=== PATIENT | female | born 1945 | race Caucasian/White ===

== ENCOUNTER 2017-01-12 13:22 | Emergency (ER) | payer MEDICARE ==
[~2017-01-12] VITALS: Ht 162.6 cm; Wt 60.6 kg
[~2017-01-12 13:22] MED LIST: CALC750T PO; FISH100020 PO; LEVO25TA36 PO; LIOT5 PO; LORT7.5T3 PO; MOTR200T PO; MS C60TA4 PO; NEUR800T PO; WOMETAB5 PO
[2017-01-12 13:38] VITALS: BP 98/59; PULSE 88; RESP 16; TEMP 98.6; O2SAT 97
[2017-01-12] MEDS ORDERED: XARE10TA PO (13:58)
[2017-01-12] MEDS ORDERED: HYDR-2376 PO (13:58)
[2017-01-12] MEDS ORDERED: LIOT5TAB3 PO (13:58)
[2017-01-12] MEDS ORDERED: LEVO150T7 PO (13:58)
[2017-01-12] MEDS ORDERED: GABA400C5 PO (13:58)
[2017-01-12] MEDS ORDERED: [UNRECOGNIZED DRUG - CODE] CHEW (13:58)
[2017-01-12] MEDS ORDERED: MORP1TAB26 PO (13:58)
[2017-01-12] MEDS ORDERED: SODIUM CHLORIDE 0.9% FLUSH 10 ML FLUSH IV FLUSH PRN (14:00)
--- NOTE | 2017-01-12 14:01 | PD ---
HPI Chief Complaint: Edema Time Seen by Provider: 14:00 Travel History International Travel<30 days: No Contact w/Intl Traveler<30days: No Traveled to known affect area: No History of Present Illness HPI 71-year-old female presents the emergency department for evaluation of swelling and pain of the left lower extremity secondary to recent knee replacement 6 days prior to arrival. Patient is on Zaroxolyn was concerned about possible DVT. Patient denies fevers in the last 48 hours. Patient does state a small fever on 3 days ago, but none since. Patient states home health nurse assessed the wound earlier today, and felt that she should be evaluated due to the increasing swelling in the leg. Dr. Layton is her orthopedic surgeon who recommended her coming to the emergency department. Patient is currently not on antibiotics. She is allergic to penicillin and adhesives. PFSH Past Medical History Hx Anticoagulant Therapy: Yes Arthritis: Yes (ALL OVER) Asthma: No Autoimmune Disease: No Blood Disorders: No Anxiety: No Depression: No Heart Rhythm Problems: No Cancer: Yes (BREAST) Cardiovascular Problems: No High Cholesterol: No Chest Pain: No Congestive Heart Failure: No COPD: No Cerebrovascular Accident: No Diabetes: No Diminished Hearing: No Endocrine: Yes Gastrointestinal Disorders: Yes GERD: No Glaucoma: No Genitourinary: No Headaches: No Hepatitis: No Hiatal Hernia: Yes Heparin Induced Thrombocytopen: No Hypertension: No Immune Disorder: No Implanted Vascular Access Dvce: No Kidney Stones: No Musculoskeletal: Yes (SCOLIOSIS) Neurologic: No Psychiatric: No Reproductive: No Respiratory: No Migraines: No Myocardial Infarction: No Radiation Therapy: Yes (5 YEAR AGO) Renal Failure: No Seizures: No Sickle Cell Disease: No Sleep Apnea: No Thyroid Disease: Yes Ulcer: No Tetanus Vaccination: Unknown ?: Not Menopausal: Yes Past Surgical History Abdominal Surgery: No AICD: No Appendectomy: Yes Arteriovenous Shunt: No Cardiac Surgery: No Cholecystectomy: Yes Gynecologic Surgery: Yes (SPINAL FUSION) Hysterectomy: Yes Insulin Pump: No Joint Replacement: No Oral Surgery: Yes (LTK) Pacemaker: No Thoracic Surgery: No Other Surgery: Yes (LUMPECTOMY) Social History Alcohol Use: Yes (SOCIAL DRINKER) Tobacco Use: Yes (1/2 PACK PER DAY. THIS AM ABOUT 0715) Substance Use: No Allergies-Medications (Allergen,Severity, Reaction): Coded Allergies: Penicillin (Verified Allergy, Severe, THROAT CLOSES, 01/12/17) Adhesives (Verified Allergy, Unknown, 01/12/17) Reported Meds & Prescriptions Reported Meds & Active Scripts Active Cipro (Ciprofloxacin HCl) 500 Mg Tab 500 Mg PO BID Reported Chewable Calcium (Calcium-Vitamins D & K) 500-200-40 Mg-Unit-Mcg Chew 1 Tab CHEW Morphine ER (Morphine Sulfate) 60 Mg Tab 60 Mg PO BID Gabapentin 400 Mg Cap 400 Cap PO QID Hydrocodone-Acetaminophen 7.5-300 Mg Tab 1 Tab PO Q4H PRN Levothyroxine (Levothyroxine Sodium) 150 Mcg Tab 150 Mcg PO DAILY Liothyronine (Liothyronine Sodium) 5 Mcg Tab 5 Mcg PO DAILY Xarelto (Rivaroxaban) 10 Mg Tab 10 Mg PO DAILY Review of Systems Except as stated in HPI: all other systems reviewed are Neg General / Constitutional: No: Fever Eyes: No: Visual changes HENT: No: Headaches Cardiovascular: No: Chest Pain or Discomfort Respiratory: No: Shortness of Breath Gastrointestinal: No: Abdominal Pain Genitourinary: No: Dysuria Musculoskeletal: No: Pain Skin: No Rash Neurologic: No: Weakness Psychiatric: No: Depression Endocrine: No: Polydipsia Hematologic/Lymphatic: No: Easy Bruising Physical Exam Narrative GENERAL: Patient appears no acute distress. SKIN: Warm and dry. Normal color. Normal turgor. Skin around the left knee incision site appears somewhat erythematous and warm to the touch and tender as well. Incision itself appears to be well healing without dehiscence or significant signs of drainage. There is localized swelling, erythema, and warmth. HEAD: Atraumatic. Normocephalic. EYES: Pupils equal and round. No scleral icterus. No injection or drainage. ENT: No nasal bleeding or discharge. Mucous membranes pink and moist. Pharynx is normal. NECK: Trachea midline. Supple nontender. CARDIOVASCULAR: Regular rate and rhythm. No murmurs gallops or rubs. RESPIRATORY: No accessory muscle use. Clear to auscultation. Breath sounds equal bilaterally. MUSCULOSKELETAL: Extremities without clubbing, cyanosis, or edema. No obvious deformities. Right leg has swelling around the knee incision site mainly but not significantly in the calf or lower leg. Patient has negative Homans sign on the left. Pulses are 2+ and equal bilaterally in the lower extremities. Capillary refill is brisk. NEUROLOGICAL: Awake and alert. No obvious cranial nerve deficits. Motor grossly within normal limits. Five out of 5 muscle strength in the arms and legs. Normal speech. PSYCHIATRIC: Appropriate mood and affect; insight and judgment normal. Data Data Last Documented VS Vital Signs Date Time Temp Pulse Resp B/P Pulse Ox O2 Delivery O2 Flow Rate FiO2 01/12/17 14:17 95 16 97 Room Air 01/12/17 13:38 98.6 98/59 Orders Complete Blood Count With Diff (01/12/17 13:55) Comprehensive Metabolic Panel (01/12/17 13:55) Lactic Acid (01/12/17 13:55) Prothrombin Time / Inr (Pt) (01/12/17 13:55) Act Partial Throm Time (Ptt) (01/12/17 13:55) Iv Access Insert/Monitor (01/12/17 13:55) Ecg Monitoring (01/12/17 13:55) Oximetry (01/12/17 13:55) Sodium Chloride 0.9% Flush (Ns Flush) (01/12/17 14:00) Blood Culture (01/12/17 13:55) Us Leg Venous Doppler (01/12/17 13:55) Labs Laboratory Tests Test 01/12/17 01/12/17 12:19 14:07 White Blood Count 7.5 TH/MM3 Red Blood Count 3.33 MIL/MM3 Hemoglobin 9.6 GM/DL Hematocrit 28.8 % Mean Corpuscular Volume 86.5 FL Mean Corpuscular Hemoglobin 28.7 PG Mean Corpuscular Hemoglobin 33.2 % Concent Red Cell Distribution Width 12.9 % Platelet Count 304 TH/MM3 Mean Platelet Volume 7.3 FL Neutrophils (%) (Auto) 75.6 % Lymphocytes (%) (Auto) 14.5 % Monocytes (%) (Auto) 9.6 % Eosinophils (%) (Auto) 0.1 % Basophils (%) (Auto) 0.2 % Neutrophils # (Auto) 5.7 TH/MM3 Lymphocytes # (Auto) 1.1 TH/MM3 Monocytes # (Auto) 0.7 TH/MM3 Eosinophils # (Auto) 0.0 TH/MM3 Basophils # (Auto) 0.0 TH/MM3 CBC Comment DIFF FINAL Differential Comment Prothrombin Time 11.9 SEC Prothromb Time International 1.1 RATIO Ratio Activated Partial 38.3 SEC Thromboplast Time Sodium Level 139 MEQ/L Potassium Level 4.2 MEQ/L Chloride Level 102 MEQ/L Carbon Dioxide Level 28.7 MEQ/L Anion Gap 8 MEQ/L Blood Urea Nitrogen 13 MG/DL Creatinine 0.57 MG/DL Estimat Glomerular Filtration 104 ML/MIN Rate Random Glucose 129 MG/DL Lactic Acid Level 1.5 mmol/L Calcium Level 8.2 MG/DL Total Bilirubin 0.4 MG/DL Aspartate Amino Transf 46 U/L (AST/SGOT) Alanine Aminotransferase 68 U/L (ALT/SGPT) Alkaline Phosphatase 168 U/L Total Protein 6.4 GM/DL Albumin 2.8 GM/DL MDM Medical Decision Making Medical Screen Exam Complete: Yes Emergency Medical Condition: Yes Differential Diagnosis Postop left knee replacement. Possible DVT. Possible infection. Cellulitis. Narrative Course Patient is medically stable at time of exam. Labs ordered including CBC, CMP, lipase, coagulation studies, blood cultures 2 sent to the lab. Ultrasound of left lower extremity is ordered. CBC, CMP, and lipase are all within normal limits. Ultrasound is negative for DVT but Cueto cyst is noted. Please see radiology note. 1500 hrs., call was placed to Dr. Layton's office to discuss the patient. 1515 hrs. patient was discussed with Yamil STOCKTON, and patient was discussed. He recommends starting the patient on Cipro 500 mg twice a day 7 days. Patient was given her first dose here orally. Patient is to continue her therapy as previously prescribed at home, and follow- up with Dr. Layton's office as scheduled. Patient can return to emergency Department with worsening symptoms as needed. Diagnosis Primary Impression: Cellulitis of left knee Additional Impression: Status post total knee replacement, left Referrals: Orthopedist Patient Instructions: General Instructions Additional Instructions: CBC, CMP, and lipase are all within normal limits. Ultrasound is negative for DVT but Cueto cyst is noted. Please see radiology note. 1500 hrs., call was placed to Dr. Layton's office to discuss the patient. 1515 hrs. patient was discussed with Yamil STOCKTON, and patient was discussed. He recommends starting the patient on Cipro 500 mg twice a day 7 days. Patient was given her first dose here orally. Patient is to continue her therapy as previously prescribed at home, and follow- up with Dr. Layton's office as scheduled. Patient can return to emergency Department with worsening symptoms as needed. Med/Other Pt SpecificInfo: Prescription(s) given, Wound Care Scripts Ciprofloxacin (Cipro)500 Mg Fda307 Mg PO BID #14 TAB Prov:Lynnette Garcia MD 01/12/17 Disposition: 01 DISCHARGE HOME Condition: Stable Chet Qiu Jan 12, 2017 14:01
[2017-01-12 14:16] VITALS: O2SAT 97
[2017-01-12 14:18] LABS: AUTOMATED NEUTROPHIL # 5.7 TH/MM3 (1.8-7.7); BASOPHIL % 0.2 % (0.0-2.0); EOSINOPHIL % 0.1 % (0.0-4.0); HEMATOCRIT 28.8 % (35.0-46.0); HEMO FLAGS DIFF FINAL; LYMPH % 14.5 % (9.0-44.0); LYMPHOCYTE # 1.1 TH/MM3 (1.0-4.8); MEAN CELL VOLUME 86.5 FL (80.0-100.0); MEAN CORPUSCULAR HEMOGLOBIN 28.7 PG (27.0-34.0); MEAN CORPUSCULAR HGB CONC 33.2 % (32.0-36.0); MONO % 9.6 % (0.0-8.0); NEUT % 75.6 % (16.0-70.0); PLATELET COUNT 304 TH/MM3 (150-450); RED BLOOD COUNT 3.33 MIL/MM3 (4.00-5.30); RED CELL DISTRIBUTION WIDTH 12.9 % (11.6-17.2); WHITE BLOOD COUNT 7.5 TH/MM3 (4.0-11.0)
[2017-01-12 14:33] LABS: CHLORIDE 102 MEQ/L (98-107); POTASSIUM 4.2 MEQ/L (3.5-5.1); SODIUM (NA) 139 MEQ/L (136-145)
[2017-01-12 14:37] LABS: ANION GAP 8 MEQ/L (5-15); BICARBONATE 28.7 MEQ/L (21.0-32.0); BLOOD UREA NITROGEN 13 MG/DL (7-18)
[2017-01-12 14:38] LABS: APTT (PATIENT) 38.3 SEC (24.3-30.1); INTERNATIONAL NORMALIZED RATIO 1.1 RATIO; PROTHROMBIN TIME - PATIENT 11.9 SEC (9.8-11.6)
[2017-01-12 14:40] LABS: ALT (GPT) 68 U/L (10-53); AST (GOT) 46 U/L (15-37); GLOMERULAR FILTRATION RATE 104 ML/MIN (>89)
--- NOTE | 2017-01-12 14:40 | RADHPO ---
EXAM DATE/TIME: 01/12/2017 14:15 [facility] COMPARISON: No previous studies available for comparison. INDICATIONS : Post total knee replacement six days ago; pain and swelling left leg. MEDICAL HISTORY : Carcinoma, breast. Hernia. Scoliosis. Thyroid disease. SURGICAL HISTORY : Hysterectomy. Appendectomy. Cholecystectomy. Spinal fusion. Breast lumpectomy. ENCOUNTER: Initial ACUITY: 1 day PAIN SCORE: 7/10 LOCATION: Left leg. TECHNIQUE: Venous ultrasound of the leg was performed from the inguinal ligament to the proximal calf. Real-allan e, color Doppler and spectral tracing, compression and augmentation techniques were used. FINDINGS: There is normal compressibility of the deep venous system from the inguinal region to the proximal ca lf. No echogenic clot is seen in the lumen of the common femoral, femoral, popliteal, and posterior tibial veins. There is a normal response of the venous system to proximal and distal augmentation an d respiration. There is a small ovoid avascular fluid collection in the medial popliteal fossa measuring 1.7 x 0.4 x 1.5 cm. CONCLUSION: 1. No DVT is identified within the left lower extremity. 2. There is a small Cueto's cyst in the popliteal fossa. Dirk Brown MD on January 12, 2017 at 14:37 Board Certified Radiologist. This report was verified electronically.
[2017-01-12 14:41] LABS: TOTAL BILIRUBIN ADULT 0.4 MG/DL (0.2-1.0)
[2017-01-12 14:43] LABS: ALKALINE PHOSPHATASE 168 U/L (45-117)
[2017-01-12] MEDS ORDERED: CIPR-9 PO (15:16)
[2017-01-12] MEDS ORDERED: CIPROFLOXACIN 500 MG TAB PO ONE (15:30)
[2017-01-12 15:36] VITALS: BP 111/52
== END 2017-01-12 15:52 | disposition home or self-care (01) ==
LOC: PHED 13:22
DX: L03.116 Cellulitis of left lower limb (principal); Z96.652 Presence of left artificial knee joint; M79.605 Pain in left leg
CPT/HCPCS: 80053; 83605; 85025; 85610; 85730; 87040; 93971

== ENCOUNTER 2017-03-26 05:02 | Inpatient (IN) | payer MEDICARE ==
[2017-03-26] VITALS (12 sets, daily range): BP systolic 148–179; BP diastolic 63–94; PULSE 56–150; RESP 16–23; TEMP 97.4–98.2; O2SAT 94–99
[~2017-03-26] VITALS: Ht 157.5 cm; Wt 66.5 kg
[~2017-03-26 05:02] MED LIST changes: -CALC750T PO; +CIPR-9 PO; -FISH100020 PO; +GABA400C5 PO; +HYDR-2376 PO; +LEVO150T7 PO; -LEVO25TA36 PO; -LIOT5 PO; +LIOT5TAB3 PO; -LORT7.5T3 PO; +MORP1TAB26 PO; -MOTR200T PO; -MS C60TA4 PO; -NEUR800T PO; -WOMETAB5 PO; +XARE10TA PO; +[UNRECOGNIZED DRUG - CODE] CHEW
[2017-03-26] MEDS ORDERED: ONDANSETRON HCL 4 MG/2 ML VIAL IVP ONE (05:45)
[2017-03-26] MEDS ORDERED: SODIUM CHLORIDE 0.9% FLUSH 10 ML FLUSH IV FLUSH PRN ×2 (05:45→09:45)
[2017-03-26 06:15] LABS: AUTOMATED NEUTROPHIL # 8.5 TH/MM3 (1.8-7.7); BASOPHIL % 0.4 % (0.0-2.0); EOSINOPHIL % 0.1 % (0.0-4.0); HEMATOCRIT 35.4 % (35.0-46.0); HEMO FLAGS DIFF FINAL; LYMPH % 7.5 % (9.0-44.0); LYMPHOCYTE # 0.7 TH/MM3 (1.0-4.8); MEAN CELL VOLUME 85.1 FL (80.0-100.0); MEAN CORPUSCULAR HEMOGLOBIN 29.2 PG (27.0-34.0); MEAN CORPUSCULAR HGB CONC 34.3 % (32.0-36.0); MONO % 7.6 % (0.0-8.0); NEUT % 84.4 % (16.0-70.0); PLATELET COUNT 253 TH/MM3 (150-450); RED BLOOD COUNT 4.15 MIL/MM3 (4.00-5.30); RED CELL DISTRIBUTION WIDTH 16.6 % (11.6-17.2)
[2017-03-26 06:18] LABS: GLUCOSE,URINE NEG (NEG); KETONE, URINE NEG (NEG); NITRITE,URINE NEG (NEG); PH, URINE 7.5 (5.0-8.5)
[2017-03-26 06:27] LABS: BLOOD, URINE MOD (NEG); CHLORIDE 97 MEQ/L (98-107); POTASSIUM 3.2 MEQ/L (3.5-5.1); SODIUM (NA) 136 MEQ/L (136-145)
[2017-03-26 06:28] LABS: METHOD OF COLLECTION CLEAN CATCH; URINE COLOR YELLOW (YELLW/STRAW)
--- NOTE | 2017-03-26 06:29 | RADRPT ---
EXAM DATE/TIME: 03/26/2017 05:54 [facility] COMPARISON: No previous studies available for comparison. INDICATIONS : Chest and abdominal pain. MEDICAL HISTORY : Carcinoma, breast. Hernia. Scoliosis. Thyroid disease. SURGICAL HISTORY : Hysterectomy. Appendectomy. Cholecystectomy. Spinal fusion. Breast lumpectomy. ENCOUNTER: Initial ACUITY: 1 day PAIN SCORE: 9/10 LOCATION: Bilateral lower chest FINDINGS: No infiltrate, effusion or pneumothorax demonstrated. Heart size within normal limits. Thoracic aorta is tortuous. Patient has a mild S-shaped thoracolumbar curvature. She has had previous thoracolumbar fusion with p osterior instrumentation. CONCLUSION: No evidence of acute cardiopulmonary disease. Dirk Ozuna MD on March 26, 2017 at 6:28 Board Certified Radiologist. This report was verified electronically.
[2017-03-26 06:30] LABS: APTT (PATIENT) 28.5 SEC (24.3-30.1); COMMENT (UR) CULT NOT INDICATED; CULTURE IF INDICATED CULT NOT INDICATED; PROTHROMBIN TIME - PATIENT 10.6 SEC (9.8-11.6); RBC, URINE 15-19 /hpf (0-3); SQUAMOUS EPITHELIAL CELL URINE 0-5 /hpf (0-5)
[2017-03-26 06:31] LABS: ANION GAP 8 MEQ/L (5-15); BICARBONATE 31.3 MEQ/L (21.0-32.0); BLOOD UREA NITROGEN 8 MG/DL (7-18)
[2017-03-26 06:34] LABS: ALT (GPT) 186 U/L (10-53); AST (GOT) 129 U/L (15-37); GLOMERULAR FILTRATION RATE 133 ML/MIN (>89)
[2017-03-26 06:35] LABS: TOTAL BILIRUBIN ADULT 6.8 MG/DL (0.2-1.0)
[2017-03-26 06:37] LABS: ALKALINE PHOSPHATASE 522 U/L (45-117)
--- NOTE | 2017-03-26 07:14 | PD ---
HPI Chief Complaint: GI Complaint Time Seen by Provider: 05:45 Travel History International Travel<30 days: No Contact w/Intl Traveler<30days: No Traveled to known affect area: No History of Present Illness HPI 71-year-old female presents to the emergency department for complaint of one day of nausea vomiting diarrhea and abdominal pain. Patient was recently seen by her specialist for complaint of pruritus. Patient was started on triamcinolone cream and Vistaril. Patient seemed to think her symptoms worsened after starting these medications. Patient has history of idiopathic urticaria and used an EpiPen without symptomatic relief. Patient also use Benadryl. Patient has had no hematemesis coffee-ground emesis melena or hematochezia. Patient states that pain in her abdomen is intermittent and crampy. Patient is well for some time. Patient underwent elective PFSH Past Medical History Hx Anticoagulant Therapy: Yes Arthritis: Yes (ALL OVER) Asthma: No Autoimmune Disease: No Blood Disorders: No Anxiety: No Depression: No Heart Rhythm Problems: No Cancer: Yes (BREAST) Cardiovascular Problems: No High Cholesterol: No Chest Pain: No Congestive Heart Failure: No COPD: No Cerebrovascular Accident: No Diabetes: No Diminished Hearing: No Endocrine: Yes Gastrointestinal Disorders: Yes GERD: No Glaucoma: No Genitourinary: No Headaches: No Hepatitis: No Hiatal Hernia: Yes Heparin Induced Thrombocytopen: No Hypertension: No Immune Disorder: No Implanted Vascular Access Dvce: No Kidney Stones: No Musculoskeletal: Yes (SCOLIOSIS) Neurologic: No Psychiatric: No Reproductive: No Respiratory: No Migraines: No Myocardial Infarction: No Radiation Therapy: Yes (5 YEAR AGO) Renal Failure: No Seizures: No Sickle Cell Disease: No Sleep Apnea: No Thyroid Disease: Yes Ulcer: No ?: Not Menopausal: Yes Past Surgical History Abdominal Surgery: No AICD: No Appendectomy: Yes Arteriovenous Shunt: No Cardiac Surgery: No Cholecystectomy: Yes Gynecologic Surgery: Yes (SPINAL FUSION) Hysterectomy: Yes Insulin Pump: No Joint Replacement: No Oral Surgery: Yes (LTK) Pacemaker: No Thoracic Surgery: No Other Surgery: Yes (LUMPECTOMY) Social History Alcohol Use: Yes (SOCIAL DRINKER) Tobacco Use: Yes (1/2 PACK PER DAY. THIS AM ABOUT 0715) Substance Use: No Allergies-Medications (Allergen,Severity, Reaction): Coded Allergies: Penicillin (Verified Allergy, Severe, THROAT CLOSES, 03/26/17) Adhesives (Verified Allergy, Unknown, 03/26/17) Reported Meds & Prescriptions Reported Meds & Active Scripts Active Reported Chewable Calcium (Calcium-Vitamins D & K) 500-200-40 Mg-Unit-Mcg Chew 1 Tab CHEW Morphine ER (Morphine Sulfate) 60 Mg Tab 60 Mg PO BID Gabapentin 400 Mg Cap 400 Cap PO QID Hydrocodone-Acetaminophen 7.5-300 Mg Tab 1 Tab PO Q4H PRN Levothyroxine (Levothyroxine Sodium) 150 Mcg Tab 150 Mcg PO DAILY Liothyronine (Liothyronine Sodium) 5 Mcg Tab 5 Mcg PO DAILY Physical Exam Narrative GENERAL: Well-developed well-nourished female in no acute distress no respiratory distress SKIN: Warm and dry. HEAD: Normocephalic. EYES: Mild scleral icterus. No injection or drainage. NECK: Supple, trachea midline. No JVD or lymphadenopathy. CARDIOVASCULAR: Regular rate and rhythm without murmurs, gallops, or rubs. RESPIRATORY: Breath sounds equal bilaterally. No accessory muscle use. GASTROINTESTINAL: Abdomen soft, non-tender, nondistended. MUSCULOSKELETAL: No cyanosis, or edema. BACK: Nontender without obvious deformity. No CVA tenderness. Data Data Last Documented VS Vital Signs Date Time Temp Pulse Resp B/P Pulse Ox O2 Delivery O2 Flow Rate FiO2 03/26/17 06:11 18 99 Room Air 03/26/17 05:41 98.2 69 170/87 Orders Complete Blood Count With Diff (03/26/17 05:45) Comprehensive Metabolic Panel (03/26/17 05:45) Lipase (03/26/17 05:45) Lactic Acid (03/26/17 05:45) Prothrombin Time / Inr (Pt) (03/26/17 05:45) Act Partial Throm Time (Ptt) (03/26/17 05:45) Urinalysis - C+S If Indicated (03/26/17 05:45) Iv Access Insert/Monitor (03/26/17 05:45) Ecg Monitoring (03/26/17 05:45) Oximetry (03/26/17 05:45) Ondansetron Inj (Zofran Inj) (03/26/17 05:45) Sodium Chloride 0.9% Flush (Ns Flush) (03/26/17 05:45) Electrocardiogram (03/26/17 05:45) Chest, Single Ap (03/26/17 05:45) Blood Culture (03/26/17 05:45) Ct Abd/Pel W Iv Contrast(Rout) (03/26/17 ) Tylenol (Acetaminophen) (03/26/17 07:26) Labs Laboratory Tests Test 03/26/17 03/26/17 05:50 05:55 White Blood Count 10.0 TH/MM3 Red Blood Count 4.15 MIL/MM3 Hemoglobin 12.1 GM/DL Hematocrit 35.4 % Mean Corpuscular Volume 85.1 FL Mean Corpuscular Hemoglobin 29.2 PG Mean Corpuscular Hemoglobin 34.3 % Concent Red Cell Distribution Width 16.6 % Platelet Count 253 TH/MM3 Mean Platelet Volume 9.6 FL Neutrophils (%) (Auto) 84.4 % Lymphocytes (%) (Auto) 7.5 % Monocytes (%) (Auto) 7.6 % Eosinophils (%) (Auto) 0.1 % Basophils (%) (Auto) 0.4 % Neutrophils # (Auto) 8.5 TH/MM3 Lymphocytes # (Auto) 0.7 TH/MM3 Monocytes # (Auto) 0.8 TH/MM3 Eosinophils # (Auto) 0.0 TH/MM3 Basophils # (Auto) 0.0 TH/MM3 CBC Comment DIFF FINAL Differential Comment Prothrombin Time 10.6 SEC Prothromb Time International 1.0 RATIO Ratio Activated Partial 28.5 SEC Thromboplast Time Urine Collection Type CLEAN CATCH Urine Color YELLOW Urine Turbidity CLEAR Urine pH 7.5 Urine Specific [place] 1.008 Urine Protein NEG mg/dL Urine Glucose (UA) NEG mg/dL Urine Ketones NEG mg/dL Urine Occult Blood MOD Urine Nitrite NEG Urine Bilirubin SMALL Urine Leukocyte Esterase NEG Urine RBC 15-19 /hpf Urine Squamous Epithelial 0-5 /hpf Cells Urine Amorphous Sediment FEW Microscopic Urinalysis Comment CULT NOT INDICATED Urine Collection Time 0550 Sodium Level 136 MEQ/L Potassium Level 3.2 MEQ/L Chloride Level 97 MEQ/L Carbon Dioxide Level 31.3 MEQ/L Anion Gap 8 MEQ/L Blood Urea Nitrogen 8 MG/DL Creatinine 0.46 MG/DL Estimat Glomerular Filtration 133 ML/MIN Rate Random Glucose 115 MG/DL Calcium Level 9.3 MG/DL Total Bilirubin 6.8 MG/DL Aspartate Amino Transf 129 U/L (AST/SGOT) Alanine Aminotransferase 186 U/L (ALT/SGPT) Alkaline Phosphatase 522 U/L Total Protein 7.2 GM/DL Albumin 3.3 GM/DL Lipase 212 U/L Lactic Acid Level 0.8 mmol/L MDM Medical Decision Making Medical Screen Exam Complete: Yes Emergency Medical Condition: Yes Medical Record Reviewed: Yes Interpretation(s) EKG: Normal sinus rhythm rate 67 incomplete right bundle branch block and LVH no acute ST elevation or injury pattern change noted; changes noted since 2009 Last Impressions Chest X-Ray 03/26/17 0545 Signed Impressions: Service Date/Time: , March 26, 2017 05:54 - CONCLUSION: No evidence of acute cardiopulmonary disease. Dirk Ozuna MD CBC & BMP Diagram 03/26/17 05:50 Vital Signs Date Time Temp Pulse Resp B/P Pulse Ox O2 Delivery O2 Flow Rate FiO2 03/26/17 06:11 18 99 Room Air 03/26/17 05:46 18 03/26/17 05:41 98.2 69 18 170/87 03/26/17 05:09 98.2 69 18 170/87 99 LFT'S: TB: 6.8 AST 149 ALT 186 and alkaline phosphatase 522 all her elevated; lipase is within normal range Lactic acid: 0.8 not elevated Differential Diagnosis Adverse medication reaction, hepatitis, choledocholithiasis, pancreatitis, acetaminophen toxicity, viral syndrome Narrative Course Patient placed on deburrer IV access obtained specimens collected and sent for resulting; patient administered Zofran 4 mg IV Patient with icteric sclerae identified to have elevated total bilirubin of 6.8 was elevated LFTs; chest x-ray no acute process; patient resting comfortably after Zofran care signed over to Merry Morel MD Mar 26, 2017 07:14
[2017-03-26] MEDS ORDERED: IOHEXOL 350 MG/ML 10 ML VIAL (for RAD DIAG) IV ONE (07:42)
--- NOTE | 2017-03-26 08:03 | RADRPT ---
EXAM DATE/TIME: 03/26/2017 07:26 [facility] COMPARISON: No previous studies available for comparison. INDICATIONS : Periumbilical pain. Nausea, vomiting and diarrhea. IV CONTRAST: 85 cc Omnipaque 350 (iohexol) IV ORAL CONTRAST: No oral contrast ingested. RADIATION DOSE: 6.20 CTDIvol (mGy) MEDICAL HISTORY : Carcinoma, breast. Hernia, hiatal. SURGICAL HISTORY : Appendectomy. Cholecystectomy.Hysterectomy.Ebcki rods. ENCOUNTER: Initial ACUITY: 1 day PAIN SCALE: 7/10 LOCATION: Periumbilical TECHNIQUE: Volumetric scanning of the abdomen and pelvis was performed. Using automated exposure control and ad justment of the mA and/or kV according to patient size, radiation dose was kept as low as reasonably achievable to obtain optimal diagnostic quality images. FINDINGS: LOWER LUNGS: The visualized lower lungs are clear. LIVER: There is severe intrahepatic and extrahepatic bile duct dilatation with the common bile duct measurin g approximately 7 mm and abruptly terminating in the region of the pancreatic head. Gallbladder is no t visualized. No focal liver lesion is identified. SPLEEN: The spleen is normal in size but contains a hypodense 19 mm mass in the inferior medial aspect. PANCREAS: There is dilation of the main pancreatic duct measuring up to 7 mm. And abruptly terminates in the pa ncreatic head. There is beam hardening artifact from the patient's spinal hardware partially obscurin g the pancreatic head. A discrete mass is not visualized. KIDNEYS: Normal in size and shape. There is no mass, stone or hydronephrosis. There is a 19 mm low-density le veronica in the right mid kidney. Artifact from the spinal hardware precludes accurate characterization b ut features favor a cyst. ADRENAL GLANDS: Within normal limits. VASCULAR: There is no aortic aneurysm. The abdominal aorta is tortuous with mild atherosclerotic disease. BOWEL/MESENTERY: The stomach, small bowel, and colon demonstrate no acute abnormality. There is no free intraperitone al air or fluid. There is sigmoid diverticulosis. ABDOMINAL WALL: Within normal limits. RETROPERITONEUM: There is no lymphadenopathy. BLADDER: No wall thickening or mass. REPRODUCTIVE: Uterus is absent. No adnexal abnormality is seen. INGUINAL: There is no lymphadenopathy or hernia. MUSCULOSKELETAL: There is thoracic and lumbar scoliosis with posterior spinal hardware present extending from the visu alized inferior thoracic spine to the pelvis. There has been prior laminectomy. Bone changes in the p osterior iliac bones bilaterally and are likely related to prior bone graft harvest site. CONCLUSION: 1. Abnormal examination with severe intra-and extrahepatic bile duct dilatation and pancreatic duct d ilatation with abrupt caliber change of the ducts in the region of the pancreatic head. A pancreatic head mass is not seen but the pancreas is partially obscured from artifact related to the patient's s david hardware. Ideally, the pancreas and ductal system should be further evaluated with a pancreas p rotocol MRI with and without intravenous contrast to include MRCP images. The concern is for a pancre atic head adenocarcinoma. 2. There is a 19 mm mass in the spleen. Imaging features are nonspecific on this examination. Both be nign and potentially malignant processes can have this appearance. Attention can be paid to this at t he time of MRI to potentially offer additional characterization. These findings were discussed with Dr. Helms via telephone at the time of this dictation. Dirk Brown MD on March 26, 2017 at 7:49 Board Certified Radiologist. This report was verified electronically.
--- NOTE | 2017-03-26 08:28 | PD ---
Physical Exam Narrative Patient was seen by ED physician and signed out to me. Data Data Last Documented VS Vital Signs Date Time Temp Pulse Resp B/P Pulse Ox O2 Delivery O2 Flow Rate FiO2 03/26/17 07:49 66 16 148/63 98 Room Air 03/26/17 05:41 98.2 Orders Complete Blood Count With Diff (03/26/17 05:45) Comprehensive Metabolic Panel (03/26/17 05:45) Lipase (03/26/17 05:45) Lactic Acid (03/26/17 05:45) Prothrombin Time / Inr (Pt) (03/26/17 05:45) Act Partial Throm Time (Ptt) (03/26/17 05:45) Urinalysis - C+S If Indicated (03/26/17 05:45) Iv Access Insert/Monitor (03/26/17 05:45) Ecg Monitoring (03/26/17 05:45) Oximetry (03/26/17 05:45) Ondansetron Inj (Zofran Inj) (03/26/17 05:45) Sodium Chloride 0.9% Flush (Ns Flush) (03/26/17 05:45) Electrocardiogram (03/26/17 05:45) Chest, Single Ap (03/26/17 05:45) Blood Culture (03/26/17 05:45) Ct Abd/Pel W Iv Contrast(Rout) (03/26/17 ) Tylenol (Acetaminophen) (03/26/17 07:26) Iohexol 350 Inj (Omnipaque 350 Inj) (03/26/17 07:42) Labs Laboratory Tests Test 03/26/17 03/26/17 05:50 05:55 White Blood Count 10.0 TH/MM3 Red Blood Count 4.15 MIL/MM3 Hemoglobin 12.1 GM/DL Hematocrit 35.4 % Mean Corpuscular Volume 85.1 FL Mean Corpuscular Hemoglobin 29.2 PG Mean Corpuscular Hemoglobin 34.3 % Concent Red Cell Distribution Width 16.6 % Platelet Count 253 TH/MM3 Mean Platelet Volume 9.6 FL Neutrophils (%) (Auto) 84.4 % Lymphocytes (%) (Auto) 7.5 % Monocytes (%) (Auto) 7.6 % Eosinophils (%) (Auto) 0.1 % Basophils (%) (Auto) 0.4 % Neutrophils # (Auto) 8.5 TH/MM3 Lymphocytes # (Auto) 0.7 TH/MM3 Monocytes # (Auto) 0.8 TH/MM3 Eosinophils # (Auto) 0.0 TH/MM3 Basophils # (Auto) 0.0 TH/MM3 CBC Comment DIFF FINAL Differential Comment Prothrombin Time 10.6 SEC Prothromb Time International 1.0 RATIO Ratio Activated Partial 28.5 SEC Thromboplast Time Urine Collection Type CLEAN CATCH Urine Color YELLOW Urine Turbidity CLEAR Urine pH 7.5 Urine Specific [place] 1.008 Urine Protein NEG mg/dL Urine Glucose (UA) NEG mg/dL Urine Ketones NEG mg/dL Urine Occult Blood MOD Urine Nitrite NEG Urine Bilirubin SMALL Urine Leukocyte Esterase NEG Urine RBC 15-19 /hpf Urine Squamous Epithelial 0-5 /hpf Cells Urine Amorphous Sediment FEW Microscopic Urinalysis Comment CULT NOT INDICATED Urine Collection Time 0550 Sodium Level 136 MEQ/L Potassium Level 3.2 MEQ/L Chloride Level 97 MEQ/L Carbon Dioxide Level 31.3 MEQ/L Anion Gap 8 MEQ/L Blood Urea Nitrogen 8 MG/DL Creatinine 0.46 MG/DL Estimat Glomerular Filtration 133 ML/MIN Rate Random Glucose 115 MG/DL Calcium Level 9.3 MG/DL Total Bilirubin 6.8 MG/DL Aspartate Amino Transf 129 U/L (AST/SGOT) Alanine Aminotransferase 186 U/L (ALT/SGPT) Alkaline Phosphatase 522 U/L Total Protein 7.2 GM/DL Albumin 3.3 GM/DL Lipase 212 U/L Lactic Acid Level 0.8 mmol/L [facility] Supervised Visit with SHARON: No Interpretation(s) Last Impressions Chest X-Ray 03/26/17 0545 Signed Impressions: Service Date/Time: March 05:54 - CONCLUSION: No evidence of acute cardiopulmonary disease. Dirk Ozuna MD Abdomen/Pelvis CT 03/26/17 0000 Signed Impressions: Service Date/Time: March 07:26 - CONCLUSION: 1. Abnormal examination with severe intra-and extrahepatic bile duct dilatation and pancreatic duct dilatation with abrupt caliber change of the ducts in the region of the pancreatic head. A pancreatic head mass is not seen but the pancreas is partially obscured from artifact related to the patient's spinal hardware. Ideally, the pancreas and ductal system should be further evaluated with a pancreas protocol MRI with and without intravenous contrast to include MRCP images. The concern is for a pancreatic head adenocarcinoma. 2. There is a 19 mm mass in the spleen. Imaging features are nonspecific on this examination. Both benign and potentially malignant processes can have this appearance. Attention can be paid to this at the time of MRI to potentially offer additional characterization. These findings were discussed with Dr. Helms via telephone at the time of this dictation. Dirk Brown MD 8:14 AM. CBC within normal limit. Potassium 3.2. Total bili 6.8. AST 129. ALT 186. Alkaline phosphatase 522. UA is positive RBC. Narrative Course I spoke with radiologist. Advised patient to be transferred to the main hospital for better MRI imaging. Diagnosis Primary Impression: Abdominal pain Qualified Code: R10.11 - Right upper quadrant abdominal pain Additional Impressions: Pancreatic duct obstruction Transaminitis Hypokalemia Surendra Helms MD Mar 26, 2017 08:28
[2017-03-26] MEDS ORDERED: MORPHINE SULFATE 4 MG/ML INJ IV PUSH ONE (08:45)
[2017-03-26] MEDS ORDERED: SODIUM CHLORIDE 0.9% FLUSH 10 ML FLUSH IVF PRN (09:30)
[2017-03-26] MEDS: SODIUM CHLOR 0.9% 1000 ML INJ 1,000 ML IV SCH ×2 (09:30→22:41)
[2017-03-26] MEDS ORDERED: BISACODYL 10 MG SUPP RECTAL PRN (09:45)
[2017-03-26] MEDS ORDERED: MAGNESIUM HYDROXIDE SUSP 30 ML CUP PO PRN (09:45)
[2017-03-26] MEDS ORDERED: ACETAMINOPHEN 325 MG TAB PO PRN (09:45)
[2017-03-26] MEDS ORDERED: ENALAPRILAT 1.25 MG/ML VIAL IV PUSH PRN (09:45)
[2017-03-26] MEDS ORDERED: LACTULOSE SYRUP 20 GM/30 ML CUP PO PRN (09:45)
[2017-03-26] MEDS ORDERED: SENNOSIDES 8.6 MG TAB PO PRN (09:45)
[2017-03-26] MEDS: ONDANSETRON HCL 4 MG/2 ML VIAL IV PRN ×2 (09:53→16:34)
[2017-03-26] MEDS ORDERED: HEPARIN SODIUM - SQ 10,000 UNITS/ML VIAL SQ SCH (10:00)
--- NOTE | 2017-03-26 10:09 | HHI.HP ---
HPI Service [facility] Primary Care Physician Simin Weller MD Admission Diagnosis pancreatic obstruction. Hepatic duct obstruction. Hypokalemia. Diagnoses: Travel History International Travel<30 Days: No Contact w/Intl Traveler <30 Da: No Traveled to Known Affected Are: No History of Present Illness This is a 71-year-old female with past medical history of breast cancer, acquired hypothyroidism, multiple spinal surgeries who presents to [facility] complaining of severe abdominal pain 05/14, diffuse but mostly located on the epigastrium, nonradiating, associated with nausea and vomiting and diarrhea, loss of appetite and weight loss which started approximately 2-3 weeks ago. Patient also has associated pruritus for which she has seen a sales apprentice who prescribed some topical creams and oral Benadryl without improvement. Patient denies fevers or chills, has occasional cough, denies dysuria. Review of Systems PI, other systems reviewed by me and negative Past Family Social History Past Medical History Patient denies history of hypertension Acquired hypothyroidism after thyroidectomy History of breast cancer that is post lumpectomy and radiation therapy 12 years ago Scoliosis Arthritis Past Surgical History Multiple spinal surgeries Appendectomy Cholecystectomy Lumpectomy Thyroidectomy Reported Medications Chewable Calcium (Calcium-Vitamins D & K) 500-200-40 Mg-Unit-Mcg Chew 1 Tab CHEW Morphine ER (Morphine Sulfate) 60 Mg Tab 60 Mg PO BID Gabapentin 400 Mg Cap 400 Cap PO QID Hydrocodone-Acetaminophen 7.5-300 Mg Tab 1 Tab PO Q4H PRN Levothyroxine (Levothyroxine Sodium) 150 Mcg Tab 150 Mcg PO DAILY Liothyronine (Liothyronine Sodium) 5 Mcg Tab 5 Mcg PO DAILY Allergies: Coded Allergies: Penicillin (Verified Allergy, Severe, THROAT CLOSES, 03/26/17) Adhesives (Verified Allergy, Unknown, 03/26/17) Active Ordered Medications Current Medications Medications (Trade) Dose Ordered Sig/Nadege Route Start Time Stop Time Status Last Admin (NS Flush) 2 ml UNSCH PRN IV FLUSH 03/26/17 05:45 (Zofran Inj) 4 mg Q6H PRN IV 03/26/17 09:30 (NS Flush) 2 ml BID IV FLUSH 03/26/17 21:00 Sodium Chloride 2 ml 2 ml UNSCH PRN IVF 03/26/17 09:30 (NS 1000 ml Inj) 1,000 ml @ 100 mls/hr Q10H IV 03/26/17 09:30 03/26/17 09:30 (NS Flush) 2 ml UNSCH PRN IV FLUSH 03/26/17 09:45 UNV (NS Flush) 2 ml BID IV FLUSH 03/26/17 21:00 UNV (Tylenol) 650 mg Q4H PRN PO 03/26/17 09:45 UNV (Heparin Inj) 5,000 units Q8H SQ 03/26/17 09:45 UNV (Kiley-Colace) 1 tab BID PO 03/26/17 21:00 UNV (Milk Of Magnesia Liq) 30 ml Q12H PRN PO 03/26/17 09:45 UNV (Senokot) 17.2 mg Q12H PRN PO 03/26/17 09:45 UNV (Dulcolax Supp) 10 mg DAILY PRN RECTAL 03/26/17 09:45 UNV (Lactulose Liq) 30 ml DAILY PRN PO 03/26/17 09:45 UNV (Vasotec Inj) 1.25 mg Q6H PRN IV PUSH 03/26/17 09:45 UNV Family History Her mother from pancreatic cancer Mother from throat cancer Social History The patient smokes half pack per day. Denies alcohol intake. Denies illegal drug use. The patient is . Patient has one son. Physical Exam Vital Signs Vital Signs Date Time Temp Pulse Resp B/P Pulse Ox O2 Delivery O2 Flow Rate FiO2 03/26/17 09:15 70 20 179/69 94 03/26/17 07:49 66 16 148/63 98 Room Air 03/26/17 06:11 18 99 Room Air 03/26/17 05:46 18 03/26/17 05:41 98.2 69 18 170/87 03/26/17 05:09 98.2 69 18 170/87 99 Physical Exam GENERAL: This is a very thin well-developed patient, in mild distress due to pain. SKIN: No rashes, ecchymoses or lesions. Cool and dry. (+) Jaundice HEAD: Atraumatic. Normocephalic. No temporal or scalp tenderness. EYES: Pupils equal round and reactive. Extraocular motions intact. No scleral icterus. No injection or drainage. (+) Icteric sclera ENT: Nose without bleeding, purulent drainage or septal hematoma. Throat without erythema, tonsillar hypertrophy or exudate. Uvula midline. Airway patent. NECK: Trachea midline. No JVD or lymphadenopathy. Supple, nontender, no meningeal signs. CARDIOVASCULAR: Regular rate and rhythm without murmurs, gallops, or rubs. RESPIRATORY: Clear to auscultation. Breath sounds equal bilaterally. No wheezes , rales, or rhonchi. GASTROINTESTINAL: Abdomen soft, tender to palpation of abdomen diffusely but mostly localized in the epigastric region, nondistended. No hepato-splenomegaly , or palpable masses. No guarding. MUSCULOSKELETAL: Extremities without clubbing, cyanosis, or edema. No joint tenderness, effusion, or edema noted. No calf tenderness. Negative Homans sign bilaterally. NEUROLOGICAL: Awake and alert. Cranial nerves II through XII intact. Motor and sensory grossly within normal limits. Five out of 5 muscle strength in all muscle groups. Normal speech. Laboratory Laboratory Tests Test 03/26/17 03/26/17 05:50 05:55 White Blood Count 10.0 Red Blood Count 4.15 Hemoglobin 12.1 Hematocrit 35.4 Mean Corpuscular Volume 85.1 Mean Corpuscular Hemoglobin 29.2 Mean Corpuscular Hemoglobin 34.3 Concent Red Cell Distribution Width 16.6 Platelet Count 253 Mean Platelet Volume 9.6 Neutrophils (%) (Auto) 84.4 Lymphocytes (%) (Auto) 7.5 Monocytes (%) (Auto) 7.6 Eosinophils (%) (Auto) 0.1 Basophils (%) (Auto) 0.4 Neutrophils # (Auto) 8.5 Lymphocytes # (Auto) 0.7 Monocytes # (Auto) 0.8 Eosinophils # (Auto) 0.0 Basophils # (Auto) 0.0 CBC Comment DIFF FINAL Differential Comment Prothrombin Time 10.6 Prothromb Time International 1.0 Ratio Activated Partial 28.5 Thromboplast Time Urine Collection Type CLEAN CATCH Urine Color YELLOW Urine Turbidity CLEAR Urine pH 7.5 Urine Specific [place] 1.008 Urine Protein NEG Urine Glucose (UA) NEG Urine Ketones NEG Urine Occult Blood MOD Urine Nitrite NEG Urine Bilirubin SMALL Urine Leukocyte Esterase NEG Urine RBC 15-19 Urine Squamous Epithelial 0-5 Cells Urine Amorphous Sediment FEW Microscopic Urinalysis Comment CULT NOT INDICATED Urine Collection Time 0550 Sodium Level 136 Potassium Level 3.2 Chloride Level 97 Carbon Dioxide Level 31.3 Anion Gap 8 Blood Urea Nitrogen 8 Creatinine 0.46 Estimat Glomerular Filtration 133 Rate Random Glucose 115 Calcium Level 9.3 Total Bilirubin 6.8 Aspartate Amino Transf 129 (AST/SGOT) Alanine Aminotransferase 186 (ALT/SGPT) Alkaline Phosphatase 522 Total Protein 7.2 Albumin 3.3 Lipase 212 Lactic Acid Level 0.8 Acetaminophen Level LESS THAN 2.0 Date/Time Procedure Status Source Growth 03/26/17 05:55 Aerobic Blood Culture Received Blood Peripheral Pending 03/26/17 05:55 Anaerobic Blood Culture Received Blood Peripheral Pending Result Diagram: 03/26/17 0550 03/26/17 0550 Imaging Last Impressions Chest X-Ray 03/26/17 0545 Signed Impressions: Service Date/Time: March 05:54 - CONCLUSION: No evidence of acute cardiopulmonary disease. Dirk Ozuna MD Abdomen/Pelvis CT 03/26/17 0000 Signed Impressions: Service Date/Time: March 07:26 - CONCLUSION: 1. Abnormal examination with severe intra-and extrahepatic bile duct dilatation and pancreatic duct dilatation with abrupt caliber change of the ducts in the region of the pancreatic head. A pancreatic head mass is not seen but the pancreas is partially obscured from artifact related to the patient's spinal hardware. Ideally, the pancreas and ductal system should be further evaluated with a pancreas protocol MRI with and without intravenous contrast to include MRCP images. The concern is for a pancreatic head adenocarcinoma. 2. There is a 19 mm mass in the spleen. Imaging features are nonspecific on this examination. Both benign and potentially malignant processes can have this appearance. Attention can be paid to this at the time of MRI to potentially offer additional characterization. These findings were discussed with Dr. Helms via telephone at the time of this dictation. Dirk Brown MD Images reviewed personally by me. Assessment and Plan Problem List: (1) Abdominal pain ICD Code: R10.9 Status: Acute (2) Transaminitis ICD Code: R74.0 Status: Acute (3) Pancreatic duct obstruction ICD Code: K86.89 Status: Acute (4) Hypokalemia ICD Code: E87.6 Status: Acute (5) HTN (hypertension) ICD Code: I10 Status: Acute (6) Pruritus ICD Code: L29.9 Status: Acute Assessment and Plan 68-year-old female who presents to [facility] complaining of abdominal pain associated with nausea, vomiting, diarrhea, loss of appetite, pruritus and weight loss, patient has jaundice and icteric sclera exam. CT abdomen showed intra-and extrahepatic biliary duct dilatation and the spleen mass. Labs showed transaminitis with elevated total bilirubin of 6.2 and elevated alkaline phosphatase. Very concerning for malignancy. I will admitted to the medical floor, keep nothing by mouth and continue IV fluids I will order MRI MRCP without without contrast of the abdomen - as per radiologist over at [facility], the patient needs an MRCP done at [facility] in [place] since it will provide better detail of the abdominal anatomy. GI consulted - Dr Helms from ED, case discussed with Dr. Brown, agrees with admission into [facility]. Pain control with IV morphine Zofran for nausea and vomiting Diet consultation for weight loss. Patient has elevated blood pressure, no prior history of hypertension, I will place patient on as needed Vasotec IV. Monitor vital signs Pruritus likely secondary to cholestasis. I will prescribe cholestyramine and Benadryl as needed for itching. Heparin Sq for DVT prophylaxis as well as venodynes PPI for GI prophylaxis. Pt eval Discussed Condition With Patient, patient's son, ED physician, RN Physician Certification 2 Midnight Certification Type: Admission for Inpatient Services Order for Inpatient Services The services are ordered in accordance with Medicare regulations or non- Medicare payer requirements, as applicable. In the case of services not specified as inpatient-only, they are appropriately provided as inpatient services in accordance with the 2-midnight benchmark. Estimated LOS (days): 2 days is the estimated time the patient will need to remain in the hospital, assuming treatment plan goals are met and no additional complications. Post-Hospital Plan: Not yet determined Problem Qualifiers (1) Abdominal pain: Qualified Code: R10.11 - Right upper quadrant abdominal pain Joel Weston MD Mar 26, 2017 10:08
[2017-03-26] MEDS: CHOLESTYRAMINE 4 GM PACKET PO SCH (11:00)
[2017-03-26] MEDS ORDERED: PROCHLORPERAZINE INJ 10 MG/2 ML VIAL IM PRN (11:30)
[2017-03-26] MEDS ORDERED: MORPHINE SULFATE 4 MG/ML INJ IV PUSH PRN (11:30)
[2017-03-26] MEDS ORDERED: LORazepam 2 MG/ML VIAL IV PUSH ONE (11:45)
[2017-03-26] MEDS ORDERED: POTASSIUM CHLOR 20 MEQ PREMIX 100 ML IV ONE (11:45)
--- NOTE | 2017-03-26 11:45 | PD.CONS ---
HPI History of Present Illness This is a 71 year old female who presented to the ER for evaluation of nausea/ vomiting and abdominal pain. Her symptoms started about 2 weeks ago with severe itching. She went to her prom burn off operator, who gave her a topical cream and an unknown medication for the itching. She states that this did not really help. Around that same time, she started having issues with abdominal pain. This is a constant "throbbing/burning" epigastric pain that radiates to her chest and back. This has been constant- with and without po intake, although she has had decreased appetite and has not been eating as much. She takes Morphine at home for her chronic back pain and states this did not help with her pain. She has associated nausea/vomiting, first consisting of undigested food and later bilious material. She denies any fever or chills, but does complain of twitching/jerking movements, that prompted her to go to the ER. She was told that she was jaundiced, but states that she didn't actually notice this until someone pointed it out. No diarrhea/melena/hematochezia. She denies any history of pancreatitis or ETOH abuse. She has a history of cholecystectomy. She has a personal history of breast cancer in 2004, that was treated with lumpectomy and radiation. Her maternal grandmother is from pancreatic cancer. PFSH Past Medical History Acquired hypothyroidism after thyroidectomy History of breast cancer, s/p lumpectomy and radiation therapy 12 years ago Scoliosis Arthritis Chronic back pain Past Surgical History Multiple spinal surgeries Bilateral knee surgeries Appendectomy Cholecystectomy Lumpectomy Thyroidectomy Coded Allergies: Penicillin (Verified Allergy, Severe, THROAT CLOSES, 03/26/17) Adhesives (Verified Allergy, Unknown, 03/26/17) Medications Allergies Coded Allergies Type Severity Reaction Last Updated Verified Penicillin Allergy Severe THROAT CLOSES 03/26/17 Yes Adhesives Allergy Unknown 03/26/17 Yes Active Scripts Medications Dose Route/Sig Days Date Category Chewable Calcium (Calcium-Vitamins D & K) 500-200-40 Mg-Unit-Mcg Chew 1 Tab CHEW 01/12/17 Reported Morphine ER (Morphine Sulfate) 60 Mg Tab 60 Mg PO BID 01/12/17 Reported Gabapentin 400 Mg Cap 400 Cap PO QID 01/12/17 Reported Hydrocodone-Acetaminophen 7.5-300 Mg Tab 1 Tab PO Q4H PRN 01/12/17 Reported Levothyroxine (Levothyroxine Sodium) 150 Mcg Tab 150 Mcg PO DAILY 01/12/17 Reported Liothyronine (Liothyronine Sodium) 5 Mcg Tab 5 Mcg PO DAILY 01/12/17 Reported Family History Her maternal grandmother from pancreatic cancer Mother from throat cancer Social History 1/ PPD x 40 years Denies alcohol intake. Denies illegal drug use. Review of Systems Constitutional: COMPLAINS OF: Fatigue, Weight loss, Change in appetite, DENIES : Fever, Chills Respiratory: DENIES: Cough Cardiovascular: COMPLAINS OF: Chest pain (epigastric pain radiates to chest), DENIES: Palpitations Gastrointestinal: COMPLAINS OF: Abdominal pain, Nausea, Vomiting, Anorexia, DENIES: Black stools, Bloody stools, Constipation, Diarrhea, Heartburn, Hematemesis Musculoskeletal: COMPLAINS OF: Back pain Integumentary: COMPLAINS OF: Abnormal pigmentation, Pruritus, Jaundice Neurologic: DENIES: Headache Psychiatric: DENIES: Confusion GI Exam Vitals I&O Vital Signs Date Time Temp Pulse Resp B/P Pulse Ox O2 Delivery O2 Flow Rate FiO2 03/26/17 10:45 97.9 56 21 157/77 98 03/26/17 09:15 70 20 179/69 94 03/26/17 07:49 66 16 148/63 98 Room Air 03/26/17 06:11 18 99 Room Air 03/26/17 05:46 18 03/26/17 05:41 98.2 69 18 170/87 03/26/17 05:09 98.2 69 18 170/87 99 Imaging Last Impressions Chest X-Ray 03/26/17 0545 Signed Impressions: Service Date/Time: March 05:54 - CONCLUSION: No evidence of acute cardiopulmonary disease. Dirk Ozuna MD Abdomen/Pelvis CT 03/26/17 0000 Signed Impressions: Service Date/Time: March 07:26 - CONCLUSION: 1. Abnormal examination with severe intra-and extrahepatic bile duct dilatation and pancreatic duct dilatation with abrupt caliber change of the ducts in the region of the pancreatic head. A pancreatic head mass is not seen but the pancreas is partially obscured from artifact related to the patient's spinal hardware. Ideally, the pancreas and ductal system should be further evaluated with a pancreas protocol MRI with and without intravenous contrast to include MRCP images. The concern is for a pancreatic head adenocarcinoma. 2. There is a 19 mm mass in the spleen. Imaging features are nonspecific on this examination. Both benign and potentially malignant processes can have this appearance. Attention can be paid to this at the time of MRI to potentially offer additional characterization. These findings were discussed with Dr. Helms via telephone at the time of this dictation. Dirk Brown MD Laboratory Test 03/26/17 03/26/17 05:50 05:55 White Blood Count 10.0 TH/MM3 Red Blood Count 4.15 MIL/MM3 Hemoglobin 12.1 GM/DL Hematocrit 35.4 % Mean Corpuscular Volume 85.1 FL Mean Corpuscular Hemoglobin 29.2 PG Mean Corpuscular Hemoglobin 34.3 % Concent Red Cell Distribution Width 16.6 % Platelet Count 253 TH/MM3 Mean Platelet Volume 9.6 FL Neutrophils (%) (Auto) 84.4 % Lymphocytes (%) (Auto) 7.5 % Monocytes (%) (Auto) 7.6 % Eosinophils (%) (Auto) 0.1 % Basophils (%) (Auto) 0.4 % Neutrophils # (Auto) 8.5 TH/MM3 Lymphocytes # (Auto) 0.7 TH/MM3 Monocytes # (Auto) 0.8 TH/MM3 Eosinophils # (Auto) 0.0 TH/MM3 Basophils # (Auto) 0.0 TH/MM3 CBC Comment DIFF FINAL Differential Comment Prothrombin Time 10.6 SEC Prothromb Time International 1.0 RATIO Ratio Activated Partial 28.5 SEC Thromboplast Time Urine Collection Type CLEAN CATCH Urine Color YELLOW Urine Turbidity CLEAR Urine pH 7.5 Urine Specific [place] 1.008 Urine Protein NEG mg/dL Urine Glucose (UA) NEG mg/dL Urine Ketones NEG mg/dL Urine Occult Blood MOD Urine Nitrite NEG Urine Bilirubin SMALL Urine Leukocyte Esterase NEG Urine RBC 15-19 /hpf Urine Squamous Epithelial 0-5 /hpf Cells Urine Amorphous Sediment FEW Microscopic Urinalysis Comment CULT NOT INDICATED Urine Collection Time 0550 Sodium Level 136 MEQ/L Potassium Level 3.2 MEQ/L Chloride Level 97 MEQ/L Carbon Dioxide Level 31.3 MEQ/L Anion Gap 8 MEQ/L Blood Urea Nitrogen 8 MG/DL Creatinine 0.46 MG/DL Estimat Glomerular Filtration 133 ML/MIN Rate Random Glucose 115 MG/DL Calcium Level 9.3 MG/DL Total Bilirubin 6.8 MG/DL Aspartate Amino Transf 129 U/L (AST/SGOT) Alanine Aminotransferase 186 U/L (ALT/SGPT) Alkaline Phosphatase 522 U/L Total Protein 7.2 GM/DL Albumin 3.3 GM/DL Lipase 212 U/L Lactic Acid Level 0.8 mmol/L Acetaminophen Level LESS THAN 2.0 MCG/ML Date/Time Procedure Status Source Growth 03/26/17 05:55 Aerobic Blood Culture Received Blood Peripheral Pending 03/26/17 05:55 Anaerobic Blood Culture Received Blood Peripheral Pending Physical Examination HEENT: Normocephalic; atraumatic; + jaundice. CHEST: CTA CARDIAC: RRR ABDOMEN: Soft, mildly distended, moderate epigastric tenderness; no hepatosplenomegaly; bowel sounds are present in all four quadrants. EXTREMITIES: No clubbing, cyanosis, or edema. SKIN: + jaundice. LITHOP[employer] MILL WORKER: No focal deficits; alert and oriented times three. Assessment and Plan Plan ASSESSMENT: - Biliary obstruction, jaundice. 2 week hx of itching, epigastric pain radiating to chest/back. She denies fever/chills and her WBC is okay, but she does report twitching from the severe pruritis. Abdomen/Pelvis CT ()-----> 1. Abnormal examination with severe intra-and extrahepatic bile duct dilatation and pancreatic duct dilatation with abrupt caliber change of the ducts in the region of the pancreatic head. A pancreatic head mass is not seen but the pancreas is partially obscured from artifact related to the patient's spinal hardware. Ideally, the pancreas and ductal system should be further evaluated with a pancreas protocol MRI with and without intravenous contrast to include MRCP images. The concern is for a pancreatic head adenocarcinoma. 2. There is a 19 mm mass in the spleen. Imaging features are nonspecific on this examination. Both benign and potentially malignant processes can have this appearance. Attention can be paid to this at the time of MRI to potentially offer additional characterization. No history of pancreatitis or ETOH abuse. S/P cholecystectomy. She has a personal history of breast cancer in 2004, S/P lumpectomy and radiation. Her MGM is from pancreatic cancer. T. Bili 6.8, AST 129, ALT 186, Alk Phosph 522. WBC 10.0. Agree with MRCP with and without contrast, per MRI, this will evaluate pancreas and spleen and therefore just the MRCP with and without contrast is recommended. Will also get tumor markers- AFP, CEA, Ca19-9. Plan for ERCP with possible stent placement and possible EUS with FNA tomorrow. - Suspected pancreatic head mass/Splenic mass. This was not appreciated on CT scan, but the area of the pancreas was partially obscured and she has an abrupt caliber change of the ducts in the region of the pancreatic head and was noted to have a 19mm mass in the spleen. MRCP with and without contrast- spoke to MRI and they said the MRCP with and without will evaluate both of these areas. - Abdominal pain with nausea and vomiting, secondary to above. PPI, Zofran. Still having significant n/v and therefore will add compazine. - Anorexia, abnormal weight loss. 10 lb weight loss over the past month- unintentional. - Hypothyroidism, Chronic back pain per attending. PLAN: - NPO for now, okay for clears after MRCP - Plan for ERCP with possible stent placement, possible EUS with FNA tomorrow - Obtain consents - NPO after MN - Ca19-9 - AFP - CEA - Cont. PPI - Cont. Zofran prn - Add Compazine prn - CBC, LFT in am - Notify GI of fever/chills, change in condition - Supportive care - Further recommendations to follow based on results of above - Pt seen and examined by Dr. Vee and myself and this note is written on his behalf Sarah Coles Mar 26, 2017 11:45
[2017-03-26] MEDS: GABAPENTIN 400 MG CAP PO SCH ×4 (12:02→19:50)
[2017-03-26] MEDS: PANTOPRAZOLE SODIUM 40 MG VIAL IV PUSH SCH (12:03)
[2017-03-26] MEDS: MORPHINE SULFATE 4 MG/ML INJ IV PUSH PRN ×4 (12:09→22:40)
--- NOTE | 2017-03-26 14:03 | EKG ---
Date Performed: 03/26/2017 Time Performed: 06:36:49 PTAGE: 71 years EKG: Sinus rhythm LEFT ATRIAL ENLARGEMENT INCOMPLETE RIGHT BUNDLE BRANCH BLOCK POSSIBLE LEFT VENTRICULAR HYPERTROPHY A BNORMAL ECG Compared to prior tracing no significant change PREVIOUS TRACING : 05/25/2010 10.47 DOCTOR: Maeve Hansen Interpretating Date/Time 03/26/2017 13:54:40
[2017-03-26] MEDS: diphenhydrAMINE HCL 50 MG/ML VIAL IV PUSH PRN (16:45)
[2017-03-26] MEDS: SODIUM CHLORIDE 0.9% FLUSH 10 ML FLUSH IV FLUSH SCH (19:30)
[2017-03-26] MEDS: DOCUSATE SODIUM 50 MG/SENNA 8.6 MG TAB PO SCH (19:50)
[2017-03-26] MEDS ORDERED: SODIUM CHLORIDE 0.9% FLUSH 10 ML FLUSH IV FLUSH SCH (21:00)
[2017-03-27] VITALS (9 sets, daily range): BP systolic 137–180; BP diastolic 72–86; PULSE 67–112; RESP 14–20; TEMP 97.6–98.4; O2SAT 93–98
[2017-03-27] MEDS: MORPHINE SULFATE 4 MG/ML INJ IV PUSH PRN ×4 (01:33→10:22)
[2017-03-27] MEDS: SODIUM CHLOR 0.9% 1000 ML INJ 1,000 ML IV SCH ×2 (05:30→19:00)
[2017-03-27] MEDS: LEVOTHYROXINE SODIUM 150 MCG TAB PO SCH (06:00)
[2017-03-27 07:07] LABS: AUTOMATED NEUTROPHIL # 12.1 TH/MM3 (1.8-7.7); BASOPHIL # 0.1 TH/MM3 (0-0.2); BASOPHIL % 0.8 % (0.0-2.0); HEMATOCRIT 33.9 % (35.0-46.0); HEMO FLAGS DIFF FINAL; LYMPH % 6.1 % (9.0-44.0); LYMPHOCYTE # 0.9 TH/MM3 (1.0-4.8); MEAN CORPUSCULAR HEMOGLOBIN 28.8 PG (27.0-34.0); MEAN CORPUSCULAR HGB CONC 34.3 % (32.0-36.0); MONO % 6.2 % (0.0-8.0); NEUT % 86.9 % (16.0-70.0); PLATELET COUNT 263 TH/MM3 (150-450); RED BLOOD COUNT 4.03 MIL/MM3 (4.00-5.30); RED CELL DISTRIBUTION WIDTH 17.4 % (11.6-17.2); WHITE BLOOD COUNT 13.9 TH/MM3 (4.0-11.0)
[2017-03-27 07:34] LABS: ALKALINE PHOSPHATASE 458 U/L (45-117); ALT (GPT) 231 U/L (10-53); ANION GAP 10 MEQ/L (5-15); AST (GOT) 199 U/L (15-37); BLOOD UREA NITROGEN 11 MG/DL (7-18); CHLORIDE 97 MEQ/L (98-107); GLOMERULAR FILTRATION RATE 156 ML/MIN (>89); POTASSIUM 3.5 MEQ/L (3.5-5.1); SODIUM (NA) 134 MEQ/L (136-145); TOTAL BILIRUBIN ADULT 6.5 MG/DL (0.2-1.0)
[2017-03-27] MEDS: LIOTHYRONINE SODIUM 5 MCG TAB PO SCH (09:00)
[2017-03-27] MEDS: MORPHINE SULFATE 60 MG CONTROLLED RELEASE TAB PO SCH ×2 (09:00→21:41)
[2017-03-27] MEDS: DOCUSATE SODIUM 50 MG/SENNA 8.6 MG TAB PO SCH ×2 (09:00→21:39)
[2017-03-27] MEDS: GABAPENTIN 400 MG CAP PO SCH ×4 (09:00→21:39)
[2017-03-27] MEDS: CHOLESTYRAMINE 4 GM PACKET PO SCH (09:00)
--- NOTE | 2017-03-27 09:18 | HHI.PR ---
Subjective Remarks Pt having abdominal pain and rates it 7/10 and is diffused per patient. vomited last night but is currently feeling nauseous but hasn't taken the zofran because she feels that vomiting makes her feel better. denies any CP/SOB at this time. IV pain med not lasting long enough per pt. discussed w RN pt refusing IV zofran Objective Vitals Vital Signs Date Time Temp Pulse Resp B/P Pulse Ox O2 Delivery O2 Flow Rate FiO2 03/27/17 08:00 97.6 68 14 180/82 93 03/27/17 04:10 97.6 67 20 143/82 95 03/27/17 01:30 168/86 03/27/17 00:08 98.3 75 20 171/80 96 03/26/17 22:41 94 Nasal Cannula 2.00 03/26/17 20:08 71 03/26/17 19:51 97.6 76 20 160/85 96 03/26/17 16:00 97.4 72 18 149/72 97 03/26/17 12:25 97.6 150 23 149/94 96 03/26/17 11:32 81 03/26/17 10:45 97.9 56 21 157/77 98 03/26/17 09:15 70 20 179/69 94 I/O 03/26/17 03/26/17 03/26/17 03/27/17 03/27/17 03/27/17 07:00 15:00 23:00 07:00 15:00 23:00 Intake Total 720 ml 1162 ml Output Total 450 ml 300 ml Balance 720 ml -450 ml 862 ml Intake Oral 720 ml IV Total 1162 ml Output Urine Total 450 ml 200 ml Emesis 100 ml # Voids 12 Result Diagram: 03/27/17 0632 03/27/17 0632 Imaging Last Impressions Chest X-Ray 03/26/17 0545 Signed Impressions: Service Date/Time: March 05:54 - CONCLUSION: No evidence of acute cardiopulmonary disease. Dirk Ozuna MD Abdomen/Pelvis CT 03/26/17 0000 Signed Impressions: Service Date/Time: March 07:26 - CONCLUSION: 1. Abnormal examination with severe intra-and extrahepatic bile duct dilatation and pancreatic duct dilatation with abrupt caliber change of the ducts in the region of the pancreatic head. A pancreatic head mass is not seen but the pancreas is partially obscured from artifact related to the patient's spinal hardware. Ideally, the pancreas and ductal system should be further evaluated with a pancreas protocol MRI with and without intravenous contrast to include MRCP images. The concern is for a pancreatic head adenocarcinoma. 2. There is a 19 mm mass in the spleen. Imaging features are nonspecific on this examination. Both benign and potentially malignant processes can have this appearance. Attention can be paid to this at the time of MRI to potentially offer additional characterization. These findings were discussed with Dr. Helms via telephone at the time of this dictation. Dirk Brown MD Objective Remarks GENERAL: This is a very thin well-developed patient,appears very tired SKIN: Cool and dry. (+) Jaundice EYES: Pupils equal round. Extraocular motions intact. (+) Icteric sclera ENT: Nose without drainage. Airway patent. CARDIOVASCULAR: Regular rate and rhythm without murmurs RESPIRATORY: Clear to auscultation. Breath sounds equal bilaterally. No wheezes GASTROINTESTINAL: Abdomen soft, tender to palpation of abdomen diffusely but mostly localized in the epigastric region, nondistended. No palpable masses. No guarding. MUSCULOSKELETAL: Extremities without edema. NEUROLOGICAL: Awake and alert. Cranial nerves II through XII intact. Motor and sensory grossly within normal limits. Normal speech A/P Problem List: (1) Abdominal pain ICD Code: R10.9 Status: Acute (2) Transaminitis ICD Code: R74.0 Status: Acute (3) Pancreatic duct obstruction ICD Code: K86.89 Status: Acute (4) Hypokalemia ICD Code: E87.6 Status: Acute (5) HTN (hypertension) ICD Code: I10 Status: Acute (6) Pruritus ICD Code: L29.9 Status: Acute Assessment and Plan 68-year-old female who presents to [facility] complaining of abdominal pain associated with nausea, vomiting, diarrhea, loss of appetite, pruritus and weight loss, patient has jaundice and icteric sclera exam. CT abdomen showed intra-and extrahepatic biliary duct dilatation and the spleen mass w concerns for adenocarcinoma of head of pancreas. Labs showed transaminitis with elevated total bilirubin of 6.2 and elevated alkaline phosphatase. Continue IVF for hydration. Pt continues to be nauseous and vomited last night. Pt encouraged to take IV zofran to help w the n/v. Still has intense abdominal pain 04/13. She does have oramorph but not tolerating it due to n/v. encouraged to take IV zofran then try oramorph w morphine IV prn. If she cannot tolerate po and IV morphine not helping, consider IV dilaudid. GI consulted and following, pt is scheduled for ERCP w possible stent placement sometime today. Commercial Assistant consultation for weight loss. Patient has elevated blood pressure, no prior history of hypertension, most likely secondary to pain, on Vasotec IV prn. Monitor vital signs. if uncontrolled, may need to be started on low dose amlodipine. Pruritus likely secondary to cholestasis. on cholestyramine and Benadryl as needed for itching. DVT prophylaxis, SCD/ALEXUS. Heparin stopped for ERCP PPI for GI prophylaxis. PT consult in place. Hypothyroidism: on her home meds. Discharge Planning ERCP today oncology consult in place. appreciate assistance from all consultants d/c pending further work-up and clinical improvement. Problem Qualifiers (1) Abdominal pain: Qualified Code: R10.11 - Right upper quadrant abdominal pain Amisha Crow MD Mar 27, 2017 09:18
[2017-03-27] MEDS: ONDANSETRON HCL 4 MG/2 ML VIAL IV PRN ×3 (09:40→21:40)
[2017-03-27] MEDS: SODIUM CHLORIDE 0.9% FLUSH 10 ML FLUSH IV FLUSH SCH ×2 (09:42→21:00)
[2017-03-27] MEDS: PANTOPRAZOLE SODIUM 40 MG VIAL IV PUSH SCH (10:21)
[2017-03-27] MEDS ORDERED: ESMOLOL HCL 100 MG/10 ML VIAL IV ONE (15:55)
[2017-03-27] MEDS ORDERED: PROPOFOL 200 MG/20 ML AMP IV ONE (15:55)
[2017-03-27] MEDS ORDERED: IOHEXOL 350 MG/ML 100 ML BTL (for RAD DIAG) OTHER ONE (15:55)
[2017-03-27] MEDS ORDERED: METOPROLOL TARTRATE 5 MG/5 ML VIAL IV PUSH ONE (15:55)
[2017-03-27] MEDS ORDERED: fentaNYL CITRATE 250 MCG/5 ML AMP ONE (16:06)
--- NOTE | 2017-03-27 18:10 | PD.PROCEDR ---
GI Procedure REFERRING PHYSICIAN INOCENTE PROCEDURE PERFORMED Endoscopic ultrasound followed by an EGD followed by an ERCP with sphincterotomy brushing and biopsy and biliary stent placement INDICATION FOR PROCEDURE Jaundice, abnormal CT PROCEDURE: The procedure, risks and benefits were discussed with Ms. Mancia and informed consent was obtained. Anesthesia sedated her with Diprivan. She was placed in the left lateral decubitus position. Endoscopic ultrasound and EGD: The Pentax videoscope was introduced through the oropharynx and advanced to the second portion of the duodenum under direct visualization. Retroflexion was performed in the stomach. FINDINGS: Endoscopic ultrasound of the pancreas reveals a significantly dilated pancreatic duct with inhomogeneous irregular pancreatic parenchyma throughout the pancreatic body and tail this appeared to be somewhat lobular with hypo-and hyperechoic texture no distinct mass noted I was unable to advance the endoscopic ultrasound beyond the bulb of the duodenum and I got a very limited view of the pancreas from this angle the common bile duct did appear to be dilated at that's about all I could see even when I tried to advance the linear scope I was unable to advance the linear scope past this area also and as a result I performed an EGD EGD findings Esophagus this was unremarkable Stomach this too was basically unremarkable The duodenum there was swelling in the duodenal sweep that was hard to navigate but I was able to pass the upper scope through this area did not look to be irregular did not see any infiltrative process ERCP: Patient was placed in a prone position. The Pentax videoscope was introduced through the oropharynx and advanced to the second portion of the duodenum where the ampula was identified. FINDINGS: The scope was advanced to the second portion of the duodenum with the assistance of a savory wire once I got positioned the ampulla was noted to be grossly unremarkable but difficult to cannulate and as such a partial sphincterotomy was performed and then we were able to obtain deep cannulation and the sphincterotomy was then extended to a full sphincterotomy the common bile duct appeared to be significantly dilated up to the confluence of the hepatic ducts there was a short segment that appeared to be of normal caliber but then more proximal to it were again noted dilations of the hepatic ducts no filling defects were noted and so brushings were made of the proximal and distal common bile duct and then a 10 [place] 7 cm stent was placed with good drainage noted and then an ampullary biopsy was performed to further evaluate the distal CBD stricture that was contrary attributing to the dilation ESTIMATED BLOOD LOSS: None SPECIMENS REMOVED: Ampullary and bile duct samples COMPLICATIONS: None IMPRESSION: Changes of the pancreas most consistent with chronic pancreatitis Incomplete endoscopic ultrasound of the pancreatic head but no distinct tumor was identified Distal biliary stricture resulting in biliary dilatation and proximal biliary narrowing of unclear significance PLAN: Await biopsies Monitor labs Continue with current supportive care Consider repeat imaging with a CAT scan as patient cannot undergo an MRI one or [address] Consider PET scan once discharged Jesús Brown MD Mar 27, 2017 18:10
[2017-03-27] MEDS ORDERED: METOPROLOL TARTRATE 5 MG/5 ML VIAL ONE (18:25)
[2017-03-27 18:54] LABS: AUTOMATED NEUTROPHIL # 13.5 TH/MM3 (1.8-7.7); BASOPHIL % 0.2 % (0.0-2.0); HEMATOCRIT 38.3 % (35.0-46.0); HEMO FLAGS DIFF FINAL; LYMPH % 6.2 % (9.0-44.0); LYMPHOCYTE # 0.9 TH/MM3 (1.0-4.8); MEAN CELL VOLUME 86.5 FL (80.0-100.0); MEAN CORPUSCULAR HEMOGLOBIN 28.3 PG (27.0-34.0); MEAN CORPUSCULAR HGB CONC 32.7 % (32.0-36.0); MONO % 3.7 % (0.0-8.0); NEUT % 89.9 % (16.0-70.0); PLATELET COUNT 276 TH/MM3 (150-450); RED BLOOD COUNT 4.43 MIL/MM3 (4.00-5.30); RED CELL DISTRIBUTION WIDTH 17.3 % (11.6-17.2)
[2017-03-27] MEDS ORDERED: DO NOT ADM ANY ANTICOAGULANT DRUGS PRN (19:00)
[2017-03-27] MEDS: DILTIAZEM 125 MG/NS 100 ML IV SCH ×2 (19:04)
[2017-03-27 19:33] LABS: BICARBONATE 26.6 MEQ/L (21.0-32.0)
[2017-03-27 19:42] LABS: POTASSIUM 3.6 MEQ/L (3.5-5.1)
--- NOTE | 2017-03-27 19:51 | RADRPT ---
EXAM DATE/TIME: 03/27/2017 16:57 [place] COMPARISON: No previous studies available for comparison. INDICATIONS : Evaluate for obstruction stent place ment and sphincterotomy FLUORO TIME: 8.50 minutes IMAGE COUNT: 3 CONTRAST: Instilled by Ordering Physician MEDICAL HISTORY : Hiatal hernia. Carcinoma, breast. SURGICAL HISTORY : Appendectomy. Cholecystectomy.Hysterectomy.Becki rods. ENCOUNTER: Subsequent ACUITY: 2 days PAIN SCORE: Non-responsive. LOCATION: Right upper quadrant FINDINGS: An ERCP was performed by the ordering physician. The images demonstrate Vasquez rods generat some obscuration. 3 images show opacification of the i ntrahepatic and extrahepatic biliary tree. There is dilatation observed particularly involving the co mmon bile duct. There is a transition point within the inferior common bile duct. No discrete filling defects. Final image shows a Silastic style stent in place. CONCLUSION: ERCP as above. Jacoby Polk Jr., MD on March 27, 2017 at 19:48 Board Certified Radiologist. This report was verified electronically.
[2017-03-27 20:09] LABS: CKMB 41.2 NG/ML (0.5-3.6)
--- NOTE | 2017-03-27 21:15 | HHI.PR ---
Blank section for building Patient had episode of chest pain and new onset A Fib RVR after ERCP earlier today- now on Cardizem drip- rate controlled in the low 100s Received call from RN that patient troponin is 9.24. started heparin drip and asked nurse to inform cardiology for further orders EKG reviewed and reveals A Fib rate [address] elevation identified Patient no longer having chest pain Discussed with nursing and Maria Victoria Nam Mar 27, 2017 21:15
[2017-03-27 21:37] LABS: HEMATOCRIT 35.4 % (35.0-46.0); MEAN CELL VOLUME 84.4 FL (80.0-100.0); MEAN CORPUSCULAR HGB CONC 34.4 % (32.0-36.0); PLATELET COUNT 275 TH/MM3 (150-450); REVIEW FLAG FINAL; WHITE BLOOD COUNT 15.9 TH/MM3 (4.0-11.0)
--- NOTE | 2017-03-27 21:44 | MB ---
cc: KATHY CROW MD, RUBY ANNE E. M.D. DATE OF CONSULTATION: 03/27/2017. REASON FOR CONSULTATION / CHIEF COMPLAINT: Dr. Crow requested consultation for Ms. Mancia regarding pancreatic mass associated with hyperbilirubinemia. REFERRING PHYSICIAN: Dr. Crow. HISTORY OF PRESENT ILLNESS: Mrs. Mancia is a 71-year-old woman with history of breast cancer diagnosed more than ten years ago. She was followed by Dr. Nevaeh Austin in the community. She was discharged from Dr. Austin's clinic a year ago. She has hypothyroidism and multiple spinal surgeries for scoliosis. She presented with severe heartburn, abdominal pain, nausea and vomiting. She had a lot of diarrhea when she presented. She reports the symptoms started two to three weeks ago. She noticed a darkening in her urine several weeks ago. She had pruritus but attributed that to her previous condition. She has had urticaria in the past. She could not tell that she was jaundiced. She is tanned. She is physically active and does a lot of outdoor activities. She has an excellent performance status. She lives independently with her son. She reports her son is in good health. On evaluation, she was found to have mild leukocytosis, normal hemoglobin, hematocrit and platelet counts. Her bilirubin was noted to be elevated at 6.8. Repeat bilirubin is 6.5. AST and ALT are very elevated. She had imaging study of the abdomen. CT of the abdomen and pelvis showed dilation of the main pancreatic duct measuring up to 7 mm with abrupt termination in the pancreatic head. There is artifact that does not allow better delineation of the pancreatic head mass. The spleen is normal in size but has a 19 mm mass in the inferior medial aspect. The liver has severe intrahepatic and extrahepatic bile duct dilatation with common bile duct measuring 7 mm abruptly terminating in the region of the pancreatic head. She was seen by gastroenterology. The procedure was performed by Dr. Brown; endoscopic ultrasound and EGD. Endoscopic ultrasound shows a significant dilated pancreatic duct with inhomogeneous irregular pancreatic parenchyma throughout the pancreatic body and tail, changes of the pancreas consistent with chronic pancreatitis. Specimen was obtained from the ampule and bile duct. Distal biliary stricture resulting in biliary dilatation and proximal biliary narrowing is noted and a stent was placed. During the procedure, the patient had reported some chest pain. She was noted to have elevation in her CPK and troponin I. Cardiology was consulted. She has been transferred to [facility] for observation. She was chest pain-free at the time of the consultation. She denies any cardiac disease. PAST MEDICAL HISTORY: 1. History of breast cancer. 2. Hypertension. 3. Hypothyroidism. 4. Scoliosis. 5. Arthritis. 6. Pruritus. 7. Jaundice. 8. Biliary obstruction. PAST SURGICAL HISTORY: 1. Multiple spinal surgeries. 2. Appendectomy. 3. Cholecystectomy. 4. Lumpectomy. 5. Thyroidectomy. FAMILY HISTORY: No family history of cancer except for a grandmother with pancreatic cancer. SOCIAL HISTORY: She smokes half a pack a day. Denies any alcohol or illicit drug use. She is . She lives with her son. ALLERGIES: 1. PENICILLIN. 1. ADHESIVES. MEDICATIONS: 1. Diltiazem. 2. Cytomel. 3. Oramorph. 4. Synthroid. 5. Kiley-Colace. 6. Compazine. 7. Protonix. 8. Benadryl. PHYSICAL EXAMINATION: VITAL SIGNS: Temperature 97.8, heart rate 98, respiratory rate 16, blood pressure 121/70, saturation 100%. GENERAL: Ms. Mancia is a well-developed, well-nourished woman who looks her stated age. She is slender. HEAD, EYES, EARS, NOSE, THROAT: Her pupils are round and reactive to light and accommodation. The sclerae are mildly icteric. Oropharynx is dry. NECK: Neck is supple. LUNGS: Clear. CARDIOVASCULAR: Exam reveals mild tachycardia. ABDOMEN: Abdomen is benign. EXTREMITIES: Lower extremities with no edema. NEUROLOGIC: Exam is nonfocal. LABORATORY DATA: As described above. ASSESSMENT AND PLAN: Ms. Mancia is a 71-year-old woman with multiple medical problems and previous history of breast cancer. Review of the electronic medical record showed a wide excision with no residual cancer and no evidence of metastatic carcinoma in 9 lymph nodes from February 10, 2005. 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 She has had definitive surgery and radiation and has been followed for ten years without any evidence of recurrence. She presents with abdominal symptoms, weight loss hyperbilirubinemia, her bilirubin is 6.5 and liver function elevations. She has obstruction at the area of the pancreas. There is no obvious pancreatic mass. We discussed the differential to include pancreatic cancer. Interestingly, her CA 19-9 is only 35.8. CEA is elevated at 7.3. We consider also the possibility of cholangiocarcinoma as a differential causing the obstruction. The definitive recommendations for her cancer depend on final pathology. In the meantime, defer to cardiology for management of the elevated troponin I. She gives a prior history of heart disease. She has no chest pain at present. She complains of severe heartburn. This may be an atypical presentation of her disease. She does have pathology in the head of the pancreas. We discussed plans to follow her bilirubin. No specific therapy at present. We can consider DVT prophylaxis in the following days as the biliary and pancreatic malignancy promotes increased risk of venous thromboembolic events. Ms. Mancia's questions were answered to her satisfaction. She was given an option to follow up with Dr. Austin if she wishes on an outpatient basis given her history with her with her breast cancer. Nunu Kwong MD RAD/JCC /9:04 PM /9:30 PM
[2017-03-27 21:57] LABS: APTT (PATIENT) 28.1 SEC (24.3-30.1); INTERNATIONAL NORMALIZED RATIO 1.1 RATIO; PROTHROMBIN TIME - PATIENT 12.4 SEC (9.8-11.6)
[2017-03-28] VITALS (25 sets, daily range): BP systolic 119–131; BP diastolic 60–72; PULSE 56–99; RESP 14–20; TEMP 97.6–98.6; O2SAT 75–100
[2017-03-28] MEDS: HEPARIN-D5W INJ 250 ML IV SCH ×2 (00:40→20:18)
[2017-03-28] MEDS: MORPHINE SULFATE 4 MG/ML INJ IV PUSH PRN ×2 (00:46→05:45)
[2017-03-28] MEDS: SODIUM CHLOR 0.9% 1000 ML INJ 1,000 ML IV SCH ×3 (02:58→20:11)
[2017-03-28 03:32] LABS: AUTOMATED NEUTROPHIL # 10.5 TH/MM3 (1.8-7.7); BASOPHIL % 0.2 % (0.0-2.0); HEMATOCRIT 30.8 % (35.0-46.0); HEMO FLAGS DIFF FINAL; LYMPH % 8.2 % (9.0-44.0); MEAN CELL VOLUME 84.4 FL (80.0-100.0); MEAN CORPUSCULAR HEMOGLOBIN 29.4 PG (27.0-34.0); MEAN CORPUSCULAR HGB CONC 34.8 % (32.0-36.0); MONO % 4.3 % (0.0-8.0); NEUT % 87.3 % (16.0-70.0); PLATELET COUNT 252 TH/MM3 (150-450); RED BLOOD COUNT 3.65 MIL/MM3 (4.00-5.30); RED CELL DISTRIBUTION WIDTH 17.2 % (11.6-17.2); WHITE BLOOD COUNT 12.1 TH/MM3 (4.0-11.0)
[2017-03-28] MEDS: LEVOTHYROXINE SODIUM 150 MCG TAB PO SCH (05:42)
--- NOTE | 2017-03-28 08:51 | HHI.PR ---
Subjective Remarks The patient was resting comfortably in a chair. She denied having chest pain last night. Her son was at the bedside. Their questions were answered. The patient's abdominal pain has improved. She says she hasn't had a bowel movement for a few days but she had diarrhea on Thursday. She says she has no cardiac history. Objective Vitals Vital Signs Date Time Temp Pulse Resp B/P Pulse Ox O2 Delivery O2 Flow Rate FiO2 03/28/17 07:01 58 03/28/17 04:00 98.2 98 14 120/72 75 03/28/17 04:00 61 03/28/17 03:00 76 03/28/17 02:00 68 03/28/17 01:00 72 03/28/17 00:00 81 03/28/17 00:00 98.6 99 14 122/70 80 03/27/17 23:00 78 03/27/17 22:00 112 03/27/17 21:00 98.4 97 14 137/79 97 03/27/17 21:00 96 03/27/17 20:15 98 16 121/70 100 Nasal Cannula 2 03/27/17 20:00 97.8 96 16 118/73 99 Nasal Cannula 2 03/27/17 19:45 100 16 124/80 99 Nasal Cannula 2 03/27/17 19:30 106 16 126/76 98 Nasal Cannula 2 03/27/17 19:15 115 16 130/82 97 Nasal Cannula 2 03/27/17 19:00 114 16 125/82 98 Nasal Cannula 2 03/27/17 18:45 116 15 138/83 96 Nasal Cannula 2 03/27/17 18:30 118 15 137/86 96 Nasal Cannula 2 03/27/17 18:15 109 15 135/80 100 Nasal Cannula 3 03/27/17 18:00 98.7 108 16 112/86 99 Nasal Cannula 3 03/27/17 14:41 98 Nasal Cannula 03/27/17 12:00 97.6 82 14 141/72 93 I/O 03/27/17 03/27/17 03/27/17 03/28/17 03/28/17 03/28/17 07:00 15:00 23:00 07:00 15:00 23:00 Intake Total 1162 ml 0 ml 800 ml Output Total 300 ml 160 ml Balance 862 ml 0 ml 640 ml Intake Oral 0 ml IV Total 1162 ml 100 ml Other 700 ml Output Urine Total 200 ml 150 ml Emesis 100 ml Estimated Blood Loss 10 ml # Voids 2 Result Diagram: 03/28/17 0309 03/27/177 Imaging Last Impressions GI Procedure 03/27/17 0000 Signed Impressions: Service Date/Time: Monday, March 27, 2017 16:57 - CONCLUSION: ERCP as above. Jacoby Polk Jr., MD Chest X-Ray 03/26/17 0545 Signed Impressions: Service Date/Time: March 05:54 - CONCLUSION: No evidence of acute cardiopulmonary disease. Dirk Ozuna MD Abdomen/Pelvis CT 03/26/17 0000 Signed Impressions: Service Date/Time: March 07:26 - CONCLUSION: 1. Abnormal examination with severe intra-and extrahepatic bile duct dilatation and pancreatic duct dilatation with abrupt caliber change of the ducts in the region of the pancreatic head. A pancreatic head mass is not seen but the pancreas is partially obscured from artifact related to the patient's spinal hardware. Ideally, the pancreas and ductal system should be further evaluated with a pancreas protocol MRI with and without intravenous contrast to include MRCP images. The concern is for a pancreatic head adenocarcinoma. 2. There is a 19 mm mass in the spleen. Imaging features are nonspecific on this examination. Both benign and potentially malignant processes can have this appearance. Attention can be paid to this at the time of MRI to potentially offer additional characterization. These findings were discussed with Dr. Helms via telephone at the time of this dictation. Dirk Brown MD Objective Remarks GENERAL: No apparent distress, resting comfortably SKIN: Cool and dry. (+) Jaundice EYES: Pupils equal round. Extraocular motions intact. (+) Icteric sclera ENT: Nose without drainage. Airway patent CARDIOVASCULAR: Regular rate and rhythm without murmurs RESPIRATORY: Clear to auscultation. Breath sounds equal bilaterally. No wheezes GASTROINTESTINAL: Abdomen soft, nontender, nondistended. No palpable masses. No guarding MUSCULOSKELETAL: Extremities without edema NEUROLOGICAL: Awake and alert. Cranial nerves II through XII intact. Motor and sensory grossly within normal limits. Normal speech PSYCH: Mood and affect appropriate Procedures EGD/ EUS Medications and IVs Current Medications Medications (Trade) Dose Ordered Sig/Nadege Route Start Time Stop Time Status Last Admin Ondansetron HCl 4 mg 4 mg Q6H PRN IV 03/26/17 09:30 03/27/17 21:40 (NS 1000 ml Inj) 1,000 ml @ 100 mls/hr Q10H IV 03/26/17 09:30 03/28/17 02:58 (NS Flush) 2 ml UNSCH PRN IV FLUSH 03/26/17 09:45 (NS Flush) 2 ml BID IV FLUSH 03/26/17 21:00 03/27/17 09:42 (Tylenol) 650 mg Q4H PRN PO 03/26/17 09:45 (Kiley-Colace) 1 tab BID PO 03/26/17 21:00 03/27/17 21:39 (Milk Of Magnesia Liq) 30 ml Q12H PRN PO 03/26/17 09:45 (Senokot) 17.2 mg Q12H PRN PO 03/26/17 09:45 (Dulcolax Supp) 10 mg DAILY PRN RECTAL 03/26/17 09:45 (Lactulose Liq) 30 ml DAILY PRN PO 03/26/17 09:45 (Vasotec Inj) 1.25 mg Q6H PRN IV PUSH 03/26/17 09:45 03/27/17 00:29 (Protonix Inj) 40 mg Q24H IV PUSH 03/26/17 11:00 03/27/17 10:21 (Questran 4 Gm Pkt) 4 gm DAILY PO 03/26/17 11:00 (Benadryl Inj) 25 mg Q6H PRN IV PUSH 03/26/17 10:15 03/26/17 16:45 (Compazine Inj) 5 mg Q6H PRN IM 03/26/17 11:30 03/26/17 14:13 (Morphine Inj) 2 mg Q3H PRN IV PUSH 03/26/17 11:30 (Morphine Inj) 4 mg Q3H PRN IV PUSH 03/26/17 11:30 03/28/17 05:45 (Neurontin) 400 mg QID PO 03/26/17 13:00 03/27/17 21:39 (Synthroid) 150 mcg DAILY@06 PO 03/27/17 06:00 03/28/17 05:42 (Cytomel) 5 mcg DAILY PO 03/27/17 09:00 Morphine Sulfate 60 mg 60 mg BID PO 03/27/17 09:00 03/27/17 21:41 (Cardizem Inj/NS Inj) 125 ml @ 0 mls/hr TITRATE IV 03/27/17 18:45 03/27/17 19:04 Miscellaneous Information ALL NURSING DEPARTME... UNSCH PRN .XX 03/27/17 19:00 03/28/17 18:59 (Heparin-D5W Inj) 250 ml @ 0 mls/hr TITRATE IV 03/27/17 21:15 03/28/17 00:40 (Lopressor) 25 mg Q12HR PO 03/28/17 09:00 UNV A/P Problem List: (1) Abdominal pain ICD Code: R10.9 Status: Acute (2) Transaminitis ICD Code: R74.0 Status: Acute (3) Pancreatic duct obstruction ICD Code: K86.89 Status: Acute (4) Hypokalemia ICD Code: E87.6 Status: Acute (5) HTN (hypertension) ICD Code: I10 Status: Acute (6) Pruritus ICD Code: L29.9 Status: Acute Assessment and Plan 68-year-old female who presents to [facility] complaining of abdominal pain associated with nausea, vomiting, diarrhea, loss of appetite, pruritus and weight loss, patient has jaundice and icteric sclera exam. CT abdomen showed intra-and extrahepatic biliary duct dilatation and the spleen mass w concerns for adenocarcinoma of head of pancreas. Labs showed transaminitis with elevated total bilirubin of 6.2 and elevated alkaline phosphatase. ACS The pt's troponin peaked at 9.24. EKG without significant ischemic changes. She denies any chest pain or shortness of breath. - continue heparin gtt. - cardiology consult pending. - telemetry. - Start Lopressor 12.5 mg by mouth twice a day. - Check lipid profile and hemoglobin A1c. A fib New onset. - continue Cardizem gtt. Add PO Lopressor. - cardiology consult pending. - telemetry. - check an echo. Pancreatitis/ Elevated LFTs Oncology and GI consults appreciated. EGD/ EUS 03/27 showed: Changes of the pancreas most consistent with chronic pancreatitis; Incomplete endoscopic ultrasound of the pancreatic head but no distinct tumor was identified; Distal biliary stricture resulting in biliary dilatation and proximal biliary narrowing of unclear significance. - Continue IVF for hydration. - antiemetics and pain control as needed. - follow pathology. - follow up with GI and oncology. 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 - PT. HTN Patient has elevated blood pressure, no prior history of hypertension, most likely secondary to pain. Seems resolved. - on Vasotec IV prn. - Lopressor started. Pruritus Likely secondary to cholestasis. - on cholestyramine and Benadryl as needed for itching. DVT prophylaxis, SCD/ALEXUS Discharge Planning Awaiting clinical improvement Problem Qualifiers (1) Abdominal pain: Qualified Code: R10.11 - Right upper quadrant abdominal pain Deon Sandoval DO Mar 28, 2017 08:51
[2017-03-28] MEDS ORDERED: METOPROLOL TARTRATE 25 MG TAB PO SCH (09:00)
[2017-03-28] MEDS: DOCUSATE SODIUM 50 MG/SENNA 8.6 MG TAB PO SCH ×2 (09:26→20:09)
[2017-03-28] MEDS: GABAPENTIN 400 MG CAP PO SCH ×4 (09:26→20:09)
[2017-03-28] MEDS: CHOLESTYRAMINE 4 GM PACKET PO SCH (09:26)
[2017-03-28] MEDS: SODIUM CHLORIDE 0.9% FLUSH 10 ML FLUSH IV FLUSH SCH ×2 (09:26→20:10)
--- NOTE | 2017-03-28 09:57 | HHI.GIFU ---
Subjective Remarks Up in chair. Feeling much better today. States the itching has improved. No n /v. Abdominal pain improved. No chest pain, palpitations, shortness of breath. She was transferred to [facility] unit for elevated troponin I and cardiology consult is pending. (Sarah Coles) Objective Vitals I&O Vital Signs Date Time Temp Pulse Resp B/P Pulse Ox O2 Delivery O2 Flow Rate FiO2 03/28/17 07:01 58 03/28/17 04:00 98.2 98 14 120/72 75 03/28/17 04:00 61 03/28/17 03:00 76 03/28/17 02:00 68 03/28/17 01:00 72 03/28/17 00:00 81 03/28/17 00:00 98.6 99 14 122/70 80 03/27/17 23:00 78 03/27/17 22:00 112 03/27/17 21:00 98.4 97 14 137/79 97 03/27/17 21:00 96 03/27/17 20:15 98 16 121/70 100 Nasal Cannula 2 03/27/17 20:00 97.8 96 16 118/73 99 Nasal Cannula 2 03/27/17 19:45 100 16 124/80 99 Nasal Cannula 2 03/27/17 19:30 106 16 126/76 98 Nasal Cannula 2 03/27/17 19:15 115 16 130/82 97 Nasal Cannula 2 03/27/17 19:00 114 16 125/82 98 Nasal Cannula 2 03/27/17 18:45 116 15 138/83 96 Nasal Cannula 2 03/27/17 18:30 118 15 137/86 96 Nasal Cannula 2 03/27/17 18:15 109 15 135/80 100 Nasal Cannula 3 03/27/17 18:00 98.7 108 16 112/86 99 Nasal Cannula 3 03/27/17 14:41 98 Nasal Cannula 03/27/17 12:00 97.6 82 14 141/72 93 I/O 03/27/17 03/27/17 03/27/17 03/28/17 03/28/17 03/28/17 07:00 15:00 23:00 07:00 15:00 23:00 Intake Total 1162 ml 0 ml 800 ml Output Total 300 ml 160 ml Balance 862 ml 0 ml 640 ml Intake Oral 0 ml IV Total 1162 ml 100 ml Other 700 ml Output Urine Total 200 ml 150 ml Emesis 100 ml Estimated Blood Loss 10 ml # Voids 2 Laboratory Laboratory Tests Test 03/27/17 03/27/17 03/28/17 18:17 21:29 03:09 White Blood Count 15.0 15.9 12.1 Red Blood Count 4.43 4.20 3.65 Hemoglobin 12.5 12.2 10.7 Hematocrit 38.3 35.4 30.8 Mean Corpuscular Volume 86.5 84.4 84.4 Mean Corpuscular Hemoglobin 28.3 29.0 29.4 Mean Corpuscular Hemoglobin 32.7 34.4 34.8 Concent Red Cell Distribution Width 17.3 17.0 17.2 Platelet Count 276 275 252 Mean Platelet Volume 9.7 9.0 9.7 Neutrophils (%) (Auto) 89.9 87.3 Lymphocytes (%) (Auto) 6.2 8.2 Monocytes (%) (Auto) 3.7 4.3 Eosinophils (%) (Auto) 0.0 0.0 Basophils (%) (Auto) 0.2 0.2 Neutrophils # (Auto) 13.5 10.5 Lymphocytes # (Auto) 0.9 1.0 Monocytes # (Auto) 0.6 0.5 Eosinophils # (Auto) 0.0 0.0 Basophils # (Auto) 0.0 0.0 CBC Comment DIFF FINAL DIFF FINAL Differential Comment Sodium Level 132 Potassium Level 3.6 Chloride Level 96 Carbon Dioxide Level 26.6 Anion Gap 9 Blood Urea Nitrogen 13 Creatinine 0.49 Estimat Glomerular Filtration 124 Rate Random Glucose 89 Calcium Level 8.3 Magnesium Level 2.0 Total Creatine Kinase 415 Creatine Kinase MB 41.2 Creatine Kinase MB % 9.9 Troponin I 9.24 6.41 Prothrombin Time 12.4 Prothromb Time International 1.1 Ratio Activated Partial 28.1 Thromboplast Time Date/Time Procedure Status Source Growth 03/26/17 05:55 Aerobic Blood Culture - Preliminary Resulted Blood Peripheral NO GROWTH IN 1 DAY 03/26/17 05:55 Anaerobic Blood Culture - Preliminary Resulted Blood Peripheral NO GROWTH IN 1 DAY Imaging Last Impressions GI Procedure 03/27/17 0000 Signed Impressions: Service Date/Time: Monday, March 27, 2017 16:57 - CONCLUSION: ERCP as above. Jacoby Polk Jr., MD Chest X-Ray 03/26/17 0545 Signed Impressions: Service Date/Time: March 05:54 - CONCLUSION: No evidence of acute cardiopulmonary disease. Dirk Ozuna MD Abdomen/Pelvis CT 03/26/17 0000 Signed Impressions: Service Date/Time: March 07:26 - CONCLUSION: 1. Abnormal examination with severe intra-and extrahepatic bile duct dilatation and pancreatic duct dilatation with abrupt caliber change of the ducts in the region of the pancreatic head. A pancreatic head mass is not seen but the pancreas is partially obscured from artifact related to the patient's spinal hardware. Ideally, the pancreas and ductal system should be further evaluated with a pancreas protocol MRI with and without intravenous contrast to include MRCP images. The concern is for a pancreatic head adenocarcinoma. 2. There is a 19 mm mass in the spleen. Imaging features are nonspecific on this examination. Both benign and potentially malignant processes can have this appearance. Attention can be paid to this at the time of MRI to potentially offer additional characterization. These findings were discussed with Dr. Helms via telephone at the time of this dictation. Dirk Brown MD Physical Exam HEENT: Normocephalic; atraumatic; + jaundice. CHEST: CTA CARDIAC: RRR. ABDOMEN: Soft, nondistended, nontender; no hepatosplenomegaly; bowel sounds are present in all four quadrants. EXTREMITIES: No clubbing, cyanosis, or edema. SKIN: + jaundice. INTEGRITY CONSULTANT: No focal deficits; alert and oriented times three. (Sarah Coles [facility]) Assessment and Plan Plan ASSESSMENT: - Biliary obstruction, jaundice. 2 week hx of itching, epigastric pain radiating to chest/back. She denies fever/chills and her WBC is okay, but she does report twitching from the severe pruritis. Abdomen/Pelvis CT ()-----> 1. Abnormal examination with severe intra-and extrahepatic bile duct dilatation and pancreatic duct dilatation with abrupt caliber change of the ducts in the region of the pancreatic head. A pancreatic head mass is not seen but the pancreas is partially obscured from artifact related to the patient's spinal hardware. Ideally, the pancreas and ductal system should be further evaluated with a pancreas protocol MRI with and without intravenous contrast to include MRCP images. The concern is for a pancreatic head adenocarcinoma. 2. There is a 19 mm mass in the spleen. Imaging features are nonspecific on this examination. Both benign and potentially malignant processes can have this appearance. Attention can be paid to this at the time of MRI to potentially offer additional characterization. No history of pancreatitis or ETOH abuse. S/P cholecystectomy. She has a personal history of breast cancer in 2004, S/P lumpectomy and radiation. Her MGM is from pancreatic cancer. Unable to have MRCP secondary to retained leads from old nerve stimulator. AFP 1.1, CEA 7.3, Ca19-9 35.8. EUS/ERCP with sphincterotomy, biliary stent placement (03/27/17)-----> Changes of the pancreas most consistent with chronic pancreatitis incomplete endoscopic ultrasound of the pancreatic head but no distinct tumor was identified distal biliary stricture resulting in biliary dilatation and proximal biliary narrowing of unclear significance. Pathology pending, Consider rpt CT scan 1-2 months, as patient cannot undergo MRI. Consider PET Scan. Oncology following. - Abdominal pain with nausea and vomiting, secondary to above. PPI, Zofran. Still having significant n/v and therefore will add compazine. - Elevated LFTs, secondary to above. Today's labs pending. - ? pancreatic head mass/Splenic mass. This was not appreciated on CT scan, but the area of the pancreas was partially obscured and she has an abrupt caliber change of the ducts in the region of the pancreatic head and was noted to have a 19mm mass in the spleen. Unable to have MRI secondary to retained leads- Elevated troponin I. Troponin 9.24---> 6.41. Denies chest pain or sob or palpitations. Denies any hx of CAD, although she does have a family history of this. Heparin Gtt. Cardiology consulted. - Anorexia, abnormal weight loss. 10 lb weight loss over the past month- unintentional. - Leukocytosis, mild. WBC 12.1 - Anemia. 10.7/30.8. - Hyponatremia, HTN, hypothyroidism, chronic back pain. per attending. PLAN: - Clear liquids okay from GI standpoint, will keep NPO, as attending changed to NPO last night - Await pathology - LFT today - Cont. PPI - Cont. Zofran prn - Cont. Compazine prn - CBC, LFT in am - Cardiology following - Supportive care - Further recommendations to follow based on results of above - Pt seen and examined by Dr. Stovall and myself and this note is written on his behalf (Sarah Coles) Plan Patient was seen and examined, agree with above note, await labs result and cardiology input. (Luna Stovall MD) Sarah Coles Mar 28, 2017 09:57 Luna Stovall MD Mar 28, 2017 15:23
[2017-03-28] MEDS: MORPHINE SULFATE 60 MG CONTROLLED RELEASE TAB PO SCH ×2 (10:04→20:09)
[2017-03-28] MEDS: LIOTHYRONINE SODIUM 5 MCG TAB PO SCH (10:04)
[2017-03-28] MEDS: PANTOPRAZOLE SODIUM 40 MG VIAL IV PUSH SCH (11:00)
[2017-03-28 11:08] LABS: APTT (PATIENT) 37.5 SEC (24.3-30.1)
[2017-03-28 11:13] LABS: ALT (GPT) 226 U/L (10-53); ANION GAP 9 MEQ/L (5-15); AST (GOT) 168 U/L (15-37); BICARBONATE 28.4 MEQ/L (21.0-32.0); BLOOD UREA NITROGEN 14 MG/DL (7-18); CHLORIDE 97 MEQ/L (98-107); GLOMERULAR FILTRATION RATE 137 ML/MIN (>89); POTASSIUM 3.3 MEQ/L (3.5-5.1); SODIUM (NA) 134 MEQ/L (136-145)
[2017-03-28] MEDS ORDERED: DIATRIZOATE MEGLUM/DIATRIZOATE SOD 9 ML CUP PO ONE (11:15)
[2017-03-28 11:32] LABS: ALKALINE PHOSPHATASE 363 U/L (45-117); LDL CHOLESTEROL 151 MG/DL (0-99); TOTAL BILIRUBIN ADULT 4.3 MG/DL (0.2-1.0)
--- NOTE | 2017-03-28 11:48 | EKG ---
Date Performed: 03/27/2017 Time Performed: 18:16:32 PTAGE: 71 years EKG: ATRIAL FIBRILLATION WITH RAPID VENTRICULAR RESPONSE INCOMPLETE RIGHT BUNDLE BRANCH BLOCK MO DERATE ST DEPRESSION ABNORMAL QRS-T ANGLE POSSIBLE LEFT VENTRICULAR HYPERTROPHY Compared to previous tracing, atrial fibrillation with rapid response has replaced Sinus rhythm . ABNORMAL ECG PREVIOUS TRACING : 03/26/2017 06.36 DOCTOR: Juvencio Chavez Interpretating Date/Time 03/28/2017 11:47:54
--- NOTE | 2017-03-28 11:48 | EKG ---
Date Performed: 03/28/2017 Time Performed: 00:55:38 PTAGE: 71 years EKG: Atrial fibrillation Incomplete RBBB Inferior T wave changes are nonspecific Compared to pre vious tracing, criteria for left ventricular hypertrophy is no longer met. Abnormal ECG PREVIOUS TRACING : 03/27/2017 18.16 DOCTOR: Juvencio Chavez Interpretating Date/Time 03/28/2017 11:48:17
--- NOTE | 2017-03-28 11:50 | EKG ---
Date Performed: 03/28/2017 Time Performed: 06:54:36 PTAGE: 71 years EKG: Sinus rhythm Prolonged QT interval Incomplete RBBB Compared to previous tracing, sinus rhythm has replaced atrial fibrillation. Borderline ECG PREVIOUS TRACING : 03/28/2017 00.55 DOCTOR: Juvencio Chavez Interpretating Date/Time 03/28/2017 11:48:42
[2017-03-28] MEDS ORDERED: IOHEXOL 350 MG/ML 10 ML VIAL (for RAD DIAG) IV ONE (15:18)
--- NOTE | 2017-03-28 15:53 | RADRPT ---
EXAM DATE/TIME: 03/28/2017 14:19 [place] COMPARISON: CT ABDOMEN & PELVIS W CONTRAST, March 26, 2017, 7:26. INDICATIONS : Possible pancreatic tumor. IV CONTRAST: 90 cc Omnipaque 350 (iohexol) IV ORAL CONTRAST: No oral contrast ingested. RADIATION DOSE: 13.8 CTDIvol (mGy) MEDICAL HISTORY : Carcinoma, breast. SURGICAL HISTORY : Hysterectomy. Appendectomy. Cholecystectomy. Spinal fusion with favio placeme nt ENCOUNTER: Initial ACUITY: 1 day PAIN SCALE: 0/10 LOCATION: Bilateral abdomen TECHNIQUE: Volumetric scanning of the abdomen was performed. Using automated exposure c ontrol and adjustment of the mA and/or kV according to patient size, radiation dose was kept as low a s reasonably achievable to obtain optimal diagnostic quality images. DICOM format image data is avai lable electronically for review and comparison. FINDINGS: There is intrahepatic and extrahepatic biliary duct dilatation. There is pneumobilia now present. A biliary stent is seen. There continues to be dilatation of the pancreatic duct at the pancreatic ta il and body measuring up to 1 cm. The pancreatic head and uncinate process appear prominent. The di latation of the pancreatic duct appears to end at the pancreatic head region. The pancreatic head an d uncinate region do appear to be expanded and abut the SMA and SMV. There is enlargement of the suh creatic head and uncinate process with the uncinate process measuring up to 3 cm. The pancreatic hea d region measures up to 3.3 cm. The spleen and adrenal glands appear normal. There is a 1.9 cm cyst at the superolateral right kidne y. The left kidney appears normal. No hydronephrosis is identified. There is surgical hardware see n throughout the thoracic and lumbar spine with long connecting rods. This does cause some streak ar tifact. There is a levo curvature of the thoracolumbar region and dextro curvature of the lumbar spi ne. There are minimal bilateral pleural effusions. CONCLUSION: 1. Fullness of the pancreatic head and uncinate region. This fullness does extend to abut the SMA a nd SMV which is very concerning for a neoplasm despite the difficulty in actually identifying a disti nct mass. The pancreatic duct at the pancreatic body and tail is dilated also raising concerns for a tumor in the pancreatic head region. 2. Status post placement of a biliary stent with pneumobilia now seen. Dirk Dumont MD on March 28, 2017 at 15:27 Board Certified Radiologist. This report was verified electronically.
[2017-03-28] MEDS ORDERED: ASPIRIN EC 325 MG TABEC PO ONE (17:15)
[2017-03-28] MEDS: DILTIAZEM 125 MG/NS 100 ML IV SCH ×2 (19:15)
[2017-03-28 20:06] LABS: APTT (PATIENT) 74.1 SEC (24.3-30.1)
[2017-03-28] MEDS: METOPROLOL TARTRATE 25 MG TAB PO SCH (20:09)
[2017-03-28] MEDS: diphenhydrAMINE HCL 50 MG/ML VIAL IV PUSH PRN (20:16)
[2017-03-28] MEDS ORDERED: PILL SPLITTER OTHER PRN (21:00)
[2017-03-29] VITALS (28 sets, daily range): BP systolic 115–126; BP diastolic 60–75; PULSE 54–86; RESP 18; TEMP 98.1–100.5; O2SAT 95–97
[2017-03-29 01:35] LABS: APTT (PATIENT) 46.5 SEC (24.3-30.1)
[2017-03-29] MEDS: diphenhydrAMINE HCL 50 MG/ML VIAL IV PUSH PRN (03:34)
[2017-03-29 05:01] LABS: HEMATOCRIT 29.6 % (35.0-46.0); MEAN CORPUSCULAR HEMOGLOBIN 29.4 PG (27.0-34.0); MEAN CORPUSCULAR HGB CONC 34.2 % (32.0-36.0); PLATELET COUNT 203 TH/MM3 (150-450); RED BLOOD COUNT 3.44 MIL/MM3 (4.00-5.30); RED CELL DISTRIBUTION WIDTH 17.5 % (11.6-17.2); REVIEW FLAG FINAL; WHITE BLOOD COUNT 6.6 TH/MM3 (4.0-11.0)
[2017-03-29 05:22] LABS: APTT (PATIENT) 37.8 SEC (24.3-30.1)
[2017-03-29 05:31] LABS: BICARBONATE 25.5 MEQ/L (21.0-32.0); POTASSIUM 3.3 MEQ/L (3.5-5.1)
[2017-03-29 05:34] LABS: INDIRECT BILIRUBIN 0.7 MG/DL (0.0-0.8)
[2017-03-29] MEDS: SODIUM CHLOR 0.9% 1000 ML INJ 1,000 ML IV SCH (06:08)
[2017-03-29] MEDS: LEVOTHYROXINE SODIUM 150 MCG TAB PO SCH (06:08)
--- NOTE | 2017-03-29 08:53 | PD.ONC.PN ---
Subjective Subjective Remarks Afebrile overnight. States has her chronic back pain, but no abdominal pain. Concerned about possibility of pancreatic mass. at bedside. Objective Data Date Time Temp Pulse Resp B/P Pulse Ox O2 Delivery O2 Flow Rate FiO2 03/29/17 07:01 59 03/29/17 06:00 55 03/29/17 05:00 54 03/29/17 04:00 98.1 54 18 123/70 96 03/29/17 04:00 54 03/29/17 04:00 Room Air 03/29/17 03:00 62 03/29/17 02:00 57 03/29/17 01:00 55 03/29/17 00:00 98.2 58 18 121/65 95 03/29/17 00:00 58 03/29/17 00:00 Room Air 03/28/17 23:00 62 03/28/17 22:00 57 03/28/17 21:00 60 03/28/17 20:00 98.0 63 20 128/66 96 03/28/17 20:00 63 03/28/17 20:00 Room Air 03/28/17 19:50 94 21 03/28/17 18:01 58 03/28/17 17:00 70 03/28/17 16:01 56 03/28/17 15:30 97.8 58 18 131/72 97 03/28/17 15:00 68 03/28/17 14:00 72 03/28/17 13:00 64 03/28/17 12:00 58 03/28/17 11:30 98.0 72 18 119/60 96 03/28/17 11:00 58 03/28/17 11:00 98 Nasal Cannula 2.00 03/28/17 10:00 60 03/28/17 09:00 60 03/29/17 03/29/17 03/29/17 07:00 15:00 23:00 Intake Total 1560 ml Output Total 1500 ml Balance 60 ml Result Diagram: 03/29/17 0355 03/29/17 0350 Laboratory Results Laboratory Tests Test 03/28/17 03/28/17 03/29/17 03/29/17 09:44 18:42 01:09 03:50 Activated Partial 37.5 SEC 74.1 SEC 46.5 SEC Thromboplast Time Sodium Level 134 MEQ/L 136 MEQ/L Potassium Level 3.3 MEQ/L 3.3 MEQ/L Chloride Level 97 MEQ/L 101 MEQ/L Carbon Dioxide Level 28.4 MEQ/L 25.5 MEQ/L Anion Gap 9 MEQ/L 10 MEQ/L Blood Urea Nitrogen 14 MG/DL 11 MG/DL Creatinine 0.45 MG/DL 0.48 MG/DL Estimat Glomerular Filtration 137 ML/MIN 127 ML/MIN Rate Random Glucose 86 MG/DL 132 MG/DL Calcium Level 7.6 MG/DL 7.8 MG/DL Total Bilirubin 4.3 MG/DL 3.0 MG/DL Direct Bilirubin 3.5 MG/DL 2.3 MG/DL Aspartate Amino Transf 168 U/L 123 U/L (AST/SGOT) Alanine Aminotransferase 226 U/L 198 U/L (ALT/SGPT) Alkaline Phosphatase 363 U/L 325 U/L Troponin I 4.52 NG/ML Total Protein 5.3 GM/DL 5.2 GM/DL Albumin 2.5 GM/DL 2.3 GM/DL Triglycerides Level 131 MG/DL Cholesterol Level 204 MG/DL LDL Cholesterol 151 MG/DL HDL Cholesterol 27.0 MG/DL Cholesterol/HDL Ratio 7.55 RATIO Thyroid Stimulating Hormone 6.390 uIU/ML 3rd Gen Magnesium Level 2.0 MG/DL Indirect Bilirubin 0.7 MG/DL Test 03/29/17 03:55 White Blood Count 6.6 TH/MM3 Red Blood Count 3.44 MIL/MM3 Hemoglobin 10.1 GM/DL Hematocrit 29.6 % Mean Corpuscular Volume 86.0 FL Mean Corpuscular Hemoglobin 29.4 PG Mean Corpuscular Hemoglobin 34.2 % Concent Red Cell Distribution Width 17.5 % Platelet Count 203 TH/MM3 Mean Platelet Volume 10.0 FL Activated Partial 37.8 SEC Thromboplast Time Imaging Studies Last Impressions Abdomen CT 03/28/17 0000 Signed Impressions: Service Date/Time: Tuesday, March 28, 2017 14:19 - CONCLUSION: 1. Fullness of the pancreatic head and uncinate region. This fullness does extend to abut the SMA and SMV which is very concerning for a neoplasm despite the difficulty in actually identifying a distinct mass. The pancreatic duct at the pancreatic body and tail is dilated also raising concerns for a tumor in the pancreatic head region. 2. Status post placement of a biliary stent with pneumobilia now seen. Dirk Dumont MD GI Procedure 03/27/17 0000 Signed Impressions: Service Date/Time: Monday, March 27, 2017 16:57 - CONCLUSION: ERCP as above. Jacoby Polk Jr., MD Chest X-Ray 03/26/17 0545 Signed Impressions: Service Date/Time: March 05:54 - CONCLUSION: No evidence of acute cardiopulmonary disease. Dirk Ozuna MD Abdomen/Pelvis CT 03/26/17 0000 Signed Impressions: Service Date/Time: March 07:26 - CONCLUSION: 1. Abnormal examination with severe intra-and extrahepatic bile duct dilatation and pancreatic duct dilatation with abrupt caliber change of the ducts in the region of the pancreatic head. A pancreatic head mass is not seen but the pancreas is partially obscured from artifact related to the patient's spinal hardware. Ideally, the pancreas and ductal system should be further evaluated with a pancreas protocol MRI with and without intravenous contrast to include MRCP images. The concern is for a pancreatic head adenocarcinoma. 2. There is a 19 mm mass in the spleen. Imaging features are nonspecific on this examination. Both benign and potentially malignant processes can have this appearance. Attention can be paid to this at the time of MRI to potentially offer additional characterization. These findings were discussed with Dr. Helms via telephone at the time of this dictation. Dirk Brown MD Administered Medications Medications (Trade) Dose Ordered Sig/Nadege Route PRN Reason Start Time Stop Time Status Last Admin Dose Admin Ondansetron HCl 4 mg 4 mg Q6H PRN IV NAUSEA OR VOMITING 03/26/17 09:30 03/27/17 21:40 Sodium Chloride (NS 1000 ml Inj) 1,000 ml @ 100 mls/hr Q10H IV 03/26/17 09:30 03/29/17 06:08 Sodium Chloride (NS Flush) 2 ml BID IV FLUSH 03/26/17 21:00 03/28/17 20:10 Senna/Docusate Sodium (Kiley-Colace) 1 tab BID PO 03/26/17 21:00 03/28/17 20:09 Lactulose (Lactulose Liq) 30 ml DAILY PRN PO SEVERE CONSITIPATION 03/26/17 09:45 03/29/17 06:20 Enalaprilat (Vasotec Inj) 1.25 mg Q6H PRN IV PUSH SYS BP GREATER THAN 160 MMHG 03/26/17 09:45 03/27/17 00:29 Pantoprazole Sodium (Protonix Inj) 40 mg Q24H IV PUSH 03/26/17 11:00 03/28/17 11:00 Cholestyramine Resin (Questran 4 Gm Pkt) 4 gm DAILY PO 03/26/17 11:00 03/28/17 09:26 Diphenhydramine HCl (Benadryl Inj) 25 mg Q6H PRN IV PUSH ITCHING 03/26/17 10:15 03/29/17 03:34 Prochlorperazine Edisylate (Compazine Inj) 5 mg Q6H PRN IM NAUSEA OR VOMITING 03/26/17 11:30 03/26/17 14:13 Morphine Sulfate (Morphine Inj) 4 mg Q3H PRN IV PUSH PAIN SCALE 5 TO 10 03/26/17 11:30 03/28/17 05:45 Gabapentin (Neurontin) 400 mg QID PO 03/26/17 13:00 03/28/17 20:09 Levothyroxine Sodium (Synthroid) 150 mcg DAILY@06 PO 03/27/17 06:00 03/29/17 06:08 Liothyronine Sodium (Cytomel) 5 mcg DAILY PO 03/27/17 09:00 03/28/17 10:04 Morphine Sulfate 60 mg 60 mg BID PO 03/27/17 09:00 03/28/17 20:09 Diltiazem HCl 125 mg/Sodium Chloride 125 ml @ 0 mls/hr TITRATE IV 03/27/17 18:45 Hold 03/28/17 19:15 Heparin Sodium/ Dextrose (Heparin-D5W Inj) 250 ml @ 0 mls/hr TITRATE IV 03/27/17 21:15 03/28/17 20:18 Metoprolol Tartrate (Lopressor) 12.5 mg Q12HR PO 03/28/17 21:00 03/28/17 20:09 Objective Remarks GENERAL: Elderly female, supine in bed in nad. SKIN: Warm and dry. HEAD: Normocephalic. EYES: No injection or drainage. NECK: Supple, trachea midline. CARDIOVASCULAR: Regular rate and rhythm RESPIRATORY: Breath sounds equal bilaterally. No accessory muscle use. GASTROINTESTINAL: Abdomen soft, non-tender, nondistended. EXTREMITIES: No cyanosis NEUROLOGICAL: No obvious focal deficit. Awake, alert, and oriented x3. Assessment/Plan Problem List: (1) Pancreatic mass Status: Acute Plan: --EUS and EGD-->++significant dilated pancreatic duct with inhomogeneous irregular pancreatic parenchyma throughout the pancreatic body and tail, changes of the pancreas consistent with chronic pancreatitis. Specimen was obtained from the ampule and bile duct. Distal biliary stricture resulting in biliary dilatation and proximal biliary narrowing is noted and a stent was placed. -- CA 19-9 is only 35.8. CEA is elevated at 7.3. --CT ab/pelvis with pancreatic protocol showed-->Fullness of the pancreatic head and uncinate region. This fullness does extend to abut the SMA and SMV which is very concerning for a neoplasm despite the difficulty in actually identifying a distinct mass. The pancreatic duct at the pancreatic body and tail is dilated also raising concerns for a tumor in the pancreatic head region. Assessment 71y/o female with pancreatic mass associated with hyperbilirubinemia. --history of breast cancer diagnosed more than ten years ago-->followed by Dr. Nevaeh Austin Plan 1. await pathology 2. follow up with Dr. Austin upon discharge Attending Statement The exam, history, and the medical decision-making described in the above note were completed with the assistance of the mid-level provider. I reviewed and agree with the findings presented. I attest that I had a [id number] encounter with the patient on the same day, and personally performed and documented my assessment and findings in the medical record. Pt seen and examined. Bilirubin decreasing. Appetite is good. Urine back to normal. Anticipate going to see Dr. Austin as out pt. Mel Salazar Mar 29, 2017 08:53 Nunu Kwong MD Mar 29, 2017 13:30
[2017-03-29] MEDS ORDERED: POTASSIUM CHLORIDE 25 MEQ EFFERVESCENT TAB PO ONE (09:00)
[2017-03-29] MEDS: DOCUSATE SODIUM 50 MG/SENNA 8.6 MG TAB PO SCH ×2 (09:16→21:00)
[2017-03-29] MEDS: LIOTHYRONINE SODIUM 5 MCG TAB PO SCH (09:16)
[2017-03-29] MEDS: ASPIRIN EC 81 MG TABEC PO SCH (09:16)
[2017-03-29] MEDS: CHOLESTYRAMINE 4 GM PACKET PO SCH (09:16)
[2017-03-29] MEDS: GABAPENTIN 400 MG CAP PO SCH ×4 (09:16→21:00)
[2017-03-29] MEDS: MORPHINE SULFATE 60 MG CONTROLLED RELEASE TAB PO SCH ×2 (09:16→21:39)
--- NOTE | 2017-03-29 09:16 | HHI.GIFU ---
Subjective Remarks Resting in bed in no apparent distress. Started on heart healthy diet, tolerating okay. Denies abdominal pain. No nausea or vomiting. Reports mild itching today. Denies chest pain or shortness of breath. (Thelma Young) Objective Vitals I&O Vital Signs Date Time Temp Pulse Resp B/P Pulse Ox O2 Delivery O2 Flow Rate FiO2 03/29/17 07:01 59 03/29/17 06:00 55 03/29/17 05:00 54 03/29/17 04:00 98.1 54 18 123/70 96 03/29/17 04:00 54 03/29/17 04:00 Room Air 03/29/17 03:00 62 03/29/17 02:00 57 03/29/17 01:00 55 03/29/17 00:00 98.2 58 18 121/65 95 03/29/17 00:00 58 03/29/17 00:00 Room Air 03/28/17 23:00 62 03/28/17 22:00 57 03/28/17 21:00 60 03/28/17 20:00 98.0 63 20 128/66 96 03/28/17 20:00 63 03/28/17 20:00 Room Air 03/28/17 19:50 94 21 03/28/17 18:01 58 03/28/17 17:00 70 03/28/17 16:01 56 03/28/17 15:30 97.8 58 18 131/72 97 03/28/17 15:00 68 03/28/17 14:00 72 03/28/17 13:00 64 03/28/17 12:00 58 03/28/17 11:30 98.0 72 18 119/60 96 03/28/17 11:00 58 03/28/17 11:00 98 Nasal Cannula 2.00 03/28/17 10:00 60 I/O 03/28/17 03/28/17 03/28/17 03/29/17 03/29/17 03/29/17 07:00 15:00 23:00 07:00 15:00 23:00 Intake Total 3756 ml 1560 ml Output Total 1300 ml 1500 ml Balance 2456 ml 60 ml Intake Oral 1440 ml 480 ml IV Total 2316 ml 1080 ml Output Urine Total 1300 ml 1500 ml # Voids 4 # Bowel Movements 0 0 Laboratory Laboratory Tests Test 03/28/17 03/28/17 03/29/17 03/29/17 09:44 18:42 01:09 03:50 Activated Partial 37.5 74.1 46.5 Thromboplast Time Sodium Level 134 136 Potassium Level 3.3 3.3 Chloride Level 97 101 Carbon Dioxide Level 28.4 25.5 Anion Gap 9 10 Blood Urea Nitrogen 14 11 Creatinine 0.45 0.48 Estimat Glomerular Filtration 137 127 Rate Random Glucose 86 132 Calcium Level 7.6 7.8 Total Bilirubin 4.3 3.0 Direct Bilirubin 3.5 2.3 Aspartate Amino Transf 168 123 (AST/SGOT) Alanine Aminotransferase 226 198 (ALT/SGPT) Alkaline Phosphatase 363 325 Troponin I 4.52 Total Protein 5.3 5.2 Albumin 2.5 2.3 Triglycerides Level 131 Cholesterol Level 204 LDL Cholesterol 151 HDL Cholesterol 27.0 Cholesterol/HDL Ratio 7.55 Thyroid Stimulating Hormone 6.390 3rd Gen Magnesium Level 2.0 Indirect Bilirubin 0.7 Test 03/29/17 03:55 White Blood Count 6.6 Red Blood Count 3.44 Hemoglobin 10.1 Hematocrit 29.6 Mean Corpuscular Volume 86.0 Mean Corpuscular Hemoglobin 29.4 Mean Corpuscular Hemoglobin 34.2 Concent Red Cell Distribution Width 17.5 Platelet Count 203 Mean Platelet Volume 10.0 Activated Partial 37.8 Thromboplast Time Date/Time Procedure Status Source Growth 03/26/17 05:55 Aerobic Blood Culture - Preliminary Resulted Blood Peripheral NO GROWTH IN 2 DAYS 03/26/17 05:55 Anaerobic Blood Culture - Preliminary Resulted Blood Peripheral NO GROWTH IN 2 DAYS Imaging Last Impressions Abdomen CT 03/28/17 0000 Signed Impressions: Service Date/Time: Tuesday, March 28, 2017 14:19 - CONCLUSION: 1. Fullness of the pancreatic head and uncinate region. This fullness does extend to abut the SMA and SMV which is very concerning for a neoplasm despite the difficulty in actually identifying a distinct mass. The pancreatic duct at the pancreatic body and tail is dilated also raising concerns for a tumor in the pancreatic head region. 2. Status post placement of a biliary stent with pneumobilia now seen. Dirk Dumont MD GI Procedure 03/27/17 0000 Signed Impressions: Service Date/Time: Monday, March 27, 2017 16:57 - CONCLUSION: ERCP as above. Jacoby Polk Jr., MD Chest X-Ray 03/26/17 0545 Signed Impressions: Service Date/Time: March 05:54 - CONCLUSION: No evidence of acute cardiopulmonary disease. Dirk Ozuna MD Abdomen/Pelvis CT 03/26/17 0000 Signed Impressions: Service Date/Time: March 07:26 - CONCLUSION: 1. Abnormal examination with severe intra-and extrahepatic bile duct dilatation and pancreatic duct dilatation with abrupt caliber change of the ducts in the region of the pancreatic head. A pancreatic head mass is not seen but the pancreas is partially obscured from artifact related to the patient's spinal hardware. Ideally, the pancreas and ductal system should be further evaluated with a pancreas protocol MRI with and without intravenous contrast to include MRCP images. The concern is for a pancreatic head adenocarcinoma. 2. There is a 19 mm mass in the spleen. Imaging features are nonspecific on this examination. Both benign and potentially malignant processes can have this appearance. Attention can be paid to this at the time of MRI to potentially offer additional characterization. These findings were discussed with Dr. Helms via telephone at the time of this dictation. Dirk Brown MD Physical Exam HEENT: Normocephalic; atraumatic; + icteric sclera CHEST: CTA CARDIAC: RRR. ABDOMEN: Soft, nondistended, nontender; no hepatosplenomegaly; bowel sounds x 4 quadrants EXTREMITIES: No clubbing, cyanosis, or edema. SKIN: Cool and dry. + jaundice. INFORMATION OPERATOR: Alert and oriented x 3. (Thelma Young BONE DRIER) Assessment and Plan Plan ASSESSMENT: - Biliary obstruction, jaundice. 2 week hx of itching, epigastric pain radiating to chest/back. She denies fever/chills and her WBC is okay. Mild itching reported today. Abdomen/Pelvis CT (03/26/17)--1. Abnormal examination with severe intra-and extrahepatic bile duct dilatation and pancreatic duct dilatation with abrupt caliber change of the ducts in the region of the pancreatic head. A pancreatic head mass is not seen but the pancreas is partially obscured from artifact related to the patient's spinal hardware. Ideally, the pancreas and ductal system should be further evaluated with a pancreas protocol MRI with and without intravenous contrast to include MRCP images. The concern is for a pancreatic head adenocarcinoma. 2. There is a 19 mm mass in the spleen. Imaging features are nonspecific on this examination. Both benign and potentially malignant processes can have this appearance. Attention can be paid to this at the time of MRI to potentially offer additional characterization. No history of pancreatitis or ETOH abuse. S/P cholecystectomy. She has a personal history of breast cancer in 2005, S/P lumpectomy and radiation. Her MGM is from pancreatic cancer. Unable to have MRCP secondary to retained leads from old nerve stimulator. AFP 1.1, CEA 7.3, Ca19-9 35.8. EUS/ERCP with sphincterotomy, biliary stent placement (03/27/17)--Changes of the pancreas most consistent with chronic pancreatitis incomplete endoscopic ultrasound of the pancreatic head but no distinct tumor was identified distal biliary stricture resulting in biliary dilatation and proximal biliary narrowing of unclear significance. Pathology pending, Consider rpt CT scan 1-2 months, as patient cannot undergo MRI. Consider PET Scan. Abdomen CT 03/28/17--1. Fullness of the pancreatic head and uncinate region. This fullness does extend to abut the SMA and SMV which is very concerning for a neoplasm despite the difficulty in actually identifying a distinct mass. The pancreatic duct at the pancreatic body and tail is dilated also raising concerns for a tumor in the pancreatic head region. 2. Status post placement of a biliary stent with pneumobilia now seen. Oncology following. - Abdominal pain with nausea and vomiting, secondary to above. Improved. PPI, Zofran. - Elevated LFTs, secondary to above. 03/29 AST 123, ALT 198, ALK PHOS 325 - ? pancreatic head mass/Splenic mass. As above. Unable to have MRI secondary to retained leads- Elevated troponin I. Troponin 9.24---> 6.41. Denies chest pain or sob or palpitations. Denies any hx of CAD, although she does have a family history of this. Heparin Gtt. Cardiology consulted. - Anorexia, abnormal weight loss. 10 lb weight loss over the past month- unintentional. - Leukocytosis, improved. WBC 6.6 - Anemia, stable. 10.6/29.6 - Hyponatremia, HTN, hypothyroidism, chronic back pain. per attending. PLAN: - BEN - Await pathology - Cont. PPI - Cont. Zofran prn - Cont. Compazine prn - Monitor labs - Cardiology consulted, await recommendations - Supportive care - Further recommendations to follow based on results of above. Patient seen and examined by myself and Dr. Stovall and this note is written on his behalf. (Thelma Young) Physician Comments Patient was seen and examined agree with above note, continue supportive care and agree with the plan (Luna Stovall MD) Thelma Young Mar 29, 2017 09:16 Luna Stovall MD Mar 29, 2017 12:47
[2017-03-29] MEDS: METOPROLOL TARTRATE 25 MG TAB PO SCH ×2 (09:17→21:39)
[2017-03-29] MEDS: SODIUM CHLORIDE 0.9% FLUSH 10 ML FLUSH IV FLUSH SCH (09:18)
--- NOTE | 2017-03-29 10:01 | MB ---
cc: BEN HOBSON MD DATE OF CONSULTATION: 03/29/2017 REASON FOR CONSULTATION: New onset paroxysmal atrial fibrillation. HISTORY OF PRESENT ILLNESS The patient is a very pleasant 71-year-old woman with no prior past cardiac history who was in the hospital for abdominal pain and jaundice which ended up requiring an ERCP. Postoperatively the patient was found to have a period of paroxysmal atrial fibrillation which has now converted to sinus rhythm. I have been asked to evaluate her further for this new finding. The patient is completely asymptomatic currently actually hoping to be discharged home soon. She denies any cardiac history or symptoms whatsoever. She says she has never had chest pain, shortness of breath, lightheadedness, dizziness, palpitations or syncope. She says that she does not have any history of hypertension, congestive heart failure, kidney disease or vascular disease. This would put her CHADS Vas score at 2 for gender and age only. PAST MEDICAL HISTORY: 1. Arthritis. 2. Scoliosis. 3. Breast cancer. 4. Acquired hypothyroidism. CURRENT MEDICATIONS: 1. Aspirin 81 milligrams daily. 2. Lopressor 12.5 mg b.i.d. 3. Heparin drip 4. Cytomel. 5. Synthroid. 6. Neurontin. 7. Questran ALLERGIES: ADHESIVE PENICILLIN PHYSICAL EXAMINATION Afebrile, pulse 59, respiratory rate 18, BP 123/70 sating 96 on room air. General: Very pleasant woman in no distress. Neck: No JVD. Lungs: Clear to auscultation bilaterally. Cardiovascular: Regular rate rhythm. No murmurs appreciated. Abdomen: Benign. Extremities: No edema. LABORATORY DATA White count 6.6, hematocrit 29.6, platelets 203. Sodium 136, potassium 3.3, chloride 101, bicarb 25.5, BUN 11, creatinine 0.48, glucose 132. Troponin was positive at 9.24. EKG showed atrial fibrillation, rate of [address] changes. IMPRESSION 1. Intraoperative non-ST elevation CO. The patient had an apparent intraoperative non-ST elevation CO with a troponin of 9.24. This has been trending downward. She is asymptomatic and we will have her undergo a nuclear stress test to evaluate for ischemia. 2. New onset atrial fibrillation. Given the patient's relatively minimal risk factors for age and gender only without the other notable risk factors, plus the possibility that this is an isolated event in the setting of her surgery and intraoperative non ST elevation CO, will plan for a loop recorder tomorrow for long-term, A-fib management/diagnosis and burden detection. Further management decisions will be based on her clinical course. Thank you again for the opportunity to participate in this patient's care. MD KRISTINA Cordoba/DIAN /9:36 AM /9:43 AM
--- NOTE | 2017-03-29 10:08 | HHI.PR ---
Subjective Remarks The patient was feeling well this morning. She was ambulating. She talked to the bilingual medical assistant about the plan for tomorrow. She was breathing comfortably. She denied any chest pain. Discussed with her son at the bedside. Also discussed with cardiology and nursing. Objective Vitals Vital Signs Date Time Temp Pulse Resp B/P Pulse Ox O2 Delivery O2 Flow Rate FiO2 03/29/17 07:01 59 03/29/17 06:00 55 03/29/17 05:00 54 03/29/17 04:00 98.1 54 18 123/70 96 03/29/17 04:00 54 03/29/17 04:00 Room Air 03/29/17 03:00 62 03/29/17 02:00 57 03/29/17 01:00 55 03/29/17 00:00 98.2 58 18 121/65 95 03/29/17 00:00 58 03/29/17 00:00 Room Air 03/28/17 23:00 62 03/28/17 22:00 57 03/28/17 21:00 60 03/28/17 20:00 98.0 63 20 128/66 96 03/28/17 20:00 63 03/28/17 20:00 Room Air 03/28/17 19:50 94 21 03/28/17 18:01 58 03/28/17 17:00 70 03/28/17 16:01 56 03/28/17 15:30 97.8 58 18 131/72 97 03/28/17 15:00 68 03/28/17 14:00 72 03/28/17 13:00 64 03/28/17 12:00 58 03/28/17 11:30 98.0 72 18 119/60 96 03/28/17 11:00 58 03/28/17 11:00 98 Nasal Cannula 2.00 I/O 03/28/17 03/28/17 03/28/17 03/29/17 03/29/17 03/29/17 07:00 15:00 23:00 07:00 15:00 23:00 Intake Total 3756 ml 1560 ml Output Total 1300 ml 1500 ml Balance 2456 ml 60 ml Intake Oral 1440 ml 480 ml IV Total 2316 ml 1080 ml Output Urine Total 1300 ml 1500 ml # Voids 4 # Bowel Movements 0 0 Result Diagram: 03/29/17 0355 03/29/17 0350 Imaging Last Impressions Abdomen CT 03/28/17 0000 Signed Impressions: Service Date/Time: Tuesday, March 28, 2017 14:19 - CONCLUSION: 1. Fullness of the pancreatic head and uncinate region. This fullness does extend to abut the SMA and SMV which is very concerning for a neoplasm despite the difficulty in actually identifying a distinct mass. The pancreatic duct at the pancreatic body and tail is dilated also raising concerns for a tumor in the pancreatic head region. 2. Status post placement of a biliary stent with pneumobilia now seen. Dirk Dumont MD GI Procedure 03/27/17 0000 Signed Impressions: Service Date/Time: Monday, March 27, 2017 16:57 - CONCLUSION: ERCP as above. Jacoby Polk Jr., MD Chest X-Ray 03/26/17 0545 Signed Impressions: Service Date/Time: March 05:54 - CONCLUSION: No evidence of acute cardiopulmonary disease. Dirk Ozuna MD Abdomen/Pelvis CT 03/26/17 0000 Signed Impressions: Service Date/Time: March 07:26 - CONCLUSION: 1. Abnormal examination with severe intra-and extrahepatic bile duct dilatation and pancreatic duct dilatation with abrupt caliber change of the ducts in the region of the pancreatic head. A pancreatic head mass is not seen but the pancreas is partially obscured from artifact related to the patient's spinal hardware. Ideally, the pancreas and ductal system should be further evaluated with a pancreas protocol MRI with and without intravenous contrast to include MRCP images. The concern is for a pancreatic head adenocarcinoma. 2. There is a 19 mm mass in the spleen. Imaging features are nonspecific on this examination. Both benign and potentially malignant processes can have this appearance. Attention can be paid to this at the time of MRI to potentially offer additional characterization. These findings were discussed with Dr. Helms via telephone at the time of this dictation. Dirk Brown MD Objective Remarks GENERAL: No apparent distress, resting comfortably SKIN: Cool and dry. (+) Jaundice EYES: Pupils equal round. Extraocular motions intact. (+) Icteric sclera ENT: Nose without drainage. Airway patent CARDIOVASCULAR: Regular rate and rhythm without murmurs RESPIRATORY: Bilateral crackles appreciated GASTROINTESTINAL: Abdomen soft, nontender, nondistended. No palpable masses. No guarding MUSCULOSKELETAL: Extremities without edema NEUROLOGICAL: Awake and alert. Cranial nerves II through XII intact. Motor and sensory grossly within normal limits. Normal speech PSYCH: Mood and affect appropriate Procedures EGD/ EUS Medications and IVs Current Medications Medications (Trade) Dose Ordered Sig/Nadege Route Start Time Stop Time Status Last Admin Ondansetron HCl 4 mg 4 mg Q6H PRN IV 03/26/17 09:30 03/27/17 21:40 (NS 1000 ml Inj) 1,000 ml @ 100 mls/hr Q10H IV 03/26/17 09:30 03/29/17 06:08 (NS Flush) 2 ml UNSCH PRN IV FLUSH 03/26/17 09:45 (NS Flush) 2 ml BID IV FLUSH 03/26/17 21:00 03/29/17 09:18 (Tylenol) 650 mg Q4H PRN PO 03/26/17 09:45 (Kiley-Colace) 1 tab BID PO 03/26/17 21:00 03/29/17 09:16 (Milk Of Magnesia Liq) 30 ml Q12H PRN PO 03/26/17 09:45 (Senokot) 17.2 mg Q12H PRN PO 03/26/17 09:45 (Dulcolax Supp) 10 mg DAILY PRN RECTAL 03/26/17 09:45 (Lactulose Liq) 30 ml DAILY PRN PO 03/26/17 09:45 03/29/17 06:20 (Vasotec Inj) 1.25 mg Q6H PRN IV PUSH 03/26/17 09:45 03/27/17 00:29 (Protonix Inj) 40 mg Q24H IV PUSH 03/26/17 11:00 03/28/17 11:00 (Questran 4 Gm Pkt) 4 gm DAILY PO 03/26/17 11:00 03/29/17 09:16 (Benadryl Inj) 25 mg Q6H PRN IV PUSH 03/26/17 10:15 03/29/17 03:34 (Compazine Inj) 5 mg Q6H PRN IM 03/26/17 11:30 03/26/17 14:13 (Morphine Inj) 2 mg Q3H PRN IV PUSH 03/26/17 11:30 (Morphine Inj) 4 mg Q3H PRN IV PUSH 03/26/17 11:30 03/28/17 05:45 (Neurontin) 400 mg QID PO 03/26/17 13:00 03/29/17 09:16 (Synthroid) 150 mcg DAILY@06 PO 03/27/17 06:00 03/29/17 06:08 (Cytomel) 5 mcg DAILY PO 03/27/17 09:00 03/29/17 09:16 Morphine Sulfate 60 mg 60 mg BID PO 03/27/17 09:00 03/29/17 09:16 (Cardizem Inj/NS Inj) 125 ml @ 0 mls/hr TITRATE IV 03/27/17 18:45 Hold 03/28/17 19:15 (Lopressor) 12.5 mg Q12HR PO 03/28/17 21:00 03/29/17 09:17 (Pill Splitter) 1 ea UNSCH PRN OTHER 03/28/17 21:00 (Ecotrin Ec) 81 mg DAILY PO 03/29/17 09:00 03/29/17 09:[address] 03/28/17 0000 Signed Impressions: Service Date/Time: Tuesday, March 28, 2017 14:19 - CONCLUSION: 1. Fullness of the pancreatic head and uncinate region. This fullness does extend to abut the SMA and SMV which is very concerning for a neoplasm despite the difficulty in actually identifying a distinct mass. The pancreatic duct at the pancreatic body and tail is dilated also raising concerns for a tumor in the pancreatic head region. 2. Status post placement of a biliary stent with pneumobilia now seen. Dirk Dumont MD GI Procedure 03/27/17 0000 Signed Impressions: Service Date/Time: Monday, March 27, 2017 16:57 - CONCLUSION: ERCP as above. Jacoby Polk Jr., MD Chest X-Ray 03/26/17 0545 Signed Impressions: Service Date/Time: March 05:54 - CONCLUSION: No evidence of acute cardiopulmonary disease. Dirk Ozuna MD Abdomen/Pelvis CT 03/26/17 0000 Signed Impressions: Service Date/Time: March 07:26 - CONCLUSION: 1. Abnormal examination with severe intra-and extrahepatic bile duct dilatation and pancreatic duct dilatation with abrupt caliber change of the ducts in the region of the pancreatic head. A pancreatic head mass is not seen but the pancreas is partially obscured from artifact related to the patient's spinal hardware. Ideally, the pancreas and ductal system should be further evaluated with a pancreas protocol MRI with and without intravenous contrast to include MRCP images. The concern is for a pancreatic head adenocarcinoma. 2. There is a 19 mm mass in the spleen. Imaging features are nonspecific on this examination. Both benign and potentially malignant processes can have this appearance. Attention can be paid to this at the time of MRI to potentially offer additional characterization. These findings were discussed with Dr. Helms via telephone at the time of this dictation. Dirk Brown MD A/P Problem List: (1) Abdominal pain ICD Code: R10.9 Status: Acute (2) Transaminitis ICD Code: R74.0 Status: Acute (3) Pancreatic duct obstruction ICD Code: K86.89 Status: Acute (4) Hypokalemia ICD Code: E87.6 Status: Acute (5) HTN (hypertension) ICD Code: I10 Status: Acute (6) Pruritus ICD Code: L29.9 Status: Acute Assessment and Plan 68-year-old female who presents to [facility] complaining of abdominal pain associated with nausea, vomiting, diarrhea, loss of appetite, pruritus and weight loss, patient has jaundice and icteric sclera exam. CT abdomen showed intra-and extrahepatic biliary duct dilatation and the spleen mass w concerns for adenocarcinoma of head of pancreas. Labs showed transaminitis with elevated total bilirubin of 6.2 and elevated alkaline phosphatase. ACS The pt's troponin peaked at 9.24. EKG without significant ischemic changes. She denies any chest pain or shortness of breath. Cardiology consult appreciated. LDL 151. - d/c heparin gtt. - stress test per cardiology. - telemetry. - Start Lopressor 12.5 mg by mouth twice a day as well as Lipitor 40mg daily and ASA 81mg daily. - Check hemoglobin A1c. A fib New onset. S/p Cardizem gtt. Rate controlled. - continue PO Lopressor. - loop recorder per cardiology. - telemetry. - check an echo. Pancreatitis/ Elevated LFTs Oncology and GI consults appreciated. EGD/ EUS 03/27 showed: Changes of the pancreas most consistent with chronic pancreatitis; Incomplete endoscopic ultrasound of the pancreatic head but no distinct tumor was identified; Distal biliary stricture resulting in biliary dilatation and proximal biliary narrowing of unclear significance. A biliary stent was placed. CT showed: fullness of the pancreatic head and uncinate region; This fullness does extend to abut the SMA and SMV which is very concerning for a neoplasm despite the difficulty in actually identifying a distinct mass; The pancreatic duct at the pancreatic body and tail is dilated also raising concerns for a tumor in the pancreatic head region. - antiemetics and pain control as needed. - follow pathology. - follow up with GI and oncology. - Seismic Engineer consultation for weight loss. - PT. HTN Patient has elevated blood pressure, no prior history of hypertension, most likely secondary to pain. Seems resolved. - on Vasotec IV prn. - Lopressor started. Pruritus Likely secondary to cholestasis. - on cholestyramine and Benadryl as needed for itching. DVT prophylaxis, SCD/ALEXUS Discharge Planning Awaiting further evaluation Problem Qualifiers (1) Abdominal pain: Qualified Code: R10.11 - Right upper quadrant abdominal pain Deon Sandoval DO Mar 29, 2017 10:08
[2017-03-29] MEDS: PANTOPRAZOLE SODIUM 40 MG VIAL IV PUSH SCH (11:26)
[2017-03-29 12:15] LABS: APTT (PATIENT) 29.5 SEC (24.3-30.1)
[2017-03-29 13:40] LABS: HEMOGLOBIN A1a 1.1 %; HEMOGLOBIN A1b 0.6 %; HEMOGLOBIN Ao 87.2 %; HEMOGLOBIN F 0.8 %; HEMOGLOBIN LA1C 1.7 %; HEMOGLOBIN P3 3.2 %
--- NOTE | 2017-03-29 15:07 | ECHRPT ---
Indication: Persistent atrial fibrillation CONCLUSIONS Normal left ventricular size. Wall thickness is normal. The left ventricular systolic function is moderately reduced with an estimated ejection fraction in the range of 40-45%. There is global left ventricular dysfunction, perhaps worse in the basal-inferior region. Mild mitral valve regurgitation. There is mild tricuspid valve regurgitation. The estimated pulmonary arterial pressure is _34_ mmHg. BP: / HR: Rhythm: MEASUREMENTS (Male / Female) Normal Values Technical Quality:Good 2D ECHO LV Diastolic Diameter PLAX 4.5 cm 4.2 - 5.9 / 3.9 - 5.3 cm LV Systolic Diameter PLAX 3.7 cm IVS Diastolic Thickness 1.0 cm 0.6 - 1.0 / 0.6 - 0.9 cm LVPW Diastolic Thickness 0.8 cm 0.6 - 1.0 / 0.6 - 0.9 cm LV Relative Wall Thickness 0.4 RV Internal Dim ED PLAX 2.6 cm M-MODE Aortic Root Diameter MM 3.2 cm LA Systolic Diameter MM 3.5 cm LA Ao Ratio MM 1.1 AV Cusp Separation MM 1.9 cm DOPPLER Mitral E Point Velocity 62.7 cm/s Mitral A Point Velocity 63.2 cm/s Mitral E to A Ratio 1.0 LV E' Lateral Velocity 4.5 cm/s Mitral E to LV E' Lateral Ratio 14.0 LV E' Septal Velocity 6.4 cm/s Mitral E to LV E' Septal Ratio 9.8 TR Peak Velocity 246.0 cm/s TR Peak Gradient 24.2 mmHg FINDINGS LEFT VENTRICLE Normal left ventricular size. Wall thickness is normal. The left ventricular systolic function is moderately reduced with an estimated ejection fraction in the range of 40-45%. There is global left ventricular dysfunction. RIGHT VENTRICLE Normal right ventricular size and systolic function. LEFT ATRIUM The left atrial size is normal. RIGHT ATRIUM The right atrial size is normal. ATRIAL SEPTUM Normal atrial septal thickness without atrial level shunting by limited color doppler interrogation. AORTA The aortic root and proximal ascending aorta are normal in size on limited imaging. MITRAL VALVE Structurally normal mitral valve. Mild mitral valve regurgitation. AORTIC VALVE Trileaflet aortic valve. No aortic valve regurgitation. TRICUSPID VALVE Structurally normal tricuspid valve. There is mild tricuspid valve regurgitation. The estimated pulmonary arterial pressure is _34_ mmHg. PULMONARY VALVE No pulmonary valve regurgitation or stenosis. VESSELS The inferior vena cava was not well visualized. PERICARDIUM No pericardial effusion. Alex Rose MD (Electronically Signed) Final Date:29 March 2017 15:06
[2017-03-30] VITALS (20 sets, daily range): BP systolic 103–146; BP diastolic 57–88; PULSE 56–88; RESP 18–22; TEMP 97.9–99.3; O2SAT 91–99
[2017-03-30] MEDS: diphenhydrAMINE HCL 50 MG/ML VIAL IV PUSH PRN (00:08)
[2017-03-30] MEDS: LEVOTHYROXINE SODIUM 150 MCG TAB PO SCH (06:00)
[2017-03-30 07:06] LABS: HEMATOCRIT 29.5 % (35.0-46.0); MEAN CELL VOLUME 86.2 FL (80.0-100.0); MEAN CORPUSCULAR HEMOGLOBIN 28.6 PG (27.0-34.0); MEAN CORPUSCULAR HGB CONC 33.2 % (32.0-36.0); PLATELET COUNT 191 TH/MM3 (150-450); RED BLOOD COUNT 3.42 MIL/MM3 (4.00-5.30); RED CELL DISTRIBUTION WIDTH 16.8 % (11.6-17.2); REVIEW FLAG FINAL; WHITE BLOOD COUNT 8.2 TH/MM3 (4.0-11.0)
[2017-03-30 07:34] LABS: ANION GAP 5 MEQ/L (5-15); AST (GOT) 68 U/L (15-37); BICARBONATE 29.6 MEQ/L (21.0-32.0); BLOOD UREA NITROGEN 8 MG/DL (7-18); CHLORIDE 101 MEQ/L (98-107); GLOMERULAR FILTRATION RATE 148 ML/MIN (>89); POTASSIUM 3.9 MEQ/L (3.5-5.1); SODIUM (NA) 136 MEQ/L (136-145)
[2017-03-30 07:38] LABS: ALKALINE PHOSPHATASE 272 U/L (45-117); ALT (GPT) 161 U/L (10-53); TOTAL BILIRUBIN ADULT 2.4 MG/DL (0.2-1.0)
[2017-03-30] MEDS ORDERED: MIDAZOLAM HCL 2 MG/2 ML VIAL ONE ×2 (08:24→08:51)
[2017-03-30] MEDS: SODIUM CHLORIDE 0.9% FLUSH 10 ML FLUSH IV FLUSH SCH (09:00)
[2017-03-30] MEDS ORDERED: MIDAZOLAM HCL 5 MG/ML VIAL (1 ML) ONE (09:07)
--- NOTE | 2017-03-30 09:26 | PD.CARD.PN ---
Subjective Subjective Remarks Doing well, no complaints Objective Medications Administered Medications Medications (Trade) Dose Ordered Sig/Nadege Route PRN Reason Start Time Stop Time Status Last Admin Dose Admin Ondansetron HCl (Zofran Inj) 4 mg Q6H PRN IV NAUSEA OR VOMITING 03/26/17 09:30 03/27/17 21:40 Sodium Chloride (NS Flush) 2 ml BID IV FLUSH 03/26/17 21:00 03/29/17 09:18 Senna/Docusate Sodium (Kiley-Colace) 1 tab BID PO 03/26/17 21:00 03/29/17 09:16 Magnesium Hydroxide (Milk Of Magnesia Liq) 30 ml Q12H PRN PO MILD - MODERATE CONSTIPATION 03/26/17 09:45 03/29/17 17:30 Bisacodyl (Dulcolax Supp) 10 mg DAILY PRN RECTAL SEVERE CONSITIPATION 03/26/17 09:45 03/29/17 15:18 Lactulose (Lactulose Liq) 30 ml DAILY PRN PO SEVERE CONSITIPATION 03/26/17 09:45 03/29/17 06:20 Enalaprilat (Vasotec Inj) 1.25 mg Q6H PRN IV PUSH SYS BP GREATER THAN 160 MMHG 03/26/17 09:45 03/27/17 00:29 Pantoprazole Sodium (Protonix Inj) 40 mg Q24H IV PUSH 03/26/17 11:00 03/29/17 11:26 Cholestyramine Resin (Questran 4 Gm Pkt) 4 gm DAILY PO 03/26/17 11:00 03/29/17 09:16 Diphenhydramine HCl (Benadryl Inj) 25 mg Q6H PRN IV PUSH ITCHING 03/26/17 10:15 03/30/17 00:08 Prochlorperazine Edisylate (Compazine Inj) 5 mg Q6H PRN IM NAUSEA OR VOMITING 03/26/17 11:30 03/26/17 14:13 Morphine Sulfate (Morphine Inj) 4 mg Q3H PRN IV PUSH PAIN SCALE 5 TO 10 03/26/17 11:30 03/28/17 05:45 Gabapentin (Neurontin) 400 mg QID PO 03/26/17 13:00 03/29/17 21:00 Levothyroxine Sodium (Synthroid) 150 mcg DAILY@06 PO 03/27/17 06:00 03/30/17 06:00 Liothyronine Sodium (Cytomel) 5 mcg DAILY PO 03/27/17 09:00 03/29/17 09:16 Morphine Sulfate (Oramorph Sr) 60 mg BID PO 03/27/17 09:00 03/29/17 21:39 Metoprolol Tartrate (Lopressor) 12.5 mg Q12HR PO 03/28/17 21:00 03/29/17 21:39 Aspirin (Ecotrin Ec) 81 mg DAILY PO 03/29/17 09:00 03/29/17 09:16 Vital Signs / I&O Vital Signs Date Time Temp Pulse Resp B/P Pulse Ox O2 Delivery O2 Flow Rate FiO2 03/30/17 09:06 98.7 67 20 135/88 97 03/30/17 08:30 97 Room Air 03/30/17 06:00 58 03/30/17 05:00 58 03/30/17 04:00 98.1 56 18 103/57 97 03/30/17 04:00 59 03/30/17 03:00 61 03/30/17 02:00 60 03/30/17 01:00 62 03/30/17 00:30 Room Air 03/30/17 00:00 61 03/30/17 00:00 98.2 67 18 106/60 97 03/29/17 23:00 62 03/29/17 22:00 82 03/29/17 21:00 86 03/29/17 20:59 21 03/29/17 20:20 Room Air 03/29/17 20:00 100.5 74 18 115/67 96 03/29/17 20:00 83 03/29/17 19:00 74 03/29/17 18:01 74 03/29/17 17:00 72 03/29/17 16:01 66 03/29/17 15:15 98.1 64 18 126/60 95 03/29/17 15:00 64 03/29/17 14:00 58 03/29/17 13:00 68 03/29/17 12:01 62 03/29/17 11:30 98.5 58 18 125/75 97 03/29/17 11:00 59 03/29/17 10:30 18 03/29/17 10:01 58 03/29/17 09:30 95 21 I/O 03/29/17 03/29/17 03/29/17 03/30/17 03/30/17 03/30/17 07:00 15:00 23:00 07:00 15:00 23:00 Intake Total 1560 ml 1300 ml 480 ml Output Total 1500 ml 1500 ml 1000 ml Balance 60 ml -200 ml -520 ml Intake Oral 480 ml 1200 ml 480 ml IV Total 1080 ml 100 ml Output Urine Total 1500 ml 1500 ml 1000 ml # Voids 5 # Bowel Movements 0 0 2 Physical Exam GENERAL: This is a well-nourished, well-developed patient, in no apparent distress. CARDIOVASCULAR: Regular rate and rhythm without murmurs, gallops, or rubs. RESPIRATORY: Clear to auscultation. Breath sounds equal bilaterally. No wheezes , rales, or rhonchi. GASTROINTESTINAL: Abdomen soft, non-tender, nondistended. Normal active bowel sounds MUSCULOSKELETAL: Extremities without clubbing, cyanosis, or edema. NEURO: Alert & Oriented x4 to person, place, time, situation. Moves all ext x4 Laboratory Laboratory Tests Test 03/29/17 03/30/17 11:51 06:15 Activated Partial 29.5 SEC Thromboplast Time White Blood Count 8.2 TH/MM3 Red Blood Count 3.42 MIL/MM3 Hemoglobin 9.8 GM/DL Hematocrit 29.5 % Mean Corpuscular Volume 86.2 FL Mean Corpuscular Hemoglobin 28.6 PG Mean Corpuscular Hemoglobin 33.2 % Concent Red Cell Distribution Width 16.8 % Platelet Count 191 TH/MM3 Mean Platelet Volume 9.5 FL Sodium Level 136 MEQ/L Potassium Level 3.9 MEQ/L Chloride Level 101 MEQ/L Carbon Dioxide Level 29.6 MEQ/L Anion Gap 5 MEQ/L Blood Urea Nitrogen 8 MG/DL Creatinine 0.42 MG/DL Estimat Glomerular Filtration 148 ML/MIN Rate Random Glucose 94 MG/DL Calcium Level 7.8 MG/DL Total Bilirubin 2.4 MG/DL Aspartate Amino Transf 68 U/L (AST/SGOT) Alanine Aminotransferase 161 U/L (ALT/SGPT) Alkaline Phosphatase 272 U/L Total Protein 5.1 GM/DL Albumin 2.3 GM/DL Imaging Last Impressions Abdomen CT 03/28/17 0000 Signed Impressions: Service Date/Time: Tuesday, March 28, 2017 14:19 - CONCLUSION: 1. Fullness of the pancreatic head and uncinate region. This fullness does extend to abut the SMA and SMV which is very concerning for a neoplasm despite the difficulty in actually identifying a distinct mass. The pancreatic duct at the pancreatic body and tail is dilated also raising concerns for a tumor in the pancreatic head region. 2. Status post placement of a biliary stent with pneumobilia now seen. Dirk Dumont MD GI Procedure 03/27/17 0000 Signed Impressions: Service Date/Time: Monday, March 27, 2017 16:57 - CONCLUSION: ERCP as above. Jacoby Polk Jr., MD Chest X-Ray 03/26/17 0545 Signed Impressions: Service Date/Time: March 05:54 - CONCLUSION: No evidence of acute cardiopulmonary disease. Dirk Ozuna MD Abdomen/Pelvis CT 03/26/17 0000 Signed Impressions: Service Date/Time: March 07:26 - CONCLUSION: 1. Abnormal examination with severe intra-and extrahepatic bile duct dilatation and pancreatic duct dilatation with abrupt caliber change of the ducts in the region of the pancreatic head. A pancreatic head mass is not seen but the pancreas is partially obscured from artifact related to the patient's spinal hardware. Ideally, the pancreas and ductal system should be further evaluated with a pancreas protocol MRI with and without intravenous contrast to include MRCP images. The concern is for a pancreatic head adenocarcinoma. 2. There is a 19 mm mass in the spleen. Imaging features are nonspecific on this examination. Both benign and potentially malignant processes can have this appearance. Attention can be paid to this at the time of MRI to potentially offer additional characterization. These findings were discussed with Dr. Helms via telephone at the time of this dictation. Dirk Brown MD Assessment and Plan Problem List: (1) NSTEMI (non-ST elevated myocardial infarction) Assessment and Plan: continue medical mgt; for nuc stress today, no chest pain. (2) Paroxysmal atrial fibrillation Assessment and Plan: unclear burden or if isolated event, loop now in place. Assessment and Plan If nuclear stress non-ischemic would be cleared for discharge from cardiac standpoint, will arrange f/u in my office. Alex Rose MD Mar 30, 2017 09:26
[2017-03-30] MEDS: MORPHINE SULFATE 60 MG CONTROLLED RELEASE TAB PO SCH (10:13)
[2017-03-30] MEDS: PANTOPRAZOLE SODIUM 40 MG VIAL IV PUSH SCH (10:28)
[2017-03-30] MEDS: ASPIRIN EC 81 MG TABEC PO SCH (10:29)
[2017-03-30] MEDS: LIOTHYRONINE SODIUM 5 MCG TAB PO SCH (10:29)
[2017-03-30] MEDS: GABAPENTIN 400 MG CAP PO SCH ×2 (10:29→13:00)
[2017-03-30] MEDS: DOCUSATE SODIUM 50 MG/SENNA 8.6 MG TAB PO SCH (10:30)
[2017-03-30] MEDS: CHOLESTYRAMINE 4 GM PACKET PO SCH (10:30)
[2017-03-30] MEDS: METOPROLOL TARTRATE 25 MG TAB PO SCH (10:30)
--- NOTE | 2017-03-30 10:55 | MA ---
cc: ALEX ROSE MD DATE: 03/30/2017 INDICATION Atrial fibrillation of uncertain duration/burden. PERFORMING PHYSICIAN Dr. Alex Rose PROCEDURES PERFORMED 1. 15 minutes of moderate IV sedation. 2. Loop recorder insertion. DESCRIPTION OF PROCEDURE After informed consent was obtained the patient was prepped and draped in the usual sterile fashion. Using the standard technique a Swagsy LINQ loop recorder was inserted subcutaneously to the left chest. The patient tolerated the procedure well without any apparent complications. The initial R-wave as 0.30 millivolts. Tachybrady pause and atrial fibrillation detection was enabled. The serial number was [id number]. Alex Rose MD KRISTINA/ALINE /9:33 AM /10:54 AM
[2017-03-30] MEDS ORDERED: REGADENOSON INJ 0.4 MG/5 ML SYR ONE (11:39)
--- NOTE | 2017-03-30 13:48 | RADRPT ---
EXAM DATE/TIME: 03/30/2017 11:19 [place] COMPARISON: No previous studies available for comparison. INDICATIONS : Atrial fibrillation. DOSE: 26.1 mCi Tc99m Myoview at stress. 8.1 mCi Tc99m Myoview at rest. 0.4 mg Lexiscan STRESS SYMPTOMS: EJECTION FRACTION: 52% MEDICAL HISTORY : Carcinoma, breast. Hypothyroidism. SURGICAL HISTORY : Cholecystectomy. Back surgery. ENCOUNTER: Initial ACUITY: 1 day PAIN SCALE: 2/10 LOCATION: Bilateral chest TECHNIQUE: The patient underwent pharmacologic stress with infusion of prescribed dose. Continuous ECG tracing was monitored during stress. Gated SPECT imaging was performed after stress and conventional SPECT i maging was performed at rest. The examination was performed on a SPECT/CT scanner, both attenuation and non-corrected datasets were reviewed. FINDINGS: DISTRIBUTION: The maximum perfused segment at stress is in the septal wall. PERFUSION STUDY: The pattern of perfusion at stress is within normal limits. GATED STUDY: There is intact wall motion and thickening without hypokinetic or dyskinetic segments. CONCLUSION: 1. No reversible perfusion abnormality. 2. No focal wall motion abnormality. EF of 52%. RISK CATEGORY: 1. Low risk. <1% annual mortality rate. Lasha Anderson MD on March 30, 2017 at 13:41 Board Certified Radiologist. This report was verified electronically.
--- NOTE | 2017-03-30 15:48 | HHI.DCPOC ---
Discharge Care Plan Diagnosis: (1) NSTEMI (non-ST elevated myocardial infarction) (2) Paroxysmal atrial fibrillation (3) Pancreatic mass (4) Pancreatic duct obstruction (5) Transaminitis (6) Abdominal pain (7) Pruritus (8) Hypokalemia Goals to Promote Your Health * To prevent worsening of your condition and complications * To maintain your health at the optimal level Directions to Meet Your Goals Take your medications as prescribed Follow your dietary instruction Follow activity as directed Keep your appointments as scheduled Take your immunizations and boosters as scheduled If your symptoms worsen call your PCP, if no PCP go to Urgent Care Center or Emergency Room Smoking is Dangerous to Your Health. Avoid second hand smoke Call the 24-hour hour crisis hotline for domestic abuse at Deon Sandoval DO Mar 30, 2017 15:48
--- NOTE | 2017-03-30 15:49 | HHI.FF ---
Face to Face Verification Diagnosis: (1) NSTEMI (non-ST elevated myocardial infarction) (2) Paroxysmal atrial fibrillation (3) Pancreatic mass (4) Pancreatic duct obstruction (5) Transaminitis (6) HTN (hypertension) (7) Abdominal pain (8) Pruritus Physical Therapy Order: Evaluate and Treat, Improve ambulation, Strength and gait training Home Health Nursing Order: Medical education Signs/symptoms of disease process Medication education-adverse effect Nursing assessment with vital signs I have seen patient Shreya Mancia on 03/30/17. My clinical findings support the need for the requested home health care services because: Ltd mobility - disease progression Deconditioned w/ increased weakness I certify that my clinical findings support that this patient is homebound because: Unsteady gait/balance Unsafe to leave home unassisted Deon Sandoval DO Mar 30, 2017 15:49
[2017-03-30] MEDS ORDERED: ASPI-99 PO (15:50)
[2017-03-30] MEDS ORDERED: METO25TA3 PO (15:50)
[2017-03-30] MEDS ORDERED: PANT40TA3 PO (15:50)
--- NOTE | 2017-03-30 18:04 | HHI.DS ---
Discharge Summary Admission Date Mar 26, 2017 at 08:23 Discharge Date: Mar 30, 2017 Admitting Diagnosis pancreatic obstruction. Hepatic duct obstruction. Hypokalemia. (1) Abdominal pain ICD Code: R10.9 (2) Transaminitis ICD Code: R74.0 (3) Pancreatic duct obstruction ICD Code: K86.89 Diagnosis: Principal (4) Hypokalemia ICD Code: E87.6 (5) HTN (hypertension) ICD Code: I10 (6) Pruritus ICD Code: L29.9 (7) NSTEMI (non-ST elevated myocardial infarction) ICD Code: I21.4 Diagnosis: Principal (8) Paroxysmal atrial fibrillation ICD Code: I48.0 Diagnosis: Principal Procedures EGD/ EUS Brief History - From Admission This is a 71-year-old female with past medical history of breast cancer, acquired hypothyroidism, multiple spinal surgeries who presents to [facility] complaining of severe abdominal pain 05/14, diffuse but mostly located on the epigastrium, nonradiating, associated with nausea and vomiting and diarrhea, loss of appetite and weight loss which started approximately 2-3 weeks ago. Patient also has associated pruritus for which she has seen a senior technical specialist who prescribed some topical creams and oral Benadryl without improvement. Patient denies fevers or chills, has occasional cough, denies dysuria. CBC/BMP: 03/30/17 0615 03/30/17 0615 Significant Findings Laboratory Tests Test 03/27/17 03/27/17 03/28/17 03/28/17 18:17 21:29 03:09 09:44 White Blood Count 15.0 TH/MM3 15.9 TH/MM3 12.1 TH/MM3 (4.0-11.0) (4.0-11.0) (4.0-11.0) Red Cell Distribution Width 17.3 % (11.6-17.2) Neutrophils (%) (Auto) 89.9 % 87.3 % (16.0-70.0) (16.0-70.0) Lymphocytes (%) (Auto) 6.2 % 8.2 % (9.0-44.0) (9.0-44.0) Neutrophils # (Auto) 13.5 TH/MM3 10.5 TH/MM3 (1.8-7.7) (1.8-7.7) Lymphocytes # (Auto) 0.9 TH/MM3 (1.0-4.8) Sodium Level 132 MEQ/L 134 MEQ/L (136-145) (136-145) Chloride Level 96 MEQ/L 97 MEQ/L (98-107) (98-107) Creatinine 0.49 MG/DL 0.45 MG/DL (0.50-1.00) (0.50-1.00) Calcium Level 8.3 MG/DL 7.6 MG/DL (8.5-10.1) (8.5-10.1) Total Creatine Kinase 415 U/L (26-192) Creatine Kinase MB 41.2 NG/ML (0.5-3.6) Creatine Kinase MB % 9.9 % (0.0-4.0) Troponin I 9.24 NG/ML 6.41 NG/ML 4.52 NG/ML (0.02-0.05) (0.02-0.05) (0.02-0.05) Prothrombin Time 12.4 SEC (9.8-11.6) Red Blood Count 3.65 MIL/MM3 (4.00-5.30) Hemoglobin 10.7 GM/DL (11.6-15.3) Hematocrit 30.8 % (35.0-46.0) Activated Partial 37.5 SEC Thromboplast Time (24.3-30.1) Potassium Level 3.3 MEQ/L (3.5-5.1) Total Bilirubin 4.3 MG/DL (0.2-1.0) Direct Bilirubin 3.5 MG/DL (0.0-0.2) Aspartate Amino Transf 168 U/L (15-37) (AST/SGOT) Alanine Aminotransferase 226 U/L (10-53) (ALT/SGPT) Alkaline Phosphatase 363 U/L (45-117) Total Protein 5.3 GM/DL (6.4-8.2) Albumin 2.5 GM/DL (3.4-5.0) Cholesterol Level 204 MG/DL (120-200) LDL Cholesterol 151 MG/DL (0-99) HDL Cholesterol 27.0 MG/DL (40.0-60.0) Thyroid Stimulating Hormone 6.390 uIU/ML 3rd Gen (0.358-3.740) Test 03/28/17 03/29/17 03/29/17 03/29/17 18:42 01:09 03:50 03:55 Activated Partial 74.1 SEC 46.5 SEC 37.8 SEC Thromboplast Time (24.3-30.1) (24.3-30.1) (24.3-30.1) Potassium Level 3.3 MEQ/L (3.5-5.1) Creatinine 0.48 MG/DL (0.50-1.00) Random Glucose 132 MG/DL (74-106) Calcium Level 7.8 MG/DL (8.5-10.1) Total Bilirubin 3.0 MG/DL (0.2-1.0) Direct Bilirubin 2.3 MG/DL (0.0-0.2) Aspartate Amino Transf 123 U/L (15-37) (AST/SGOT) Alanine Aminotransferase 198 U/L (10-53) (ALT/SGPT) Alkaline Phosphatase 325 U/L (45-117) Total Protein 5.2 GM/DL (6.4-8.2) Albumin 2.3 GM/DL (3.4-5.0) Red Blood Count 3.44 MIL/MM3 (4.00-5.30) Hemoglobin 10.1 GM/DL (11.6-15.3) Hematocrit 29.6 % (35.0-46.0) Red Cell Distribution Width 17.5 % (11.6-17.2) Test 03/30/17 06:15 Red Blood Count 3.42 MIL/MM3 (4.00-5.30) Hemoglobin 9.8 GM/DL (11.6-15.3) Hematocrit 29.5 % (35.0-46.0) Creatinine 0.42 MG/DL (0.50-1.00) Calcium Level 7.8 MG/DL (8.5-10.1) Total Bilirubin 2.4 MG/DL (0.2-1.0) Aspartate Amino Transf 68 U/L (15-37) (AST/SGOT) Alanine Aminotransferase 161 U/L (10-53) (ALT/SGPT) Alkaline Phosphatase 272 U/L (45-117) Total Protein 5.1 GM/DL (6.4-8.2) Albumin 2.3 GM/DL (3.4-5.0) Imaging Last Impressions Myocardial Perfusion Scan [facility] 03/30/17 0000 Signed Impressions: Service Date/Time: Thursday, March 30, 2017 11:19 - CONCLUSION: 1. No reversible perfusion abnormality. 2. No focal wall motion abnormality. EF of 52%%. RISK CATEGORY: 1. Low risk. <1%% annual mortality rate. Lasha Anderson MD Abdomen CT 03/28/17 0000 Signed Impressions: Service Date/Time: Tuesday, March 28, 2017 14:19 - CONCLUSION: 1. Fullness of the pancreatic head and uncinate region. This fullness does extend to abut the SMA and SMV which is very concerning for a neoplasm despite the difficulty in actually identifying a distinct mass. The pancreatic duct at the pancreatic body and tail is dilated also raising concerns for a tumor in the pancreatic head region. 2. Status post placement of a biliary stent with pneumobilia now seen. Dirk Dumont MD GI Procedure 03/27/17 0000 Signed Impressions: Service Date/Time: Monday, March 27, 2017 16:57 - CONCLUSION: ERCP as above. Jacoby Polk Jr., MD Chest X-Ray 03/26/17 0545 Signed Impressions: Service Date/Time: March 05:54 - CONCLUSION: No evidence of acute cardiopulmonary disease. Dirk Ozuna MD Abdomen/Pelvis CT 03/26/17 0000 Signed Impressions: Service Date/Time: March 07:26 - CONCLUSION: 1. Abnormal examination with severe intra-and extrahepatic bile duct dilatation and pancreatic duct dilatation with abrupt caliber change of the ducts in the region of the pancreatic head. A pancreatic head mass is not seen but the pancreas is partially obscured from artifact related to the patient's spinal hardware. Ideally, the pancreas and ductal system should be further evaluated with a pancreas protocol MRI with and without intravenous contrast to include MRCP images. The concern is for a pancreatic head adenocarcinoma. 2. There is a 19 mm mass in the spleen. Imaging features are nonspecific on this examination. Both benign and potentially malignant processes can have this appearance. Attention can be paid to this at the time of MRI to potentially offer additional characterization. These findings were discussed with Dr. Helms via telephone at the time of this dictation. Dirk Brown MD PE at Discharge GENERAL: No apparent distress, resting comfortably SKIN: Cool and dry. (+) Jaundice EYES: Pupils equal round. Extraocular motions intact. (+) Icteric sclera ENT: Nose without drainage. Airway patent CARDIOVASCULAR: Regular rate and rhythm without murmurs RESPIRATORY: Bilateral crackles appreciated GASTROINTESTINAL: Abdomen soft, nontender, nondistended. No palpable masses. No guarding MUSCULOSKELETAL: Extremities without edema NEUROLOGICAL: Awake and alert. Cranial nerves II through XII intact. Motor and sensory grossly within normal limits. Normal speech PSYCH: Mood and affect appropriate Pt update on day of discharge The patient was feeling well and wanting to go home. She had a loop recorder implanted. She was curious about the results of the stress test. Family was at the bedside and her questions were answered. Discussed with nursing. Hospital Course Pancreatic mass/ Elevated LFTs The pt presented complaining of abdominal pain associated with nausea, vomiting , diarrhea, loss of appetite, pruritus and weight loss, Patient had jaundice and icteric sclera exam. CT abdomen showed intra-and extrahepatic biliary duct dilatation and a spleen mass with concerns for adenocarcinoma of head of pancreas. Labs showed transaminitis with elevated total bilirubin of 6.2 and elevated alkaline phosphatase. Oncology and GI were consulted. EGD/ EUS 03/27 showed: Changes of the pancreas most consistent with chronic pancreatitis; Incomplete endoscopic ultrasound of the pancreatic head but no distinct tumor was identified; Distal biliary stricture resulting in biliary dilatation and proximal biliary narrowing of unclear significance. A biliary stent was placed. Repeat CT showed: fullness of the pancreatic head and uncinate region; This fullness does extend to abut the SMA and SMV which is very concerning for a neoplasm despite the difficulty in actually identifying a distinct mass; The pancreatic duct at the pancreatic body and tail is dilated also raising concerns for a tumor in the pancreatic head region. She received antiemetics and pain control as needed. She will follow pathology results and plan further diagnostics with GI and oncology as an outpt. She worked with PT and will be discharged with home health care. She will have repeat labs in 3-5 days. ACS The pt's troponin peaked at 9.24. EKG without significant ischemic changes. She denied any chest pain or shortness of breath. She was started on a heparin gtt. Cardiology was consulted. LDL 151. She will not be discharged on a statin in the setting of elevated LFTs. She was started on ASA and a beta laurie. She had a stress test per cardiology which was low risk for ischemia. She was monitored on telemetry. She will follow up with cardiology as an outpt. A fib New onset. S/p Cardizem gtt. Rate controlled. She will continue PO Lopressor. A loop recorder was implanted by cardiology 03/30. She was monitored on telemetry. Echo with EF 40-45%. She will follow up with cardiology as an outpt. Pt Condition on Discharge: Stable Discharge Disposition: Disch w/ Home Health Serv Discharge Time: > 30 minutes Discharge Instructions DIET: Follow Instructions for: Heart Healthy Diet Activities you can perform: Weight Bearing as Destiny Follow up Referrals: Cardiology - 1 Week with Alex Rose MD Gastroenterology - 1 Week Oncology - 1 Week PCP Follow-up - 1 Week New Orders: CBC WITH DIFF - 3-5 Days COMP MET PROF (CMP) - 3-5 Days New Medications: Pantoprazole (Pantoprazole) 40 Mg Tab 40 MG PO DAILY Reflux #[address] (Adult Aspirin EC Low Strength) 81 Mg Tabec 81 MG PO DAILY Heart #30 TAB Metoprolol Tartrate (Metoprolol Tartrate) 25 Mg Tab 12.5 MG PO Q12HR A fib #60 TAB Continued Medications: Calcium-Vitamins D & K (Chewable Calcium) 500-200-40 Mg-Unit-Mcg Chew 1 TAB CHEW Nutritional Supplement Ref 0 TAB Gabapentin (Gabapentin) 400 Mg Cap 400 CAP PO QID #30 Ref 0 CAP Hydrocodone-Acetaminophen (Hydrocodone-Acetaminophen) 7.5-300 Mg Tab 1 TAB PO Q4H PRN PAIN Ref 0 TAB Levothyroxine (Levothyroxine) 150 Mcg Tab 150 MCG PO DAILY Thyroid #30 Ref 0 TAB Liothyronine (Liothyronine) 5 Mcg Tab 5 MCG PO DAILY Thyroid Supplement #30 Ref 0 TAB Morphine ER (Morphine ER) 60 Mg Tab 60 MG PO BID Pain Management Ref 0 TAB Deon Sandoval DO Mar 30, 2017 18:03
--- NOTE | 2017-03-31 08:35 | EKG ---
Date Performed: 03/29/2017 Time Performed: 16:43:26 PTAGE: 71 years EKG: Sinus rhythm . Right bundle branch block Abnormal ECG PREVIOUS TRACING : 03/28/2017 06.54 DOCTOR: José Miguel Pinto Interpretating Date/Time 03/31/2017 08:34:22
== END 2017-03-30 18:02 | disposition home health service (06) | DRG 981 ==
LOC: PHED 05:02 → PHEDA 08:23 → HOCB 10:35 → HCIS 03-27 18:39
PROVIDERS: ADMIT Hospitalist; ATTEND Hospitalist
PROC: 0F798DZ Dilation of Common Bile Duct with Intraluminal Device, Via Natural or Artificial Opening Endoscopic (ICD-10-PCS; 2017-03-27)
PROC: 0FBC8ZX Excision of Ampulla of Vater, Via Natural or Artificial Opening Endoscopic, Diagnostic (ICD-10-PCS; 2017-03-27)
PROC: 0DJ08ZZ Inspection of Upper Intestinal Tract, Via Natural or Artificial Opening Endoscopic (ICD-10-PCS; principal; 2017-03-27 16:15)
PROC: 0JH602Z Insertion of Monitoring Device into Chest Subcutaneous Tissue and Fascia, Open Approach (ICD-10-PCS; 2017-03-30)
DX: K86.89 Other specified diseases of pancreas (principal); K83.1 Obstruction of bile duct; I21.4 Non-ST elevation (NSTEMI) myocardial infarction; I48.0 Paroxysmal atrial fibrillation; R63.0 Anorexia; M41.9 Scoliosis, unspecified; I97.791 Other intraoperative cardiac functional disturbances during other surgery; R16.1 Splenomegaly, not elsewhere classified; I10 Essential (primary) hypertension; E87.6 Hypokalemia; R74.0 Nonspecific elevation of levels of transaminase and lactic acid dehydrogenase [LDH]; M19.90 Unspecified osteoarthritis, unspecified site; Z88.0 Allergy status to penicillin; Z91.048 Other nonmedicinal substance allergy status; E89.0 Postprocedural hypothyroidism; L29.9 Pruritus, unspecified; Z85.3 Personal history of malignant neoplasm of breast; Z92.3 Personal history of irradiation; Z80.0 Family history of malignant neoplasm of digestive organs; F17.210 Nicotine dependence, cigarettes, uncomplicated; G89.29 Other chronic pain; K86.1 Other chronic pancreatitis; Y83.8 Other surgical procedures as the cause of abnormal reaction of the patient, or of later complication, without mention of misadventure at the time of the procedure; Y73.3 Surgical instruments, materials and gastroenterology and urology devices (including sutures) associated with adverse incidents; Y92.234 Operating room of hospital as the place of occurrence of the external cause; R12 Heartburn
CPT/HCPCS: 33282; 43259; 71010; 74160; 74177; 74330; 76937; 78452; 80048; 80053; 80061; 80076; 80307; 81001; 82105; 82248; 82378; 82550; 82552; 83036; 83605; 83690; 83735; 84443; 84484; 85025; 85027; 85610; 85730; 86301; 87040; 88112; 88305; 93005; 93017; 93306; 96374; A9502; C1764; C1769; C2625; C9113; J0780; J1200; J1644; J2250; J2270; J2405; J2785; J3010; J3480; J7030; Q9967

== ENCOUNTER 2017-04-03 13:59 | Emergency (ER) | payer MEDICARE ==
[~2017-04-03] VITALS: Ht 157.5 cm; Wt 60.0 kg
[~2017-04-03 13:59] MED LIST changes: +ASPI-99 PO; -CIPR-9 PO; +METO25TA3 PO; +PANT40TA3 PO; -XARE10TA PO
[2017-04-03 14:01] VITALS: BP 126/65; PULSE 72; RESP 16; TEMP 99.2; O2SAT 95
--- NOTE | 2017-04-03 14:17 | PD ---
Physical Exam Time Seen by Provider: 14:16 Narrative 71 y/o female here for valuation of LE edema for the past few days. D/C 03/30, biliary stent placed. Vital signs reviewed. Seen at triage desk. Awaiting bed placement. Data Data Last Documented VS Vital Signs Date Time Temp Pulse Resp B/P Pulse Ox O2 Delivery O2 Flow Rate FiO2 04/03/17 14:01 99.2 72 16 126/65 95 MDM Medical Record Reviewed: Yes Supervised Visit with SHARON: Munir De La Vega Apr 03, 2017 14:17
[2017-04-03 16:00] VITALS: BP 121/60; PULSE 77; RESP 16; TEMP 99.2; O2SAT 97
[2017-04-03 16:49] LABS: AUTOMATED NEUTROPHIL # 8.8 TH/MM3 (1.8-7.7); BASOPHIL % 0.2 % (0.0-2.0); HEMATOCRIT 32.3 % (35.0-46.0); HEMO FLAGS DIFF FINAL; LYMPH % 9.8 % (9.0-44.0); LYMPHOCYTE # 1.1 TH/MM3 (1.0-4.8); MEAN CELL VOLUME 85.2 FL (80.0-100.0); MEAN CORPUSCULAR HEMOGLOBIN 28.3 PG (27.0-34.0); MEAN CORPUSCULAR HGB CONC 33.3 % (32.0-36.0); MONO % 12.2 % (0.0-8.0); NEUT % 77.8 % (16.0-70.0); PLATELET COUNT 382 TH/MM3 (150-450); WHITE BLOOD COUNT 11.3 TH/MM3 (4.0-11.0)
[2017-04-03 16:59] LABS: APTT (PATIENT) 33.4 SEC (24.3-30.1); PROTHROMBIN TIME - PATIENT 11.4 SEC (9.8-11.6)
--- NOTE | 2017-04-03 17:04 | PD ---
HPI Chief Complaint: Edema Time Seen by Provider: 16:03 Travel History International Travel<30 days: No Contact w/Intl Traveler<30days: No Traveled to known affect area: No History of Present Illness HPI The patient 71 years old and returns to the ER following a discharge from a few days ago after a biliary stent was placed in the pancreatitis. This morning she had jaundice. Additional symptoms include flatulence and belching. She states that food doesn't taste right. She reports multiple bowel movements with soft no formed stool. She's had no bloody stool. She denies fever. No vomiting. She was advised by Dr Brown to come to the ER. Patient has also had bilateral lower extremity edema for 2 days, totally new for her. PFSH Past Medical History Hx Anticoagulant Therapy: Yes Arthritis: Yes Asthma: No Atrial Fibrillation: Yes Autoimmune Disease: No Blood Disorders: No Anxiety: No Depression: No Heart Rhythm Problems: No Cancer: Yes (BREAST) Cardiovascular Problems: No High Cholesterol: No Chest Pain: No Congestive Heart Failure: No COPD: No Cerebrovascular Accident: No Diabetes: No Diminished Hearing: No Endocrine: Yes Gastrointestinal Disorders: Yes GERD: No Glaucoma: No Genitourinary: No Headaches: No Hepatitis: No Hiatal Hernia: Yes Heparin Induced Thrombocytopen: No Hypertension: No Immune Disorder: No Implanted Vascular Access Dvce: No Kidney Stones: No Musculoskeletal: Yes (SCOLIOSIS) Neurologic: No Psychiatric: No Reproductive: No Respiratory: No Migraines: No Myocardial Infarction: No Radiation Therapy: Yes Renal Failure: No Seizures: No Sickle Cell Disease: No Sleep Apnea: No Thyroid Disease: Yes Ulcer: No Tetanus Vaccination: Unknown Influenza Vaccination: Yes Menopausal: Yes Past Surgical History Abdominal Surgery: No AICD: No Appendectomy: Yes Arteriovenous Shunt: No Cardiac Surgery: No Cholecystectomy: Yes Ear Surgery: Yes (CATARACTS ) Endocrine Surgery: Yes (THYROIDECTOMY ) Gynecologic Surgery: Yes (SPINAL FUSION) Hysterectomy: Yes Insulin Pump: No Joint Replacement: No Oral Surgery: Yes (LTK) Pacemaker: No Thoracic Surgery: No Other Surgery: Yes (LUMPECTOMY) Social History Alcohol Use: Yes (ONCE OR TWICE A YEAR) Tobacco Use: Yes (1 PACK PER WEEK ) Substance Use: No Allergies-Medications (Allergen,Severity, Reaction): Coded Allergies: Penicillin (Verified Allergy, Severe, THROAT CLOSES, 03/26/17) Adhesives (Verified Allergy, Unknown, 03/26/17) MRI PRECAUTION (Verified Adverse Reaction, Severe, 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, 03/26/17) LRS 03/26/17 Dr. Elaine Reported Meds & Prescriptions Reported Meds & Active Scripts Active Lasix (Furosemide) 20 Mg Tab 20 Mg PO BID Pantoprazole (Pantoprazole Sodium) 40 Mg Tab 40 Mg PO DAILY Metoprolol Tartrate 25 Mg Tab 12.5 Mg PO Q12HR Adult Aspirin EC Low Strength (Aspirin) 81 Mg Tabec 81 Mg PO DAILY Reported Chewable Calcium (Calcium-Vitamins D & K) 500-200-40 Mg-Unit-Mcg Chew 1 Tab CHEW Morphine ER (Morphine Sulfate) 60 Mg Tab 60 Mg PO BID Gabapentin 400 Mg Cap 400 Cap PO QID Hydrocodone-Acetaminophen 7.5-300 Mg Tab 1 Tab PO Q4H PRN Levothyroxine (Levothyroxine Sodium) 150 Mcg Tab 150 Mcg PO DAILY Liothyronine (Liothyronine Sodium) 5 Mcg Tab 5 Mcg PO DAILY Review of Systems Except as stated in HPI: all other systems reviewed are Neg Physical Exam Narrative GENERAL: 71-year-old female well-nourished well-developed no acute distress SKIN: Focused skin assessment warm/dry. HEAD: Atraumatic. Normocephalic. EYES: Pupils equal and round. No injection or drainage. Trace scleral icterus bilaterally ENT: No nasal bleeding or discharge. Mucous membranes pink and moist. NECK: Trachea midline. No JVD. CARDIOVASCULAR: Regular rate and rhythm. No murmur appreciated. RESPIRATORY: No accessory muscle use. Clear to auscultation. Breath sounds equal bilaterally. GASTROINTESTINAL: Abdomen soft, non-tender, nondistended. Hepatic and splenic margins not palpable. MUSCULOSKELETAL: No obvious deformities. No clubbing. No cyanosis. No edema. NEUROLOGICAL: Awake and alert. No obvious cranial nerve deficits. Motor grossly within normal limits. Normal speech. PSYCHIATRIC: Appropriate mood and affect; insight and judgment normal. Data Data Last Documented VS Vital Signs Date Time Temp Pulse Resp B/P Pulse Ox O2 Delivery O2 Flow Rate FiO2 04/03/17 16:15 62 18 98 Room Air 04/03/17 16:00 99.2 121/60 Vital signs reviewed Orders Complete Blood Count With Diff (04/03/17 14:19) Comprehensive Metabolic Panel (6/30/17 14:19) Prothrombin Time / Inr (Pt) (04/03/17 14:19) Act Partial Throm Time (Ptt) (04/03/17 14:19) Urinalysis - C+S If Indicated (04/03/17 14:19) Electrocardiogram (04/03/17 14:19) B-Type Natriuretic Peptide (04/03/17 14:19) Lipase (04/03/17 16:04) Us Leg Venous Doppler Bilat (04/03/17 ) Labs Laboratory Tests Test 04/03/17 16:20 White Blood Count 11.3 TH/MM3 Red Blood Count 3.80 MIL/MM3 Hemoglobin 10.8 GM/DL Hematocrit 32.3 % Mean Corpuscular Volume 85.2 FL Mean Corpuscular Hemoglobin 28.3 PG Mean Corpuscular Hemoglobin 33.3 % Concent Red Cell Distribution Width 16.0 % Platelet Count 382 TH/MM3 Mean Platelet Volume 8.8 FL Neutrophils (%) (Auto) 77.8 % Lymphocytes (%) (Auto) 9.8 % Monocytes (%) (Auto) 12.2 % Eosinophils (%) (Auto) 0.0 % Basophils (%) (Auto) 0.2 % Neutrophils # (Auto) 8.8 TH/MM3 Lymphocytes # (Auto) 1.1 TH/MM3 Monocytes # (Auto) 1.4 TH/MM3 Eosinophils # (Auto) 0.0 TH/MM3 Basophils # (Auto) 0.0 TH/MM3 CBC Comment DIFF FINAL Differential Comment Prothrombin Time 11.4 SEC Prothromb Time International 1.0 RATIO Ratio Activated Partial 33.4 SEC Thromboplast Time Urine Color YELLOW Urine Turbidity CLEAR Urine pH 6.5 Urine Specific [place] 1.003 Urine Protein NEG mg/dL Urine Glucose (UA) NEG mg/dL Urine Ketones NEG mg/dL Urine Occult Blood MOD Urine Nitrite NEG Urine Bilirubin NEG Urine Urobilinogen LESS THAN 2.0 MG/DL Urine Leukocyte Esterase NEG Urine RBC 9 /hpf Urine WBC LESS THAN 1 /hpf Urine Squamous Epithelial <1 /hpf Cells Microscopic Urinalysis Comment CULT NOT INDICATED Sodium Level 134 MEQ/L Potassium Level 3.6 MEQ/L Chloride Level 96 MEQ/L Carbon Dioxide Level 30.5 MEQ/L Anion Gap 8 MEQ/L Blood Urea Nitrogen 7 MG/DL Creatinine 0.41 MG/DL Estimat Glomerular Filtration 152 ML/MIN Rate Random Glucose 109 MG/DL Calcium Level 8.2 MG/DL Total Bilirubin 1.7 MG/DL Aspartate Amino Transf 27 U/L (AST/SGOT) Alanine Aminotransferase 68 U/L (ALT/SGPT) Alkaline Phosphatase 231 U/L Total Protein 6.0 GM/DL Albumin 2.5 GM/DL Lipase 65 U/L MDM Medical Decision Making Medical Screen Exam Complete: Yes Emergency Medical Condition: Yes Medical Record Reviewed: Yes Differential Diagnosis Constipation, Gastritis, Acute Cholecystitis, Biliary Colic, Pancreatitis, ROSE , Hepatitis, Bowel Obstruction, Cystitis, Mesenteric Ischemia, AAA, Appendicitis , Renal Stone/Hydronephrosis, GERD, perforated viscous Narrative Course CBC & BMP Diagram 04/03/17 16:20 Bilirubin 1.7 ALT 68 Alk phos 231 Total protein 6.0 Albumin 2.5 Lipase 65 UA: no UTI Last 24 hours Impressions Lower Extremity Ultrasound 04/03/17 0000 Signed Impressions: Service Date/Time: Monday, April 03, 2017 16:51 - CONCLUSION: Negative for deep venous thrombosis. Gallo Lozada MD FACR d/w Dr Brown. pt agreeable with discharge plan including 1 week follow up with Dr Brown. return precautions discussed. Diagnosis Primary Impression: Jaundice Additional Impression: Edema Qualified Code: R60.9 - Edema, unspecified type Referrals: Jesús Brown MD 1 week Additional Instructions: You have a choice when it comes to health care, and we are glad that you chose [facility]. Hopefully, we have met your expectations on today's visit. You are welcome to return to [facility] at any time, as we are committed to meeting the health care needs of our community. Med/Other Pt SpecificInfo: Prescription(s) given Scripts Furosemide (Lasix)20 Mg Tab20 Mg PO BID #10 TAB Ref 0 Prov:Raul Benítez MD 04/03/17 Disposition: 01 DISCHARGE HOME Condition: Stable Raul Benítez MD Apr 03, 2017 17:04
[2017-04-03 17:05] LABS: ALT (GPT) 68 U/L (10-53); ANION GAP 8 MEQ/L (5-15); AST (GOT) 27 U/L (15-37); BICARBONATE 30.5 MEQ/L (21.0-32.0); BLOOD UREA NITROGEN 7 MG/DL (7-18); CHLORIDE 96 MEQ/L (98-107); GLOMERULAR FILTRATION RATE 152 ML/MIN (>89); POTASSIUM 3.6 MEQ/L (3.5-5.1); SODIUM (NA) 134 MEQ/L (136-145)
[2017-04-03 17:07] LABS: ALKALINE PHOSPHATASE 231 U/L (45-117); TOTAL BILIRUBIN ADULT 1.7 MG/DL (0.2-1.0)
[2017-04-03 17:25] LABS: BLOOD, URINE MOD (NEG); COMMENT (UR) CULT NOT INDICATED; CULTURE IF INDICATED CULT NOT INDICATED; GLUCOSE,URINE NEG (NEG); KETONE, URINE NEG (NEG); NITRITE,URINE NEG (NEG); PH, URINE 6.5 (5.0-8.5); SQUAMOUS EPITHELIAL CELL URINE <1 /hpf (0-5); URINE COLOR YELLOW (YELLW/STRAW)
--- NOTE | 2017-04-03 17:49 | RADRPT ---
EXAM DATE/TIME: 04/03/2017 16:51 [facility] COMPARISON: No previous studies available for comparison. INDICATIONS : Bilateral leg swelling. MEDICAL HISTORY : Thyroid disease. Neck pain. Anticoagulant therapy. Atrial fibrillation. Arthritis. SURGICAL HISTORY : Total knee replacement, right.Appendectomy. Total knee replacement, left.Cataract surgery. Hysterecto my. Cholecystectomy. Lumpectomy. Spinal fusion. ENCOUNTER: Initial ACUITY: 4 - 6 days PAIN SCORE: 2/10 LOCATION: Bilateral legs. TECHNIQUE: Venous ultrasound of the left and right leg was performed from the inguinal ligament to the proximal calf. Real-time, color Doppler and spectral tracing, compression and augmentation techniques were us ed. FINDINGS: RIGHT LEG: There is normal compressibility of the deep venous system from the inguinal region to the proximal ca lf. No echogenic clot is seen in the lumen of the common femoral, femoral, popliteal, and posterior tibial veins. There is a normal response of the venous system to proximal and distal augmentation an d respiration. LEFT LEG: There is normal compressibility of the deep venous system from the inguinal region to the proximal ca lf. No echogenic clot is seen in the lumen of the common femoral, femoral, popliteal, and posterior tibial veins. There is a normal response of the venous system to proximal and distal augmentation an d respiration. CONCLUSION: Negative for deep venous thrombosis. Gallo Lozada MD FACR on April 03, 2017 at 17:45 Board Certified Radiologist. This report was verified electronically.
[2017-04-03] MEDS ORDERED: FURO1TAB62 PO (18:21)
== END 2017-04-03 18:48 | disposition home or self-care (01) ==
LOC: NEPC 13:59
DX: R17 Unspecified jaundice (principal); K85.90 Acute pancreatitis without necrosis or infection, unspecified; R60.9 Edema, unspecified; I48.91 Unspecified atrial fibrillation; M19.90 Unspecified osteoarthritis, unspecified site; M41.9 Scoliosis, unspecified; E07.9 Disorder of thyroid, unspecified; F17.200 Nicotine dependence, unspecified, uncomplicated; Z79.899 Other long term (current) drug therapy
CPT/HCPCS: 80053; 81001; 83690; 83880; 85025; 85610; 85730; 93970

== ENCOUNTER 2017-04-29 19:31 | Inpatient (IN) | payer MEDICARE ==
[~2017-04-29] VITALS: Ht 162.6 cm; Wt 52.7 kg
[~2017-04-29 19:31] MED LIST changes: +FURO1TAB62 PO
[2017-04-29 19:33] VITALS: BP 116/57; PULSE 91; RESP 16; TEMP 99; O2SAT 87
[2017-04-29] MEDS ORDERED: ZOFR4TAB PO (20:02)
[2017-04-29] MEDS ORDERED: FISHCAP4 PO (20:02)
[2017-04-29] MEDS ORDERED: FLUC100T2 PO (20:02)
[2017-04-29 20:18] LABS: AUTOMATED NEUTROPHIL # 14.1 TH/MM3 (1.8-7.7); BASOPHIL # 0.1 TH/MM3 (0-0.2); BASOPHIL % 0.4 % (0.0-2.0); HEMATOCRIT 35.5 % (35.0-46.0); LYMPH % 5.1 % (9.0-44.0); LYMPHOCYTE # 0.8 TH/MM3 (1.0-4.8); MEAN CELL VOLUME 84.8 FL (80.0-100.0); MEAN CORPUSCULAR HEMOGLOBIN 28.5 PG (27.0-34.0); MEAN CORPUSCULAR HGB CONC 33.6 % (32.0-36.0); MONO % 5.7 % (0.0-8.0); NEUT % 88.8 % (16.0-70.0); PLATELET COUNT 243 TH/MM3 (150-450); RED BLOOD COUNT 4.19 MIL/MM3 (4.00-5.30); RED CELL DISTRIBUTION WIDTH 15.1 % (11.6-17.2); WHITE BLOOD COUNT 15.9 TH/MM3 (4.0-11.0)
[2017-04-29 20:26] LABS: CHLORIDE 90 MEQ/L (98-107); POTASSIUM 3.3 MEQ/L (3.5-5.1); SODIUM (NA) 133 MEQ/L (136-145)
[2017-04-29 20:30] LABS: ANION GAP 9 MEQ/L (5-15); BICARBONATE 34.4 MEQ/L (21.0-32.0)
[2017-04-29 20:31] LABS: BLOOD UREA NITROGEN 20 MG/DL (7-18)
[2017-04-29 20:33] LABS: ALT (GPT) 265 U/L (10-53); AST (GOT) 185 U/L (15-37); GLOMERULAR FILTRATION RATE 54 ML/MIN (>89)
[2017-04-29 20:35] LABS: HEMO FLAGS DIFF FINAL; TOTAL BILIRUBIN ADULT 1.1 MG/DL (0.2-1.0)
[2017-04-29 20:36] LABS: ALKALINE PHOSPHATASE 187 U/L (45-117)
--- NOTE | 2017-04-29 20:44 | RADRPT ---
EXAM DATE/TIME: 04/29/2017 20:27 [facility] COMPARISON: No previous studies available for comparison. INDICATIONS : Chest discomfort, shortness of breath MEDICAL HISTORY : Carcinoma, breast. Hernia. Scoliosis. Thyroid disease SURGICAL HISTORY : Hysterectomy. Appendectomy. Cholecystectomy. Spinal fusion. ENCOUNTER: Initial ACUITY: 1 day PAIN SCORE: 0/10 LOCATION: Bilateral chest FINDINGS: PA and lateral views of the chest demonstrate bibasilar densities. Heart normal insize. The cardiome diastinal contours are unremarkable. Osseous structures are intact. Scoliosis with rods. CONCLUSION: Bibasilar densities. Noman Bryson MD on April 29, 2017 at 20:39 Board Certified Radiologist. This report was verified electronically.
[2017-04-29] MEDS ORDERED: CEFEPIME INJ 1,000 MG in SODIUM CHLORIDE 0.9% INJ 100 ML IV ONE (21:30)
[2017-04-29] MEDS ORDERED: LEVOFLOXACIN 750 MG PREMIX INJ 150 ML IV ONE (21:30)
[2017-04-29] MEDS ORDERED: VANCOMYCIN INJ 1,000 MG in SODIUM CHLOR 0.9% 250 ML INJ 250 ML IV ONE (21:30)
[2017-04-29 21:38] VITALS: BP 115/57; PULSE 74; RESP 18; O2SAT 96
--- NOTE | 2017-04-29 22:42 | PD ---
HPI Chief Complaint: Dizziness Time Seen by Provider: 20:00 Travel History International Travel<30 days: No Contact w/Intl Traveler<30days: No Traveled to known affect area: No History of Present Illness HPI Patient is a 71-year-old female who was told to come in by her home health nurse. She has history of pancreatitis, that required biliary stenting few weeks ago. Since then, she has had leg swelling. She is concerned that she might be anemic. She says she has been feeling very weak and dizzy. Recently she has noticed that she has been short of breath and coughing. She denies any fever at home. She has not really been having any abdominal pain. PFSH Past Medical History Hx Anticoagulant Therapy: Yes Arthritis: Yes Asthma: No Atrial Fibrillation: Yes Autoimmune Disease: No Blood Disorders: No Anxiety: No Depression: No Heart Rhythm Problems: No Cancer: Yes (BREAST) Cardiovascular Problems: No High Cholesterol: No Chest Pain: No Congestive Heart Failure: No COPD: No Cerebrovascular Accident: No Diabetes: No Diminished Hearing: No Endocrine: Yes Gastrointestinal Disorders: Yes GERD: No Glaucoma: No Genitourinary: No Headaches: No Hepatitis: No Hiatal Hernia: Yes Heparin Induced Thrombocytopen: No Hypertension: No Immune Disorder: No Implanted Vascular Access Dvce: No Kidney Stones: No Musculoskeletal: Yes (SCOLIOSIS) Neurologic: No Psychiatric: No Reproductive: No Respiratory: No Immunizations Current: Yes Migraines: No Myocardial Infarction: Yes Radiation Therapy: Yes Renal Failure: No Seizures: No Sickle Cell Disease: No Sleep Apnea: No Thyroid Disease: Yes Ulcer: No Tetanus Vaccination: Unknown Influenza Vaccination: Yes ?: Not Menopausal: Yes Past Surgical History Abdominal Surgery: No AICD: No Appendectomy: Yes Arteriovenous Shunt: No Cardiac Surgery: No Cholecystectomy: Yes Ear Surgery: Yes (CATARACTS ) Endocrine Surgery: Yes (THYROIDECTOMY ) Gynecologic Surgery: Yes (SPINAL FUSION) Hysterectomy: Yes Insulin Pump: No Joint Replacement: No Oral Surgery: Yes (LTK) Pacemaker: No Thoracic Surgery: No Other Surgery: Yes (LUMPECTOMY) Social History Alcohol Use: No Tobacco Use: Yes (1-2 cigs) Substance Use: No Allergies-Medications (Allergen,Severity, Reaction): Coded Allergies: Penicillin (Verified Allergy, Severe, THROAT CLOSES, 03/26/17) Adhesives (Verified Allergy, Unknown, 03/26/17) MRI PRECAUTION (Verified Adverse Reaction, Severe, 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, 03/26/17) LRS 03/26/17 Dr. Elaine Reported Meds & Prescriptions Reported Meds & Active Scripts Active Lasix (Furosemide) 20 Mg Tab 20 Mg PO BID Pantoprazole (Pantoprazole Sodium) 40 Mg Tab 40 Mg PO DAILY Metoprolol Tartrate 25 Mg Tab 12.5 Mg PO Q12HR Adult Aspirin EC Low Strength (Aspirin) 81 Mg Tabec 81 Mg PO DAILY Reported Fish Oil + D3 (Fish Oil-Cholecalciferol) 1,200-1,000 Mg-Unit Cap 1 Cap PO DAILY Fluconazole 100 Mg Tab 100 Mg PO DAILY Zofran (Ondansetron HCl) 4 Mg Tab 4 Mg PO Q8HR PRN Chewable Calcium (Calcium-Vitamins D & K) 500-200-40 Mg-Unit-Mcg Chew 1 Tab CHEW Morphine ER (Morphine Sulfate) 60 Mg Tab 60 Mg PO BID Gabapentin 400 Mg Cap 400 Cap PO QID Hydrocodone-Acetaminophen 7.5-300 Mg Tab 1 Tab PO Q4H PRN Levothyroxine (Levothyroxine Sodium) 150 Mcg Tab 150 Mcg PO DAILY Liothyronine (Liothyronine Sodium) 5 Mcg Tab 5 Mcg PO DAILY Review of Systems Except as stated in HPI: all other systems reviewed are Neg General / Constitutional: No: Fever, Chills HENT: Positive: Lightheadedness, No: Headaches Cardiovascular: No: Chest Pain or Discomfort Respiratory: Positive: Shortness of Breath Gastrointestinal: No: Nausea, Vomiting, Abdominal Pain Musculoskeletal: Positive: Edema Skin: No Rash, No Change in Pigmentation Neurologic: Positive: Dizziness Physical Exam Narrative GENERAL: Awake and alert, in no acute distress. SKIN: Focused skin assessment warm/dry. HEAD: Atraumatic. Normocephalic. EYES: Pupils equal and round. No scleral icterus. ENT: Mucous membranes pink and moist. NECK: Trachea midline. No JVD. CARDIOVASCULAR: Regular rate and rhythm. No murmur appreciated. RESPIRATORY: No accessory muscle use. Clear to auscultation. Breath sounds equal bilaterally. GASTROINTESTINAL: Abdomen soft, nondistended. Tender to palpation of the epigastric area. MUSCULOSKELETAL: No obvious deformities. No clubbing. No cyanosis. Large pitting edema bilateral lower extremities NEUROLOGICAL: Awake and alert. No obvious cranial nerve deficits. Motor grossly within normal limits. Normal speech. PSYCHIATRIC: Appropriate mood and affect; insight and judgment normal. Data Data Last Documented VS Vital Signs Date Time Temp Pulse Resp B/P Pulse Ox O2 Delivery O2 Flow Rate FiO2 04/29/17 21:38 74 18 115/57 96 Room Air 04/29/17 19:49 2 04/29/17 19:33 99.0 Orders Complete Blood Count With Diff (04/29/17 20:00) Comprehensive Metabolic Panel (04/29/17 20:00) B-Type Natriuretic Peptide (04/29/17 20:00) Lipase (04/29/17 20:00) Type And Screen (04/29/17 20:00) Electrocardiogram (04/29/17 ) Ecg Monitoring (04/29/17 20:00) Iv Access Insert/Monitor (04/29/17 20:00) Chest, Pa & Lat (04/29/17 ) Urinalysis - C+S If Indicated (04/29/17 20:00) Troponin I (04/29/17 20:00) Cefepime Inj (Maxipime Inj) (04/29/17 21:30) Vancomycin Inj (Vancomycin Inj) (04/29/17 21:30) Levofloxacin 750 Mg Premix Inj (Levaquin (04/29/17 21:30) Admit Order (Ed Use Only) (04/29/17 ) Ct Abd/Pel W/O Iv Contrast (04/29/17 ) Labs Laboratory Tests Test 04/29/17 04/29/17 20:00 22:40 White Blood Count 15.9 TH/MM3 Red Blood Count 4.19 MIL/MM3 Hemoglobin 11.9 GM/DL Hematocrit 35.5 % Mean Corpuscular Volume 84.8 FL Mean Corpuscular Hemoglobin 28.5 PG Mean Corpuscular Hemoglobin 33.6 % Concent Red Cell Distribution Width 15.1 % Platelet Count 243 TH/MM3 Mean Platelet Volume 9.1 FL Neutrophils (%) (Auto) 88.8 % Lymphocytes (%) (Auto) 5.1 % Monocytes (%) (Auto) 5.7 % Eosinophils (%) (Auto) 0.0 % Basophils (%) (Auto) 0.4 % Neutrophils # (Auto) 14.1 TH/MM3 Lymphocytes # (Auto) 0.8 TH/MM3 Monocytes # (Auto) 0.9 TH/MM3 Eosinophils # (Auto) 0.0 TH/MM3 Basophils # (Auto) 0.1 TH/MM3 CBC Comment DIFF FINAL Differential Comment Sodium Level 133 MEQ/L Potassium Level 3.3 MEQ/L Chloride Level 90 MEQ/L Carbon Dioxide Level 34.4 MEQ/L Anion Gap 9 MEQ/L Blood Urea Nitrogen 20 MG/DL Creatinine 1.00 MG/DL Estimat Glomerular Filtration 54 ML/MIN Rate Random Glucose 111 MG/DL Calcium Level 7.9 MG/DL Total Bilirubin 1.1 MG/DL Aspartate Amino Transf 185 U/L (AST/SGOT) Alanine Aminotransferase 265 U/L (ALT/SGPT) Alkaline Phosphatase 187 U/L Troponin I 0.03 NG/ML B-Type Natriuretic Peptide 138 PG/ML Total Protein 5.8 GM/DL Albumin 2.3 GM/DL Lipase 36 U/L Blood Type O POSITIVE Antibody Screen NEGATIVE Blood Bank Comment Urine Color CIRILO Urine Turbidity SLIGHT Urine pH 5.5 Urine Specific [place] 1.010 Urine Protein TRACE mg/dL Urine Glucose (UA) NEG mg/dL Urine Ketones NEG mg/dL Urine Occult Blood LARGE Urine Nitrite NEG Urine Bilirubin NEG Urine Leukocyte Esterase NEG Urine RBC 25-49 /hpf Urine WBC 25-49 /hpf Urine Squamous Epithelial 0-5 /hpf Cells Urine Amorphous Sediment FEW Urine Bacteria FEW /hpf Urine Mucus FEW /lpf Microscopic Urinalysis Comment CULTURE INDICATED MDM Medical Decision Making Medical Screen Exam Complete: Yes Emergency Medical Condition: Yes Medical Record Reviewed: Yes Interpretation(s) ECG shows sinus rhythm at 82, no ST elevation or depression. Differential Diagnosis Pneumonia versus COPD exacerbation versus CHF Narrative Course Patient is a 71-year-old female comes in due to the dizziness and shortness of breath. Patient found to have an oxygen saturation of 87% on room air. She was placed on 2 L via nasal cannula. IV established, labs sent. Labs show an elevated white blood cell count 15. Chest x-ray shows new by basilar opacities. Patient treated with antibiotics for HCAP. She will be admitted for further management. Labs also show an elevation in her liver function tests. CT of the abdomen and pelvis ordered to check her biliary stent. Diagnosis Primary Impression: Pneumonia Qualified Code: J18.9 - Pneumonia of both lower lobes due to infectious organism Additional Impression: Transaminitis Admitting Information Admitting Physician Requests: Admit Condition: Stable Josephine Hennessy MD Apr 29, 2017 22:41
[2017-04-29 22:44] LABS: BLOOD, URINE LARGE (NEG); GLUCOSE,URINE NEG (NEG); KETONE, URINE NEG (NEG); NITRITE,URINE NEG (NEG); PH, URINE 5.5 (5.0-8.5)
[2017-04-29 22:45] LABS: URINE COLOR AMBER (YELLW/STRAW)
[2017-04-29 22:51] LABS: MUCUS URINE FEW /lpf (OCC)
[2017-04-29 22:52] LABS: BACTERIA, URINE FEW /hpf; COMMENT (UR) CULTURE INDICATED; CULTURE IF INDICATED CULTURE INDICATED; SQUAMOUS EPITHELIAL CELL URINE 0-5 /hpf (0-5)
[2017-04-29 23:10] VITALS: BP 118/51; PULSE 73; RESP 18; TEMP 98.5; O2SAT 96
[2017-04-29] MEDS ORDERED: LEVOFLOXACIN 500 MG PREMIX INJ 100 ML IV SCH (23:30)
[2017-04-29] MEDS ORDERED: SENNOSIDES 8.6 MG TAB PO PRN (23:30)
[2017-04-29] MEDS ORDERED: NALOXONE HCL 0.4 MG/ML AMP IV PRN (23:30)
[2017-04-29] MEDS ORDERED: ONDANSETRON HCL 4 MG/2 ML VIAL IVP PRN (23:30)
[2017-04-29] MEDS ORDERED: RESP: ALBUTEROL 2.5 MG/3 ML NEB (PRN) NEB (23:30)
[2017-04-29] MEDS ORDERED: LACTULOSE SYRUP 20 GM/30 ML CUP PO PRN (23:30)
[2017-04-29] MEDS ORDERED: POTASSIUM CHLORIDE 25 MEQ EFFERVESCENT TAB PO ONE (23:30)
[2017-04-29 23:44] VITALS: O2SAT 96
--- NOTE | 2017-04-29 23:49 | RADRPT ---
EXAM DATE/TIME: 04/29/2017 23:16 [facility] COMPARISON: CT ABDOMEN W CONTRAST, March 28, 2017, 14:19. INDICATIONS : Abdomen pain. ORAL CONTRAST: No oral contrast ingested. RADIATION DOSE: 11.22 CTDIvol (mGy) MEDICAL HISTORY : Pancreatitis. Carcinoma, breast. Hernia, hiatal. SURGICAL HISTORY : Appendectomy. Cholecystectomy. Hysterectomy. Spinal fusion. ENCOUNTER: Initial ACUITY: 1 day PAIN SCALE: 5/10 LOCATION: abdomen TECHNIQUE: Volumetric scanning of the abdomen and pelvis was performed. Using automated exposure control and ad justment of the mA and/or kV according to patient size, radiation dose was kept as low as reasonably achievable to obtain optimal diagnostic quality images. DICOM format image data is available electro nically for review and comparison. FINDINGS: LOWER LUNGS: There is abnormal groundglass opacity at the right lung base and to a lesser extent the inferior left upper lobe. This is a new finding. LIVER: Liver measures 19.8 cm and demonstrates severe diffuse low-density. There is pneumobilia with mild di latation of the intrahepatic bile ducts. A stent extends from the common hepatic duct distally into t he duodenum. Gallbladder is not visualized. SPLEEN: Normal size. PANCREAS: Not well dilated due to the lack of contrast and beam hardening artifact. There is likely persistent ductal dilatation. No definite mass is seen. KIDNEYS: Normal in size and shape. There is no mass, stone, or hydronephrosis. There is an 11 mm cyst in the right mid kidney. ADRENAL GLANDS: No abnormality is seen. VASCULAR: There is no aortic aneurysm. There is atherosclerotic disease. BOWEL/MESENTERY: The stomach and small bowel demonstrate no acute abnormality. There is mild wall thickening of the si gmoid colon. There is no free intraperitoneal air or fluid. ABDOMINAL WALL: Within normal limits. RETROPERITONEUM: There is no lymphadenopathy. BLADDER: No wall thickening or mass. REPRODUCTIVE: Uterus is absent. INGUINAL: There is no lymphadenopathy or hernia. MUSCULOSKELETAL: There is thoraco- lumbar scoliosis with hardware extending inferiorly to the level of the sacrum. The re are changes in the iliac bones bilaterally related to prior bone graft harvesting. The hardware ca uses beam hardening artifact and partial obscuration of the abdominal organs. CONCLUSION: 1. There is artifact secondary to the lumbar spine hardware which partially obscures some of the abdo david organs. There is likely still main pancreatic duct dilatation from uncertain etiology. 2. Hepatomegaly with severe steatosis. Pneumobilia is present along with a stent in the bile duct. 3. Abnormal groundglass opacity at the lung bases, right greater than left. This could represent an i nflammatory or infectious process. 4. Mild wall thickening of the proximal sigmoid colon. Dirk Brown MD on April 29, 2017 at 23:40 Board Certified Radiologist. This report was verified electronically.
[2017-04-30] VITALS (9 sets, daily range): BP systolic 118–157; BP diastolic 70–91; PULSE 64–91; RESP 15–20; TEMP 96.3–98; O2SAT 90–98
[2017-04-30] MEDS: SODIUM CHLOR 0.9% 1000 ML INJ 1,000 ML IV SCH ×3 (02:12→22:28)
[2017-04-30] MEDS: CEFEPIME INJ 2,000 MG in SODIUM CHLORIDE 0.9% INJ 100 ML IV SCH ×2 (02:18→15:47)
[2017-04-30 07:16] LABS: BASOPHIL % 0.1 % (0.0-2.0); EOSINOPHIL % 0.2 % (0.0-4.0); HEMATOCRIT 31.5 % (35.0-46.0); LYMPH % 5.2 % (9.0-44.0); LYMPHOCYTE # 0.6 TH/MM3 (1.0-4.8); MEAN CELL VOLUME 85.4 FL (80.0-100.0); MEAN CORPUSCULAR HGB CONC 32.8 % (32.0-36.0); MONO % 5.7 % (0.0-8.0); NEUT % 88.8 % (16.0-70.0); PLATELET COUNT 195 TH/MM3 (150-450); RED BLOOD COUNT 3.69 MIL/MM3 (4.00-5.30); RED CELL DISTRIBUTION WIDTH 14.9 % (11.6-17.2); WHITE BLOOD COUNT 12.3 TH/MM3 (4.0-11.0)
[2017-04-30 07:19] LABS: HEMO FLAGS DIFF FINAL
[2017-04-30] MEDS: SODIUM CHLORIDE 0.9% FLUSH 10 ML FLUSH IV FLUSH SCH ×2 (07:20→22:28)
[2017-04-30 07:22] LABS: POTASSIUM 3.4 MEQ/L (3.5-5.1)
[2017-04-30 08:19] LABS: BICARBONATE 34.3 MEQ/L (21.0-32.0); INDIRECT BILIRUBIN 0.2 MG/DL (0.0-0.8); MAGNESIUM 1.5 MG/DL (1.5-2.5); TOTAL BILIRUBIN ADULT 0.9 MG/DL (0.2-1.0)
[2017-04-30 08:29] LABS: CALCIUM-PROTEIN CORRECTED 8.7 MG/DL (8.5-10.1)
[2017-04-30] MEDS ORDERED: POTASSIUM CHLORIDE 10 MEQ CONTROLLED RELEASE TAB PO ONE (09:00)
[2017-04-30] MEDS ORDERED: HEPARIN SODIUM - SQ 10,000 UNITS/ML VIAL SQ SCH (09:00)
[2017-04-30] MEDS ORDERED: NON-FORMULARY DRUG (Fish Oil-Cholecalciferol (Fish Oil + D3) 1 CAP) PO SCH (09:45)
[2017-04-30] MEDS ORDERED: ONDANSETRON ODT 4 MG TAB PO PRN (10:15)
--- NOTE | 2017-04-30 10:17 | MH ---
cc: SIVAKUMAR GARCIA MD DATE OF ADMISSION 04/29/2017 CHIEF COMPLAINT Dizziness, shortness of breath, cough, abdominal pain HISTORY OF PRESENT ILLNESS This is a 71-year-old female with a past medical-surgical history significant for arthritis, atrial fibrillation, history of right breast cancer status post lumpectomy of the right breast, history of scoliosis of the spine, history of cataract surgery, thyroidectomy, spinal fusion, left total knee replacement who came to the ER at [facility] complaining of cough, congestion and some shortness of breath. She was seen by a home health care nurse. She has a history of that required biliary stenting a few weeks ago. Since then, she has had leg edema, leg swelling. She has been found that she might have anemia. She said that she has been feeling very weak and dizzy and suddenly she had noticed that she has been short of breath and coughing. Denies any fever at home. She has some abdominal pain about 2-4/10 diffuse. No radiation worse with pressure. Denies any diarrhea or constipation. Other than that, nothing significant. PAST MEDICAL AND SURGICAL HISTORY As dictated above, as well as a history of hypothyroidism and neuropathy. SOCIAL HISTORY Denies drinking. Smoker for 40 years. Denies any drug abuse. Lives at home with son. She is retired. FAMILY HISTORY Significant for bladder cancer in the mother and grandmother has a pancreatic cancer. Brother had throat cancer and of it. ALLERGIES PENICILLIN AND ADHESIVE TAPE. MEDICATIONS 1. Lasix 20 mg p.o. b.i.d. 2. Protonix 40 mg daily 3. Metoprolol 25 mg q. 12-hour 4. Aspirin 81 mg p.o. daily 5. Fish oil 6. Vitamin D3 one capsule daily 7. Fluconazole 100 mg p.o. daily 8. Zofran 4 mg p.o. q.4 h p.r.n. nausea, vomiting. 9. Calcium with vitamin D and K daily 10. Morphine ER 60 mg twice a day 11. Gabapentin 400 mg q.i.d. 12. Hydrocodone/Acetaminophen 7.5/300 p.o. q.4 h. 13. Levothyroxine 150 mcg p.o. daily 14. Liothyronine 5 mcg p.o. daily REVIEW OF SYSTEMS Negative except for abdominal pain, nausea, dizziness, cough, shortness of breath. PHYSICAL EXAMINATION This is a 71-year female sitting on the bed not in acute distress. VITAL SIGNS: Temperature 96.3, heart rate 70, respiration , blood pressure 141/84, O2 saturation 95% O2 nasal cannula. HEENT: Normocephalic, atraumatic. EOMI. PERRL. Oral mucosa moist. NECK: Supple. No visible thyromegaly or neck mass. Trachea central. CVS: Regular rate and rhythm. RESPIRATORY: Decreased air entry bilaterally. ABDOMEN: Soft and tender on superficial palpation. Bowel sounds. Deep palpation not done. EXTREMITIES: No cyanosis or clubbing. Full range of motion of all extremities. NEUROLOGIC: Awake and alert, EOMI. SKIN: Warm and dry. PSYCH: The patient is cooperative. Mood and affect is normal. LABORATORY DATA CBC shows a WBC count of 15.9 and now it is 12.3, hemoglobin is 10.3 low, hematocrit 31.5 low. BMP totally unremarkable except for sodium was 133 now it is 135, potassium of 3.3 now it is 3.4, chloride was 99 and is 94, calcium is low 7.4, GFR low 75, bilirubin 1.1 high, now it is 0.9, direct bilirubin is high 0.7, AST 125 high, ALT 196 high, alkaline phosphatase 147 high. LFTs are trending down. Previously, the AST was 185, ALT was 265 and alkaline phosphatase was 187. Beta natriuretic peptide is 138 high, total protein 4.7 low, albumin 1.7 low, lipase 36 low. Urinalysis done shows large occult blood, 25-49 WBC and RBC in the urine. Culture of the urine done, report is still pending. Chest x-ray done shows bibasilar densities. CT abdomen and pelvis done shows artifact secondary to the lumbar spine hardware which partially obscures some of the abdominal organs. This is likely still main pancreatic ductal dilatation of uncertain etiology. Hepatomegaly with severe steatosis and pneumobilia is present with a stent in the bile duct. Abdominal lung opacity at the lung base right greater than left. This could represent inflammatory or infectious process. Mild wall thickening of the proximal sigmoid colon. ASSESSMENT/PLAN 1. This is a 71-year-old female diagnosed with cough and shortness of breath secondary to pneumonia. The patient is on Levaquin IV and cefepime IV. I will consult pulmonary for further recommendation. 2. Abdominal pain with recent biliary stenting a few weeks ago. I will consult GI for further recommendation. Lipase is normal. 3. Leg edema. Continue with Lasix. 4. Neuropathy. Continue with Gabapentin. 5. History of hypothyroidism. Continue with levothyroxine. 6. Hypokalemia. Replace potassium. 7. Hyponatremia. We will monitor. 8. High LFTs. Consulted GI for further recommendation. 9. Urinary tract infection. The patient is on antibiotic Levaquin and cefepime. 10. Leukocytosis secondary to pneumonia and urinary tract infection. 11. Possible sepsis on admission with pneumonia and urinary tract infection. 12. DVT prophylaxis. Lovenox 40 mg subcutaneous daily. 13. GI prophylaxis Protonix 40 mg p.o. daily. We are going to manage the patient on a daily basis and make recommendations on a daily basis. Sivakumar Garcia MD EA/SHERIE /9:39 AM /9:55 AM
[2017-04-30] MEDS ORDERED: ACETAMINOPHEN/HYDROcodone 325 MG/7.5 MG TAB PO PRN (10:30)
[2017-04-30] MEDS ORDERED: PILL SPLITTER OTHER PRN (10:30)
[2017-04-30] MEDS: ENOXAPARIN SODIUM 40 MG/0.4 ML SYRINGE SQ SCH (11:00)
[2017-04-30] MEDS: LIOTHYRONINE SODIUM 5 MCG TAB PO SCH (11:39)
[2017-04-30] MEDS: LEVOTHYROXINE SODIUM 150 MCG TAB PO SCH (11:40)
[2017-04-30] MEDS: METOPROLOL TARTRATE 25 MG TAB PO SCH ×2 (11:40→19:50)
[2017-04-30] MEDS: FLUCONAZOLE 100 MG TAB PO SCH (11:40)
[2017-04-30] MEDS: MORPHINE SULFATE 30 MG CONTROLLED RELEASE TAB PO SCH ×2 (11:40→19:52)
[2017-04-30] MEDS: GABAPENTIN 300 MG CAP PO SCH ×3 (11:40→19:50)
[2017-04-30] MEDS: FUROSEMIDE 20 MG TAB PO SCH ×2 (11:41→19:50)
[2017-04-30] MEDS: PANTOPRAZOLE SOD 40 MG DELAYED RELEASE TAB PO SCH (11:41)
[2017-04-30] MEDS: ASPIRIN EC 81 MG TABEC PO SCH (11:41)
--- NOTE | 2017-04-30 12:51 | EKG ---
Date Performed: 04/29/2017 Time Performed: 20:10:21 PTAGE: 71 years EKG: Sinus rhythm WITH OCCASIONAL SUPRAVENTRICULAR PREMATURE COMPLEXES POSSIBLE LEFT ATRIAL ENLARGEMENT RIGHT BUNDLE B RANCH BLOCK ABNORMAL ECG PREVIOUS TRACING : 03/29/2017 16.43 DOCTOR: Dequan Link Interpretating Date/Time 04/30/2017 12:47:36
--- NOTE | 2017-04-30 21:15 | MB ---
cc: JAYLENE VILLARREAL MD DATE OF CONSULTATION 04/30/17 REASON FOR REFERRAL Abdominal pain, elevated liver function tests. HISTORY OF PRESENT ILLNESS Thank you for the consultation. A 71-year-old lady who has been seen by GI about five weeks ago with elevated liver function tests and jaundice. At that time, she had a dilated biliary tree. She underwent endoscopic ultrasound and ERCP by Dr. Brown. He did sphincterotomy and brushing and he placed a stent. The patient apparently was doing okay except she had poor appetite and she lost some weight. She was seen by oncology. Her tumor markers were negative except mild elevation of CA 19-9 which was thought to be inflammatory. The patient is known to have breast cancer in the past, 12 years ago, that was cured. The patient has some abdominal pain in the last few days. It was thought to be UTI. She was on antibiotic. She also had poor appetite and she had thrush in her throat that only resolved a few days ago. The patient is laying in bed comfortably. She denies significant pain, but she does not feel well. She is worried about the weight loss and the fact that she is not eating. The reason for the lack of eating, according to her, is the loss of appetite and that things do not taste good. She has abdominal discomfort, generalized 2/10, and no radiation to the back and again no other GI symptoms. SOCIAL HISTORY No alcohol. She has smoked for 40 years. No drugs. FAMILY HISTORY Significant for bladder cancer and pancreatic cancer, brother who had throat cancer. ALLERGIES PENICILLIN ADHESIVE TAPE MEDICATIONS Reviewed in the chart. PAST MEDICAL HISTORY 1. Hypothyroidism, 2. Neuropathy, 3. Atrial fibrillation, 4. Arthritis, 5. Breast cancer 6. Status post lumpectomy of the right breast 7. Scoliosis 8. Cataract surgery 9. Thyroidectomy. 10. Spinal fusion. 11. Left total knee replacement. REVIEW OF SYSTEMS All 12-point negative except HPI including weight loss, abdominal discomfort and poor appetite. PHYSICAL EXAMINATION GENERAL: Alert, oriented no acute distress. VITAL SIGNS: Vital signs stable. HEENT: Pupils round, reactive to light. NECK: Supple. CHEST: Clear to auscultation and percussion at this time. CARDIAC: Regular rate and rhythm. ABDOMEN: Soft, mild diffuse tenderness. No hepatosplenomegaly I could appreciate and no ascites, no masses. Positive bowel sounds. EXTREMITIES: No edema, clubbing or cyanosis. NEUROLOGIC: Intact. Alert, oriented. no muscle weakness. SKIN: No jaundice. PSYCHIATRIC: Appropriate. LABORATORY DATA UA showed christian color, some blood and white blood cells 25-49 which is a change from last time she was here and some bacteria with mucous. INR 1.0 on last admission. White blood cells yesterday was 15.9, today is 12.3, hemoglobin 10.3, platelets 195. Total protein 4.7, albumin 1.7, lipase 36, AST 125 down from 185, ALT 196 down from 265 and alk phos is 147, down from 187. Lasts CA 19-9 was 35.8 on last admission. Brushing from the previous ERCP was negative. IMAGING STUDIES CT scan showed hardware in the lumbar spine, hepatomegaly with severe steatosis, dilated pancreatic duct, stent in place in the common bile duct. Chest x-ray - bibasilar densities, questionable pneumonia. ASSESSMENT/PLAN A 71-year-old lady with abdominal pain, could be UTI. There is no changes in the CT scan as far as the biliary tree. Liver function test is at baseline but still elevated. The patient denied any alcohol and it could be related to medication. It does not look like the patient has obstructive jaundice. She was going to be referred to [facility] for evaluation for any malignancy. RECOMMENDATIONS I advised the patient to improve her diet and to avoid weight loss. I agree with the referral to [facility]. Can order tumor marker again so to ensure that it is not going up as far as the pancreatic malignancy. Further plan depends on how she is doing. MD JAY Hutton/ /7:22 PM /8:51 PM
[2017-04-30] MEDS: methylPREDNISolone SOD SUCC 40 MG/1 ML VIAL IV PUSH SCH (22:28)
[2017-04-30 22:52] LABS: BLOOD GAS BASE EXCESS 9.3 mmol/L (-2-2); BLOOD GAS CARBOXYHEMOGLOBIN 1.2 % (0-4); BLOOD GAS HCO3 33 mmol/L (22-26); BLOOD GAS O2 HGB SATURATION 88 % (90-100); BLOOD GAS OXYGEN CONTENT 12.9 Vol % (12.0-20.0); BLOOD GAS PCO2 44 mmHg (38-42); BLOOD GAS PO2 55 mmHg (61-120); BLOOD GAS TOTAL HGB 10.4 G/DL (12.0-16.0)
[2017-04-30 22:53] LABS: CRITICAL VALUE YES; DRAW SITE RT RADIAL; LITER FLOW 2 L/M; NUMBER OF ARTERIAL PUNCTURES 1; OXYGEN DEVICE NASAL CANNULA; STAT NO; ULNAR PULSE Y
[2017-04-30] MEDS ORDERED: IOHEXOL 350 MG/ML 10 ML VIAL (for RAD DIAG) IV ONE (22:59)
[2017-05-01] VITALS: BP 153/89; PULSE 63; RESP 20; TEMP 97.3; O2SAT 93
[2017-05-01] MEDS: CEFEPIME INJ 2,000 MG in SODIUM CHLORIDE 0.9% INJ 100 ML IV SCH ×2 (03:00→14:45)
[2017-05-01] MEDS: LEVOTHYROXINE SODIUM 150 MCG TAB PO SCH (05:56)
--- NOTE | 2017-05-01 06:19 | MB ---
cc: NEHA SCHAFFER DATE OF CONSULTATION 04/30/2017 REASON FOR CONSULTATION Pulmonary infiltrates with pneumonia. HISTORY OF PRESENT ILLNESS This is a 71-year-old white female who has had a history of atrial fibrillation and previous history of bile duct obstruction, status post stenting that was done recently. She was admitted with complaints of shortness of breath and chest congestion, cough and wheezing. The patient has been a smoker for over 40 years, continued to smoke until three days ago and has been having some wheezing and orthopnea. She also has had some leg swelling which has worsened over the past 5 days. She was complaining of abdominal pains, mostly in the upper abdomen and in the left upper quadrant, worse on taking deep breaths and thus she was brought to the emergency room and admitted. She denied hemoptysis. She denies any night sweats and she has had no leg or calf muscle pains, was complaining of dryness of her mouth. PAST HISTORY 1. Biliary stenting done just a month ago following which she states she cannot eat much and she is nauseated constantly. 2. Past history for right breast cancer status post lumpectomy. 3. She has also had cataract surgery with implants. 4. History of thyroidectomy. 5. Past history of left total knee replacement. 6. History of spinal fusion surgery. 7. History of degenerative arthritis. 8. History of COPD. 9. She complains of neuropathy of upper extremities. ALLERGIES PENICILLIN. ADHESIVE TAPE. FAMILY HISTORY Significant for bladder cancer in her mother and grandmother with pancreatic cancer. HABITS The patient smoked one pack per day for over 40 years until this week. No significant alcohol use. She is retired. SYSTEMS REVIEW The patient has lost weight. She has dizzy attacks, sinus drainage, postnasal drip, cough and wheezing. She has epigastric and abdominal pains and nausea and vomiting. No GI bleed. No urinary symptoms. She has joint pains and no calf muscle pains. She has anxiety attacks. MED LIST 1. Metoprolol 25 mg b.i.d. 2. Protonix 40 mg a day. 3. Lasix 20 mg b.i.d. 4. Zofran 4 mg p.r.n. 5. Gabapentin 400 mg q.i.d. 6. Levothyroxine 150 mcg a day. 7. Liothyronine 5 mcg daily. 8. Calcium and vitamin D. 9. Aspirin 81 mg a day. PHYSICAL EXAMINATION GENERAL: This elderly thinly built white female who is pale and mildly dyspneic at rest. VITAL SIGNS: Her blood pressure is 130/60, pulse 72, respirations 22, temperature 97.5. HEENT: Head normocephalic. Pupils are reactive. Tongue is dry and coated. Ears - no inflammation. Nasal mucosa is clear. NECK: Supple. No bruits or thyroid enlargement. CHEST: Equal movements with decreased excursions. Occasional expiratory wheezes bilaterally with prolonged expirations. HEART SOUNDS: Regular S1 and S2. No murmur. No S3. ABDOMEN: Soft, tender in the upper abdomen. No organomegaly. The bowel sounds are faint. EXTREMITIES: Edema 1+. No calf tenderness. Homans' sign is negative. NEUROLOGICALLY: The patient does move all her extremities with 1+ reflexes. There were no gross motor deficits. Cranial nerves grossly intact. SKIN: No lesions. IMPRESSION 1. Bibasilar atelectasis with pneumonia. 2. Abdominal pain with history of biliary stenting. 3. History of hypothyroidism. 4. COPD. 5. Hypokalemia. 6. Peripheral neuropathy. 7. Urinary tract infection. 8. Possible sepsis. PLAN 1. The patient will be maintained on antibiotic coverage including Levaquin 750 mg IV daily and cefepime 2 grams IV b.i.d. 2. Nebulized DuoNeb solution added q.i.d. and Solu-Medrol 40 mg IV q.[address] scan of the chest to be done to evaluate the infiltrates and to rule out nodules and/or PE. 4. We will also get a pulmonary function study at the bedside. 5. Continue with Lovenox 40 mg subcu daily. 6. Follow-up chest x-ray to be obtained. 7. Continue with the Lasix daily for leg edema. 8. Blood gas study will be obtained on room air. Thank you Dr. Sivakumar Lopez for this consultation. MD SOLITARIO Wallace/RENETTA /8:17 PM /5:59 AM
[2017-05-01 06:32] LABS: CHLORIDE 95 MEQ/L (98-107); POTASSIUM 3.9 MEQ/L (3.5-5.1); SODIUM (NA) 135 MEQ/L (136-145)
[2017-05-01 06:36] LABS: ANION GAP 5 MEQ/L (5-15); AUTOMATED NEUTROPHIL # 13.6 TH/MM3 (1.8-7.7); BASOPHIL % 0.2 % (0.0-2.0); BICARBONATE 35.1 MEQ/L (21.0-32.0); BLOOD UREA NITROGEN 14 MG/DL (7-18); HEMATOCRIT 35.9 % (35.0-46.0); HEMO FLAGS DIFF FINAL; LYMPH % 2.9 % (9.0-44.0); LYMPHOCYTE # 0.4 TH/MM3 (1.0-4.8); MEAN CELL VOLUME 84.5 FL (80.0-100.0); MEAN CORPUSCULAR HEMOGLOBIN 26.9 PG (27.0-34.0); MEAN CORPUSCULAR HGB CONC 31.8 % (32.0-36.0); MONO % 0.9 % (0.0-8.0); PLATELET COUNT 208 TH/MM3 (150-450); RED BLOOD COUNT 4.25 MIL/MM3 (4.00-5.30); RED CELL DISTRIBUTION WIDTH 15.1 % (11.6-17.2); WHITE BLOOD COUNT 14.1 TH/MM3 (4.0-11.0)
[2017-05-01 06:39] LABS: ALT (GPT) 188 U/L (10-53); AST (GOT) 101 U/L (15-37); GLOMERULAR FILTRATION RATE 69 ML/MIN (>89)
[2017-05-01 06:40] LABS: TOTAL BILIRUBIN ADULT 0.8 MG/DL (0.2-1.0)
[2017-05-01 06:42] LABS: ALKALINE PHOSPHATASE 171 U/L (45-117)
[2017-05-01 08:00] VITALS: BP 137/82; PULSE 63; RESP 18; TEMP 97.5; O2SAT 93
[2017-05-01 09:02] VITALS: O2SAT 91
[2017-05-01] MEDS: FUROSEMIDE 20 MG TAB PO SCH ×2 (10:25→21:16)
[2017-05-01] MEDS: METOPROLOL TARTRATE 25 MG TAB PO SCH ×2 (10:25→21:16)
[2017-05-01] MEDS: PANTOPRAZOLE SOD 40 MG DELAYED RELEASE TAB PO SCH (10:25)
[2017-05-01] MEDS: LIOTHYRONINE SODIUM 5 MCG TAB PO SCH (10:25)
[2017-05-01] MEDS: ASPIRIN EC 81 MG TABEC PO SCH (10:26)
[2017-05-01] MEDS: FLUCONAZOLE 100 MG TAB PO SCH (10:26)
[2017-05-01] MEDS: MORPHINE SULFATE 30 MG CONTROLLED RELEASE TAB PO SCH ×2 (10:26→21:17)
[2017-05-01] MEDS: GABAPENTIN 300 MG CAP PO SCH ×4 (10:27→21:16)
[2017-05-01] MEDS: ENOXAPARIN SODIUM 40 MG/0.4 ML SYRINGE SQ SCH (10:33)
[2017-05-01] MEDS: SODIUM CHLORIDE 0.9% FLUSH 10 ML FLUSH IV FLUSH SCH ×2 (10:33→21:00)
[2017-05-01] MEDS: SODIUM CHLOR 0.9% 1000 ML INJ 1,000 ML IV SCH ×3 (10:35→22:03)
[2017-05-01] MEDS ORDERED: IOHEXOL 350 MG/ML 10 ML VIAL (for RAD DIAG) IV ONE (10:46)
--- NOTE | 2017-05-01 11:15 | RADRPT ---
EXAM DATE/TIME: 05/01/2017 10:29 [facility] COMPARISON: CT ABDOMEN & PELVIS W/O CONTRAST, April 29, 2017, 23:16. INDICATIONS : Infiltrate, pneumonia. IV CONTRAST: 65 cc Omnipaque 350 (iohexol) IV RADIATION DOSE: 6.19 CTDIvol (mGy) MEDICAL HISTORY : Carcinoma, breast. SURGICAL HISTORY : Thyroidectomy. Lumpectomy, spinal fusion. ENCOUNTER: Initial ACUITY: 3 days PAIN SCALE: 0/10 LOCATION: Chest TECHNIQUE: Volumetric scanning of the chest was performed. Using automated exposure control and adjustment of t he mA and/or kV according to patient size, radiation dose was kept as low as reasonably achievable to obtain optimal diagnostic quality images. DICOM format image data is available electronically for review and comparison. Follow-up recommendations for incidentally detected pulmonary nodules are based at a minimum on nodul e size and patient risk factors according to Fleischner Society Guidelines. FINDINGS: Patchy interstitial and alveolar disease is present in both lungs. There is minimal nonspecific medi astinal adenopathy. There is no pericardial effusion. Moderate biliary air is evident. CONCLUSION: Patchy airspace disease, predominantly interstitial most inflammatory. There is no adenopathy. Ther e is no pericardial effusion. Gallo Lozada MD FACR on May 01, 2017 at 10:50 Board Certified Radiologist. This report was verified electronically.
[2017-05-01] MEDS: methylPREDNISolone SOD SUCC 40 MG/1 ML VIAL IV PUSH SCH ×2 (13:32→21:17)
--- NOTE | 2017-05-01 14:34 | HHI.GIFU ---
GI Follow-up Note Consult Follow-up Subjective: Patient laying in bed comfortably, no new complaints except abdominal bloating, and distension Objective: PHYSICAL EXAMINATION: Vitals signs stable No fever HEENT: Pupils round and reactive to light; normocephalic; atraumatic; no jaundice. Throat is clear. NECK: Neck is supple, no JVD, no lymphadenopathy. CHEST: Chest is clear to auscultation and percussion. CARDIAC: Regular rate and rhythm with no murmur gallop or rubs. ABDOMEN: Soft, nondistended, nontender; no hepatosplenomegaly; bowel sounds are present in all four quadrants. EXTREMITIES: No clubbing, cyanosis, or edema. SKIN: Normal; no rash; no jaundice. 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 Available Data (labs, X- Rays, Procedues) : Laboratory Tests Test 04/29/17 04/29/17 04/30/17 04/30/17 20:00 22:40 06:55 20:25 White Blood Count 15.9 TH/MM3 12.3 TH/MM3 Red Blood Count 4.19 MIL/MM3 3.69 MIL/MM3 Hemoglobin 11.9 GM/DL 10.3 GM/DL Hematocrit 35.5 % 31.5 % Mean Corpuscular Volume 84.8 FL 85.4 FL Mean Corpuscular Hemoglobin 28.5 PG 28.0 PG Mean Corpuscular Hemoglobin 33.6 % 32.8 % Concent Red Cell Distribution Width 15.1 % 14.9 % Platelet Count 243 TH/MM3 195 TH/MM3 Mean Platelet Volume 9.1 FL 9.0 FL Neutrophils (%) (Auto) 88.8 % 88.8 % Lymphocytes (%) (Auto) 5.1 % 5.2 % Monocytes (%) (Auto) 5.7 % 5.7 % Eosinophils (%) (Auto) 0.0 % 0.2 % Basophils (%) (Auto) 0.4 % 0.1 % Neutrophils # (Auto) 14.1 TH/MM3 11.0 TH/MM3 Lymphocytes # (Auto) 0.8 TH/MM3 0.6 TH/MM3 Monocytes # (Auto) 0.9 TH/MM3 0.7 TH/MM3 Eosinophils # (Auto) 0.0 TH/MM3 0.0 TH/MM3 Basophils # (Auto) 0.1 TH/MM3 0.0 TH/MM3 CBC Comment DIFF FINAL DIFF FINAL Differential Comment Sodium Level 133 MEQ/L 135 MEQ/L Potassium Level 3.3 MEQ/L 3.4 MEQ/L Chloride Level 90 MEQ/L 94 MEQ/L Carbon Dioxide Level 34.4 MEQ/L 34.3 MEQ/L Anion Gap 9 MEQ/L 7 MEQ/L Blood Urea Nitrogen 20 MG/DL 18 MG/DL Creatinine 1.00 MG/DL 0.76 MG/DL Estimat Glomerular Filtration 54 ML/MIN 75 ML/MIN Rate Random Glucose 111 MG/DL 101 MG/DL Calcium Level 7.9 MG/DL 7.4 MG/DL Total Bilirubin 1.1 MG/DL 0.9 MG/DL Aspartate Amino Transf 185 U/L 125 U/L (AST/SGOT) Alanine Aminotransferase 265 U/L 196 U/L (ALT/SGPT) Alkaline Phosphatase 187 U/L 147 U/L Troponin I 0.03 NG/ML B-Type Natriuretic Peptide 138 PG/ML Total Protein 5.8 GM/DL 4.7 GM/DL Albumin 2.3 GM/DL 1.7 GM/DL Lipase 36 U/L 36 U/L Blood Type O POSITIVE Antibody Screen NEGATIVE Blood Bank Comment Urine Color CIRILO Urine Turbidity SLIGHT Urine pH 5.5 Urine Specific [place] 1.010 Urine Protein TRACE mg/dL Urine Glucose (UA) NEG mg/dL Urine Ketones NEG mg/dL Urine Occult Blood LARGE Urine Nitrite NEG Urine Bilirubin NEG Urine Leukocyte Esterase NEG Urine RBC 25-49 /hpf Urine WBC 25-49 /hpf Urine Squamous Epithelial 0-5 /hpf Cells Urine Amorphous Sediment FEW Urine Bacteria FEW /hpf Urine Mucus FEW /lpf Microscopic Urinalysis Comment CULTURE INDICATED Protein Corrected Calcium 8.7 MG/DL Magnesium Level 1.5 MG/DL Direct Bilirubin 0.7 MG/DL Indirect Bilirubin 0.2 MG/DL CA 19-9 Antigen 30.7 U/ML Test 04/30/17 05/01/17 22:39 06:15 Blood Gas Puncture Site RT RADIAL Blood Gas Patient Temperature 37.0 Blood Gas HCO3 33 mmol/L Blood Gas Base Excess 9.3 mmol/L Blood Gas Oxygen Saturation 88 % Arterial Blood pH 7.49 Arterial Blood Partial 44 mmHg Pressure CO2 Arterial Blood Partial 55 mmHg Pressure O2 Arterial Blood Oxygen Content 12.9 Vol % Arterial Blood 1.2 % Carboxyhemoglobin Arterial Blood Methemoglobin 1.0 % Blood Gas Hemoglobin 10.4 G/DL Oxygen Delivery Device NASAL CANNULA Blood Gas Liter Flow 2 L/M White Blood Count 14.1 TH/MM3 Red Blood Count 4.25 MIL/MM3 Hemoglobin 11.4 GM/DL Hematocrit 35.9 % Mean Corpuscular Volume 84.5 FL Mean Corpuscular Hemoglobin 26.9 PG Mean Corpuscular Hemoglobin 31.8 % Concent Red Cell Distribution Width 15.1 % Platelet Count 208 TH/MM3 Mean Platelet Volume 9.3 FL Neutrophils (%) (Auto) 96.0 % Lymphocytes (%) (Auto) 2.9 % Monocytes (%) (Auto) 0.9 % Eosinophils (%) (Auto) 0.0 % Basophils (%) (Auto) 0.2 % Neutrophils # (Auto) 13.6 TH/MM3 Lymphocytes # (Auto) 0.4 TH/MM3 Monocytes # (Auto) 0.1 TH/MM3 Eosinophils # (Auto) 0.0 TH/MM3 Basophils # (Auto) 0.0 TH/MM3 CBC Comment DIFF FINAL Differential Comment Sodium Level 135 MEQ/L Potassium Level 3.9 MEQ/L Chloride Level 95 MEQ/L Carbon Dioxide Level 35.1 MEQ/L Anion Gap 5 MEQ/L Blood Urea Nitrogen 14 MG/DL Creatinine 0.81 MG/DL Estimat Glomerular Filtration 69 ML/MIN Rate Random Glucose 141 MG/DL Calcium Level 7.8 MG/DL Total Bilirubin 0.8 MG/DL Aspartate Amino Transf 101 U/L (AST/SGOT) Alanine Aminotransferase 188 U/L (ALT/SGPT) Alkaline Phosphatase 171 U/L Total Protein 5.4 GM/DL Albumin 2.0 GM/DL Allergies Coded Allergies Type Severity Reaction Last Updated Verified Penicillin Allergy Severe THROAT CLOSES 03/26/17 Yes Adhesives Allergy Unknown 03/26/17 Yes MRI PRECAUTION Adverse Reaction Severe 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 03/26/17 Yes Active Scripts Medications Dose Route/Sig Days Date Category Fish Oil + D3 (Fish Oil-Cholecalciferol) 1,200-1,000 Mg-Unit Cap 1 Cap PO DAILY 04/29/17 Reported Fluconazole 100 Mg Tab 100 Mg PO DAILY 04/29/17 Reported Zofran (Ondansetron HCl) 4 Mg Tab 4 Mg PO Q8HR PRN 04/29/17 Reported Lasix (Furosemide) 20 Mg Tab 20 Mg PO BID 04/03/17 Rx Pantoprazole (Pantoprazole Sodium) 40 Mg Tab 40 Mg PO DAILY 03/30/17 Rx Metoprolol Tartrate 25 Mg Tab 12.5 Mg PO Q12HR 03/30/17 Rx Adult Aspirin EC Low Strength (Aspirin) 81 Mg Tabec 81 Mg PO DAILY 03/30/17 Rx Chewable Calcium (Calcium-Vitamins D & K) 500-200-40 Mg-Unit-Mcg Chew 1 Tab CHEW 01/12/17 Reported Morphine ER (Morphine Sulfate) 60 Mg Tab 60 Mg PO BID 01/12/17 Reported Gabapentin 400 Mg Cap 400 Cap PO QID 01/12/17 Reported Hydrocodone-Acetaminophen 7.5-300 Mg Tab 1 Tab PO Q4H PRN 01/12/17 Reported Levothyroxine (Levothyroxine Sodium) 150 Mcg Tab 150 Mcg PO DAILY 01/12/17 Reported Liothyronine (Liothyronine Sodium) 5 Mcg Tab 5 Mcg PO DAILY 01/12/17 Reported ASSESSMENT/PLAN: Seen and examined, states having worsening pain and distension since stent placement. Continue to monitor LFTs, appointment with [place] pending for repeat EUS. ? stent removal depending upon clinical course.All the familys questions answered. It was a pleasure seeing Shreya Mancia. Thank you for this consult. Entered by: Valentin Fuller MD May 01, 2017 14:34
[2017-05-01 16:00] VITALS: BP 130/86; PULSE 69; RESP 17; TEMP 98.2; O2SAT 94
--- NOTE | 2017-05-01 18:08 | HHI.PR ---
Subjective History of Present Illness Patient feel better. no acute issue d/w AUGUSTINA Holland at bed side. Review of Systems Constitutional Constitutional: Fatigue, Weakness Pulmonary Respiratory: Coughing, Shortness of Breath Cardiology CV Remarks leg edema. GI/Abdomen GI/Abdominal Exam: Abdominal Pain Vitals/Results Intake & Output 04/30/17 04/30/17 05/01/17 15:00 23:00 07:00 Intake Total 840 ml 1281 ml Output Total 4 ml Balance 836 ml 1281 ml Intake Oral 840 ml IV Total 1281 ml Stool Total 4 ml # Voids 5 # Bowel Movements 1 Vital Signs Vital Signs Date Time Temp Pulse Resp B/P Pulse Ox O2 Delivery O2 Flow Rate FiO2 05/01/17 09:02 91 Nasal Cannula 3.00 05/01/17 09:00 93 Nasal Cannula 3.00 05/01/17 08:00 97.5 63 18 137/82 93 05/01/17 00:00 97.3 63 20 153/89 93 04/30/17 20:52 20 04/30/17 20:30 92 Nasal Cannula 3.00 04/30/17 20:00 95 Nasal Cannula 2.00 04/30/17 20:00 97.2 64 20 157/91 94 CBC/BMP: 05/01/17 0615 05/01/17 0615 Lab Results Laboratory Tests Test 04/30/17 04/30/17 05/01/17 20:25 22:39 06:15 CA 19-9 Antigen 30.7 U/ML Blood Gas Puncture Site RT RADIAL Blood Gas Patient Temperature 37.0 Blood Gas HCO3 33 mmol/L Blood Gas Base Excess 9.3 mmol/L Blood Gas Oxygen Saturation 88 % Arterial Blood pH 7.49 Arterial Blood Partial 44 mmHg Pressure CO2 Arterial Blood Partial 55 mmHg Pressure O2 Arterial Blood Oxygen Content 12.9 Vol % Arterial Blood 1.2 % Carboxyhemoglobin Arterial Blood Methemoglobin 1.0 % Blood Gas Hemoglobin 10.4 G/DL Oxygen Delivery Device NASAL CANNULA Blood Gas Liter Flow 2 L/M White Blood Count 14.1 TH/MM3 Red Blood Count 4.25 MIL/MM3 Hemoglobin 11.4 GM/DL Hematocrit 35.9 % Mean Corpuscular Volume 84.5 FL Mean Corpuscular Hemoglobin 26.9 PG Mean Corpuscular Hemoglobin 31.8 % Concent Red Cell Distribution Width 15.1 % Platelet Count 208 TH/MM3 Mean Platelet Volume 9.3 FL Neutrophils (%) (Auto) 96.0 % Lymphocytes (%) (Auto) 2.9 % Monocytes (%) (Auto) 0.9 % Eosinophils (%) (Auto) 0.0 % Basophils (%) (Auto) 0.2 % Neutrophils # (Auto) 13.6 TH/MM3 Lymphocytes # (Auto) 0.4 TH/MM3 Monocytes # (Auto) 0.1 TH/MM3 Eosinophils # (Auto) 0.0 TH/MM3 Basophils # (Auto) 0.0 TH/MM3 CBC Comment DIFF FINAL Differential Comment Sodium Level 135 MEQ/L Potassium Level 3.9 MEQ/L Chloride Level 95 MEQ/L Carbon Dioxide Level 35.1 MEQ/L Anion Gap 5 MEQ/L Blood Urea Nitrogen 14 MG/DL Creatinine 0.81 MG/DL Estimat Glomerular Filtration 69 ML/MIN Rate Random Glucose 141 MG/DL Calcium Level 7.8 MG/DL Total Bilirubin 0.8 MG/DL Aspartate Amino Transf 101 U/L (AST/SGOT) Alanine Aminotransferase 188 U/L (ALT/SGPT) Alkaline Phosphatase 171 U/L Total Protein 5.4 GM/DL Albumin 2.0 GM/DL Microbiology Microbiology 05/01/17 Gram Stain, Received Pending 05/01/17 Sputum Culture, Received Pending Physical Exam General General Appearance: No Acute Distress, Comfortable Eyes Eye Exam: Pupils Equal, Pupils Reactive, Sclera White, Extraocular Movement Intact Throat Throat Exam: Oral Mucosa [place] & Moist, Oral Pharynx Normal Neck Neck Exam: Neck Supple, Trachea Midline Pulmonary Resp Exam: Clear Bilaterally, Breath Sounds Equal Cardiology CV Exam: Regular, Normal Sinus Rhythm Gastrointestinal/Abdomen GI Exam: Soft, Bowel Sounds Present GI Remarks diffuse abdominal tenderness. Musculoskeletal MS Exam: Normal Tone Integumentary Skin Exam: Warm, Dry Extremeties Extremities Exam: Pitting Edema Neurologic Neuro Exam: Alert, Awake, Oriented, Moving All Extremities, No Focal Deficits Psychiatric Psych Exam: Appropriate Responses VTE Prophylaxis VTE Prophylaxis Device: SCDs PUD Prophylasis PUD Prophylaxis: Protonix Assessment/Plan Assessment/Plan ASSESSMENT/PLAN 1. This is a 71-year-old female diagnosed with cough and shortness of breath secondary to pneumonia. The patient is on Levaquin IV and cefepime IV. pulmonary input noted for further recommendation. s/p CT Chest noted. 2. Abdominal pain with recent biliary stenting a few weeks ago. GI input noted for further recommendation. Lipase is normal. 3. Leg edema. Continue with Lasix. 4. Neuropathy. Continue with Gabapentin. 5. History of hypothyroidism. Continue with levothyroxine. 6. Hypokalemia. Replace potassium. 7. Hyponatremia. We will monitor. 8. High LFTs. GI input noted for further recommendation. 9. Urinary tract infection. The patient is on antibiotic Levaquin and cefepime. 10. Leukocytosis secondary to pneumonia and urinary tract infection. 11. Possible sepsis on admission with pneumonia and urinary tract infection. 12. DVT prophylaxis. Lovenox 40 mg subcutaneous daily. 13. GI prophylaxis Protonix 40 mg p.o. daily. We are going to manage the patient on a daily basis and make recommendations on a daily basis. Check CBC with diff CMP in AM. Discussed Condition with: Patient Sivakumar Lopez MD May 01, 2017 18:08
--- NOTE | 2017-05-01 19:15 | HHI.PR ---
Subjective Remarks She is feeling better today. On O2 at 2L. CT chest shows basal infiltrates. Objective Vital Signs Date Time Temp Pulse Resp B/P Pulse Ox O2 Delivery O2 Flow Rate FiO2 05/01/17 16:00 98.2 69 17 130/86 94 05/01/17 09:02 91 Nasal Cannula 3.00 05/01/17 09:00 93 Nasal Cannula 3.00 05/01/17 08:00 97.5 63 18 137/82 93 05/01/17 00:00 97.3 63 20 153/89 93 04/30/17 20:52 20 04/30/17 20:30 92 Nasal Cannula 3.00 04/30/17 20:00 95 Nasal Cannula 2.00 04/30/17 20:00 97.2 64 20 157/91 94 I/O 04/30/17 04/30/17 04/30/17 05/01/17 05/01/17 05/01/17 07:00 15:00 23:00 07:00 15:00 23:00 Intake Total 1270 ml 840 ml 1281 ml 240 ml Output Total 200 ml 4 ml 800 ml Balance 1070 ml 836 ml 1281 ml -560 ml Intake Oral 420 ml 840 ml 240 ml IV Total 850 ml 1281 ml Output Urine Total 200 ml 800 ml Stool Total 4 ml # Voids 1 5 4 # Bowel Movements 1 1 0 Result Diagram: 05/01/17 0615 05/01/17 0615 Objective Remarks GENERAL: This elderly thinly built white female who is pale and not dyspneic at rest.. HEENT: Head normocephalic. Pupils are reactive. Tongue is dry and coated. Ears - no inflammation. Nasal mucosa is clear. NECK: Supple. No bruits or thyroid enlargement. CHEST: Equal movements with decreased excursions. Occasional expiratory wheezes bilaterally with prolonged expirations.Basal crackles. HEART SOUNDS: Regular S1 and S2. No murmur. No S3. ABDOMEN: Soft, tender in the upper abdomen. No organomegaly. The bowel sounds are faint. EXTREMITIES: Edema 1+. No calf tenderness. Homans' sign is negative. NEUROLOGICALLY: The patient does move all her extremities with 1+ reflexes. There were no gross motor deficits. Cranial nerves grossly intact. SKIN: No lesions. Assessment and Plan Assessment and Plan IMPRESSION 1. Bibasilar atelectasis with pneumonia. 2. Abdominal pain with history of biliary stenting. 3. History of hypothyroidism. 4. COPD. 5. Hypokalemia. 6. Peripheral neuropathy. 7. Urinary tract infection. 8. Possible sepsis. Plan : 1. Continue Levaquin and Cefipime IV 2. O2 at 3 L and wean 3. Nebs qid , duoneb. 4. IS at bedside q3h 5. Solumedrol 40 mg IV q8h 6. CBC BMP in am Elle Patiño MD May 01, 2017 19:14
[2017-05-01 19:25] VITALS: O2SAT 93
[2017-05-01 20:22] VITALS: BP 141/76; PULSE 67; RESP 18; TEMP 97.9; O2SAT 93
[2017-05-01] MEDS ORDERED: LEVOFLOXACIN 750 MG/DEXTROSE 150 ML IV SCH (23:00)
[2017-05-02] MEDS: CEFEPIME INJ 2,000 MG in SODIUM CHLORIDE 0.9% INJ 100 ML IV SCH ×2 (03:00→14:58)
[2017-05-02] MEDS: methylPREDNISolone SOD SUCC 40 MG/1 ML VIAL IV PUSH SCH (06:00)
[2017-05-02] MEDS: LEVOTHYROXINE SODIUM 150 MCG TAB PO SCH (06:12)
[2017-05-02 08:07] VITALS: O2SAT 91
[2017-05-02 08:49] LABS: AUTOMATED NEUTROPHIL # 18.6 TH/MM3 (1.8-7.7); BASOPHIL % 0.2 % (0.0-2.0); EOSINOPHIL # 0.1 TH/MM3 (0-0.4); EOSINOPHIL % 0.7 % (0.0-4.0); HEMATOCRIT 32.1 % (35.0-46.0); LYMPH % 2.4 % (9.0-44.0); LYMPHOCYTE # 0.5 TH/MM3 (1.0-4.8); MEAN CELL VOLUME 85.7 FL (80.0-100.0); MEAN CORPUSCULAR HEMOGLOBIN 27.9 PG (27.0-34.0); MEAN CORPUSCULAR HGB CONC 32.6 % (32.0-36.0); MONO % 3.5 % (0.0-8.0); NEUT % 93.2 % (16.0-70.0); PLATELET COUNT 157 TH/MM3 (150-450); RED BLOOD COUNT 3.75 MIL/MM3 (4.00-5.30); RED CELL DISTRIBUTION WIDTH 15.1 % (11.6-17.2); WHITE BLOOD COUNT 19.9 TH/MM3 (4.0-11.0)
[2017-05-02 08:50] LABS: HEMO FLAGS DIFF FINAL
[2017-05-02 08:59] LABS: POTASSIUM 3.4 MEQ/L (3.5-5.1)
[2017-05-02] MEDS: SODIUM CHLORIDE 0.9% FLUSH 10 ML FLUSH IV FLUSH SCH ×2 (09:00→21:00)
[2017-05-02] MEDS: PANTOPRAZOLE SOD 40 MG DELAYED RELEASE TAB PO SCH (09:07)
[2017-05-02] MEDS: FUROSEMIDE 20 MG TAB PO SCH ×2 (09:07→21:17)
[2017-05-02] MEDS: MORPHINE SULFATE 30 MG CONTROLLED RELEASE TAB PO SCH ×2 (09:08→21:17)
[2017-05-02 09:09] VITALS: BP 102/71; PULSE 90; RESP 18; TEMP 98.4; O2SAT 94
[2017-05-02] MEDS: METOPROLOL TARTRATE 25 MG TAB PO SCH ×2 (09:09→21:17)
[2017-05-02] MEDS: LIOTHYRONINE SODIUM 5 MCG TAB PO SCH (09:09)
[2017-05-02] MEDS: FLUCONAZOLE 100 MG TAB PO SCH (09:10)
[2017-05-02] MEDS: ASPIRIN EC 81 MG TABEC PO SCH (09:15)
[2017-05-02] MEDS: GABAPENTIN 300 MG CAP PO SCH ×4 (09:15→21:00)
[2017-05-02 09:25] LABS: BICARBONATE 34.8 MEQ/L (21.0-32.0); CALCIUM-PROTEIN CORRECTED 8.5 MG/DL (8.5-10.1); TOTAL BILIRUBIN ADULT 0.5 MG/DL (0.2-1.0)
--- NOTE | 2017-05-02 09:40 | HHI.PR ---
Subjective History of Present Illness Patient feel same have worsening of leukocytosis consult Infectious disease have low potassium and magnesium will replace and monitor consult physical therapy. no acute issue d/w AUGUSTINA Celestin at bed side. Review of Systems Constitutional Constitutional: Fatigue, Weakness Pulmonary Respiratory: Coughing, Shortness of Breath Cardiology CV Remarks leg edema. GI/Abdomen GI/Abdominal Exam: Abdominal Pain Vitals/Results Intake & Output 05/01/17 05/01/17 05/02/17 15:00 23:00 07:00 Intake Total 240 ml Output Total 800 ml Balance -560 ml Intake Oral 240 ml Output Urine Total 800 ml # Voids 4 2 # Bowel Movements 0 Vital Signs Vital Signs Date Time Temp Pulse Resp B/P Pulse Ox O2 Delivery O2 Flow Rate FiO2 05/02/17 09:09 98.4 90 18 102/71 94 05/02/17 08:07 91 Nasal Cannula 4.00 05/01/17 20:22 97.9 67 18 141/76 93 05/01/17 19:25 93 Nasal Cannula 3.00 05/01/17 19:00 93 Nasal Cannula 2.00 05/01/17 16:00 98.2 69 17 130/86 94 CBC/BMP: 05/02/17 0820 05/02/17 0820 Lab Results Laboratory Tests Test 05/02/17 08:20 White Blood Count 19.9 TH/MM3 Red Blood Count 3.75 MIL/MM3 Hemoglobin 10.5 GM/DL Hematocrit 32.1 % Mean Corpuscular Volume 85.7 FL Mean Corpuscular Hemoglobin 27.9 PG Mean Corpuscular Hemoglobin 32.6 % Concent Red Cell Distribution Width 15.1 % Platelet Count 157 TH/MM3 Mean Platelet Volume 8.8 FL Neutrophils (%) (Auto) 93.2 % Lymphocytes (%) (Auto) 2.4 % Monocytes (%) (Auto) 3.5 % Eosinophils (%) (Auto) 0.7 % Basophils (%) (Auto) 0.2 % Neutrophils # (Auto) 18.6 TH/MM3 Lymphocytes # (Auto) 0.5 TH/MM3 Monocytes # (Auto) 0.7 TH/MM3 Eosinophils # (Auto) 0.1 TH/MM3 Basophils # (Auto) 0.0 TH/MM3 CBC Comment DIFF FINAL Differential Comment Sodium Level 133 MEQ/L Potassium Level 3.4 MEQ/L Chloride Level 91 MEQ/L Carbon Dioxide Level 34.8 MEQ/L Anion Gap 7 MEQ/L Blood Urea Nitrogen 15 MG/DL Creatinine 0.77 MG/DL Estimat Glomerular Filtration 73 ML/MIN Rate Random Glucose 150 MG/DL Calcium Level 7.4 MG/DL Protein Corrected Calcium 8.5 MG/DL Total Bilirubin 0.5 MG/DL Aspartate Amino Transf 62 U/L (AST/SGOT) Alanine Aminotransferase 135 U/L (ALT/SGPT) Alkaline Phosphatase 141 U/L Total Protein 5.1 GM/DL Albumin 1.8 GM/DL Microbiology Microbiology 05/01/17 Gram Stain - Final, Resulted 05/01/17 Sputum Culture, Resulted Pending Physical Exam General General Appearance: No Acute Distress, Comfortable Eyes Eye Exam: Pupils Equal, Pupils Reactive, Sclera White, Extraocular Movement Intact Throat Throat Exam: Oral Mucosa [place] & Moist, Oral Pharynx Normal Neck Neck Exam: Neck Supple, Trachea Midline Pulmonary Resp Exam: Clear Bilaterally, Breath Sounds Equal Cardiology CV Exam: Regular, Normal Sinus Rhythm Gastrointestinal/Abdomen GI Exam: Soft, Bowel Sounds Present GI Remarks diffuse abdominal tenderness. Musculoskeletal MS Exam: Normal Tone Integumentary Skin Exam: Warm, Dry Extremeties Extremities Exam: Pitting Edema Neurologic Neuro Exam: Alert, Awake, Oriented, Moving All Extremities, No Focal Deficits Psychiatric Psych Exam: Appropriate Responses VTE Prophylaxis VTE Prophylaxis Device: SCDs PUD Prophylasis PUD Prophylaxis: Protonix Assessment/Plan Assessment/Plan ASSESSMENT/PLAN 1. This is a 71-year-old female diagnosed with cough and shortness of breath secondary to pneumonia. The patient is on Levaquin IV and cefepime IV. pulmonary input noted for further recommendation. s/p CT Chest noted. 2. Abdominal pain with recent biliary stenting a few weeks ago. GI input noted for further recommendation. Lipase is normal. 3. Leg edema. Continue with Lasix. 4. Neuropathy. Continue with Gabapentin. 5. History of hypothyroidism. Continue with levothyroxine. 6. Hypokalemia/ Hypomagnesemia. will Replace and monitor. 7. Hyponatremia. We will monitor. 8. High LFTs. GI input noted for further recommendation. 9. Urinary tract infection. The patient is on antibiotic Levaquin and cefepime. 10. Leukocytosis secondary to pneumonia and urinary tract infection. worsening of leukocytosis consult Infectious disease 11. Possible sepsis on admission with pneumonia and urinary tract infection. 12. DVT prophylaxis. Lovenox 40 mg subcutaneous daily. 13. GI prophylaxis Protonix 40 mg p.o. daily. We are going to manage the patient on a daily basis and make recommendations on a daily basis. Check CBC with diff CMP in AM. consult physical therapy Discussed Condition with: Patient Sivakumar Lopez MD May 02, 2017 09:40
[2017-05-02] MEDS ORDERED: POTASSIUM CHLORIDE 20 MEQ CONTROLLED RELEASE TAB PO ONE (09:45)
[2017-05-02] MEDS: MAGNESIUM SULFATE 1 GM PREMIX 100 ML IV SCH ×2 (10:00→11:00)
[2017-05-02] MEDS: ENOXAPARIN SODIUM 40 MG/0.4 ML SYRINGE SQ SCH (10:33)
[2017-05-02] MEDS: SODIUM CHLOR 0.9% 1000 ML INJ 1,000 ML IV SCH ×2 (11:21→18:42)
[2017-05-02 12:00] VITALS: BP 133/80; PULSE 88; RESP 18; TEMP 98; O2SAT 95
[2017-05-02] MEDS: MAGNESIUM OXIDE 400 MG TAB PO SCH ×2 (13:37→21:17)
--- NOTE | 2017-05-02 14:22 | HHI.PR ---
Subjective Remarks C/O IV hurting.. On O2 at [address] chest shows basal infiltrates. No fever. Objective Vital Signs Date Time Temp Pulse Resp B/P Pulse Ox O2 Delivery O2 Flow Rate FiO2 05/02/17 12:00 98.0 88 18 133/80 95 05/02/17 09:09 98.4 90 18 102/71 94 05/02/17 08:07 91 Nasal Cannula 4.00 05/01/17 20:22 97.9 67 18 141/76 93 05/01/17 19:25 93 Nasal Cannula 3.00 05/01/17 19:00 93 Nasal Cannula 2.00 05/01/17 16:00 98.2 69 17 130/86 94 I/O 05/01/17 05/01/17 05/01/17 05/02/17 05/02/17 05/02/17 07:00 15:00 23:00 07:00 15:00 23:00 Intake Total 1281 ml 240 ml Output Total 800 ml Balance 1281 ml -560 ml Intake Oral 240 ml IV Total 1281 ml Output Urine Total 800 ml # Voids 4 2 # Bowel Movements 0 Result Diagram: 05/02/17 0820 05/02/17 0820 Objective Remarks GENERAL: This elderly thinly built white female who is not dyspneic at rest.. HEENT: Head normocephalic. Pupils are reactive. Tongue is dry and coated. Ears - no inflammation. Nasal mucosa is clear. NECK: Supple. No bruits or thyroid enlargement. CHEST: Equal movements with decreased excursions. Occasional expiratory wheezes bilaterally with prolonged expirations.Few Basal crackles. HEART SOUNDS: Regular S1 and S2. No murmur. No S3. ABDOMEN: Soft, tender in the upper abdomen. No organomegaly. The bowel sounds are faint. EXTREMITIES: Edema 1+. No calf tenderness. NEUROLOGICALLY: The patient does move all her extremities with 1+ reflexes. There were no gross motor deficits. Cranial nerves grossly intact. SKIN: No lesions. Assessment and Plan Assessment and Plan IMPRESSION 1. Bibasilar atelectasis with pneumonia. 2. Abdominal pain with history of biliary stenting. 3. History of hypothyroidism. 4. COPD. 5. Hypokalemia. 6. Peripheral neuropathy. 7. Urinary tract infection. 8. Possible sepsis. Plan : 1. Continue Levaquin and switch to PO and Continue Cefipime IV 2. O2 at 3 L and wean to RA 3. Nebs qid , duoneb. 4. IS at bedside q3h 5. Solumedrol 40 mg IV q12h 6. Chest Xray Thursday Elle Patiño MD May 02, 2017 14:22
--- NOTE | 2017-05-02 14:34 | HHI.GIFU ---
Subjective Remarks Patient laying in bed complaining of abdominal distention and bloating and epigastric pain that radiates to the back Objective Vitals I&O Vital Signs Date Time Temp Pulse Resp B/P Pulse Ox O2 Delivery O2 Flow Rate FiO2 05/02/17 12:00 98.0 88 18 133/80 95 05/02/17 09:09 98.4 90 18 102/71 94 05/02/17 08:07 91 Nasal Cannula 4.00 05/01/17 20:22 97.9 67 18 141/76 93 05/01/17 19:25 93 Nasal Cannula 3.00 05/01/17 19:00 93 Nasal Cannula 2.00 05/01/17 16:00 98.2 69 17 130/86 94 I/O 05/01/17 05/01/17 05/01/17 05/02/17 05/02/17 05/02/17 07:00 15:00 23:00 07:00 15:00 23:00 Intake Total 1281 ml 240 ml Output Total 800 ml Balance 1281 ml -560 ml Intake Oral 240 ml IV Total 1281 ml Output Urine Total 800 ml # Voids 4 2 # Bowel Movements 0 Laboratory Laboratory Tests Test 05/02/17 08:20 White Blood Count 19.9 Red Blood Count 3.75 Hemoglobin 10.5 Hematocrit 32.1 Mean Corpuscular Volume 85.7 Mean Corpuscular Hemoglobin 27.9 Mean Corpuscular Hemoglobin 32.6 Concent Red Cell Distribution Width 15.1 Platelet Count 157 Mean Platelet Volume 8.8 Neutrophils (%) (Auto) 93.2 Lymphocytes (%) (Auto) 2.4 Monocytes (%) (Auto) 3.5 Eosinophils (%) (Auto) 0.7 Basophils (%) (Auto) 0.2 Neutrophils # (Auto) 18.6 Lymphocytes # (Auto) 0.5 Monocytes # (Auto) 0.7 Eosinophils # (Auto) 0.1 Basophils # (Auto) 0.0 CBC Comment DIFF FINAL Differential Comment Sodium Level 133 Potassium Level 3.4 Chloride Level 91 Carbon Dioxide Level 34.8 Anion Gap 7 Blood Urea Nitrogen 15 Creatinine 0.77 Estimat Glomerular Filtration 73 Rate Random Glucose 150 Calcium Level 7.4 Protein Corrected Calcium 8.5 Total Bilirubin 0.5 Aspartate Amino Transf 62 (AST/SGOT) Alanine Aminotransferase 135 (ALT/SGPT) Alkaline Phosphatase 141 Total Protein 5.1 Albumin 1.8 Date/Time Procedure Status Source Growth 05/01/17 13:46 Gram Stain - Final Resulted Sputum Expectorated Sputum 05/01/17 13:46 Sputum Culture - Preliminary Resulted Sputum Expectorated Sputum No growth. 04/29/17 22:40 Urine Culture - Final Complete Urine Clean Catch NO GROWTH IN 48 HOURS. Imaging Last [address] 05/01/171948 Signed Impressions: Service Date/Time: Monday, May 01, 2017 10:29 - CONCLUSION: Patchy airspace disease, predominantly interstitial most inflammatory. There is no adenopathy. There is no pericardial effusion. Gallo Lozada MD FACR Physical Exam HEENT: normocephalic; atraumatic; no jaundice. NECK: Neck is supple CHEST: Chest is clear to auscultation and percussion. CARDIAC: Regular rate and rhythm with no murmur gallop or rubs. ABDOMEN: Soft, mildly distended tympanic, mildly tender in the epigastric area ; no hepatosplenomegaly; bowel sounds are present in all four quadrants. EXTREMITIES: No clubbing, cyanosis, or edema. PEANUT SHAKER: No focal deficits; alert and oriented times three. Assessment and Plan Plan Abdominal pain most likely secondary to musculoskeletal and chronic back issues Bloating Patient advised to rotate in bed so as to allow herself to pass gas Continue with current supportive care Jesús Brown MD May 02, 2017 14:34
[2017-05-02 16:00] VITALS: BP 144/70; PULSE 81; RESP 18; TEMP 98.1; O2SAT 97
--- NOTE | 2017-05-02 17:34 | PD.ID.CON ---
History of Present Illness Service ID Consult Requested By Reason for Consult Evaluation and Mment of Pneumonia ? HCAP Primary Care Physician Simin Weller MD Diagnoses: History of Present Illness is a 71 y/o CF with PMHx significant for bile duct stent placement a few weeks back as well as concern for pancreatitis. Patient reports she has been seen by GI and the plan is to refer to [facility] at some point. Currently , patient came to the ER at [facility] complaining of cough, congestion and some shortness of breath. She was seen by a home health care nurse. She has a history of biliary stenting a few weeks ago. Since then, she has had leg edema, leg swelling. She has been found that she might have anemia. She said that she has been feeling very weak and dizzy andnsuddenly she had noticed that she has been short of breath and coughing. Denies any fever at home. She has some abdominal pain about 2-4/10 diffuse.No radiation worse with pressure. Denies any diarrhea or constipation. ID consulted for Mment of HCAP. Review of Systems Constitutional: DENIES: Diaphoretic episodes, Fatigue, Fever, Weight gain, Weight loss, Chills, Dizziness, Change in appetite, Night Sweats Endocrine: DENIES: Abnorml menstrual pattern, Heat/cold intolerance, Polydipsia , Polyuria, Polyphagia Eyes: DENIES: Blurred vision, Diplopia, Eye inflammation, Eye pain, Vision loss , Photosensitivity, Double Vision Ears, nose, mouth, throat: DENIES: Tinnitus, Hearing loss, Vertigo, Nasal discharge, Oral lesions, Throat pain, Hoarseness, Ear Pain, Running Nose, Epistaxis, Sinus Pain, Toothache, Odynophagia Respiratory: DENIES: Apneas, Cough, Snoring, Wheezing, Hemoptysis, Sputum production, Shortness of breath Cardiovascular: DENIES: Chest pain, Palpitations, Syncope, Dyspnea on Exertion , PND, Lower Extremity Edema, Orthopnea, Claudication Gastrointestinal: COMPLAINS OF: Abdominal pain, DENIES: Black stools, Bloody stools, Constipation, Diarrhea, Nausea, Vomiting, Difficulty Swallowing, Anorexia Genitourinary: DENIES: Abnormal vaginal bleeding, Dysmenorrhea, Dyspareunia, Sexual dysfunction, Urinary frequency, Urinary incontinence, Urgency, Hematuria , Dysuria, Nocturia, Vaginal discharge Musculoskeletal: DENIES: Joint pain, Muscle aches, Stiffness, Joint Swelling, Back pain, Neck pain Integumentary: DENIES: Abnormal pigmentation, Pruritus, Rash, Nail changes, Breast masses, Breast skin changes, Nipple discharge Hematologic/lymphatic: DENIES: Bruising, Lymphadenopathy Immunologic/allergic: DENIES: Eczema, Urticaria Neurologic: DENIES: Abnormal gait, Headache, Localized weakness, Paresthesias, Seizures, Speech Problems, Tremor, Poor Balance Psychiatric: DENIES: Anxiety, Confusion, Mood changes, Depression, Hallucinations, Agitation, Suicidal Ideation, Homicidal Ideation, Delusions Past Family Social History Allergies: Coded Allergies: Penicillin (Verified Allergy, Severe, THROAT CLOSES, 03/26/17) Adhesives (Verified Allergy, Unknown, 03/26/17) MRI PRECAUTION (Verified Adverse Reaction, Severe, 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, 03/26/17) LRS 03/26/17 Dr. Elaine Past Medical History arthritis, atrial fibrillation, history of right breast cancer status post lumpectomy of the right breast, history of scoliosis of the spine Past Surgical History Lumpectomy breast Thyroidectomy Left TKR Right TKR Cardiac stent Biliary stents Hysterectomy Cataract surgery Spinal fusion Reported Medications Reported Meds & Active Scripts Active Lasix (Furosemide) 20 Mg Tab 20 Mg PO BID Pantoprazole (Pantoprazole Sodium) 40 Mg Tab 40 Mg PO DAILY Metoprolol Tartrate 25 Mg Tab 12.5 Mg PO Q12HR Adult Aspirin EC Low Strength (Aspirin) 81 Mg Tabec 81 Mg PO DAILY Reported Fish Oil + D3 (Fish Oil-Cholecalciferol) 1,200-1,000 Mg-Unit Cap 1 Cap PO DAILY Fluconazole 100 Mg Tab 100 Mg PO DAILY Zofran (Ondansetron HCl) 4 Mg Tab 4 Mg PO Q8HR PRN Chewable Calcium (Calcium-Vitamins D & K) 500-200-40 Mg-Unit-Mcg Chew 1 Tab CHEW Morphine ER (Morphine Sulfate) 60 Mg Tab 60 Mg PO BID Gabapentin 400 Mg Cap 400 Cap PO QID Hydrocodone-Acetaminophen 7.5-300 Mg Tab 1 Tab PO Q4H PRN Levothyroxine (Levothyroxine Sodium) 150 Mcg Tab 150 Mcg PO DAILY Liothyronine (Liothyronine Sodium) 5 Mcg Tab 5 Mcg PO DAILY Active Ordered Medications Current Medications Medications (Trade) Dose Ordered Sig/Nadege Route Start Time Stop Time Status Last Admin (NS 1000 ml Inj) 1,000 ml @ 100 mls/hr Q10H IV 04/29/17 23:21 05/02/17 18:42 (NS Flush) 2 ml UNSCH PRN IV FLUSH 04/29/17 23:30 (NS Flush) 2 ml BID IV FLUSH 04/30/17 09:00 05/01/17 10:33 (Zofran Inj) 4 mg Q6H PRN IVP 04/29/17 23:30 (Narcan Inj) 0.4 mg UNSCH PRN IV 04/29/17 23:30 (Senokot) 17.2 mg Q12H PRN PO 04/29/17 23:30 (Lactulose Liq) 30 ml DAILY PRN PO 04/29/17 23:30 (Ecotrin Ec) 81 mg DAILY PO 04/30/17 11:00 05/02/17 09:15 (Diflucan) 100 mg DAILY PO 04/30/17 11:00 05/02/17 09:10 (Lasix) 20 mg BID PO 04/30/17 11:00 05/02/17 09:07 (Neurontin) 600 mg QID PO 04/30/17 13:00 05/02/17 17:52 (Synthroid) 150 mcg DAILY@06 PO 04/30/17 11:00 05/02/17 06:12 (Cytomel) 5 mcg DAILY PO 04/30/17 11:00 05/02/17 09:09 (Lopressor) 12.5 mg Q12HR PO 04/30/17 11:00 05/02/17 09:09 (Oramorph Sr) 60 mg BID PO 04/30/17 11:00 05/02/17 09:08 (Protonix) 40 mg DAILY PO 04/30/17 11:00 05/02/17 09:07 ([place] 7.5-325 Mg) 1 tab Q4H PRN PO 04/30/17 10:30 (Zofran Odt) 4 mg Q8H PRN PO 04/30/17 10:15 (Lovenox Inj) 40 mg Q24H SQ 04/30/17 11:00 (Pill Splitter) 1 ea UNSCH PRN OTHER 04/30/17 10:30 (Mag-Ox) 400 mg BID PO 05/02/17 13:00 05/02/17 13:37 (Levaquin) 500 mg DAILY PO 05/03/17 09:00 Prednisone 40 mg 40 mg DAILY PO 05/03/17 09:00 (Maxipime Inj/NS Inj) 100 ml @ 200 mls/hr Q8H IV 05/03/17 00:00 Family History Significant for bladder cancer in the mother and grandmother has a pancreatic cancer. Brother had throat cancer and of it. Social History Denies drinking. Smoker for 40 years. Denies any drug abuse. Lives at home with son. She is retired. Physical Exam Vital Signs Vital Signs Date Time Temp Pulse Resp B/P Pulse Ox O2 Delivery O2 Flow Rate FiO2 05/02/17 12:00 98.0 88 18 133/80 95 05/02/17 09:09 98.4 90 18 102/71 94 05/02/17 08:07 91 Nasal Cannula 4.00 05/02/17 08:00 2.00 05/01/17 20:22 97.9 67 18 141/76 93 05/01/17 19:25 93 Nasal Cannula 3.00 05/01/17 19:00 93 Nasal Cannula 2.00 Physical Exam GENERAL: This is a well-nourished, well-developed patient, in no apparent distress. SKIN: No rashes, ecchymoses or lesions. Cool and dry. HEAD: Atraumatic. Normocephalic. No temporal or scalp tenderness. EYES: Pupils equal round and reactive. Extraocular motions intact. No scleral icterus. No injection or drainage. ENT: Nose without bleeding, purulent drainage or septal hematoma. Throat without erythema, tonsillar hypertrophy or exudate. Uvula midline. Airway patent. NECK: Trachea midline. Supple, nontender, no meningeal signs. CARDIOVASCULAR: Regular rate and rhythm without murmurs, gallops, or rubs. RESPIRATORY: Clear to auscultation. Breath sounds equal bilaterally. No wheezes , rales, or rhonchi. GASTROINTESTINAL: Abdomen soft, non-tender, nondistended. MUSCULOSKELETAL: Extremities without clubbing, cyanosis, or edema. No joint tenderness, effusion, or edema noted. No calf tenderness. Negative Homans sign bilaterally. NEUROLOGICAL: Awake and alert. Cranial nerves II through XII intact. Motor and sensory grossly within normal limits. Five out of 5 muscle strength in all muscle groups. Normal speech. Psych cooperative IV line sites ok. All surgical scar sites ok. Laboratory Laboratory Tests Test 05/02/17 08:20 White Blood Count 19.9 Red Blood Count 3.75 Hemoglobin 10.5 Hematocrit 32.1 Mean Corpuscular Volume 85.7 Mean Corpuscular Hemoglobin 27.9 Mean Corpuscular Hemoglobin 32.6 Concent Red Cell Distribution Width 15.1 Platelet Count 157 Mean Platelet Volume 8.8 Neutrophils (%) (Auto) 93.2 Lymphocytes (%) (Auto) 2.4 Monocytes (%) (Auto) 3.5 Eosinophils (%) (Auto) 0.7 Basophils (%) (Auto) 0.2 Neutrophils # (Auto) 18.6 Lymphocytes # (Auto) 0.5 Monocytes # (Auto) 0.7 Eosinophils # (Auto) 0.1 Basophils # (Auto) 0.0 CBC Comment DIFF FINAL Differential Comment Sodium Level 133 Potassium Level 3.4 Chloride Level 91 Carbon Dioxide Level 34.8 Anion Gap 7 Blood Urea Nitrogen 15 Creatinine 0.77 Estimat Glomerular Filtration 73 Rate Random Glucose 150 Calcium Level 7.4 Protein Corrected Calcium 8.5 Total Bilirubin 0.5 Aspartate Amino Transf 62 (AST/SGOT) Alanine Aminotransferase 135 (ALT/SGPT) Alkaline Phosphatase 141 Total Protein 5.1 Albumin 1.8 Date/Time Procedure Status Source Growth 05/01/17 13:46 Gram Stain - Final Resulted Sputum Expectorated Sputum 05/01/17 13:46 Sputum Culture - Preliminary Resulted Sputum Expectorated Sputum No growth. 04/29/17 22:40 Urine Culture - Final Complete Urine Clean Catch NO GROWTH IN 48 HOURS. Result Diagram: 05/02/1781905/02/17819 Imaging Last Impressions Chest CT 05/01/171948 Signed Impressions: Service Date/Time: Monday, May 01, 2017 10:29 - CONCLUSION: Patchy airspace disease, predominantly interstitial most inflammatory. There is no adenopathy. There is no pericardial effusion. Gallo Loazda MD FACR Chest X-Ray 04/29/17 0000 Signed Impressions: Service Date/Time: Saturday, April 29, 2017 20:27 - CONCLUSION: Bibasilar densities. Noman Bryson MD Abdomen/Pelvis CT 04/29/17 0000 Signed Impressions: Service Date/Time: Saturday, April 29, 2017 23:16 - CONCLUSION: 1. There is artifact secondary to the lumbar spine hardware which partially obscures some of the abdominal organs. There is likely still main pancreatic duct dilatation from uncertain etiology. 2. Hepatomegaly with severe steatosis. Pneumobilia is present along with a stent in the bile duct. 3. Abnormal groundglass opacity at the lung bases, right greater than left. This could represent an inflammatory or infectious process. 4. Mild wall thickening of the proximal sigmoid colon. Dirk Brown MD Assessment and Plan Assessment and Plan Health care associated pneumonia (reports admissions to hospitals for abdominal pain) Leucocytosis. Abnormal LFTs secondary to hepatic steatosis. ? Pancreatitis. Abnormal UA but cultures negative. No Rx needed. Biliary stent placement recently. r.o bacteremia Multiple hardware in body at risk for seeding. Recs Blood cultures x 2 Urine legionella Ag Urine Strep pneumo Ag Continue Cefepime IV increase dose to PSAE dose. Continue Levaquin oral Follow cultures Follow clinically. Teri Sullivan MD May 02, 2017 17:34
[2017-05-02 20:00] VITALS: BP 139/72; PULSE 83; RESP 20; TEMP 97.8; O2SAT 92; O2SAT 93
[2017-05-02] MEDS ORDERED: methylPREDNISolone SOD SUCC 40 MG/1 ML VIAL IV PUSH SCH (21:00)
[2017-05-03] MEDS: CEFEPIME INJ 2,000 MG in SODIUM CHLORIDE 0.9% INJ 100 ML IV SCH ×3 (00:03→17:41)
[2017-05-03] MEDS: LEVOTHYROXINE SODIUM 150 MCG TAB PO SCH (06:14)
[2017-05-03 08:00] VITALS: BP 126/67; PULSE 83; RESP 18; TEMP 98.7; O2SAT 97
[2017-05-03 08:01] VITALS: O2SAT 91
[2017-05-03 09:15] LABS: AUTOMATED NEUTROPHIL # 11.7 TH/MM3 (1.8-7.7); BASOPHIL % 0.2 % (0.0-2.0); EOSINOPHIL % 0.2 % (0.0-4.0); HEMATOCRIT 32.4 % (35.0-46.0); LYMPH % 5.5 % (9.0-44.0); LYMPHOCYTE # 0.7 TH/MM3 (1.0-4.8); MEAN CORPUSCULAR HEMOGLOBIN 27.7 PG (27.0-34.0); MEAN CORPUSCULAR HGB CONC 32.6 % (32.0-36.0); MONO % 2.3 % (0.0-8.0); NEUT % 91.8 % (16.0-70.0); PLATELET COUNT 129 TH/MM3 (150-450); RED BLOOD COUNT 3.82 MIL/MM3 (4.00-5.30); WHITE BLOOD COUNT 12.7 TH/MM3 (4.0-11.0)
[2017-05-03 09:17] LABS: HEMO FLAGS DIFF FINAL
--- NOTE | 2017-05-03 09:21 | HHI.PR ---
Subjective History of Present Illness Patient feel same leukocytosis better Infectious disease input noted, low potassium resolved and low magnesium will replace and monitor. no acute issue d /w RN Lety at bed side. discontinue IV Fluid. recheck chest x- ray and Urine analysis. Review of Systems Constitutional Constitutional: Fatigue, Weakness Pulmonary Respiratory: Coughing, Shortness of Breath Cardiology CV Remarks leg edema. GI/Abdomen GI/Abdominal Exam: Abdominal Pain Vitals/Results Intake & Output 05/02/17 05/02/17 05/03/17 15:00 23:00 07:00 Intake Total 120 ml Output Total 1000 ml Balance -880 ml Intake Oral 120 ml Output Urine Total 1000 ml Vital Signs Vital Signs Date Time Temp Pulse Resp B/P Pulse Ox O2 Delivery O2 Flow Rate FiO2 05/03/17 08:01 91 Nasal Cannula 3.00 05/02/17 20:00 92 Nasal Cannula 3.00 05/02/17 20:00 97.8 83 20 139/72 93 05/02/17 19:00 93 Nasal Cannula 2.00 05/02/17 16:00 98.1 81 18 144/70 97 05/02/17 12:00 98.0 88 18 133/80 95 CBC/BMP: 05/03/17 0853 05/02/17 0820 Lab Results Laboratory Tests Test 05/03/17 08:53 White Blood Count 12.7 TH/MM3 Red Blood Count 3.82 MIL/MM3 Hemoglobin 10.6 GM/DL Hematocrit 32.4 % Mean Corpuscular Volume 85.0 FL Mean Corpuscular Hemoglobin 27.7 PG Mean Corpuscular Hemoglobin 32.6 % Concent Red Cell Distribution Width 15.0 % Platelet Count 129 TH/MM3 Mean Platelet Volume 9.9 FL Neutrophils (%) (Auto) 91.8 % Lymphocytes (%) (Auto) 5.5 % Monocytes (%) (Auto) 2.3 % Eosinophils (%) (Auto) 0.2 % Basophils (%) (Auto) 0.2 % Neutrophils # (Auto) 11.7 TH/MM3 Lymphocytes # (Auto) 0.7 TH/MM3 Monocytes # (Auto) 0.3 TH/MM3 Eosinophils # (Auto) 0.0 TH/MM3 Basophils # (Auto) 0.0 TH/MM3 CBC Comment DIFF FINAL Differential Comment Microbiology Microbiology 05/02/17 Legionella Antigen, Received Pending 05/02/17 Streptococcus pneumoniae Antigen (M, Received Pending 05/02/17 Aerobic Blood Culture, Received Pending 05/02/17 Anaerobic Blood Culture, Received Pending 05/02/17 Aerobic Blood Culture, Received Pending 05/02/17 Anaerobic Blood Culture, Received Pending Physical Exam General General Appearance: No Acute Distress, Comfortable Eyes Eye Exam: Pupils Equal, Pupils Reactive, Sclera White, Extraocular Movement Intact Throat Throat Exam: Oral Mucosa [place] & Moist, Oral Pharynx Normal Neck Neck Exam: Neck Supple, Trachea Midline Pulmonary Resp Exam: Clear Bilaterally, Breath Sounds Equal Cardiology CV Exam: Regular, Normal Sinus Rhythm Gastrointestinal/Abdomen GI Exam: Soft, Bowel Sounds Present GI Remarks diffuse abdominal tenderness. Musculoskeletal MS Exam: Normal Tone Integumentary Skin Exam: Warm, Dry Extremeties Extremities Exam: Pitting Edema Neurologic Neuro Exam: Alert, Awake, Oriented, Moving All Extremities, No Focal Deficits Psychiatric Psych Exam: Appropriate Responses VTE Prophylaxis VTE Prophylaxis Device: SCDs PUD Prophylasis PUD Prophylaxis: Protonix Assessment/Plan Assessment/Plan ASSESSMENT/PLAN 1. This is a 71-year-old female diagnosed with cough and shortness of breath secondary to pneumonia. The patient is on Levaquin IV and cefepime IV. pulmonary input noted for further recommendation. s/p CT Chest noted. recheck chest x- ray. 2. Abdominal pain with recent biliary stenting a few weeks ago. GI input noted for further recommendation. Lipase is normal. 3. Leg edema. Continue with Lasix. 4. Neuropathy. Continue with Gabapentin. 5. History of hypothyroidism. Continue with levothyroxine. 6. Hypokalemia resolved Hypomagnesemia. will Replace and monitor. 7. Hyponatremia. We will monitor. 8. High LFTs. GI input noted for further recommendation. 9. Urinary tract infection. The patient is on antibiotic Levaquin and cefepime. recheck UA. 10. Leukocytosis secondary to pneumonia and urinary tract infection. worsening of leukocytosis Infectious disease input noted. 11. Possible sepsis on admission with pneumonia and urinary tract infection. 12. DVT prophylaxis. Lovenox 40 mg subcutaneous daily. 13. GI prophylaxis Protonix 40 mg p.o. daily. We are going to manage the patient on a daily basis and make recommendations on a daily basis. Check CBC with diff CMP in AM. consult physical therapy Discussed Condition with: Patient Sivakumar Lopez MD May 03, 2017 09:21
[2017-05-03 09:47] LABS: MAGNESIUM 1.2 MG/DL (1.5-2.5)
[2017-05-03] MEDS: ASPIRIN EC 81 MG TABEC PO SCH (09:48)
[2017-05-03] MEDS: LEVOFLOXACIN 500 MG TAB PO SCH (09:48)
[2017-05-03] MEDS: FUROSEMIDE 20 MG TAB PO SCH ×2 (09:49→20:29)
[2017-05-03] MEDS: predniSONE 20 MG TAB PO SCH (09:49)
[2017-05-03] MEDS: LIOTHYRONINE SODIUM 5 MCG TAB PO SCH (09:49)
[2017-05-03] MEDS: METOPROLOL TARTRATE 25 MG TAB PO SCH ×2 (09:49→20:29)
[2017-05-03 09:50] LABS: AST (GOT) 71 U/L (15-37); GLOMERULAR FILTRATION RATE 65 ML/MIN (>89)
[2017-05-03] MEDS: FLUCONAZOLE 100 MG TAB PO SCH (09:50)
[2017-05-03] MEDS: MAGNESIUM OXIDE 400 MG TAB PO SCH ×2 (09:50→20:29)
[2017-05-03] MEDS: GABAPENTIN 300 MG CAP PO SCH ×4 (09:51→20:30)
[2017-05-03 09:52] LABS: TOTAL BILIRUBIN ADULT 0.6 MG/DL (0.2-1.0)
[2017-05-03 09:53] LABS: ALKALINE PHOSPHATASE 143 U/L (45-117)
[2017-05-03] MEDS: SODIUM CHLORIDE 0.9% FLUSH 10 ML FLUSH IV FLUSH SCH ×2 (09:53→20:28)
[2017-05-03 09:54] LABS: ANION GAP 7 MEQ/L (5-15); CHLORIDE 90 MEQ/L (98-107); POTASSIUM 3.9 MEQ/L (3.5-5.1); SODIUM (NA) 134 MEQ/L (136-145)
[2017-05-03] MEDS: PANTOPRAZOLE SOD 40 MG DELAYED RELEASE TAB PO SCH (09:56)
[2017-05-03] MEDS: MORPHINE SULFATE 30 MG CONTROLLED RELEASE TAB PO SCH ×2 (09:56→20:29)
[2017-05-03] MEDS: ENOXAPARIN SODIUM 40 MG/0.4 ML SYRINGE SQ SCH (09:57)
[2017-05-03 09:59] LABS: BLOOD UREA NITROGEN 16 MG/DL (7-18)
[2017-05-03 10:01] LABS: ALT (GPT) 123 U/L (10-53)
[2017-05-03] MEDS ORDERED: MAGNESIUM SULFATE 4 GM PREMIX 100 ML IV ONE (10:45)
--- NOTE | 2017-05-03 11:43 | RADRPT ---
EXAM DATE/TIME: 05/03/2017 10:58 [facility] COMPARISON: CHEST PA & LAT, April 29, 2017, 20:27. INDICATIONS : Short of breath, cough, chest pain MEDICAL HISTORY : Carcinoma, breast. Myocardial infarction. Scoliosis SURGICAL HISTORY : spinal ENCOUNTER: Subsequent ACUITY: 4 - 6 days PAIN SCORE: 4/10 LOCATION: Bilateral chest FINDINGS: Transpedicular spinal fixation is evident. The heart is enlarged. Cardiac event recorder is noted. There is increasing interstitial edema present in both lungs. There is no pneumothorax or pleural e ffusion. CONCLUSION: Deterioration with increasing interstitial changes in both lungs. Gallo Lozada MD FACR on May 03, 2017 at 11:41 Board Certified Radiologist. This report was verified electronically.
[2017-05-03 12:00] VITALS: BP 128/70; PULSE 88; RESP 18; TEMP 98.1; O2SAT 93
--- NOTE | 2017-05-03 13:51 | HHI.GIFU ---
Subjective Remarks Comfortable in bed but still feeling bloated she has had bowel movements since yesterday Objective Vitals I&O Vital Signs Date Time Temp Pulse Resp B/P Pulse Ox O2 Delivery O2 Flow Rate FiO2 05/03/17 08:01 91 Nasal Cannula 3.00 05/03/17 08:00 Nasal Cannula 2.00 05/03/17 08:00 98.7 83 18 126/67 97 05/02/17 20:00 92 Nasal Cannula 3.00 05/02/17 20:00 97.8 83 20 139/72 93 05/02/17 19:00 93 Nasal Cannula 2.00 05/02/17 16:00 98.1 81 18 144/70 97 I/O 05/02/17 05/02/17 05/02/17 05/03/17 05/03/17 05/03/17 06:59 14:59 22:59 06:59 14:59 22:59 Intake Total 120 ml Output Total 1000 ml Balance -880 ml Intake Oral 120 ml Output Urine Total 1000 ml # Voids 2 Laboratory Laboratory Tests Test 05/03/17 08:53 White Blood Count 12.7 Red Blood Count 3.82 Hemoglobin 10.6 Hematocrit 32.4 Mean Corpuscular Volume 85.0 Mean Corpuscular Hemoglobin 27.7 Mean Corpuscular Hemoglobin 32.6 Concent Red Cell Distribution Width 15.0 Platelet Count 129 Mean Platelet Volume 9.9 Neutrophils (%) (Auto) 91.8 Lymphocytes (%) (Auto) 5.5 Monocytes (%) (Auto) 2.3 Eosinophils (%) (Auto) 0.2 Basophils (%) (Auto) 0.2 Neutrophils # (Auto) 11.7 Lymphocytes # (Auto) 0.7 Monocytes # (Auto) 0.3 Eosinophils # (Auto) 0.0 Basophils # (Auto) 0.0 CBC Comment DIFF FINAL Differential Comment Sodium Level 134 Potassium Level 3.9 Chloride Level 90 Carbon Dioxide Level 37.0 Anion Gap 7 Blood Urea Nitrogen 16 Creatinine 0.86 Estimat Glomerular Filtration 65 Rate Random Glucose 101 Calcium Level 7.9 Magnesium Level 1.2 Total Bilirubin 0.6 Aspartate Amino Transf 71 (AST/SGOT) Alanine Aminotransferase 123 (ALT/SGPT) Alkaline Phosphatase 143 Total Protein 5.1 Albumin 1.9 Date/Time Procedure Status Source Growth 05/02/17 19:05 Aerobic Blood Culture - Preliminary Resulted Blood Peripheral NO GROWTH IN 1 DAY 05/02/17 19:05 Anaerobic Blood Culture - Preliminary Resulted Blood Peripheral NO GROWTH IN 1 DAY 05/02/17 18:00 Legionella Antigen - Final Complete Urine Random Urine PRESUMPTIVE NEGATIVE FOR LEGIONELLA P... 05/02/17 18:00 Streptococcus pneumoniae Antigen (M - Final Complete Urine Random Urine PRESUMPTIVE NEGATIVE FOR STREPTOCOCCU... 05/01/17 13:46 Gram Stain - Final Complete Sputum Expectorated Sputum 05/01/17 13:46 Sputum Culture - Final Complete Sputum Expectorated Sputum LIGHT GROWTH NORMAL RESPIRATORY COLLEEN 04/29/17 22:40 Urine Culture - Final Complete Urine Clean Catch NO GROWTH IN 48 HOURS. Physical Exam HEENT: normocephalic; atraumatic; no jaundice. NECK: Neck is supple CHEST: Chest is clear to auscultation and percussion. CARDIAC: Regular rate and rhythm with no murmur gallop or rubs. ABDOMEN: Soft, mildly distended tympanic, mildly tender in the epigastric area ; no hepatosplenomegaly; bowel sounds are present in all four quadrants. EXTREMITIES: No clubbing, cyanosis, or edema. EMPLOYMENT SERVICE SPECIALIST: No focal deficits; alert and oriented times three. Assessment and Plan Plan Abdominal pain most likely secondary to musculoskeletal and chronic back issues Bloating Patient advised to rotate in bed so as to allow herself to pass gas Continue with current supportive care Jesús Brown MD May 03, 2017 13:51
[2017-05-03] MEDS: NYSTATIN SUSP 500,000 U/5 ML CUP SWISH-SWAL SCH ×3 (13:58→20:30)
[2017-05-03] MEDS: MAGNESIUM SULFAT 1 GM PREMIX 100 ML x2 bags IV SCH ×4 (14:00→17:00)
[2017-05-03 14:25] LABS: BLOOD, URINE LARGE (NEG); GLUCOSE,URINE NEG (NEG); KETONE, URINE NEG (NEG); NITRITE,URINE NEG (NEG)
[2017-05-03 14:30] LABS: METHOD OF COLLECTION CLEAN CATCH; URINE COLOR YELLOW (YELLW/STRAW)
[2017-05-03 14:31] LABS: COMMENT (UR) CULT NOT INDICATED; CULTURE IF INDICATED CULT NOT INDICATED; SQUAMOUS EPITHELIAL CELL URINE 0-5 /hpf (0-5)
[2017-05-03 16:00] VITALS: BP 133/77; PULSE 88; RESP 18; TEMP 98.3; O2SAT 92
--- NOTE | 2017-05-03 18:37 | HHI.PR ---
Subjective Remarks No new problem breathing.On O2 at [address] chest shows basal infiltrates. GI W/U in progress. Objective Vital Signs Date Time Temp Pulse Resp B/P Pulse Ox O2 Delivery O2 Flow Rate FiO2 05/03/17 08:01 91 Nasal Cannula 3.00 05/03/17 08:00 Nasal Cannula 2.00 05/03/17 08:00 98.7 83 18 126/67 97 05/02/17 20:00 92 Nasal Cannula 3.00 05/02/17 20:00 97.8 83 20 139/72 93 05/02/17 19:00 93 Nasal Cannula 2.00 I/O 05/02/17 05/02/17 05/02/17 05/03/17 05/03/17 05/03/17 07:00 15:00 23:00 07:00 15:00 23:00 Intake Total 120 ml Output Total 1000 ml Balance -880 ml Intake Oral 120 ml Output Urine Total 1000 ml # Voids 2 Result Diagram: 05/03/17 0853 05/03/1753 Objective Remarks GENERAL: This elderly thinly built white female who is not dyspneic at rest.. HEENT: Head normocephalic. Pupils are reactive. Tongue is dry and coated. Ears - no inflammation. Nasal mucosa is clear. NECK: Supple. No bruits or thyroid enlargement. CHEST: Equal movements with decreased excursions. Occasional expiratory wheezes bilaterally .Few Basal crackles. HEART SOUNDS: Regular S1 and S2. No murmur. No S3. ABDOMEN: Soft, tender in the upper abdomen. No organomegaly. The bowel sounds are faint. EXTREMITIES: Edema 1+. No calf tenderness. NEUROLOGICALLY: The patient does move all her extremities with 1+ reflexes. There were no gross motor deficits. SKIN: No lesions. Assessment and Plan Assessment and Plan IMPRESSION 1. Bibasilar atelectasis with pneumonia. 2. Abdominal pain with history of biliary stenting. 3. History of hypothyroidism. 4. COPD. 5. Hypokalemia. 6. Peripheral neuropathy. 7. Urinary tract infection. 8. Possible sepsis. 9. Pancreatitis Plan : 1. Continue Cefipime IV 2. O2 at 3 L and wean to RA 3. Nebs qid , duoneb. 4. IS at bedside q3h 5. D/C Solumedrol 6. Chest Xray Thursday Elle Patiño MD May 03, 2017 18:37
[2017-05-03 20:00] VITALS: BP 155/85; PULSE 71; RESP 16; TEMP 98; O2SAT 92
[2017-05-03 20:15] VITALS: O2SAT 93
[2017-05-04] VITALS (7 sets, daily range): BP systolic 134–154; BP diastolic 62–91; PULSE 69–89; RESP 16–19; TEMP 96.7–98; O2SAT 90–94
[2017-05-04] MEDS: CEFEPIME INJ 2,000 MG in SODIUM CHLORIDE 0.9% INJ 100 ML IV SCH ×4 (00:57→23:32)
[2017-05-04] MEDS: LEVOTHYROXINE SODIUM 150 MCG TAB PO SCH (06:08)
[2017-05-04 06:51] LABS: AUTOMATED NEUTROPHIL # 14.5 TH/MM3 (1.8-7.7); BASOPHIL % 0.1 % (0.0-2.0); EOSINOPHIL % 0.1 % (0.0-4.0); HEMATOCRIT 32.6 % (35.0-46.0); HEMO FLAGS DIFF FINAL; LYMPH % 4.7 % (9.0-44.0); LYMPHOCYTE # 0.7 TH/MM3 (1.0-4.8); MEAN CELL VOLUME 83.9 FL (80.0-100.0); MEAN CORPUSCULAR HEMOGLOBIN 27.5 PG (27.0-34.0); MEAN CORPUSCULAR HGB CONC 32.8 % (32.0-36.0); MONO % 3.1 % (0.0-8.0); PLATELET COUNT 132 TH/MM3 (150-450); RED BLOOD COUNT 3.88 MIL/MM3 (4.00-5.30); RED CELL DISTRIBUTION WIDTH 14.8 % (11.6-17.2); WHITE BLOOD COUNT 15.7 TH/MM3 (4.0-11.0)
[2017-05-04 07:00] LABS: CHLORIDE 93 MEQ/L (98-107); POTASSIUM 3.9 MEQ/L (3.5-5.1); SODIUM (NA) 133 MEQ/L (136-145)
[2017-05-04 07:03] LABS: ANION GAP 4 MEQ/L (5-15); BICARBONATE 36.2 MEQ/L (21.0-32.0); MAGNESIUM 1.5 MG/DL (1.5-2.5)
[2017-05-04 07:04] LABS: BLOOD UREA NITROGEN 20 MG/DL (7-18)
[2017-05-04 07:07] LABS: ALT (GPT) 113 U/L (10-53); AST (GOT) 61 U/L (15-37); GLOMERULAR FILTRATION RATE 67 ML/MIN (>89)
[2017-05-04 07:08] LABS: TOTAL BILIRUBIN ADULT 0.6 MG/DL (0.2-1.0)
[2017-05-04 07:09] LABS: ALKALINE PHOSPHATASE 142 U/L (45-117)
[2017-05-04] MEDS: SODIUM CHLORIDE 0.9% FLUSH 10 ML FLUSH IV FLUSH SCH ×2 (08:39→21:34)
[2017-05-04] MEDS: GABAPENTIN 300 MG CAP PO SCH ×4 (08:40→21:33)
[2017-05-04] MEDS: LEVOFLOXACIN 500 MG TAB PO SCH (08:40)
[2017-05-04] MEDS: NYSTATIN SUSP 500,000 U/5 ML CUP SWISH-SWAL SCH ×4 (08:40→21:35)
[2017-05-04] MEDS: METOPROLOL TARTRATE 25 MG TAB PO SCH ×2 (08:41→21:34)
--- NOTE | 2017-05-04 08:41 | HHI.PR ---
Subjective History of Present Illness Patient feel same leukocytosis worse today Infectious disease input noted, low potassium resolved and low magnesium will replace and monitor. no acute issue d/w AUGUSTINA Horton at bed side. . recheck chest x- ray ..noted and Urine analysis...better. Discontinued solumedrol Review of Systems Constitutional Constitutional: Fatigue, Weakness Pulmonary Respiratory: Coughing, Shortness of Breath Cardiology CV Remarks leg edema. GI/Abdomen GI/Abdominal Exam: Abdominal Pain Vitals/Results Intake & Output 05/03/17 05/03/17 05/04/17 15:00 23:00 07:00 Intake Total 480 ml Balance 480 ml Intake Oral 480 ml # Voids 5 # Bowel Movements 1 Vital Signs Vital Signs Date Time Temp Pulse Resp B/P Pulse Ox O2 Delivery O2 Flow Rate FiO2 05/04/17 04:00 97.8 69 16 154/81 91 05/04/17 00:00 96.7 72 16 150/79 90 05/03/17 20:15 93 Nasal Cannula 2.00 05/03/17 20:00 98.0 71 16 155/85 92 05/03/17 19:00 92 Nasal Cannula 2.00 05/03/17 16:00 98.3 88 18 133/77 92 05/03/17 12:00 98.1 88 18 128/70 93 CBC/BMP: 05/04/17 0627 05/04/17 0627 Lab Results Laboratory Tests Test 05/03/17 05/03/17 05/04/17 08:53 14:10 06:27 White Blood Count 12.7 TH/MM3 15.7 TH/MM3 Red Blood Count 3.82 MIL/MM3 3.88 MIL/MM3 Hemoglobin 10.6 GM/DL 10.7 GM/DL Hematocrit 32.4 % 32.6 % Mean Corpuscular Volume 85.0 FL 83.9 FL Mean Corpuscular Hemoglobin 27.7 PG 27.5 PG Mean Corpuscular Hemoglobin 32.6 % 32.8 % Concent Red Cell Distribution Width 15.0 % 14.8 % Platelet Count 129 TH/MM3 132 TH/MM3 Mean Platelet Volume 9.9 FL 9.5 FL Neutrophils (%) (Auto) 91.8 % 92.0 % Lymphocytes (%) (Auto) 5.5 % 4.7 % Monocytes (%) (Auto) 2.3 % 3.1 % Eosinophils (%) (Auto) 0.2 % 0.1 % Basophils (%) (Auto) 0.2 % 0.1 % Neutrophils # (Auto) 11.7 TH/MM3 14.5 TH/MM3 Lymphocytes # (Auto) 0.7 TH/MM3 0.7 TH/MM3 Monocytes # (Auto) 0.3 TH/MM3 0.5 TH/MM3 Eosinophils # (Auto) 0.0 TH/MM3 0.0 TH/MM3 Basophils # (Auto) 0.0 TH/MM3 0.0 TH/MM3 CBC Comment DIFF FINAL DIFF FINAL Differential Comment Sodium Level 134 MEQ/L 133 MEQ/L Potassium Level 3.9 MEQ/L 3.9 MEQ/L Chloride Level 90 MEQ/L 93 MEQ/L Carbon Dioxide Level 37.0 MEQ/L 36.2 MEQ/L Anion Gap 7 MEQ/L 4 MEQ/L Blood Urea Nitrogen 16 MG/DL 20 MG/DL Creatinine 0.86 MG/DL 0.83 MG/DL Estimat Glomerular Filtration 65 ML/MIN 67 ML/MIN Rate Random Glucose 101 MG/DL 114 MG/DL Calcium Level 7.9 MG/DL 8.0 MG/DL Magnesium Level 1.2 MG/DL 1.5 MG/DL Total Bilirubin 0.6 MG/DL 0.6 MG/DL Aspartate Amino Transf 71 U/L 61 U/L (AST/SGOT) Alanine Aminotransferase 123 U/L 113 U/L (ALT/SGPT) Alkaline Phosphatase 143 U/L 142 U/L Total Protein 5.1 GM/DL 5.5 GM/DL Albumin 1.9 GM/DL 1.9 GM/DL Urine Collection Type CLEAN CATCH Urine Color YELLOW Urine Turbidity CLEAR Urine pH 7.0 Urine Specific [place] 1.008 Urine Protein NEG mg/dL Urine Glucose (UA) NEG mg/dL Urine Ketones NEG mg/dL Urine Occult Blood LARGE Urine Nitrite NEG Urine Bilirubin NEG Urine Leukocyte Esterase NEG Urine RBC 25-49 /hpf Urine Squamous Epithelial 0-5 /hpf Cells Microscopic Urinalysis Comment CULT NOT INDICATED Urine Collection Time 14:10 Physical Exam General General Appearance: No Acute Distress, Comfortable Eyes Eye Exam: Pupils Equal, Pupils Reactive, Sclera White, Extraocular Movement Intact Throat Throat Exam: Oral Mucosa [place] & Moist, Oral Pharynx Normal Neck Neck Exam: Neck Supple, Trachea Midline Pulmonary Resp Exam: Clear Bilaterally, Breath Sounds Equal Cardiology CV Exam: Regular, Normal Sinus Rhythm Gastrointestinal/Abdomen GI Exam: Soft, Bowel Sounds Present GI Remarks diffuse abdominal tenderness. Musculoskeletal MS Exam: Normal Tone Integumentary Skin Exam: Warm, Dry Extremeties Extremities Exam: Pitting Edema Neurologic Neuro Exam: Alert, Awake, Oriented, Moving All Extremities, No Focal Deficits Psychiatric Psych Exam: Appropriate Responses VTE Prophylaxis VTE Prophylaxis Device: SCDs PUD Prophylasis PUD Prophylaxis: Protonix Assessment/Plan Assessment/Plan ASSESSMENT/PLAN 1. This is a 71-year-old female diagnosed with cough and shortness of breath secondary to pneumonia. The patient is on Levaquin IV and cefepime IV. pulmonary input noted for further recommendation. s/p CT Chest noted. recheck chest x- ray. 2. Abdominal pain with recent biliary stenting a few weeks ago. GI input noted for further recommendation. Lipase is normal. 3. Leg edema. Continue with Lasix. 4. Neuropathy. Continue with Gabapentin. 5. History of hypothyroidism. Continue with levothyroxine. 6. Hypokalemia resolved Hypomagnesemia. will Replace and monitor. 7. Hyponatremia. We will monitor. 8. High LFTs. GI input noted for further recommendation. 9. Urinary tract infection. The patient is on antibiotic Levaquin and cefepime. repeat UA..better. 10. Leukocytosis secondary to pneumonia and urinary tract infection. worsening of leukocytosis Infectious disease input noted. 11. Possible sepsis on admission with pneumonia and urinary tract infection. 12. DVT prophylaxis. Lovenox 40 mg subcutaneous daily. 13. GI prophylaxis Protonix 40 mg p.o. daily. We are going to manage the patient on a daily basis and make recommendations on a daily basis. Check CBC with diff CMP in AM. consult physical therapy Discussed Condition with: Patient Sivakumar Lopez MD May 04, 2017 08:41
[2017-05-04] MEDS: MAGNESIUM OXIDE 400 MG TAB PO SCH ×2 (08:42→21:33)
[2017-05-04] MEDS: FUROSEMIDE 20 MG TAB PO SCH ×2 (08:43→21:34)
[2017-05-04] MEDS: FLUCONAZOLE 100 MG TAB PO SCH (08:44)
[2017-05-04] MEDS: MORPHINE SULFATE 30 MG CONTROLLED RELEASE TAB PO SCH ×2 (08:44→21:34)
[2017-05-04] MEDS: predniSONE 20 MG TAB PO SCH (08:44)
[2017-05-04] MEDS: PANTOPRAZOLE SOD 40 MG DELAYED RELEASE TAB PO SCH (08:44)
[2017-05-04] MEDS: LIOTHYRONINE SODIUM 5 MCG TAB PO SCH (08:45)
[2017-05-04] MEDS: ASPIRIN EC 81 MG TABEC PO SCH (08:57)
[2017-05-04] MEDS: ENOXAPARIN SODIUM 40 MG/0.4 ML SYRINGE SQ SCH (11:00)
--- NOTE | 2017-05-04 14:01 | HHI.IDPN ---
Subjective Subjective Remarks is a 71 y/o CF with PMHx significant for bile duct stent placement a few weeks back as well as concern for pancreatitis. Patient reports she has been seen by GI and the plan is to refer to [facility] at some point. Currently , patient came to the ER at [facility] complaining of cough, congestion and some shortness of breath. She was seen by a home health care nurse. She has a history of biliary stenting a few weeks ago. Since then, she has had leg edema, leg swelling. She has been found that she might have anemia. She said that she has been feeling very weak and dizzy andnsuddenly she had noticed that she has been short of breath and coughing. Denies any fever at home. She has some abdominal pain about 2-4/10 diffuse.No radiation worse with pressure. Denies any diarrhea or constipation. ID consulted for Mment of HCAP. Overnight events reviewed. No fever No rash No diarrhea Still complains of effort at breathing. Antibiotics Cefepime IV Levaquin Lines Line sites with no e.o infection Past Medical History reviewed Allergies: Coded Allergies: Penicillin (Verified Allergy, Severe, THROAT CLOSES, 03/26/17) Adhesives (Verified Allergy, Unknown, 03/26/17) MRI PRECAUTION (Verified Adverse Reaction, Severe, 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, 03/26/17) LRS 03/26/17 Dr. Elaine Objective . Vital Signs Date Time Temp Pulse Resp B/P Pulse Ox O2 Delivery O2 Flow Rate FiO2 05/04/17 12:00 97.5 71 19 152/91 91 05/04/17 09:44 18 05/04/17 08:00 97.0 69 19 146/82 92 05/04/17 07:00 92 Nasal Cannula 2.00 05/04/17 04:00 97.8 69 16 154/81 91 05/04/17 00:00 96.7 72 16 150/79 90 05/03/17 20:15 93 Nasal Cannula 2.00 05/03/17 20:00 98.0 71 16 155/85 92 05/03/17 19:00 92 Nasal Cannula 2.00 05/03/17 16:00 98.3 88 18 133/77 92 05/03/17 05/03/17 05/04/17 15:00 23:00 07:00 Intake Total 480 ml Balance 480 ml Intake Oral 480 ml # Voids 5 # Bowel Movements 1 . Laboratory Tests Test 05/03/17 05/04/17 08:53 06:27 White Blood Count 12.7 TH/MM3 15.7 TH/MM3 Red Blood Count 3.82 MIL/MM3 3.88 MIL/MM3 Hemoglobin 10.6 GM/DL 10.7 GM/DL Hematocrit 32.4 % 32.6 % Mean Corpuscular Volume 85.0 FL 83.9 FL Mean Corpuscular Hemoglobin 27.7 PG 27.5 PG Mean Corpuscular Hemoglobin 32.6 % 32.8 % Concent Red Cell Distribution Width 15.0 % 14.8 % Platelet Count 129 TH/MM3 132 TH/MM3 Mean Platelet Volume 9.9 FL 9.5 FL Neutrophils (%) (Auto) 91.8 % 92.0 % Lymphocytes (%) (Auto) 5.5 % 4.7 % Monocytes (%) (Auto) 2.3 % 3.1 % Eosinophils (%) (Auto) 0.2 % 0.1 % Basophils (%) (Auto) 0.2 % 0.1 % Neutrophils # (Auto) 11.7 TH/MM3 14.5 TH/MM3 Lymphocytes # (Auto) 0.7 TH/MM3 0.7 TH/MM3 Monocytes # (Auto) 0.3 TH/MM3 0.5 TH/MM3 Eosinophils # (Auto) 0.0 TH/MM3 0.0 TH/MM3 Basophils # (Auto) 0.0 TH/MM3 0.0 TH/MM3 CBC Comment DIFF FINAL DIFF FINAL Differential Comment Laboratory Tests Test 05/03/17 05/04/17 08:53 06:27 Sodium Level 134 MEQ/L 133 MEQ/L Potassium Level 3.9 MEQ/L 3.9 MEQ/L Chloride Level 90 MEQ/L 93 MEQ/L Carbon Dioxide Level 37.0 MEQ/L 36.2 MEQ/L Anion Gap 7 MEQ/L 4 MEQ/L Blood Urea Nitrogen 16 MG/DL 20 MG/DL Creatinine 0.86 MG/DL 0.83 MG/DL Estimat Glomerular Filtration 65 ML/MIN 67 ML/MIN Rate Random Glucose 101 MG/DL 114 MG/DL Calcium Level 7.9 MG/DL 8.0 MG/DL Magnesium Level 1.2 MG/DL 1.5 MG/DL Total Bilirubin 0.6 MG/DL 0.6 MG/DL Aspartate Amino Transf 71 U/L 61 U/L (AST/SGOT) Alanine Aminotransferase 123 U/L 113 U/L (ALT/SGPT) Alkaline Phosphatase 143 U/L 142 U/L Total Protein 5.1 GM/DL 5.5 GM/DL Albumin 1.9 GM/DL 1.9 GM/DL Microbiology Date/Time Procedure Status Source Growth 05/02/17 18:00 Legionella Antigen - Final Complete Urine Random Urine PRESUMPTIVE NEGATIVE FOR LEGIONELLA P... 05/02/17 18:00 Streptococcus pneumoniae Antigen (M - Final Complete Urine Random Urine PRESUMPTIVE NEGATIVE FOR STREPTOCOCCU... 05/02/17 19:00 Aerobic Blood Culture - Preliminary Resulted Blood Peripheral NO GROWTH IN 2 DAYS 05/02/17 19:00 Anaerobic Blood Culture - Preliminary Resulted Blood Peripheral NO GROWTH IN 2 DAYS 05/02/17 19:05 Aerobic Blood Culture - Preliminary Resulted Blood Peripheral NO GROWTH IN 2 DAYS 05/02/17 19:05 Anaerobic Blood Culture - Preliminary Resulted Blood Peripheral NO GROWTH IN 2 DAYS Imaging Last Impressions Chest X-Ray 05/03/17 0000 Signed Impressions: Service Date/Time: Wednesday, May 03, 2017 10:58 - CONCLUSION: Deterioration with increasing interstitial changes in both lungs. Gallo Lozada MD FACR Chest CT 05/01/17 194 Signed Impressions: Service Date/Time: Monday, May 01, 2017 10:29 - CONCLUSION: Patchy airspace disease, predominantly interstitial most inflammatory. There is no adenopathy. There is no pericardial effusion. Gallo Lozada MD FACR Abdomen/Pelvis CT 04/29/17 0000 Signed Impressions: Service Date/Time: Saturday, April 29, 2017 23:16 - CONCLUSION: 1. There is artifact secondary to the lumbar spine hardware which partially obscures some of the abdominal organs. There is likely still main pancreatic duct dilatation from uncertain etiology. 2. Hepatomegaly with severe steatosis. Pneumobilia is present along with a stent in the bile duct. 3. Abnormal groundglass opacity at the lung bases, right greater than left. This could represent an inflammatory or infectious process. 4. Mild wall thickening of the proximal sigmoid colon. Dirk Brown MD Physical Exam GENERAL: This is a well-nourished, well-developed patient, in no apparent distress. SKIN: No rashes, ecchymoses or lesions. Cool and dry. HEAD: Atraumatic. Normocephalic. No temporal or scalp tenderness. EYES: Pupils equal round and reactive. Extraocular motions intact. No scleral icterus. No injection or drainage. ENT: Nose without bleeding, purulent drainage or septal hematoma. Throat without erythema, tonsillar hypertrophy or exudate. Uvula midline. Airway patent. NECK: Trachea midline. Supple, nontender, no meningeal signs. CARDIOVASCULAR: Regular rate and rhythm without murmurs, gallops, or rubs. RESPIRATORY: Clear to auscultation. Breath sounds equal bilaterally and decreased in bases. GASTROINTESTINAL: Abdomen soft, non-tender, nondistended. MUSCULOSKELETAL: Extremities without clubbing, cyanosis, or edema. No joint tenderness, effusion, or edema noted. No calf tenderness. Negative Homans sign bilaterally. NEUROLOGICAL: Awake and alert. Cranial nerves II through XII intact. Motor and sensory grossly within normal limits. Five out of 5 muscle strength in all muscle groups. Normal speech. Psych cooperative IV line sites ok. All surgical scar sites ok. Assessment & Plan Remarks Health care associated pneumonia (reports admissions to hospitals for abdominal pain) Leucocytosis. Abnormal LFTs secondary to hepatic steatosis. ? Pancreatitis. Abnormal UA but cultures negative. No Rx needed. Biliary stent placement recently. r.o bacteremia Multiple hardware in body at risk for seeding. Recs Blood cultures x 2 Urine legionella Ag Urine Strep pneumo Ag Continue Cefepime IV increase dose to PSAE dose. Continue Levaquin oral Add Zyvox for MRSA coverage as pt is clinically not doing well. CXR from yday slightly worse. Follow cultures Follow clinically. to cover for me for [place] starting 05/05/2017. Teri Sullivan MD May 04, 2017 14:01
[2017-05-04] MEDS: LINEZOLID 600 MG TAB PO SCH ×2 (15:12→21:34)
[2017-05-04] MEDS ORDERED: IOHEXOL 350 MG/ML 10 ML VIAL (for RAD DIAG) IV ONE (15:32)
--- NOTE | 2017-05-04 17:33 | RADRPT ---
EXAM DATE/TIME: 05/04/2017 14:42 [place] COMPARISON: CT ABDOMEN & PELVIS W/O CONTRAST, April 29, 2017, 23:16. CT ABDOMEN & PELVIS W CONTRAST, March 26 7, 7:26. CT THORAX W CONTRAST, May 01, 2017, 10:29. CT ABDOMEN W CONTRAST, March 28, 2017, 14:19. INDICATIONS : Abdomen pain. Evaluate pancreas. IV CONTRAST: 75 cc Omnipaque 350 (iohexol) IV ORAL CONTRAST: No oral contrast ingested. RADIATION DOSE: 8.93 CTDIvol (mGy) MEDICAL HISTORY : Myocardial infarction. Carcinoma, breast. SURGICAL HISTORY : Thyroidectomy. Appendectomy.Cholecystectomy.Hysterectomy. Spinal fusion with favio. ENCOUNTER: Subsequent ACUITY: 3 days PAIN SCALE: 0/10 LOCATION: ABDOMEN TECHNIQUE: Volumetric scanning was performed using a multi-row detector CT scanner. The data was post processed with a variety of visualization algorithms including full volume maximum intensity projection, multi -planar sliding thin slab reformation, curved planar reformation, and surface rendering techniques. Using automated exposure control and adjustment of the mA and/or kV according to patient size, radiat ion dose was kept as low as reasonably achievable to obtain optimal diagnostic quality images. DICOM format image data is available electronically for review and comparison. FINDINGS: AORTA: Abdominal aorta is normal in caliber without significant flow-limiting stenosis. VISCERAL ARTERIES: Single bilateral renal arteries. Moderate severe stenosis of the right renal artery origin secondary to eccentric mixed plaque. Patent left renal artery. Celiac is patent. Mild stenosis of the SMA origi n. MONO is patent. PELVIS: Iliac arteries are patent without significant flow-limiting stenosis. Visualized femoral arteries are patent bilaterally. GENERAL FINDINGS: There are mild groundglass opacities at the lung bases bilaterally are not significantly changed sinc e recent chest CT exam. Evaluation of the abdomen is limited by streak artifact from patient's thorac olumbar fusion hardware. Redemonstration of severe diffuse hepatic steatosis. Extensive pneumobilia w ith biliary stent in place. Redemonstration of extensive pancreatic ductal dilatation extending to th e ampullary region. Again, there is fullness of the pancreatic head and uncinate region without a a d iscernible focal mass. Redemonstration of 2.2 x 2.1 cm hypodense mass in the spleen which otherwise a ppears unremarkable. Kidneys demonstrate symmetrical enhancement without evidence for hydronephrosis. Stable indeterminate density cystic lesion in the right mid renal pole. Adrenal glands are normal in appearance. Sigmoid diverticulosis. Bowel otherwise appears unremarkable. Previously described bilat eral thickening involving the sigmoid colon is not as well-demonstrated on current exam. Bladder is mildly distended but otherwise unremarkable. Uterus is surgically absent. Redemonstration of thoracolumbar scoliosis fusion hardware. CONCLUSION: 1. No evidence for significant mesenteric artery stenosis. 2. Moderate to severe right renal artery stenosis. 3. Redemonstration of profound hepatic steatosis with diffuse pneumobilia following biliary stent jose manuel cement. 4. Continued pancreatic ductal dilatation extending to the ampulla with slight prominence of the panc reatic head/uncinate process without discernible focal mass. No peripancreatic fluid collections or s ignificant new stranding. 5. Redemonstration of 2.2 cm splenic mass. Again, differential considerations include both benign and malignant etiologies. 6. Redemonstration of bilateral lower lobe groundglass opacities which may reflect positive fluid bal ance versus inflammatory/infectious process. 7. Interval resolution of the mild sigmoid wall thickening. Lasha Anderson MD on May 04, 2017 at 17:06 Board Certified Radiologist. This report was verified electronically.
[2017-05-04] MEDS: SODIUM CHLORIDE 0.9% FLUSH 10 ML FLUSH IV FLUSH PRN (23:33)
[2017-05-05] VITALS (7 sets, daily range): BP systolic 117–145; BP diastolic 65–92; PULSE 63–70; RESP 16–18; TEMP 95.7–98.6; O2SAT 93–98
[2017-05-05] MEDS: LEVOTHYROXINE SODIUM 150 MCG TAB PO SCH (05:38)
[2017-05-05] MEDS: CEFEPIME INJ 2,000 MG in SODIUM CHLORIDE 0.9% INJ 100 ML IV SCH ×4 (08:00→18:16)
[2017-05-05 08:36] LABS: AUTOMATED NEUTROPHIL # 14.4 TH/MM3 (1.8-7.7); BASOPHIL # 0.3 TH/MM3 (0-0.2); BASOPHIL % 1.8 % (0.0-2.0); EOSINOPHIL # 0.1 TH/MM3 (0-0.4); EOSINOPHIL % 0.4 % (0.0-4.0); HEMATOCRIT 33.2 % (35.0-46.0); LYMPH % 7.5 % (9.0-44.0); LYMPHOCYTE # 1.3 TH/MM3 (1.0-4.8); MEAN CELL VOLUME 84.1 FL (80.0-100.0); MEAN CORPUSCULAR HEMOGLOBIN 26.9 PG (27.0-34.0); MONO % 3.9 % (0.0-8.0); NEUT % 86.4 % (16.0-70.0); PLATELET COUNT 122 TH/MM3 (150-450); RED BLOOD COUNT 3.95 MIL/MM3 (4.00-5.30); RED CELL DISTRIBUTION WIDTH 14.6 % (11.6-17.2); WHITE BLOOD COUNT 16.8 TH/MM3 (4.0-11.0)
--- NOTE | 2017-05-05 08:39 | HHI.PR ---
Subjective History of Present Illness Patient feel weak and tired. leukocytosis worse today Infectious disease input noted, low potassium resolved and low magnesium will replace and monitor. no acute issue d/w RN Celeste at bed side. . recheck chest x- ray ..show worsening infiltrate Added Zyvox by infectious disease IV Access issue not a candidate for Central Line/ PICC Line because of Leukocytosis Patient worsening condition explained to patient and she verbalize understanding and all question answered to patient satisafication. Review of Systems Constitutional Constitutional: Fatigue, Weakness Pulmonary Respiratory: Coughing, Shortness of Breath Cardiology CV Remarks leg edema. GI/Abdomen GI/Abdominal Exam: Abdominal Pain Vitals/Results Intake & Output 05/04/17 05/04/17 05/05/17 14:59 22:59 06:59 Intake Total 790 ml Output Total 1100 ml Balance 790 ml -1100 ml Intake Oral 790 ml Output Urine Total 1100 ml # Voids 3 Vital Signs Vital Signs Date Time Temp Pulse Resp B/P Pulse Ox O2 Delivery O2 Flow Rate FiO2 05/05/17 04:00 98.5 69 16 121/77 95 05/05/17 00:00 98.6 65 16 145/92 97 05/04/17 21:12 93 Nasal Cannula 2.00 05/04/17 20:00 98.0 76 16 144/89 94 05/04/17 19:00 94 Nasal Cannula 2.00 05/04/17 18:07 97.6 89 19 134/62 90 05/04/17 12:00 97.5 71 19 152/91 91 05/04/17 09:44 18 CBC/BMP: 05/04/17 0627 05/04/17 0627 Physical Exam General General Appearance: No Acute Distress, Comfortable Eyes Eye Exam: Sclera White, Extraocular Movement Intact Throat Throat Exam: Oral Mucosa [place] & Moist, Oral Pharynx Normal Neck Neck Exam: Neck Supple, Trachea Midline Pulmonary Resp Exam: Clear Bilaterally, Breath Sounds Equal Cardiology CV Exam: Regular, Normal Sinus Rhythm Gastrointestinal/Abdomen GI Exam: Soft, Bowel Sounds Present GI Remarks diffuse abdominal tenderness. Musculoskeletal MS Exam: Normal Tone Integumentary Skin Exam: Warm, Dry Extremeties Extremities Exam: Pitting Edema Neurologic Neuro Exam: Alert, Awake, Oriented, Moving All Extremities, No Focal Deficits Psychiatric Psych Exam: Appropriate Responses VTE Prophylaxis VTE Prophylaxis Device: SCDs PUD Prophylasis PUD Prophylaxis: Protonix Assessment/Plan Assessment/Plan ASSESSMENT/PLAN 1. This is a 71-year-old female diagnosed with cough and shortness of breath secondary to pneumonia. The patient is on Levaquin PO and cefepime IV. added Zyvoxx by ID... pulmonary input noted for further recommendation. s/p CT Chest noted. recheck chest x- ray.shows worsening infiltrate. 2. Abdominal pain with recent biliary stenting a few weeks ago. GI input noted for further recommendation. Lipase is normal. CT Abdomen and pelvis noted. 3. Leg edema. Continue with Lasix. 4. Neuropathy. Continue with Gabapentin. 5. History of hypothyroidism. Continue with levothyroxine. 6. Hypokalemia resolved Hypomagnesemia. will Replace and monitor. 7. Hyponatremia. We will monitor. 8. High LFTs. GI input noted for further recommendation. 9. Urinary tract infection. The patient is on antibiotic Levaquin and cefepime and Zyvox . repeat UA..better. 10. Leukocytosis secondary to pneumonia and urinary tract infection. worsening of leukocytosis Infectious disease input noted. 11. Possible sepsis on admission with pneumonia and urinary tract infection. 12. DVT prophylaxis. Lovenox 40 mg subcutaneous daily. 13. GI prophylaxis Protonix 40 mg p.o. daily. 14. Splenic mass consult oncology. We are going to manage the patient on a daily basis and make recommendations on a daily basis. Check CBC with diff CMP in AM. consult physical therapy Discussed Condition with: Patient Sivakumar Lopez MD May 05, 2017 08:39
[2017-05-05 08:46] LABS: CHLORIDE 88 MEQ/L (98-107); POTASSIUM 3.2 MEQ/L (3.5-5.1); SODIUM (NA) 131 MEQ/L (136-145)
[2017-05-05 08:50] LABS: ANION GAP 5 MEQ/L (5-15); BICARBONATE 38.2 MEQ/L (21.0-32.0); BLOOD UREA NITROGEN 18 MG/DL (7-18); MAGNESIUM 1.5 MG/DL (1.5-2.5)
[2017-05-05 08:51] LABS: HEMO FLAGS AUTO DIFF
[2017-05-05 08:53] LABS: ALT (GPT) 105 U/L (10-53); AST (GOT) 54 U/L (15-37); GLOMERULAR FILTRATION RATE 64 ML/MIN (>89)
[2017-05-05 08:55] LABS: TOTAL BILIRUBIN ADULT 0.5 MG/DL (0.2-1.0)
[2017-05-05 08:56] LABS: ALKALINE PHOSPHATASE 135 U/L (45-117)
[2017-05-05] MEDS: SODIUM CHLORIDE 0.9% FLUSH 10 ML FLUSH IV FLUSH SCH ×2 (09:00→21:43)
[2017-05-05 09:09] LABS: SCAN/DIFF AUTO DIFF CONFIRMED
[2017-05-05] MEDS ORDERED: POTASSIUM CHLORIDE 10 MEQ CONTROLLED RELEASE TAB PO ONE (09:45)
[2017-05-05] MEDS: MAGNESIUM OXIDE 400 MG TAB PO SCH ×2 (10:01→21:40)
[2017-05-05] MEDS: MORPHINE SULFATE 30 MG CONTROLLED RELEASE TAB PO SCH ×2 (10:01→21:40)
[2017-05-05] MEDS: LIOTHYRONINE SODIUM 5 MCG TAB PO SCH (10:01)
[2017-05-05] MEDS: FLUCONAZOLE 100 MG TAB PO SCH (10:02)
[2017-05-05] MEDS: LEVOFLOXACIN 500 MG TAB PO SCH (10:03)
[2017-05-05] MEDS: GABAPENTIN 300 MG CAP PO SCH ×4 (10:03→21:41)
[2017-05-05] MEDS: LINEZOLID 600 MG TAB PO SCH ×2 (10:04→21:40)
[2017-05-05] MEDS: predniSONE 20 MG TAB PO SCH (10:04)
[2017-05-05] MEDS: METOPROLOL TARTRATE 25 MG TAB PO SCH ×2 (10:04→21:40)
[2017-05-05] MEDS: FUROSEMIDE 20 MG TAB PO SCH (10:05)
[2017-05-05] MEDS: NYSTATIN SUSP 500,000 U/5 ML CUP SWISH-SWAL SCH ×4 (10:05→21:42)
[2017-05-05] MEDS: PANTOPRAZOLE SOD 40 MG DELAYED RELEASE TAB PO SCH (10:05)
[2017-05-05] MEDS: ASPIRIN EC 81 MG TABEC PO SCH (10:36)
[2017-05-05] MEDS: ENOXAPARIN SODIUM 40 MG/0.4 ML SYRINGE SQ SCH (11:00)
[2017-05-05] MEDS ORDERED: CEFEPIME INJ 2,000 MG in SODIUM CHLORIDE 0.9% INJ 100 ML IV SCH (12:00)
--- NOTE | 2017-05-05 18:03 | HHI.IDPN ---
Note Infectious Disease Note ID coverage. Notes reviewed. Patient is comfortable. On 2L O2. NC. No fever. Gets a little SOB with activity. Admitted with cough and SOB. History of bile duct stent placement a few weeks ago. ID consulted for management of pneumonia. Antibiotics Cefepime IV Levaquin Zyvox. 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 Elaine Objective . Vital Signs Date Time Temp Pulse Resp B/P Pulse Ox O2 Delivery O2 Flow Rate FiO2 05/05/17 12:00 95.7 63 18 117/72 96 05/05/17 11:01 18 05/05/17 08:00 93 Nasal Cannula 2.00 05/05/17 08:00 96.3 64 18 136/79 96 05/05/17 04:00 98.5 69 16 121/77 95 05/05/17 00:00 98.6 65 16 145/92 97 05/04/17 21:12 93 Nasal Cannula 2.00 05/04/17 20:00 98.0 76 16 144/89 94 05/04/17 19:00 94 Nasal Cannula 2.00 05/04/17 18:07 97.6 89 19 134/62 90 05/04/17 05/04/17 05/05/17 15:00 23:00 07:00 Intake Total 790 ml Output Total 1100 ml Balance 790 ml -1100 ml Intake Oral 790 ml Output Urine Total 1100 ml # Voids 3 Laboratory Tests Test 05/04/17 05/05/17 06:27 08:00 White Blood Count 15.7 TH/MM3 16.8 TH/MM3 Red Blood Count 3.88 MIL/MM3 3.95 MIL/MM3 Hemoglobin 10.7 GM/DL 10.6 GM/DL Hematocrit 32.6 % 33.2 % Mean Corpuscular Volume 83.9 FL 84.1 FL Mean Corpuscular Hemoglobin 27.5 PG 26.9 PG Mean Corpuscular Hemoglobin 32.8 % 32.0 % Concent Red Cell Distribution Width 14.8 % 14.6 % Platelet Count 132 TH/MM3 122 TH/MM3 Mean Platelet Volume 9.5 FL 9.3 FL Neutrophils (%) (Auto) 92.0 % 86.4 % Lymphocytes (%) (Auto) 4.7 % 7.5 % Monocytes (%) (Auto) 3.1 % 3.9 % Eosinophils (%) (Auto) 0.1 % 0.4 % Basophils (%) (Auto) 0.1 % 1.8 % Neutrophils # (Auto) 14.5 TH/MM3 14.4 TH/MM3 Lymphocytes # (Auto) 0.7 TH/MM3 1.3 TH/MM3 Monocytes # (Auto) 0.5 TH/MM3 0.7 TH/MM3 Eosinophils # (Auto) 0.0 TH/MM3 0.1 TH/MM3 Basophils # (Auto) 0.0 TH/MM3 0.3 TH/MM3 CBC Comment DIFF FINAL AUTO DIFF Differential Comment AUTO DIFF CONFIRMED Laboratory Tests Test 05/04/17 05/05/17 06:27 08:00 Sodium Level 133 MEQ/L 131 MEQ/L Potassium Level 3.9 MEQ/L 3.2 MEQ/L Chloride Level 93 MEQ/L 88 MEQ/L Carbon Dioxide Level 36.2 MEQ/L 38.2 MEQ/L Anion Gap 4 MEQ/L 5 MEQ/L Blood Urea Nitrogen 20 MG/DL 18 MG/DL Creatinine 0.83 MG/DL 0.87 MG/DL Estimat Glomerular Filtration 67 ML/MIN 64 ML/MIN Rate Random Glucose 114 MG/DL 92 MG/DL Calcium Level 8.0 MG/DL 8.2 MG/DL Magnesium Level 1.5 MG/DL 1.5 MG/DL Total Bilirubin 0.6 MG/DL 0.5 MG/DL Aspartate Amino Transf 61 U/L 54 U/L (AST/SGOT) Alanine Aminotransferase 113 U/L 105 U/L (ALT/SGPT) Alkaline Phosphatase 142 U/L 135 U/L Total Protein 5.5 GM/DL 5.5 GM/DL Albumin 1.9 GM/DL 2.0 GM/DL Microbiology Date/Time Procedure Status Source Growth 05/02/17 18:00 Legionella Antigen - Final Complete Urine Random Urine PRESUMPTIVE NEGATIVE FOR LEGIONELLA P... 05/02/17 18:00 Streptococcus pneumoniae Antigen (M - Final Complete Urine Random Urine PRESUMPTIVE NEGATIVE FOR STREPTOCOCCU... 05/02/17 19:00 Aerobic Blood Culture - Preliminary Resulted Blood Peripheral NO GROWTH IN 3 DAYS 05/02/17 19:00 Anaerobic Blood Culture - Preliminary Resulted Blood Peripheral NO GROWTH IN 3 DAYS 05/02/17 19:05 Aerobic Blood Culture - Preliminary Resulted Blood Peripheral NO GROWTH IN 3 DAYS 05/02/17 19:05 Anaerobic Blood Culture - Preliminary Resulted Blood Peripheral NO GROWTH IN 3 DAYS Imaging Abdomen/Pelvis CT 05/04/17 0000 Signed Impressions: Service Date/Time: Thursday, May 04, 2017 14:42 - CONCLUSION: 1. No evidence for significant mesenteric artery stenosis. 2. Moderate to severe right renal artery stenosis. 3. Redemonstration of profound hepatic steatosis with diffuse pneumobilia following biliary stent placement. 4. Continued pancreatic ductal dilatation extending to the ampulla with slight prominence of the pancreatic head/uncinate process without discernible focal mass. No peripancreatic fluid collections or significant new stranding. 5. Redemonstration of 2.2 cm splenic mass. Again, differential considerations include both benign and malignant etiologies. 6. Redemonstration of bilateral lower lobe groundglass opacities which may reflect positive fluid balance versus inflammatory/infectious process. 7. Interval resolution of the mild sigmoid wall thickening. Lasha Anderson MD Chest X-Ray 05/03/17 0000 Signed Impressions: Service Date/Time: Wednesday, May 03, 2017 10:58 - CONCLUSION: Deterioration with increasing interstitial changes in both lungs. Gallo Lozada MD FACR GENERAL: Patient is in no acute distress. HEENT: EOMI, No icterus. NECK: Supple. No adenopathy. LUNGS: Bilateral lower lung rhonchi. CARDIAC: Regular rate and rhythm ABDOMEN: Soft, non tender. EXTREMITIES: No CCE. SKIN: No rash. Assessment & Plan Remarks Health care associated pneumonia Leucocytosis. Abnormal LFTs secondary to hepatic steatosis. ? Pancreatitis. Biliary stent placement recently. r.o bacteremia Multiple hardware in body at risk for seeding. Recs Monitor Blood cultures. Continue Cefepime. Continue Levaquin. Continue Zyvox for MRSA coverage as pt is clinically not doing well. Follow clinically. Maciej Humphrey MD May 05, 2017 18:03
--- NOTE | 2017-05-05 19:12 | HHI.GIFU ---
Subjective Remarks Patient complained of occasional shortness of breath when she walked around, still mild abdominal discomfort Objective Vitals I&O Vital Signs Date Time Temp Pulse Resp B/P Pulse Ox O2 Delivery O2 Flow Rate FiO2 05/05/17 12:00 95.7 63 18 117/72 96 05/05/17 11:01 18 05/05/17 08:00 93 Nasal Cannula 2.00 05/05/17 08:00 96.3 64 18 136/79 96 05/05/17 07:00 Nasal Cannula 2.00 05/05/17 04:00 98.5 69 16 121/77 95 05/05/17 00:00 98.6 65 16 145/92 97 05/04/17 21:12 93 Nasal Cannula 2.00 05/04/17 20:00 98.0 76 16 144/89 94 I/O 05/04/17 05/04/17 05/04/17 05/05/17 05/05/17 05/05/17 07:00 15:00 23:00 07:00 15:00 23:00 Intake Total 480 ml 790 ml 110 ml Output Total 1100 ml Balance 480 ml 790 ml -1100 ml 110 ml Intake Oral 480 ml 790 ml IV Total 110 ml Output Urine Total 1100 ml # Voids 5 3 # Bowel Movements 1 Laboratory Laboratory Tests Test 05/05/17 08:00 White Blood Count 16.8 Red Blood Count 3.95 Hemoglobin 10.6 Hematocrit 33.2 Mean Corpuscular Volume 84.1 Mean Corpuscular Hemoglobin 26.9 Mean Corpuscular Hemoglobin 32.0 Concent Red Cell Distribution Width 14.6 Platelet Count 122 Mean Platelet Volume 9.3 Neutrophils (%) (Auto) 86.4 Lymphocytes (%) (Auto) 7.5 Monocytes (%) (Auto) 3.9 Eosinophils (%) (Auto) 0.4 Basophils (%) (Auto) 1.8 Neutrophils # (Auto) 14.4 Lymphocytes # (Auto) 1.3 Monocytes # (Auto) 0.7 Eosinophils # (Auto) 0.1 Basophils # (Auto) 0.3 CBC Comment AUTO DIFF Differential Comment AUTO DIFF CONFIRMED Sodium Level 131 Potassium Level 3.2 Chloride Level 88 Carbon Dioxide Level 38.2 Anion Gap 5 Blood Urea Nitrogen 18 Creatinine 0.87 Estimat Glomerular Filtration 64 Rate Random Glucose 92 Calcium Level 8.2 Magnesium Level 1.5 Total Bilirubin 0.5 Aspartate Amino Transf 54 (AST/SGOT) Alanine Aminotransferase 105 (ALT/SGPT) Alkaline Phosphatase 135 Total Protein 5.5 Albumin 2.0 Date/Time Procedure Status Source Growth 05/02/17 19:05 Aerobic Blood Culture - Preliminary Resulted Blood Peripheral NO GROWTH IN 3 DAYS 05/02/17 19:05 Anaerobic Blood Culture - Preliminary Resulted Blood Peripheral NO GROWTH IN 3 DAYS 05/02/17 18:00 Legionella Antigen - Final Complete Urine Random Urine PRESUMPTIVE NEGATIVE FOR LEGIONELLA P... 05/02/17 18:00 Streptococcus pneumoniae Antigen (M - Final Complete Urine Random Urine PRESUMPTIVE NEGATIVE FOR STREPTOCOCCU... 05/01/17 13:46 Gram Stain - Final Complete Sputum Expectorated Sputum 05/01/17 13:46 Sputum Culture - Final Complete Sputum Expectorated Sputum LIGHT GROWTH NORMAL RESPIRATORY COLLEEN Physical Exam HEENT: normocephalic; atraumatic; no jaundice. NECK: Neck is supple CHEST: Chest is clear to auscultation and percussion. CARDIAC: Regular rate and rhythm with no murmur gallop or rubs. ABDOMEN: Soft, mildly distended tympanic, mildly but less tender in the epigastric area; no hepatosplenomegaly; bowel sounds are present in all four quadrants. EXTREMITIES: No clubbing, cyanosis, or edema. 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 Assessment and Plan Plan Abdominal pain most likely secondary to musculoskeletal and chronic back issues Bloating, CTA findings were discussed with patient, she understands the findings, she will need periodic follow-up with her CT scan to follow on the lesion of the spleen and the pancreas Patient advised to rotate in bed so as to allow herself to pass gas tolerating diet well, she will need to have ERCP with stent removal and the next few weeks once she is over her pneumonia Continue with current supportive care Luna Stovall MD May 05, 2017 19:11
--- NOTE | 2017-05-05 19:59 | HHI.PR ---
Subjective Remarks Feels OK..On O2 at [address] chest shows basal infiltrates. Now on Zyvox . Objective Vital Signs Date Time Temp Pulse Resp B/P Pulse Ox O2 Delivery O2 Flow Rate FiO2 05/05/17 12:00 95.7 63 18 117/72 96 05/05/17 11:01 18 05/05/17 08:00 93 Nasal Cannula 2.00 05/05/17 08:00 96.3 64 18 136/79 96 05/05/17 07:00 Nasal Cannula 2.00 05/05/17 04:00 98.5 69 16 121/77 95 05/05/17 00:00 98.6 65 16 145/92 97 05/04/17 21:12 93 Nasal Cannula 2.00 05/04/17 20:00 98.0 76 16 144/89 94 I/O 05/04/17 05/04/17 05/04/17 05/05/17 05/05/17 05/05/17 07:00 15:00 23:00 07:00 15:00 23:00 Intake Total 480 ml 790 ml 110 ml Output Total 1100 ml Balance 480 ml 790 ml -1100 ml 110 ml Intake Oral 480 ml 790 ml IV Total 110 ml Output Urine Total 1100 ml # Voids 5 3 # Bowel Movements 1 Result Diagram: 05/05/17 0800 05/05/17 0800 Objective Remarks GENERAL: This elderly thinly built white female who is not dyspneic at rest.. HEENT: Head normocephalic. Pupils are reactive. Tongue is moist. Ears - no inflammation. NECK: Supple. No bruits or thyroid enlargement. CHEST: Equal movements with decreased excursions. Occasional expiratory wheezes bilaterally .Few Basal crackles. HEART SOUNDS: Regular S1 and S2. No murmur. No S3. ABDOMEN: Soft, tender in the upper abdomen. No organomegaly. The bowel sounds are faint. EXTREMITIES: Edema 1+. No calf tenderness. NEUROLOGICALLY: The patient does move all her extremities with 1+ reflexes. There were no gross motor deficits. SKIN: No lesions. Assessment and Plan Assessment and Plan IMPRESSION 1. Bibasilar atelectasis with pneumonia. 2. Abdominal pain with history of biliary stenting. 3. History of hypothyroidism. 4. COPD. 5. Hypokalemia. 6. Peripheral neuropathy. 7. Urinary tract infection. 8. Possible sepsis. 9. Pancreatitis Plan : 1. Continue antibiotics per ID 2. O2 at 2 L and wean to RA 3. Nebs qid , duoneb. 4. Reduce lasix to 20 mg daily 5. CBC,BMP in am 6. Taper prednisone to 10 mg bid 7. Arrange home O2 if sats <89 on RA Elle Patiño MD May 05, 2017 19:59
[2017-05-06] VITALS (7 sets, daily range): BP systolic 118–150; BP diastolic 69–92; PULSE 63–74; RESP 14–20; TEMP 96.6–98.6; O2SAT 90–94
[2017-05-06] MEDS: CEFEPIME INJ 2,000 MG in SODIUM CHLORIDE 0.9% INJ 100 ML IV SCH ×2 (06:10→16:33)
[2017-05-06] MEDS: LEVOTHYROXINE SODIUM 150 MCG TAB PO SCH (06:10)
[2017-05-06] MEDS: SODIUM CHLORIDE 0.9% FLUSH 10 ML FLUSH IV FLUSH PRN (06:10)
[2017-05-06 06:36] LABS: AUTOMATED NEUTROPHIL # 14.1 TH/MM3 (1.8-7.7); BASOPHIL # 0.3 TH/MM3 (0-0.2); BASOPHIL % 1.7 % (0.0-2.0); EOSINOPHIL % 0.1 % (0.0-4.0); HEMATOCRIT 31.9 % (35.0-46.0); LYMPH % 5.9 % (9.0-44.0); MEAN CELL VOLUME 83.5 FL (80.0-100.0); MEAN CORPUSCULAR HEMOGLOBIN 27.4 PG (27.0-34.0); MEAN CORPUSCULAR HGB CONC 32.8 % (32.0-36.0); NEUT % 87.3 % (16.0-70.0); PLATELET COUNT 152 TH/MM3 (150-450); RED BLOOD COUNT 3.82 MIL/MM3 (4.00-5.30); RED CELL DISTRIBUTION WIDTH 14.7 % (11.6-17.2); WHITE BLOOD COUNT 16.2 TH/MM3 (4.0-11.0)
[2017-05-06 06:49] LABS: HEMO FLAGS DIFF FINAL
[2017-05-06 06:57] LABS: ALKALINE PHOSPHATASE 138 U/L (45-117); ALT (GPT) 99 U/L (10-53); ANION GAP 7 MEQ/L (5-15); AST (GOT) 54 U/L (15-37); BICARBONATE 34.2 MEQ/L (21.0-32.0); BLOOD UREA NITROGEN 21 MG/DL (7-18); CHLORIDE 92 MEQ/L (98-107); GLOMERULAR FILTRATION RATE 54 ML/MIN (>89); MAGNESIUM 1.7 MG/DL (1.5-2.5); POTASSIUM 4.1 MEQ/L (3.5-5.1); SODIUM (NA) 133 MEQ/L (136-145); TOTAL BILIRUBIN ADULT 0.5 MG/DL (0.2-1.0)
--- NOTE | 2017-05-06 07:27 | RADRPT ---
EXAM DATE/TIME: 05/06/2017 06:37 [facility] COMPARISON: CHEST SINGLE AP, March 26, 2017, 5:54. INDICATIONS : Shortness of breath. MEDICAL HISTORY : Carcinoma, breast. Myocardial infarction. Scoliosis. SURGICAL HISTORY : Spinal. ENCOUNTER: Subsequent ACUITY: 1 week PAIN SCORE: Non-responsive. LOCATION: Bilateral chest FINDINGS: Single AP portable upright view of the chest demonstrates stable fixation rods within the rectal lumb ar spine, stable mild S-shaped thoracolumbar scoliosis. Heart size is normal. The lungs appear hyperi nflated but grossly clear. Pulmonary vasculature is normal. CONCLUSION: No evidence of acute cardio pulmonary disease. Kenyetta Aranda MD on May 06, 2017 at 7:24 Board Certified Radiologist. This report was verified electronically.
--- NOTE | 2017-05-06 08:36 | HHI.PR ---
Subjective History of Present Illness Patient feel weak and tired. leukocytosis better today Infectious disease input noted, low potassium resolved and low magnesium better . no acute issue d/w RN Nayeli at bed side. . Patient worsening condition explained to patient and her sister both verbalize understanding and all question answered to patient satisafication. d/w GI Dr No. Review of Systems Constitutional Constitutional: Fatigue, Weakness Pulmonary Respiratory: Coughing, Shortness of Breath Cardiology CV Remarks leg edema. GI/Abdomen GI/Abdominal Exam: Abdominal Pain Vitals/Results Intake & Output 05/05/17 05/05/17 05/06/17 15:00 23:00 07:00 Intake Total 230 ml 480 ml Output Total 2 ml 601 ml Balance 228 ml -121 ml Intake Oral 120 ml 350 ml IV Total 110 ml 130 ml Output Urine Total 2 ml 600 ml Stool Total 1 ml # Bowel Movements 0 Vital Signs Vital Signs Date Time Temp Pulse Resp B/P Pulse Ox O2 Delivery O2 Flow Rate FiO2 05/06/17 00:00 96.6 74 20 141/79 94 05/05/17 21:15 98 Room Air 05/05/17 21:12 94 21 05/05/17 20:56 98 Nasal Cannula 2.00 05/05/17 20:00 99 Nasal Cannula 2.00 05/05/17 20:00 97.8 70 18 126/65 98 05/05/17 12:00 95.7 63 18 117/72 96 05/05/17 11:01 18 CBC/BMP: 05/06/17 0615 05/06/17 0615 Lab Results Laboratory Tests Test 05/06/17 06:15 White Blood Count 16.2 TH/MM3 Red Blood Count 3.82 MIL/MM3 Hemoglobin 10.5 GM/DL Hematocrit 31.9 % Mean Corpuscular Volume 83.5 FL Mean Corpuscular Hemoglobin 27.4 PG Mean Corpuscular Hemoglobin 32.8 % Concent Red Cell Distribution Width 14.7 % Platelet Count 152 TH/MM3 Mean Platelet Volume 9.0 FL Neutrophils (%) (Auto) 87.3 % Lymphocytes (%) (Auto) 5.9 % Monocytes (%) (Auto) 5.0 % Eosinophils (%) (Auto) 0.1 % Basophils (%) (Auto) 1.7 % Neutrophils # (Auto) 14.1 TH/MM3 Lymphocytes # (Auto) 1.0 TH/MM3 Monocytes # (Auto) 0.8 TH/MM3 Eosinophils # (Auto) 0.0 TH/MM3 Basophils # (Auto) 0.3 TH/MM3 CBC Comment DIFF FINAL Differential Comment Sodium Level 133 MEQ/L Potassium Level 4.1 MEQ/L Chloride Level 92 MEQ/L Carbon Dioxide Level 34.2 MEQ/L Anion Gap 7 MEQ/L Blood Urea Nitrogen 21 MG/DL Creatinine 1.00 MG/DL Estimat Glomerular Filtration 54 ML/MIN Rate Random Glucose 163 MG/DL Calcium Level 7.9 MG/DL Magnesium Level 1.7 MG/DL Total Bilirubin 0.5 MG/DL Aspartate Amino Transf 54 U/L (AST/SGOT) Alanine Aminotransferase 99 U/L (ALT/SGPT) Alkaline Phosphatase 138 U/L Total Protein 5.3 GM/DL Albumin 2.0 GM/DL Physical Exam General General Appearance: No Acute Distress, Comfortable Eyes Eye Exam: Sclera White, Extraocular Movement Intact Throat Throat Exam: Oral Mucosa [place] & Moist, Oral Pharynx Normal Neck Neck Exam: Neck Supple, Trachea Midline Pulmonary Resp Exam: Clear Bilaterally, Breath Sounds Equal Cardiology CV Exam: Regular, Normal Sinus Rhythm Gastrointestinal/Abdomen GI Exam: Soft, Bowel Sounds Present GI Remarks diffuse abdominal tenderness. Musculoskeletal MS Exam: Normal Tone Integumentary Skin Exam: Warm, Dry Extremeties Extremities Exam: Pitting Edema Neurologic Neuro Exam: Alert, Awake, Oriented, Moving All Extremities, No Focal Deficits Psychiatric Psych Exam: Appropriate Responses VTE Prophylaxis VTE Prophylaxis Device: SCDs PUD Prophylasis PUD Prophylaxis: Protonix Assessment/Plan Assessment/Plan ASSESSMENT/PLAN 1. This is a 71-year-old female diagnosed with cough and shortness of breath secondary to pneumonia. The patient is on Levaquin PO and cefepime IV. added Zyvox by ID... pulmonary input noted for further recommendation. s/p CT Chest noted. recheck chest x- ray.shows worsening infiltrate. Another repeat Chest x- ray noted.. 2. Abdominal pain with recent biliary stenting a few weeks ago. GI input noted for further recommendation. Lipase is normal. CT Abdomen and pelvis noted. Need to see at [facility] for biliary stent removal. 3. Leg edema. Continue with Lasix. 4. Neuropathy. Continue with Gabapentin. 5. History of hypothyroidism. Continue with levothyroxine. 6. Hypokalemia resolved, Hypomagnesemia. better on replacement. 7. Hyponatremia. We will monitor. 8. High LFTs. GI input noted for further recommendation. 9. Urinary tract infection. The patient is on antibiotic Levaquin and cefepime and Zyvox . repeat UA..better. 10. Leukocytosis secondary to pneumonia and urinary tract infection. leukocytosis better Infectious disease input noted. 11. Possible sepsis on admission with pneumonia and urinary tract infection. 12. DVT prophylaxis. Lovenox 40 mg subcutaneous daily. 13. GI prophylaxis Protonix 40 mg p.o. daily. 14. Splenic mass consult oncology. We are going to manage the patient on a daily basis and make recommendations on a daily basis. Check CBC with diff CMP in AM. Discussed Condition with: Patient Sivakumar Lopez MD May 06, 2017 08:36
[2017-05-06] MEDS ORDERED: predniSONE 10 MG TAB PO SCH (09:00)
[2017-05-06] MEDS: NYSTATIN SUSP 500,000 U/5 ML CUP SWISH-SWAL SCH ×5 (09:00→21:57)
[2017-05-06] MEDS: SODIUM CHLORIDE 0.9% FLUSH 10 ML FLUSH IV FLUSH SCH ×2 (09:00→21:55)
[2017-05-06] MEDS: PANTOPRAZOLE SOD 40 MG DELAYED RELEASE TAB PO SCH (09:00)
[2017-05-06] MEDS: MAGNESIUM OXIDE 400 MG TAB PO SCH ×2 (09:02→21:56)
[2017-05-06] MEDS: MORPHINE SULFATE 30 MG CONTROLLED RELEASE TAB PO SCH ×2 (09:02→21:57)
[2017-05-06] MEDS: FLUCONAZOLE 100 MG TAB PO SCH (09:02)
[2017-05-06] MEDS: LEVOFLOXACIN 500 MG TAB PO SCH (09:02)
[2017-05-06] MEDS: ASPIRIN EC 81 MG TABEC PO SCH (09:03)
[2017-05-06] MEDS: LINEZOLID 600 MG TAB PO SCH ×2 (09:03→21:56)
[2017-05-06] MEDS: FUROSEMIDE 20 MG TAB PO SCH (09:04)
[2017-05-06] MEDS: GABAPENTIN 300 MG CAP PO SCH ×4 (09:04→21:57)
[2017-05-06] MEDS: METOPROLOL TARTRATE 25 MG TAB PO SCH ×2 (09:05→21:57)
[2017-05-06] MEDS: LIOTHYRONINE SODIUM 5 MCG TAB PO SCH (09:06)
[2017-05-06] MEDS: ENOXAPARIN SODIUM 40 MG/0.4 ML SYRINGE SQ SCH (10:03)
--- NOTE | 2017-05-06 16:08 | HHI.GIFU ---
GI Follow-up Note Consult Follow-up Subjective: Patient laying in bed comfortably, no new complaints except abdominal distension and gas. No problems with BM Objective: PHYSICAL EXAMINATION: Vitals signs stable No fever HEENT: Pupils round and reactive to light; normocephalic; atraumatic; no jaundice. Throat is clear. NECK: Neck is supple, no JVD, no lymphadenopathy. CHEST: Chest is clear to auscultation and percussion. CARDIAC: Regular rate and rhythm with no murmur gallop or rubs. ABDOMEN: Soft, nondistended, nontender; no hepatosplenomegaly; bowel sounds are present in all four quadrants. EXTREMITIES: No clubbing, cyanosis, or edema. SKIN: Normal; no rash; no jaundice. 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 Available Data (labs, X- Rays, Procedues) : Last Impressions Chest X-Ray 05/06/17 0600 Signed Impressions: Service Date/Time: Saturday, May 06, 2017 06:37 - CONCLUSION: No evidence of acute cardio pulmonary disease. Kenyetta Aranda MD Abdomen/Pelvis CT 05/04/17 0000 Signed Impressions: Service Date/Time: Thursday, May 04, 2017 14:42 - CONCLUSION: 1. No evidence for significant mesenteric artery stenosis. 2. Moderate to severe right renal artery stenosis. 3. Redemonstration of profound hepatic steatosis with diffuse pneumobilia following biliary stent placement. 4. Continued pancreatic ductal dilatation extending to the ampulla with slight prominence of the pancreatic head/uncinate process without discernible focal mass. No peripancreatic fluid collections or significant new stranding. 5. Redemonstration of 2.2 cm splenic mass. Again, differential considerations include both benign and malignant etiologies. 6. Redemonstration of bilateral lower lobe groundglass opacities which may reflect positive fluid balance versus inflammatory/infectious process. 7. Interval resolution of the mild sigmoid wall thickening. Lasha Anderson MD Chest CT 05/01/17 194 Signed Impressions: Service Date/Time: Monday, May 01, 2017 10:29 - CONCLUSION: Patchy airspace disease, predominantly interstitial most inflammatory. There is no adenopathy. There is no pericardial effusion. Gallo Lozada MD FACR Laboratory Tests Test 05/05/17 05/06/17 08:00 06:15 White Blood Count 16.8 TH/MM3 16.2 TH/MM3 Red Blood Count 3.95 MIL/MM3 3.82 MIL/MM3 Hemoglobin 10.6 GM/DL 10.5 GM/DL Hematocrit 33.2 % 31.9 % Mean Corpuscular Volume 84.1 FL 83.5 FL Mean Corpuscular Hemoglobin 26.9 PG 27.4 PG Mean Corpuscular Hemoglobin 32.0 % 32.8 % Concent Red Cell Distribution Width 14.6 % 14.7 % Platelet Count 122 TH/MM3 152 TH/MM3 Mean Platelet Volume 9.3 FL 9.0 FL Neutrophils (%) (Auto) 86.4 % 87.3 % Lymphocytes (%) (Auto) 7.5 % 5.9 % Monocytes (%) (Auto) 3.9 % 5.0 % Eosinophils (%) (Auto) 0.4 % 0.1 % Basophils (%) (Auto) 1.8 % 1.7 % Neutrophils # (Auto) 14.4 TH/MM3 14.1 TH/MM3 Lymphocytes # (Auto) 1.3 TH/MM3 1.0 TH/MM3 Monocytes # (Auto) 0.7 TH/MM3 0.8 TH/MM3 Eosinophils # (Auto) 0.1 TH/MM3 0.0 TH/MM3 Basophils # (Auto) 0.3 TH/MM3 0.3 TH/MM3 CBC Comment AUTO DIFF DIFF FINAL Differential Comment AUTO DIFF CONFIRMED Sodium Level 131 MEQ/L 133 MEQ/L Potassium Level 3.2 MEQ/L 4.1 MEQ/L Chloride Level 88 MEQ/L 92 MEQ/L Carbon Dioxide Level 38.2 MEQ/L 34.2 MEQ/L Anion Gap 5 MEQ/L 7 MEQ/L Blood Urea Nitrogen 18 MG/DL 21 MG/DL Creatinine 0.87 MG/DL 1.00 MG/DL Estimat Glomerular Filtration 64 ML/MIN 54 ML/MIN Rate Random Glucose 92 MG/DL 163 MG/DL Calcium Level 8.2 MG/DL 7.9 MG/DL Magnesium Level 1.5 MG/DL 1.7 MG/DL Total Bilirubin 0.5 MG/DL 0.5 MG/DL Aspartate Amino Transf 54 U/L 54 U/L (AST/SGOT) Alanine Aminotransferase 105 U/L 99 U/L (ALT/SGPT) Alkaline Phosphatase 135 U/L 138 U/L Total Protein 5.5 GM/DL 5.3 GM/DL Albumin 2.0 GM/DL 2.0 GM/DL Allergies Coded Allergies Type Severity Reaction Last Updated Verified Penicillin Allergy Severe THROAT CLOSES 03/26/17 Yes Adhesives Allergy Unknown 03/26/17 Yes MRI PRECAUTION Adverse Reaction Severe 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 03/26/17 Yes Active Scripts Medications Dose Route/Sig Days Date Category Fish Oil + D3 (Fish Oil-Cholecalciferol) 1,200-1,000 Mg-Unit Cap 1 Cap PO DAILY 04/29/17 Reported Fluconazole 100 Mg Tab 100 Mg PO DAILY 04/29/17 Reported Zofran (Ondansetron HCl) 4 Mg Tab 4 Mg PO Q8HR PRN 04/29/17 Reported Lasix (Furosemide) 20 Mg Tab 20 Mg PO BID 04/03/17 Rx Pantoprazole (Pantoprazole Sodium) 40 Mg Tab 40 Mg PO DAILY 03/30/17 Rx Metoprolol Tartrate 25 Mg Tab 12.5 Mg PO Q12HR 03/30/17 Rx Adult Aspirin EC Low Strength (Aspirin) 81 Mg Tabec 81 Mg PO DAILY 03/30/17 Rx Chewable Calcium (Calcium-Vitamins D & K) 500-200-40 Mg-Unit-Mcg Chew 1 Tab CHEW 01/12/17 Reported Morphine ER (Morphine Sulfate) 60 Mg Tab 60 Mg PO BID 01/12/17 Reported Gabapentin 400 Mg Cap 400 Cap PO QID 01/12/17 Reported Hydrocodone-Acetaminophen 7.5-300 Mg Tab 1 Tab PO Q4H PRN 01/12/17 Reported Levothyroxine (Levothyroxine Sodium) 150 Mcg Tab 150 Mcg PO DAILY 01/12/17 Reported Liothyronine (Liothyronine Sodium) 5 Mcg Tab 5 Mcg PO DAILY 01/12/17 Reported ASSESSMENT/PLAN: Seen and examined, complaining of some central abdominal pain and bloating after eating. Will add Simethicone 80mg po tid. She has appointment with [facility] on the 12 of may. Very import that she keep this appointment, discussed with Dr. Lopez and patient. It was a pleasure seeing Shreya Mancia. Thank you for this consult. Entered by: Valentin Fuller MD May 06, 2017 16:08
[2017-05-06] MEDS: SIMETHICONE 125 MG CHEWABLE TAB PO SCH ×2 (16:33→21:57)
--- NOTE | 2017-05-06 17:04 | HHI.PR ---
Subjective Remarks Feels Better.Off O2 . CXR was clear.WBC at 16.2 Now on Zyvox . Objective Vital Signs Date Time Temp Pulse Resp B/P Pulse Ox O2 Delivery O2 Flow Rate FiO2 05/06/17 10:02 20 05/06/17 08:00 99 Nasal Cannula 2.00 05/06/17 08:00 96.7 67 14 140/92 92 05/06/17 07:30 90 21 05/06/17 00:00 96.6 74 20 141/79 94 05/05/17 21:15 98 Room Air 05/05/17 21:12 94 21 05/05/17 20:56 98 Nasal Cannula 2.00 05/05/17 20:00 99 Nasal Cannula 2.00 05/05/17 20:00 97.8 70 18 126/65 98 I/O 05/05/17 05/05/17 05/05/17 05/06/17 05/06/17 05/06/17 07:00 15:00 23:00 07:00 15:00 23:00 Intake Total 230 ml 480 ml Output Total 1100 ml 2 ml 601 ml Balance -1100 ml 228 ml -121 ml Intake Oral 120 ml 350 ml IV Total 110 ml 130 ml Output Urine Total 1100 ml 2 ml 600 ml Stool Total 1 ml # Voids 3 # Bowel Movements 0 Result Diagram: 05/06/17 0615 05/06/17 0615 Objective Remarks GENERAL: This elderly thinly built white female who is not dyspneic at rest.. HEENT: Head normocephalic. Pupils are reactive. Tongue is moist. Ears - no inflammation. NECK: Supple. No bruits or thyroid enlargement. CHEST: Equal movements with decreased excursions. Occasional expiratory wheezes bilaterally .NO crackles. HEART SOUNDS: Regular S1 and S2. No murmur. No S3. ABDOMEN: Soft, tender in the upper abdomen. No organomegaly. The bowel sounds are faint. EXTREMITIES: Edema 1+. No calf tenderness. NEUROLOGICALLY: The patient does move all her extremities with 1+ reflexes. There were no gross motor deficits. SKIN: No lesions. Assessment and Plan Assessment and Plan IMPRESSION 1. Bibasilar atelectasis with pneumonia. 2. Abdominal pain with history of biliary stenting. 3. History of hypothyroidism. 4. COPD. 5. Hypokalemia. 6. Peripheral neuropathy. 7. Urinary tract infection. 8. Possible sepsis. 9. Pancreatitis Plan : 1. Continue antibiotics per ID 2. D/C O2 if sat >92 on RA 3. Nebs tid , duoneb. 4. lasix to 20 mg daily 5. CBC,BMP in am 6. Taper prednisone to 10 mg daily and D/C in 5 days Elle Patiño MD May 06, 2017 17:04
[2017-05-07 00:09] VITALS: BP 116/72; PULSE 73; RESP 16; TEMP 98.6; O2SAT 93
[2017-05-07] MEDS: LEVOTHYROXINE SODIUM 150 MCG TAB PO SCH (06:24)
[2017-05-07] MEDS: SIMETHICONE 125 MG CHEWABLE TAB PO SCH ×3 (06:24→19:39)
[2017-05-07] MEDS: SODIUM CHLORIDE 0.9% FLUSH 10 ML FLUSH IV FLUSH PRN (06:26)
[2017-05-07] MEDS: CEFEPIME INJ 2,000 MG in SODIUM CHLORIDE 0.9% INJ 100 ML IV SCH ×2 (06:26→18:09)
--- NOTE | 2017-05-07 06:52 | MB ---
cc: FERNIE COLON DATE OF CONSULTATION 05/06/2017 REASON FOR CONSULTATION The patient has a splenic mass. HISTORY This is a 71-year-old female who has a past medical history of breast cancer. This was early stage breast cancer and it was treated many years ago. She used to follow with Dr. Austin. She recently presented with jaundice and was found to have elevated liver function. She had a dilated biliary tree. She underwent endoscopic ultrasound and ERCP by Dr. Brown. She had a sphincterectomy and brushing and a stent was placed. Her tumor markers including CEA was within normal range. CA19-9 was mildly elevated. The patient was going to follow up at [facility] for further workup. She has now presented to the emergency department with abdominal pain. Her abdominal pain has resolved. It was thought that her abdominal pain was secondary to musculoskeletal and chronic back issues. A CT of the abdomen and pelvis completed on . This shows an extensive pneumobilia with biliary stent in place. There is fullness of pancreatic head and uncinate region without a discernible focal mass. There is 2.2 x 2.1-cm hypodense mass in the spleen. The patient is currently being treated for pneumonia. She is currently on cefepime, Levaquin and Zyvox. I have been consulted to make further recommendations regarding the splenic mass. The patient does not endorse any constitutional B symptoms over the last six months. She denies any weight loss. No night sweats, fevers or chills. She denies any abdominal fullness. She does endorse abdominal cramping. She has not had any bright red blood per rectum or melena. Her ECOG performance status is zero. PAST MEDICAL HISTORY 1. Hypothyroidism 2. Neuropathy 3. Atrial fibrillation 4. Arthritis 5. History of breast cancer status post lumpectomy in the right Breast. 6. Scoliosis 7. Cataract surgery 8. Thyroidectomy 9. Spinal fusion 10. Left knee replacement FAMILY HISTORY Reviewed and is noncontributory to this admission. SOCIAL HISTORY She does not drink alcohol. She is an ex-smoker of 40 pack-years. She quit many years ago. MEDICATIONS 1. Levaquin 250 mg p.o. daily 2. Prednisone 10 mg p.o. daily 3. Simethicone 125 mg p.o. q.8 h 4. Furosemide 20 mg p.o. daily 5. Cefepime 2 gm IV 6. Zyvox 600 mg p.o. q.12 h 7. Nystatin 5 cc q.i.d. 8. Magnesium hydroxide 400 mg p.o. b.i.d. 9. Gabapentin 600 mg p.o. q.i.d. 10. Aspirin 81 mg p.o. OD daily 11. Diflucan 100 mg p.o. daily 12. Levothyroxine 5 mcg p.o. daily 13. Metoprolol 12.5 mg p.o. q.12 h. 14. Morphine sulfate 50 mg p.o. b.i.d. 15. Pantoprazole 40 mg p.o. daily 16. Enoxaparin 40 mg subcu 24 hours 17. Gladstone one tablet p.o. q.4 h p.r.n. 18. Zofran 4 mg p.o. q.8 h p.r.n. 19. Senna 20. Lactulose 21. DuoNebs ALLERGIES She is allergic to PENICILLIN. PHYSICAL EXAM VITAL SIGNS: Blood pressure 115/72, pulse is in the 70s, temperature is 98.6, O2 sats are 93% on room air. GENERAL: This is a well-developed, well-nourished female in no apparent distress. HEENT: Pupils are equal, round, reactive to light. EOMI. No oral thrush. No oral lesions. NECK: Supple. No JVD, no bruits. No lymphadenopathy. CHEST: Clear to auscultation bilaterally. CARDIAC: S1-S2 regular rate and rhythm. ABDOMEN: Soft. Mild tenderness in the epigastric region. No rebound or guarding. Bowel sounds are present. EXTREMITIES: Without any edema, erythema or cyanosis. SKIN: Without any petechiae, lesion or bruises. NEUROLOGIC: No focal deficits. PSYCHIATRIC: Mood and affect is appropriate. LABORATORY DATA WBC is 16.2, hemoglobin is 7.5, platelet count is 152. Serum chemistries show sodium of 133, potassium 4.1, chloride 92, CO2 34.2, BUN is 21, creatinine is 1, GFR is 54, calcium is 7.9, AST 54, ALT is 99, alk phos is 138, total protein is 5.3, albumin is 2. IMAGING STUDIES CT of the abdomen and pelvis was reviewed. Chest x-ray was reviewed. No evidence of acute cardiopulmonary disease. ASSESSMENT/PLAN This is a 71-year-old female who presented with jaundice and biliary obstruction. She has undergone stent placement, sphincterectomy and brushing. The pathology results from the brushings from the common bile duct were negative for malignant cells. There is no distinct mass in the pancreas or the biliary tree. The patient was found to have a splenic mass most recent CT scan. I have been consulted to make further recommendations. 1. Splenic mass also with a history of biliary obstruction. No distinct mass is seen in the pancreas or the biliary region. Her CEA is normal. CA19-9 is slightly elevated. There is no definitive evidence of malignancy. However, some suspicion of underlying malignancy such as cholangiocarcinoma exists. This patient will need to be followed closely as an outpatient. The patient has been seen by Dr. Austin and Dr. Kwong in the past. She was also referred to the [facility] for further evaluation. I had a long discussion with the patient. I discussed my recommendations with her. Since we do not have any evidence of biopsy proven malignancy and the splenic lesion is nonspecific, I would recommend obtaining a PET/CT scan to see whether this is a hypermetabolic lesion. This can be completed in the outpatient setting. If this lesion turns out to be hypermetabolic, I would recommend obtaining a biopsy at that point. I have given this patient the contact information for the clinic. She was asked to follow up with either Dr. Austin, Dr. Kwong or me in the next [id number] weeks. 2. Leukocytosis/hospital-acquired pneumonia. She is currently being treated with antibiotics. Infectious disease is seeing this patient. Anemia which is normocytic with an MCV of 83.5, I would recommend obtaining anemia studies. Obtain a stool hemoccult test. 3. Transaminitis with AST of 54 and ALT of 99, I would recommend obtaining a hepatitis panel. 4. Malnutrition with a very low albumin level. I would recommend dietitian consult. Encourage oral intake. Thank you for allowing me to participate in the care of this patient. I will continue to follow this patient along. MD BAKARI Miller/SHERIE /12:49 AM 6:28 AM
[2017-05-07 07:58] LABS: AUTOMATED NEUTROPHIL # 11.8 TH/MM3 (1.8-7.7); BASOPHIL % 0.2 % (0.0-2.0); EOSINOPHIL % 0.2 % (0.0-4.0); HEMATOCRIT 31.9 % (35.0-46.0); LYMPH % 8.5 % (9.0-44.0); LYMPHOCYTE # 1.1 TH/MM3 (1.0-4.8); MEAN CELL VOLUME 83.8 FL (80.0-100.0); MEAN CORPUSCULAR HEMOGLOBIN 27.2 PG (27.0-34.0); MEAN CORPUSCULAR HGB CONC 32.5 % (32.0-36.0); MONO % 4.6 % (0.0-8.0); NEUT % 86.5 % (16.0-70.0); PLATELET COUNT 184 TH/MM3 (150-450); RED BLOOD COUNT 3.81 MIL/MM3 (4.00-5.30); RED CELL DISTRIBUTION WIDTH 14.9 % (11.6-17.2); WHITE BLOOD COUNT 13.5 TH/MM3 (4.0-11.0)
[2017-05-07 08:00] VITALS: BP 138/77; PULSE 62; RESP 18; TEMP 97; O2SAT 96
[2017-05-07 08:07] LABS: CHLORIDE 96 MEQ/L (98-107); HEMO FLAGS DIFF FINAL; POTASSIUM 3.7 MEQ/L (3.5-5.1); SODIUM (NA) 135 MEQ/L (136-145)
[2017-05-07 08:11] LABS: ANION GAP 4 MEQ/L (5-15); BICARBONATE 35.1 MEQ/L (21.0-32.0); BLOOD UREA NITROGEN 19 MG/DL (7-18); MAGNESIUM 1.9 MG/DL (1.5-2.5)
[2017-05-07 08:14] LABS: ALT (GPT) 108 U/L (10-53); AST (GOT) 72 U/L (15-37); GLOMERULAR FILTRATION RATE 60 ML/MIN (>89)
[2017-05-07 08:16] LABS: TOTAL BILIRUBIN ADULT 0.5 MG/DL (0.2-1.0)
[2017-05-07 08:17] LABS: ALKALINE PHOSPHATASE 151 U/L (45-117)
--- NOTE | 2017-05-07 08:35 | HHI.PR ---
Subjective History of Present Illness Patient feel weak and tired. leukocytosis better today, low potassium resolved and low magnesium better . no acute issue d/w RN Celeste at bed side. Patient worsening condition explained to patient verbalize understanding and all question answered to patient satisafication. called Infectious disease to discuss the patient discharge plan she did not called me Back. Review of Systems Constitutional Constitutional: Fatigue, Weakness Pulmonary Respiratory: Coughing, Shortness of Breath Cardiology CV Remarks leg edema. GI/Abdomen GI/Abdominal Exam: Abdominal Pain Vitals/Results Intake & Output 05/06/17 05/06/17 05/07/17 15:00 23:00 07:00 Intake Total 1700 ml 330 ml Balance 1700 ml 330 ml Intake Oral 1700 ml 200 ml IV Total 130 ml # Voids 7 3 # Bowel Movements 1 1 Vital Signs Vital Signs Date Time Temp Pulse Resp B/P Pulse Ox O2 Delivery O2 Flow Rate FiO2 05/07/17 00:09 98.6 73 16 116/72 93 05/06/17 21:41 98.6 70 17 118/69 94 05/06/17 21:35 94 21 05/06/17 20:00 93 Room Air 05/06/17 16:30 96.9 68 16 150/83 93 05/06/17 12:30 97.5 63 14 125/81 94 05/06/17 10:02 20 CBC/BMP: 05/07/17 0730 05/07/17 0730 Lab Results Laboratory Tests Test 05/07/17 07:30 White Blood Count 13.5 TH/MM3 Red Blood Count 3.81 MIL/MM3 Hemoglobin 10.4 GM/DL Hematocrit 31.9 % Mean Corpuscular Volume 83.8 FL Mean Corpuscular Hemoglobin 27.2 PG Mean Corpuscular Hemoglobin 32.5 % Concent Red Cell Distribution Width 14.9 % Platelet Count 184 TH/MM3 Mean Platelet Volume 8.1 FL Neutrophils (%) (Auto) 86.5 % Lymphocytes (%) (Auto) 8.5 % Monocytes (%) (Auto) 4.6 % Eosinophils (%) (Auto) 0.2 % Basophils (%) (Auto) 0.2 % Neutrophils # (Auto) 11.8 TH/MM3 Lymphocytes # (Auto) 1.1 TH/MM3 Monocytes # (Auto) 0.6 TH/MM3 Eosinophils # (Auto) 0.0 TH/MM3 Basophils # (Auto) 0.0 TH/MM3 CBC Comment DIFF FINAL Differential Comment Sodium Level 135 MEQ/L Potassium Level 3.7 MEQ/L Chloride Level 96 MEQ/L Carbon Dioxide Level 35.1 MEQ/L Anion Gap 4 MEQ/L Blood Urea Nitrogen 19 MG/DL Creatinine 0.92 MG/DL Estimat Glomerular Filtration 60 ML/MIN Rate Random Glucose 88 MG/DL Calcium Level 7.6 MG/DL Magnesium Level 1.9 MG/DL Total Bilirubin 0.5 MG/DL Aspartate Amino Transf 72 U/L (AST/SGOT) Alanine Aminotransferase 108 U/L (ALT/SGPT) Alkaline Phosphatase 151 U/L Total Protein 5.4 GM/DL Albumin 2.1 GM/DL Microbiology Microbiology 05/07/17 Stool Occult Blood ([facility]), Received Pending Physical Exam General General Appearance: Well Developed, Well Nourished, No Acute Distress, Comfortable Eyes Eye Exam: Sclera White, Extraocular Movement Intact Throat Throat Exam: Oral Mucosa [place] & Moist, Oral Pharynx Normal Neck Neck Exam: Neck Supple, Trachea Midline Pulmonary Resp Exam: Clear Bilaterally, Breath Sounds Equal Cardiology CV Exam: Regular, Normal Sinus Rhythm Gastrointestinal/Abdomen GI Exam: Soft, Bowel Sounds Present GI Remarks diffuse abdominal tenderness. Musculoskeletal MS Exam: Normal Tone Integumentary Skin Exam: Warm, Dry Extremeties Extremities Exam: Pitting Edema Neurologic Neuro Exam: Alert, Awake, Oriented, Moving All Extremities, No Focal Deficits Psychiatric Psych Exam: Appropriate Responses VTE Prophylaxis VTE Prophylaxis Device: SCDs PUD Prophylasis PUD Prophylaxis: Protonix Assessment/Plan Assessment/Plan ASSESSMENT/PLAN 1. This is a 71-year-old female diagnosed with cough and shortness of breath secondary to pneumonia. The patient is on Levaquin PO and cefepime IV.+ Zyvox by ID... pulmonary input noted for further recommendation. s/p CT Chest noted. recheck chest x- ray.shows worsening infiltrate. Another repeat Chest x- ray clear DC Plan soon when ok with Pulmonary/ ID. 2. Abdominal pain with recent biliary stenting a few weeks ago. GI input noted for further recommendation. Lipase is normal. CT Abdomen and pelvis noted. Need to see at [facility] for biliary stent removal. 3. Leg edema. Continue with Lasix. 4. Neuropathy. Continue with Gabapentin. 5. History of hypothyroidism. Continue with levothyroxine. 6. Hypokalemia resolved, Hypomagnesemia. better on replacement. 7. Hyponatremia. We will monitor. 8. High LFTs. GI input noted for further recommendation. 9. Urinary tract infection. The patient is on antibiotic Levaquin and cefepime and Zyvox . repeat UA..better. 10. Leukocytosis secondary to pneumonia and urinary tract infection. leukocytosis better 11. Possible sepsis on admission with pneumonia and urinary tract infection. 12. DVT prophylaxis. Lovenox 40 mg subcutaneous daily. 13. GI prophylaxis Protonix 40 mg p.o. daily. 14. Splenic mass oncology input noted. We are going to manage the patient on a daily basis and make recommendations on a daily basis. Check CBC with diff CMP in AM. DC Plan soon when ok with Pulmonary/ ID. Discussed Condition with: Patient Sivakumar Lopez MD May 07, 2017 08:35
[2017-05-07] MEDS: NYSTATIN SUSP 500,000 U/5 ML CUP SWISH-SWAL SCH ×4 (08:36→19:39)
[2017-05-07] MEDS: SODIUM CHLORIDE 0.9% FLUSH 10 ML FLUSH IV FLUSH SCH ×2 (08:36→19:43)
[2017-05-07] MEDS: predniSONE 10 MG TAB PO SCH (08:37)
[2017-05-07] MEDS: FUROSEMIDE 20 MG TAB PO SCH (08:37)
[2017-05-07] MEDS: ASPIRIN EC 81 MG TABEC PO SCH (08:37)
[2017-05-07] MEDS: FLUCONAZOLE 100 MG TAB PO SCH (08:37)
[2017-05-07] MEDS: LIOTHYRONINE SODIUM 5 MCG TAB PO SCH (08:37)
[2017-05-07] MEDS: MAGNESIUM OXIDE 400 MG TAB PO SCH ×2 (08:38→19:38)
[2017-05-07] MEDS: GABAPENTIN 300 MG CAP PO SCH ×4 (08:38→19:39)
[2017-05-07] MEDS: METOPROLOL TARTRATE 25 MG TAB PO SCH ×2 (08:38→19:38)
[2017-05-07] MEDS: MORPHINE SULFATE 30 MG CONTROLLED RELEASE TAB PO SCH ×2 (08:38→19:39)
[2017-05-07] MEDS: LINEZOLID 600 MG TAB PO SCH (08:39)
[2017-05-07] MEDS: PANTOPRAZOLE SOD 40 MG DELAYED RELEASE TAB PO SCH (08:39)
[2017-05-07 09:16] VITALS: O2SAT 96
[2017-05-07 09:43] LABS: LDH SERUM 456 U/L (84-246)
[2017-05-07 10:10] LABS: TRANSFERRIN IRON PROFILE 130 MG/DL (200-360)
[2017-05-07] MEDS ORDERED: LEVOFLOXACIN 250 MG TAB PO SCH (11:00)
[2017-05-07] MEDS: ENOXAPARIN SODIUM 40 MG/0.4 ML SYRINGE SQ SCH (11:00)
--- NOTE | 2017-05-07 15:01 | HHI.IDPN ---
Note Infectious Disease Note ID coverage. Notes reviewed. Patient is comfortable. Had diarrhea this am then stools became more formed. No fever. Ambulated with PT with walker. No SOB. History of bile duct stent placement a few weeks ago. ID consulted for management of pneumonia. Antibiotics Cefepime IV Levaquin Zyvox. 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 Elaine Objective Vital Signs Date Time Temp Pulse Resp B/P Pulse Ox O2 Delivery O2 Flow Rate FiO2 05/07/17 09:38 18 05/07/17 09:16 96 21 05/07/17 07:00 96 Room Air 05/07/17 00:09 98.6 73 16 116/72 93 05/06/17 21:41 98.6 70 17 118/69 94 05/06/17 21:35 94 21 05/06/17 20:00 93 Room Air 05/06/17 16:30 96.9 68 16 150/83 93 05/06/17 05/06/17 05/07/17 14:59 22:59 06:59 Intake Total 1700 ml 330 ml Balance 1700 ml 330 ml Intake Oral 1700 ml 200 ml IV Total 130 ml # Voids 7 3 # Bowel Movements 1 1 Laboratory Tests Test 05/06/17 05/07/17 06:15 07:30 White Blood Count 16.2 TH/MM3 13.5 TH/MM3 Red Blood Count 3.82 MIL/MM3 3.81 MIL/MM3 Hemoglobin 10.5 GM/DL 10.4 GM/DL Hematocrit 31.9 % 31.9 % Mean Corpuscular Volume 83.5 FL 83.8 FL Mean Corpuscular Hemoglobin 27.4 PG 27.2 PG Mean Corpuscular Hemoglobin 32.8 % 32.5 % Concent Red Cell Distribution Width 14.7 % 14.9 % Platelet Count 152 TH/MM3 184 TH/MM3 Mean Platelet Volume 9.0 FL 8.1 FL Neutrophils (%) (Auto) 87.3 % 86.5 % Lymphocytes (%) (Auto) 5.9 % 8.5 % Monocytes (%) (Auto) 5.0 % 4.6 % Eosinophils (%) (Auto) 0.1 % 0.2 % Basophils (%) (Auto) 1.7 % 0.2 % Neutrophils # (Auto) 14.1 TH/MM3 11.8 TH/MM3 Lymphocytes # (Auto) 1.0 TH/MM3 1.1 TH/MM3 Monocytes # (Auto) 0.8 TH/MM3 0.6 TH/MM3 Eosinophils # (Auto) 0.0 TH/MM3 0.0 TH/MM3 Basophils # (Auto) 0.3 TH/MM3 0.0 TH/MM3 CBC Comment DIFF FINAL DIFF FINAL Differential Comment Laboratory Tests Test 05/06/17 05/07/17 06:15 07:30 Sodium Level 133 MEQ/L 135 MEQ/L Potassium Level 4.1 MEQ/L 3.7 MEQ/L Chloride Level 92 MEQ/L 96 MEQ/L Carbon Dioxide Level 34.2 MEQ/L 35.1 MEQ/L Anion Gap 7 MEQ/L 4 MEQ/L Blood Urea Nitrogen 21 MG/DL 19 MG/DL Creatinine 1.00 MG/DL 0.92 MG/DL Estimat Glomerular Filtration 54 ML/MIN 60 ML/MIN Rate Random Glucose 163 MG/DL 88 MG/DL Calcium Level 7.9 MG/DL 7.6 MG/DL Magnesium Level 1.7 MG/DL 1.9 MG/DL Total Bilirubin 0.5 MG/DL 0.5 MG/DL Aspartate Amino Transf 54 U/L 72 U/L (AST/SGOT) Alanine Aminotransferase 99 U/L 108 U/L (ALT/SGPT) Alkaline Phosphatase 138 U/L 151 U/L Total Protein 5.3 GM/DL 5.4 GM/DL Albumin 2.0 GM/DL 2.1 GM/DL Iron Level 69 MCG/DL Total Iron Binding Capacity 182 MCG/DL Percent Iron Saturation 37.9 % Lactate Dehydrogenase 456 U/L Vitamin B12 Level 918 PG/ML Microbiology Date/Time Procedure Status Source Growth 05/07/17 06:30 Stool Occult Blood ([facility]) - Final Complete Stool Stool HEMOCCULT NEGATIVE Imaging Chest X-Ray 05/06/17 0600 Signed Impressions: Service Date/Time: Saturday, May 06, 2017 06:37 - CONCLUSION: No evidence of acute cardio pulmonary disease. Kenyetta Aranda MD Abdomen/Pelvis CT 05/04/17 0000 Signed Impressions: Service Date/Time: Thursday, May 04, 2017 14:42 - CONCLUSION: 1. No evidence for significant mesenteric artery stenosis. 2. Moderate to severe right renal artery stenosis. 3. Redemonstration of profound hepatic steatosis with diffuse pneumobilia following biliary stent placement. 4. Continued pancreatic ductal dilatation extending to the ampulla with slight prominence of the pancreatic head/uncinate process without discernible focal mass. No peripancreatic fluid collections or significant new stranding. 5. Redemonstration of 2.2 cm splenic mass. Again, differential considerations include both benign and malignant etiologies. 6. Redemonstration of bilateral lower lobe groundglass opacities which may reflect positive fluid balance versus inflammatory/infectious process. 7. Interval resolution of the mild sigmoid wall thickening. Lasha Anderson MD Chest X-Ray 05/03/17 0000 Signed Impressions: Service Date/Time: Wednesday, May 03, 2017 10:58 - CONCLUSION: Deterioration with increasing interstitial changes in both lungs. Gallo Lozada MD FACR GENERAL: Patient is in no acute distress. HEENT: EOMI, No icterus. NECK: Supple. No adenopathy. LUNGS: Clear to auscultation. CARDIAC: Regular rate and rhythm. No murmurs. ABDOMEN: Soft, non tender. EXTREMITIES: No CCE. SKIN: No rash. PSYCH: Calm cooperative, pleasant. Assessment & Plan Remarks Health care associated pneumonia Leucocytosis. improving. Abnormal LFTs secondary to hepatic steatosis. ? Pancreatitis. Biliary stent placement recently. Multiple hardware in body at risk for seeding. Recs Monitor Blood cultures. Continue Cefepime through today then can be discharged on PO Cefuroxime 500mg bid x 7 days. Stop Levaquin. Stop Zyvox. Follow clinically. Maciej Humphrey MD May 07, 2017 15:00
--- NOTE | 2017-05-07 17:59 | HHI.FF ---
Face to Face Verification Diagnosis: (1) Pneumonia (2) Edema (3) Jaundice (4) Anemia Physical Therapy Order: Evaluate and Treat, Improve ambulation Occupational Therapy Order: Evaluate and Treat Home Health Nursing Order: Medical education Medication education-adverse effect I have seen patient Shreya Mancia on 05/07/17. My clinical findings support the need for the requested home health care services because: Ltd mobility - disease progression Infection w/ risk of complications I certify that my clinical findings support that this patient is homebound because: Unsteady gait/balance Unable to use public transportation Sivakumar Lopez MD May 07, 2017 17:59
[2017-05-07] MEDS ORDERED: PRED10 PO (18:01)
[2017-05-07] MEDS ORDERED: CEFU1TAB20 PO (18:01)
--- NOTE | 2017-05-07 19:12 | HHI.PR ---
Subjective Remarks Feels Better.Off O2 sat 97. CXR was clear. Also on Zyvox and Cefipime. Objective Vital Signs Date Time Temp Pulse Resp B/P Pulse Ox O2 Delivery O2 Flow Rate FiO2 05/07/17 09:38 18 05/07/17 09:16 96 21 05/07/17 07:00 96 Room Air 05/07/17 00:09 98.6 73 16 116/72 93 05/06/17 21:41 98.6 70 17 118/69 94 05/06/17 21:35 94 21 05/06/17 20:00 93 Room Air I/O 05/06/17 05/06/17 05/06/17 05/07/17 05/07/17 05/07/17 06:59 14:59 22:59 06:59 14:59 22:59 Intake Total 480 ml 1700 ml 330 ml 320 ml Output Total 601 ml Balance -121 ml 1700 ml 330 ml 320 ml Intake Oral 350 ml 1700 ml 200 ml 320 ml IV Total 130 ml 130 ml Output Urine Total 600 ml Stool Total 1 ml # Voids 7 3 2 # Bowel Movements 1 1 2 Result Diagram: 05/07/17 0730 05/07/17 0730 Objective Remarks GENERAL: This elderly thinly built white female who is not dyspneic at rest.. HEENT: Head normocephalic. Pupils are reactive. Tongue is moist. Ears - no inflammation. NECK: Supple. No bruits or thyroid enlargement. CHEST: Equal movements with decreased excursions. Occasional expiratory wheezes bilaterally .NO crackles. HEART SOUNDS: Regular S1 and S2. No murmur. No S3. ABDOMEN: Soft, Non tender No organomegaly. The bowel sounds are faint. EXTREMITIES: Edema 1+. No calf tenderness. NEUROLOGICALLY: The patient does move all her extremities with 1+ reflexes. There were no gross motor deficits. SKIN: No lesions. Assessment and Plan Assessment and Plan IMPRESSION 1. Bibasilar atelectasis with pneumonia. 2. Abdominal pain with history of biliary stenting. 3. History of hypothyroidism. 4. COPD. 5. Hypokalemia. 6. Peripheral neuropathy. 7. Urinary tract infection. 8. Possible sepsis. 9. Pancreatitis Plan : 1. Continue antibiotics per ID 2. D/C O2 3. D/C Nebs and add Symbicort 160/4.5 mg , 2puffsbid 4. lasix 20 mg daily for 1 week 5. Home in am.Will F/U in 2 weeks. 6. Prednisone 10 mg daily and D/C in 5 days Elle Patiño MD May 07, 2017 19:12
[2017-05-07] MEDS: BUDESONIDE-FORMOTEROL 160/4.5 MCG INHALER INH SCH (19:42)
[2017-05-07 20:00] VITALS: BP 148/81; PULSE 61; RESP 16; TEMP 97.9; O2SAT 96
[2017-05-07 21:05] VITALS: O2SAT 94
[2017-05-08] VITALS: BP 130/70; PULSE 60; RESP 16; TEMP 96.4; O2SAT 96
[2017-05-08 04:00] VITALS: BP 141/82; PULSE 64; RESP 16; TEMP 97.1; O2SAT 94
[2017-05-08] MEDS: CEFEPIME INJ 2,000 MG in SODIUM CHLORIDE 0.9% INJ 100 ML IV SCH (05:11)
[2017-05-08] MEDS: SIMETHICONE 125 MG CHEWABLE TAB PO SCH (05:13)
[2017-05-08] MEDS: LEVOTHYROXINE SODIUM 150 MCG TAB PO SCH (05:13)
[2017-05-08 07:07] LABS: AUTOMATED NEUTROPHIL # 10.4 TH/MM3 (1.8-7.7); BASOPHIL % 0.1 % (0.0-2.0); EOSINOPHIL % 0.2 % (0.0-4.0); HEMATOCRIT 30.1 % (35.0-46.0); LYMPH % 8.9 % (9.0-44.0); LYMPHOCYTE # 1.1 TH/MM3 (1.0-4.8); MEAN CELL VOLUME 84.6 FL (80.0-100.0); MEAN CORPUSCULAR HEMOGLOBIN 28.4 PG (27.0-34.0); MEAN CORPUSCULAR HGB CONC 33.5 % (32.0-36.0); MONO % 6.9 % (0.0-8.0); NEUT % 83.9 % (16.0-70.0); PLATELET COUNT 200 TH/MM3 (150-450); RED BLOOD COUNT 3.56 MIL/MM3 (4.00-5.30); RED CELL DISTRIBUTION WIDTH 14.9 % (11.6-17.2); WHITE BLOOD COUNT 12.3 TH/MM3 (4.0-11.0)
[2017-05-08 07:10] LABS: HEMO FLAGS AUTO DIFF
[2017-05-08 07:16] LABS: CHLORIDE 96 MEQ/L (98-107); POTASSIUM 3.8 MEQ/L (3.5-5.1); SODIUM (NA) 132 MEQ/L (136-145)
[2017-05-08 07:19] LABS: ANION GAP 3 MEQ/L (5-15); BICARBONATE 33.1 MEQ/L (21.0-32.0)
[2017-05-08 07:20] LABS: BLOOD UREA NITROGEN 17 MG/DL (7-18)
[2017-05-08 07:22] LABS: ALT (GPT) 102 U/L (10-53)
[2017-05-08 07:23] LABS: AST (GOT) 59 U/L (15-37); GLOMERULAR FILTRATION RATE 70 ML/MIN (>89)
[2017-05-08 07:24] LABS: TOTAL BILIRUBIN ADULT 0.5 MG/DL (0.2-1.0)
[2017-05-08 07:26] LABS: ALKALINE PHOSPHATASE 138 U/L (45-117)
[2017-05-08 08:00] VITALS: BP 132/81; PULSE 65; RESP 18; TEMP 98.4; O2SAT 96
--- NOTE | 2017-05-08 08:30 | HHI.PR ---
Subjective History of Present Illness Patient feel a lot better.. leukocytosis better today, low potassium resolved and low magnesium better . no acute issue d/w RN Celeste at bed side. and all question answered to patient satisafication. ok to dc home today ok by pulmonary and infectious disease. Review of Systems Constitutional Constitutional: Fatigue, Weakness Pulmonary Respiratory: Coughing, Shortness of Breath Cardiology CV Remarks leg edema. GI/Abdomen GI/Abdominal Exam: Abdominal Pain Vitals/Results Intake & Output 05/07/17 05/07/17 05/08/17 15:00 23:00 07:00 Intake Total 320 ml 600 ml 240 ml Balance 320 ml 600 ml 240 ml Intake Oral 320 ml 600 ml 240 ml # Voids 2 4 7 # Bowel Movements 2 1 2 Vital Signs Vital Signs Date Time Temp Pulse Resp B/P Pulse Ox O2 Delivery O2 Flow Rate FiO2 05/08/17 04:00 97.1 64 16 141/82 94 05/08/17 00:00 96.4 60 16 130/70 96 05/07/17 22:49 96 Room Air 05/07/17 21:05 94 21 05/07/17 20:00 97.9 61 16 148/81 96 05/07/17 09:38 18 05/07/17 09:16 96 21 CBC/BMP: 05/08/17 0640 05/08/17 0640 Lab Results Laboratory Tests Test 05/08/17 06:40 White Blood Count 12.3 TH/MM3 Red Blood Count 3.56 MIL/MM3 Hemoglobin 10.1 GM/DL Hematocrit 30.1 % Mean Corpuscular Volume 84.6 FL Mean Corpuscular Hemoglobin 28.4 PG Mean Corpuscular Hemoglobin 33.5 % Concent Red Cell Distribution Width 14.9 % Platelet Count 200 TH/MM3 Mean Platelet Volume 8.2 FL Neutrophils (%) (Auto) 83.9 % Lymphocytes (%) (Auto) 8.9 % Monocytes (%) (Auto) 6.9 % Eosinophils (%) (Auto) 0.2 % Basophils (%) (Auto) 0.1 % Neutrophils # (Auto) 10.4 TH/MM3 Lymphocytes # (Auto) 1.1 TH/MM3 Monocytes # (Auto) 0.8 TH/MM3 Eosinophils # (Auto) 0.0 TH/MM3 Basophils # (Auto) 0.0 TH/MM3 CBC Comment AUTO DIFF Sodium Level 132 MEQ/L Potassium Level 3.8 MEQ/L Chloride Level 96 MEQ/L Carbon Dioxide Level 33.1 MEQ/L Anion Gap 3 MEQ/L Blood Urea Nitrogen 17 MG/DL Creatinine 0.80 MG/DL Estimat Glomerular Filtration 70 ML/MIN Rate Random Glucose 116 MG/DL Calcium Level 7.7 MG/DL Total Bilirubin 0.5 MG/DL Aspartate Amino Transf 59 U/L (AST/SGOT) Alanine Aminotransferase 102 U/L (ALT/SGPT) Alkaline Phosphatase 138 U/L Total Protein 5.3 GM/DL Albumin 2.1 GM/DL Physical Exam General General Appearance: Well Developed, Well Nourished, No Acute Distress, Comfortable Eyes Eye Exam: Sclera White, Extraocular Movement Intact Throat Throat Exam: Oral Mucosa [place] & Moist, Oral Pharynx Normal Neck Neck Exam: Neck Supple, Trachea Midline Pulmonary Resp Exam: Clear Bilaterally, Breath Sounds Equal Cardiology CV Exam: Regular, Normal Sinus Rhythm Gastrointestinal/Abdomen GI Exam: Soft, Bowel Sounds Present GI Remarks diffuse abdominal tenderness. Musculoskeletal MS Exam: Normal Tone Integumentary Skin Exam: Warm, Dry Extremeties Extremities Exam: Pitting Edema Neurologic Neuro Exam: Alert, Awake, Oriented, Moving All Extremities, No Focal Deficits Psychiatric Psych Exam: Appropriate Responses VTE Prophylaxis VTE Prophylaxis Device: SCDs PUD Prophylasis PUD Prophylaxis: Protonix Assessment/Plan Assessment/Plan ASSESSMENT/PLAN 1. This is a 71-year-old female diagnosed with cough and shortness of breath secondary to pneumonia. The patient is on Levaquin PO and cefepime IV.+ Zyvox by ID... pulmonary input noted for further recommendation. s/p CT Chest noted. recheck chest x- ray.shows worsening infiltrate. Another repeat Chest x- ray clear DC Plan soon when ok with Pulmonary/ ID. 2. Abdominal pain with recent biliary stenting a few weeks ago. GI input noted for further recommendation. Lipase is normal. CT Abdomen and pelvis noted. Need to see at [facility] for biliary stent removal. 3. Leg edema. Continue with Lasix. 4. Neuropathy. Continue with Gabapentin. 5. History of hypothyroidism. Continue with levothyroxine. 6. Hypokalemia resolved, Hypomagnesemia. better on replacement. 7. Hyponatremia. We will monitor. 8. High LFTs. GI input noted for further recommendation. 9. Urinary tract infection. The patient is on antibiotic Levaquin and cefepime and Zyvox . repeat UA..better. 10. Leukocytosis secondary to pneumonia and urinary tract infection. leukocytosis better 11. Possible sepsis on admission with pneumonia and urinary tract infection. 12. DVT prophylaxis. Lovenox 40 mg subcutaneous daily. 13. GI prophylaxis Protonix 40 mg p.o. daily. 14. Splenic mass oncology input noted. ok to dc home today ok by pulmonary and infectious disease. f/u with pcp/ pulmonary/ GI/ Infectious disease /Oncology 1-2 week follow up with [facility]. Discussed Condition with: Patient Sivakumar Lopez MD May 08, 2017 08:30 Sivakumar Lopez MD May 08, 2017 08:30
[2017-05-08] MEDS ORDERED: METR500T10 PO (08:32)
[2017-05-08 08:54] VITALS: O2SAT 93
[2017-05-08] MEDS: SODIUM CHLORIDE 0.9% FLUSH 10 ML FLUSH IV FLUSH SCH (09:00)
[2017-05-08] MEDS: BUDESONIDE-FORMOTEROL 160/4.5 MCG INHALER INH SCH (09:00)
[2017-05-08] MEDS: NYSTATIN SUSP 500,000 U/5 ML CUP SWISH-SWAL SCH (09:00)
[2017-05-08 09:02] LABS: OVALOCYTES 1+ (NORMAL)
[2017-05-08 09:03] LABS: PLATELET ESTIMATE SMEAR NORMAL (NORMAL); PLATELET MORPHOLOGY NORMAL (NORMAL); SCAN/DIFF AUTO DIFF CONFIRMED
[2017-05-08] MEDS: LIOTHYRONINE SODIUM 5 MCG TAB PO SCH (09:35)
[2017-05-08] MEDS: predniSONE 10 MG TAB PO SCH (09:35)
[2017-05-08] MEDS: FLUCONAZOLE 100 MG TAB PO SCH (09:35)
--- NOTE | 2017-05-08 09:35 | MD ---
cc: SIVAKUMAR GARCIA MD ADMISSION DATE: 04/29/2017 DISCHARGE DATE: 05/08/2017 [place] Visit Search.Discharge Date Okay to discharge the patient home with home health care. Condition at the time of discharge: Satisfactory. Activity: As tolerated. Diet: Cardiac diet. ALLERGIES 1. ADHESIVE TAPE. 2. PENICILLIN. DISCHARGE MEDICATIONS 1. Cefepime 500 mg twice a day for 7 days. 2. Flagyl 500 mg t.i.d. for 7 days. 3. Prednisone 10 mg p.o. daily. 4. Aspirin 81 mg p.o. daily. 5. Calcium with vitamin-D, one p.o. daily. 6. Fish oil 1200 to 1000 mg p.o. daily. 7. Levaquin 100 mg p.o. daily. 8. Furosemide 20 mg twice a day. 9. Gabapentin 400 mg q.i.d. 10.Hydrocodone/acetaminophen, one p.o. q.4h. 11.Levothyroxine 150 mcg p.o. daily. 12.Liothyronine 5 mcg p.o. daily. 13.Metoprolol tartrate 12.5 mg p.o. q.12h. 14.Morphine 60 mg twice a day. 15.Zofran 4 mg p.o. daily. 16.Protonix 40 mg p.o. daily. The patient was advised to follow-up with GI, Infectious Disease, oncology, PCP and pulmonology in one week. ADMITTING DIAGNOSIS 1. This is a 71-year-old female admitted with cough, congestion and shortness of breath, diagnosed with pneumonia. The patient was given p.o. Levaquin, cefepime IV and Zyvox. Infectious Disease saw the patient. The patient's condition improved. The patient's pneumonia improved. CT chest showed pneumonia. The patient was discharged home on Ceftin 500 mg twice a day for 7 days per ID recommendation. 2. The patient had abdominal pain with recent biliary stenting. She is to be seen at the [facility] on 05/12/2017. She needs to have her biliary stent removed per GI recommendation. 3. Leg edema. The patient was on Lasix. 4. Neuropathy. The patient is on Neurontin. 5. History of hypothyroidism. 6. Hypokalemia and hypomagnesemia during hospital stay which resolved. 7. High LFTs secondary to biliary stenting. 8. Urinary tract infection which is improved. 9. Sepsis secondary to pneumonia and urinary tract infection which is improved. 10.Splenic mass. Oncology has seen the patient and wants to see the patient as an outpatient. HOSPITAL COURSE This is a 71-year-old female admitted with the above-mentioned complaints and problems. She was given IV antibiotic. The patient had an UTI and pneumonia. The patient has seen by the infectious disease doctor and pulmonology. Discussed with Dr. Patiño and Dr. No. I called the infectious disease doctor but did not get a hold of her. The patient remained stable. No acute event happened. The patient had anemia with a hemoglobin of 10.4, 10.1 and 10.5. The patient had leukocytosis of 15.9 in the beginning. At the time of discharge it was 12.3. The patient had mild diarrhea on the day of discharge and was started on Flagyl 500 mg and advised to take three times a day for 7 days. The patient also had mild hyponatremia. Sodium was 132 at the time of discharge. The patient also had high LFTs. Initially LFTs showed AST 185, ALT 265, alkaline phosphatase 187. At the time of discharge, AST was 59, ALT 102 and alkaline phosphatase was 138. The patient also had low protein at 5.3 and albumin 2.1. The patient had an urinary tract infection which is improved on repeat urinalysis. The patient's chest x-ray done shows bibasilar densities. CT abdomen and pelvis done shows there is an artifact secondary to the lumbar spine hardware which partially obscures some of the abdominal organ which is likely still main pancreatic duct dilatation of uncertain etiology. Hepatomegaly with severe steatosis. Pneumobilia is present along with a stent in the bile duct. Abnormal ground-glass opacity at the lung base, right greater than left. This could represent an inflammatory process. Mild wall thickening of the proximal sigmoid colon. CT chest was done and shows patchy airspace disease, predominantly interstitial, mostly inflammatory. There is no adenopathy and there is no pericardial effusion. Chest x-ray was done and showed deterioration with increasing interstitial changes in both lungs. CT abdomen and pelvis was done again and shows no evidence of significant mesenteric artery stenosis. Moderate to severe right renal artery stenosis. The patient was told about the renal artery stenosis and advised to follow with PCP. Re-demonstration of profound hepatic steatosis with diffuse pneumobilia following biliary stent placement. 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 No peripancreatic fluid collection or significant new stranding. Re-demonstration of 2.2 cm splenic mass. Again, differential considerations include a benign or malignant etiology. Re-demonstration of bilateral lower lobe ground-glass opacities which may reflect positive fluid balance versus inflammatory versus infectious process. Interval resolution of the mild sigmoid wall thickening. Repeat chest x-ray was done and showed no evidence of acute cardiopulmonary disease. The patient's blood cultures done are negative so far. The patient's urine for Legionella and Streptococcus pneumoniae was negative. Gram stain of sputum done showed light growth of respiratory alena. Urine did not grow anything in 48 hours. Fecal occult blood test was negative. The patient is discharged in satisfactory condition and advised to follow-up with his PCP, pulmonology, oncology, Infectious Disease and gastroenterology. Further details in the medical record. Sivakumar Garcia MD EA/ALINE /8:33 AM /8:55 AM
[2017-05-08] MEDS: ASPIRIN EC 81 MG TABEC PO SCH (09:36)
[2017-05-08] MEDS: FUROSEMIDE 20 MG TAB PO SCH (09:36)
[2017-05-08] MEDS: GABAPENTIN 300 MG CAP PO SCH (09:36)
[2017-05-08] MEDS: METOPROLOL TARTRATE 25 MG TAB PO SCH (09:36)
[2017-05-08] MEDS: MAGNESIUM OXIDE 400 MG TAB PO SCH (09:36)
[2017-05-08] MEDS: MORPHINE SULFATE 30 MG CONTROLLED RELEASE TAB PO SCH (09:37)
[2017-05-08] MEDS: PANTOPRAZOLE SOD 40 MG DELAYED RELEASE TAB PO SCH (09:37)
--- NOTE | 2017-05-08 09:44 | HHI.GIFU ---
Subjective Remarks feels ok, no new complains, still some abdominal discomfort , tolerating diet Objective Vitals I&O Vital Signs Date Time Temp Pulse Resp B/P Pulse Ox O2 Delivery O2 Flow Rate FiO2 05/08/17 08:54 93 21 05/08/17 04:00 97.1 64 16 141/82 94 05/08/17 00:00 96.4 60 16 130/70 96 05/07/17 22:49 96 Room Air 05/07/17 21:05 94 21 05/07/17 20:00 97.9 61 16 148/81 96 I/O 05/07/17 05/07/17 05/07/17 05/08/17 05/08/17 05/08/17 07:00 15:00 23:00 07:00 15:00 23:00 Intake Total 330 ml 320 ml 600 ml 240 ml Balance 330 ml 320 ml 600 ml 240 ml Intake Oral 200 ml 320 ml 600 ml 240 ml IV Total 130 ml # Voids 3 2 4 7 # Bowel Movements 1 2 1 2 Laboratory Laboratory Tests Test 05/08/17 06:40 White Blood Count 12.3 Red Blood Count 3.56 Hemoglobin 10.1 Hematocrit 30.1 Mean Corpuscular Volume 84.6 Mean Corpuscular Hemoglobin 28.4 Mean Corpuscular Hemoglobin 33.5 Concent Red Cell Distribution Width 14.9 Platelet Count 200 Mean Platelet Volume 8.2 Neutrophils (%) (Auto) 83.9 Lymphocytes (%) (Auto) 8.9 Monocytes (%) (Auto) 6.9 Eosinophils (%) (Auto) 0.2 Basophils (%) (Auto) 0.1 Neutrophils # (Auto) 10.4 Lymphocytes # (Auto) 1.1 Monocytes # (Auto) 0.8 Eosinophils # (Auto) 0.0 Basophils # (Auto) 0.0 CBC Comment AUTO DIFF Differential Comment AUTO DIFF CONFIRMED Platelet Estimate NORMAL Platelet Morphology Comment NORMAL Ovalocytes 1+ Sodium Level 132 Potassium Level 3.8 Chloride Level 96 Carbon Dioxide Level 33.1 Anion Gap 3 Blood Urea Nitrogen 17 Creatinine 0.80 Estimat Glomerular Filtration 70 Rate Random Glucose 116 Calcium Level 7.7 Total Bilirubin 0.5 Aspartate Amino Transf 59 (AST/SGOT) Alanine Aminotransferase 102 (ALT/SGPT) Alkaline Phosphatase 138 Total Protein 5.3 Albumin 2.1 Date/Time Procedure Status Source Growth 05/07/17 06:30 Stool Occult Blood ([facility]) - Final Complete Stool Stool HEMOCCULT NEGATIVE Physical Exam HEENT: normocephalic; atraumatic; no jaundice. NECK: Neck is supple CHEST: Chest is clear to auscultation and percussion. CARDIAC: Regular rate and rhythm with no murmur gallop or rubs. ABDOMEN: Soft, mildly distended tympanic, mildly tender in the epigastric area ; no hepatosplenomegaly; bowel sounds are present in all four quadrants. EXTREMITIES: No clubbing, cyanosis, or edema. ATHLETIC TEAM PHYSICIAN: No focal deficits; alert and oriented times three. Assessment and Plan Plan Abdominal pain most likely secondary to musculoskeletal and chronic back issues Bloating, CTA findings were discussed with patient, she understands the findings, she will need periodic follow-up with her CT scan to follow on the lesion of the spleen and the pancreas Patient advised to rotate in bed so as to allow herself to pass gas tolerating diet well, she will need to have ERCP with stent removal and the next few weeks once she is over her pneumonia Continue with current supportive care 05-08-17 doing ok, LFTs improving, pneumonia resolving OK to [place] home patient is going to [facility] FU with Dr. Brown for stent removal or exchange Luna Stovall MD May 08, 2017 09:44
[2017-05-08 10:37] VITALS: RESP 18
== END 2017-05-08 10:45 | disposition home health service (06) | DRG 871 ==
LOC: PHEFT 19:31 → PHEDA 22:40 → PH5A 04-30 01:50
PROVIDERS: ADMIT Family Medicine; ATTEND Family Medicine
DX: A41.9 Sepsis, unspecified organism (principal); J18.9 Pneumonia, unspecified organism; E46 Unspecified protein-calorie malnutrition; G62.9 Polyneuropathy, unspecified; N39.0 Urinary tract infection, site not specified; R16.1 Splenomegaly, not elsewhere classified; E87.1 Hypo-osmolality and hyponatremia; K76.0 Fatty (change of) liver, not elsewhere classified; J44.0 Chronic obstructive pulmonary disease with (acute) lower respiratory infection; J98.11 Atelectasis; Z68.1 Body mass index [BMI] 19.9 or less, adult; E83.42 Hypomagnesemia; D64.9 Anemia, unspecified; E89.0 Postprocedural hypothyroidism; E87.6 Hypokalemia; I70.1 Atherosclerosis of renal artery; Z85.3 Personal history of malignant neoplasm of breast; R19.7 Diarrhea, unspecified; R60.0 Localized edema; M41.9 Scoliosis, unspecified; Y95 Nosocomial condition; F17.210 Nicotine dependence, cigarettes, uncomplicated; R10.9 Unspecified abdominal pain; R14.0 Abdominal distension (gaseous); Z88.0 Allergy status to penicillin; I48.91 Unspecified atrial fibrillation
CPT/HCPCS: 36600; 71010; 71020; 71260; 74174; 74176; 76937; 80048; 80053; 80076; 81001; 82272; 82607; 82747; 82805; 83540; 83550; 83615; 83690; 83735; 83880; 84155; 84484; 85025; 86301; 86850; 86900; 86901; 87040; 87070; 87086; 87205; 87449; 93005; 94060; 94150; 94664; 96365; J0692; J1650; J1956; J2405; J2920; J3370; J7030; J7050; J7512; J7613; Q9967